=== PATIENT | male | born 1950 | race Caucasian/White ===

== ENCOUNTER 2018-08-23 08:30 | Outpatient (RCR) | payer MEDICARE, OTHER, SELFPAY ==
[2018-08-02 11:22] VITALS: BP 129/56; PULSE 68; RESP 18; TEMP 37.3; BMI 31.8
--- NOTE | 2018-08-02 12:54 | PCM.WC.HP ---
(1) Ulcer of right lower extremity with fat layer exposed Status: Acute Current Visit: Yes Code(s): L97.912 - Non-pressure chronic ulcer of unspecified part of right lower leg with fat layer exposed (2) Ulcer of left lower extremity with fat layer exposed Status: Acute Current Visit: Yes Code(s): L97.922 - Non-pressure chronic ulcer of unspecified part of left lower leg with fat layer exposed (3) PVD (peripheral vascular disease) Status: Suspected Current Visit: Yes Code(s): I73.9 - Peripheral vascular disease, unspecified (4) Pain of right lower extremity Status: Acute Current Visit: Yes Code(s): M79.604 - Pain in right leg (5) Pain of left lower extremity Status: Acute Current Visit: Yes Code(s): M79.605 - Pain in left leg (6) Controlled diabetes mellitus Status: Acute Current Visit: Yes Code(s): E11.9 - Type 2 diabetes mellitus without complications (7) Agent orange exposure Status: Acute Current Visit: Yes Code(s): Z77.098 - Contact with and (suspected) exposure to other hazardous, chiefly nonmedicinal, chemicals History of Present Illness Date of Service: 08/02/18 Chief Complaint: Bilateral lower extremity ulcers History of Wound: This 67-year-old diabetic male presents to the wound healing center today after being referred from his primary care physician for bilateral lower extremity ulcers. Patient denies any injury or trauma to the area. He says he noticed some swelling to each of his lower legs as well as some redness around July 17. He states that his primary care doctor placed him on Bactrim DS and the redness and swelling began to subside. As this was happening, he said the skin broke down and he noticed some ulcers to both his right and left lower legs. The patient also relates that he has an ulcer to the top of his left second toe. Patient denies noticing any purulence to the areas and says he has been dressing the ulcer sites on his own with Neosporin. He currently denies any feelings of nausea, vomiting, fever, chills. Past Medical History Allergies/Adverse Reactions: Allergies No Known Allergies Allergy (Verified 08/02/18 11:43) Home Medications: Ambulatory Orders Medication Instructions Recorded Aspirin [Aspirin, Baby] 81 mg PO DAILY@0800 08/02/18 Cholecalciferol (Vitamin D3) 2,000 unit PO DAILY 08/02/18 [Vitamin D3] Cyanocobalamin (Vitamin B-12) 2,000 mcg PO DAILY 08/02/18 [Vitamin B-12] Empagliflozin [Jardiance] 25 mg PO DAILY 08/02/18 Gabapentin [Neurontin] 400 mg PO DAILY 08/02/18 Insulin Glargine,Hum.rec.anlog 55 unit SQ DAILY 08/02/18 [Lantus] Losartan Potassium 100 mg BC DAILY 08/02/18 Metformin HCl 1,000 mg BC DAILY 08/02/18 Multivit-Min/Iron Fum/Folic AC 1 each PO DAILY 08/02/18 [Ovvxu-Iohmzuv-Uwscejrq Tablet] Smz/Tmp Ds [Bactrim Ds] 1 tablet PO BID 08/02/18 Triamcinolone Acetonide [Nasacort] 2 spray NS DAILY 08/02/18 Smoking Status: Never smoker Review of Systems Constitutional: Denies: Chills, Fever, Weight Change Cardiovascular: Denies: Chest Pain, Palpitations Respiratory: Denies: Cough, Shortness of Breath Gastrointestinal: Denies: Diarrhea, Nausea, Vomiting Skin: Reports: - - Bilateral lower extremity ulcers - Physical Exam Vital Signs Temp Pulse Resp BP 99.1 F 68 18 129/56 H 08/02/18 11:22 08/02/18 11:22 08/02/18 11:22 08/02/18 11:22 General: Alert, Oriented x3, Cooperative, No apparent distress Extremities: Capillary Refill Less than 3 Seconds - To distal digits bilateral, No Calf Tenderness - Negative Ana and Koch signs bilateral, Diminished Peripheral Pulses - Faintly palpable DP and PT pulses bilateral, Edema - Bilateral lower extremity edema, - - Lower extremity varicosities appreciated bilateral Skin: Ulcer/ Wound - Ulcer cluster to right anterior murrell as well and ulcer to right medial calf with fat layer exposed. The bases of these sites are noted to be a majority of adherent slough, fibrin, biofilm, and scant granular tissue. There is undermining and tracking appreciated to each of these ulcer sites. There is no purulence, no malodor, no extending cellulitis, no increased warmth, no probing to bone. Ulcer to right lateral lower leg and left posterior calf with fat layer exposed. Measurements noted. The bases are noted to be a mixture of adherent slough, fibrin, biofilm, scant granular tissue. There is no purulence, no surrounding cellulitis, no increased warmth, no malodor, no probing to bone, no tracking, no undermining. Ulcer to left second toe with fat layer exposed and measurements noted below. Base is a mixture of adherent slough, granular tissue, hyperkeratotic tissue. There is no probing to bone, no tracking, no undermining, no purulence, no surrounding cellulitis, no malodor. Wound Measurements and Assessment WC - Nurse 1 - General Ulcer Measurement Start: 08/02/18 11:19 Freq: Status: Active Protocol: Activity Type Activity Date Activity User E-Sign Co-Sign Detail Recorded Client Recorded Date Recorded By Document 08/02/18 11:22 RB [id number] 08/02/18 11:33 RB 08/02/18 11:22 Wound Center Nurse 1 [Ulcer Assessment] 5. RLE medial -Combined with other wound No -Current Size (cm) - Length 1.1 -Current Size (cm) - Width 1.1 -Current Size (cm) - Depth 0.5 -Total Square Cm 1.21 -Photo Taken Yes -Tunneling No -Undermining/Tunneling Yes -Undermining/Tunneling Starts (O' 10 clock) -Undermining/Tunneling Ends (O'clock) 11 -Maximum Distance (cm) 0.6 -Circular Undermining No -Exudate Amt Small -Exudate Type Serosanguineous -Wound Margin Thickened & Rolled Under -Granulation Amt Small (1-33%) -Granulation Quality [place] -Slough/Fibrin Yes -Necrosis Amt Large (67-100%) -Necrotic Tissue Type Adherent Slough -Structure Exposed N/A -Texture (Olya-wound Skin Appearance) Assessed -Moisture (Olya-wound Skin Appearance Assessed ) -Color (Olya-wound Skin Appearance) Hemosiderin Staining -Temperature (Olya-wound Skin No Abnormality Appearance) (Pt Warm) -Tenderness on Palpation (Olya-wound No Skin Appearance) -Ulcer Cleansing Rinsed/ Irrigated with Saline -Foul Odor after Cleansing No -Anesthetic Used 5% Lidocaine Gel 4. RLE murrell cluster -Combined with other wound No -Current Size (cm) - Length 4 -Current Size (cm) - Width 0.9 -Current Size (cm) - Depth 1.1 -Total Square Cm 3.6 -Photo Taken Yes -Tunneling No -Undermining/Tunneling No -Circular Undermining No -Exudate Amt Small -Exudate Type Serosanguineous -Wound Margin Thickened & Rolled Under -Granulation Amt None Present (0 %) -Granulation Quality [place] -Slough/Fibrin Yes -Necrosis Amt Large (67-100%) -Necrotic Tissue Type Adherent Slough -Structure Exposed N/A -Texture (Olya-wound Skin Appearance) Assessed -Moisture (Olya-wound Skin Appearance Assessed ) -Color (Olya-wound Skin Appearance) Hemosiderin Staining -Temperature (Olya-wound Skin No Abnormality Appearance) (Pt Warm) -Tenderness on Palpation (Olya-wound No Skin Appearance) -Ulcer Cleansing Rinsed/ Irrigated with Saline -Foul Odor after Cleansing No -Anesthetic Used 5% Lidocaine Gel 3. R lateral LE -Combined with other wound No -Current Size (cm) - Length 1.2 -Current Size (cm) - Width 2 -Current Size (cm) - Depth 0.2 -Total Square Cm 2.4 -Photo Taken Yes -Tunneling No -Undermining/Tunneling No -Circular Undermining No -Exudate Amt Small -Exudate Type Serosanguineous -Wound Margin Thickened & Rolled Under -Granulation Amt Small (1-33%) -Granulation Quality [place] -Necrosis Amt Large (67-100%) -Necrotic Tissue Type Adherent Slough -Structure Exposed N/A -Texture (Olya-wound Skin Appearance) Assessed -Moisture (Olya-wound Skin Appearance Assessed ) -Color (Olya-wound Skin Appearance) Hemosiderin Staining -Temperature (Olya-wound Skin No Abnormality Appearance) (Pt Warm) -Tenderness on Palpation (Olya-wound No Skin Appearance) -Ulcer Cleansing Rinsed/ Irrigated with Saline -Foul Odor after Cleansing No -Anesthetic Used 5% Lidocaine Gel 2. L 2nd toe anterior -Combined with other wound No -Current Size (cm) - Length 0.7 -Current Size (cm) - Width 0.5 -Current Size (cm) - Depth 0.2 -Total Square Cm 0.35 -Photo Taken Yes -Tunneling No -Undermining/Tunneling No -Circular Undermining No -Exudate Amt Small -Exudate Type Serosanguineous -Wound Margin Distinct, Outline Attached -Granulation Amt Medium (34-66%) -Granulation Quality Red -Slough/Fibrin Yes -Necrosis Amt Small (1-33%) -Necrotic Tissue Type Adherent Slough -Structure Exposed N/A -Texture (Olya-wound Skin Appearance) Assessed -Moisture (Olya-wound Skin Appearance Assessed ) -Color (Olya-wound Skin Appearance) Assessed -Temperature (Olya-wound Skin No Abnormality Appearance) (Pt Warm) -Tenderness on Palpation (Olya-wound No Skin Appearance) -Ulcer Cleansing Rinsed/ Irrigated with Saline -Foul Odor after Cleansing No -Anesthetic Used 5% Lidocaine Gel 1. L calf posterior -Combined with other wound No -Current Size (cm) - Length 1 -Current Size (cm) - Width 1 -Current Size (cm) - Depth 0.2 -Total Square Cm 1 -Photo Taken Yes -Tunneling No -Undermining/Tunneling No -Circular Undermining No -Exudate Amt Small -Exudate Type Serosanguineous -Wound Margin Thickened & Rolled Under -Granulation Amt Small (1-33%) -Granulation Quality [place] -Slough/Fibrin Yes -Necrosis Amt Large (67-100%) -Necrotic Tissue Type Adherent Slough -Structure Exposed N/A -Texture (Olya-wound Skin Appearance) Assessed -Moisture (Olya-wound Skin Appearance Assessed ) -Color (Olya-wound Skin Appearance) Hemosiderin Staining -Temperature (Olya-wound Skin No Abnormality Appearance) (Pt Warm) -Tenderness on Palpation (Olya-wound No Skin Appearance) -Ulcer Cleansing Rinsed/ Irrigated with Saline -Foul Odor after Cleansing No -Anesthetic Used 5% Lidocaine Gel [Edema Assessment] -Lower Limb Edema Present Yes -Right Calf (cm) 39 -Right Ankle (cm) 27.5 -Left Calf (cm) 38.4 -Left Ankle (cm) 26.5 WC - Nurse 2 - General Ulcer CM Notes Start: 08/02/18 11:19 Freq: Status: Active Protocol: Activity Type Activity Date Activity User E-Sign Co-Sign Detail Recorded Client Recorded Date Recorded By Document 08/02/18 12:00 DV [id number] 08/02/18 12:30 DV 08/02/18 12:00 Wound Center Nurse 2 [Procedure/Treatment] 5. RLE medial -Time 12:02 -Correct Patient Yes -Correct Side, Site, Position Yes -Correct Procedure Yes -Procedure Performed Yes -Type of Procedure Debridement -Clinical Debridement Subcutaneous -Post Debridement Size (cm) - Length 1.1 -Post Debridement Size (cm) - Width 1.1 -Post Debridement Size (cm) - Depth 1.0 -Total Square Cm 1.21 -Wound/Ulcer Outcome Not Healed -Ulcer Cleansing Rinsed/ Irrigated with Saline -Foul Odor after Cleansing Yes -Bioengineered Tissue No -Bleeding Controlled with Pressure -Offloading No -Treatment Response Procedure Tolerated Well 4. RLE murrell cluster -Time 12:03 -Correct Patient Yes -Correct Side, Site, Position Yes -Correct Procedure Yes -Procedure Performed Yes -Type of Procedure Debridement -Clinical Debridement Subcutaneous -Post Debridement Size (cm) - Length 4.1 -Post Debridement Size (cm) - Width 1.0 -Post Debridement Size (cm) - Depth 2.5 -Total Square Cm 4.10 -Wound/Ulcer Outcome Not Healed -Ulcer Cleansing Rinsed/ Irrigated with Saline -Foul Odor after Cleansing No -Bioengineered Tissue No -Bleeding Controlled with Pressure -Offloading No -Treatment Response Procedure Tolerated Well 3. R lateral LE -Time 12:04 -Correct Patient Yes -Correct Side, Site, Position Yes -Correct Procedure Yes -Procedure Performed Yes -Type of Procedure Debridement -Clinical Debridement Subcutaneous -Post Debridement Size (cm) - Length 1.1 -Post Debridement Size (cm) - Width 2.0 -Post Debridement Size (cm) - Depth 0.3 -Total Square Cm 2.20 -Wound/Ulcer Outcome Not Healed -Ulcer Cleansing Rinsed/ Irrigated with Saline -Foul Odor after Cleansing No -Bioengineered Tissue No -Bleeding Controlled with Pressure 2. L 2nd toe anterior -Time 12:04 -Correct Patient Yes -Correct Side, Site, Position Yes -Correct Procedure Yes -Procedure Performed Yes -Type of Procedure Debridement -Clinical Debridement Subcutaneous -Post Debridement Size (cm) - Length 1.6 -Post Debridement Size (cm) - Width 0.7 -Post Debridement Size (cm) - Depth 0.1 -Total Square Cm 1.12 -Wound/Ulcer Outcome Not Healed -Ulcer Cleansing Rinsed/ Irrigated with Saline -Foul Odor after Cleansing No -Bioengineered Tissue No -Bleeding Controlled with Pressure -Offloading No -Treatment Response Procedure Tolerated Well 1. L calf posterior -Time 12:19 -Correct Patient Yes -Correct Side, Site, Position Yes -Correct Procedure Yes -Procedure Performed Yes -Type of Procedure Debridement -Clinical Debridement Subcutaneous -Post Debridement Size (cm) - Length 1.0 -Post Debridement Size (cm) - Width 1.1 -Post Debridement Size (cm) - Depth 0.1 -Total Square Cm 1.10 -Wound/Ulcer Outcome Not Healed -Bleeding Controlled with Pressure -Offloading No -Treatment Response Procedure Tolerated Well [See Physician Procedure note for Specifics] Pain Scale: 0-10 Numeric [Pain] -Is Patient Pain Free? No [Location] RLE -Description Sharp Throbbing Burning -Intensity 6 Query Text:If >3, intervention needed -Duration (hours) Acute -Pain Behavior Withdrawal from Touch Facial Grimacing -Pain Aggravating Factors ADL's -Alleviating Factors/Interventions Medication Emotional Support -Effectiveness of Alleviating Factor/ Moderately Intervention effective Musculoskeletal: Tenderness - With manipulation of ulcer sites Neurological: Sensory exam intact to light touch and pain Psych/Mental Status: Normal Affect, Appropriate Debridement Note Post-Debridement Measurements/Treatment WC - Nurse 2 - General Ulcer CM Notes Start: 08/02/18 11:19 Freq: Status: Active Protocol: Activity Type Activity Date Activity User E-Sign Co-Sign Detail Recorded Client Recorded Date Recorded By Document 08/02/18 12:00 [id number] 08/02/18 12:30 DV 08/02/18 12:00 Wound Center Nurse 2 5. RLE medial -Time 12:02 -Correct Patient Yes -Correct Side, Site, Position Yes -Correct Procedure Yes -Procedure Performed Yes -Type of Procedure Debridement -Clinical Debridement Subcutaneous -Post Debridement Size (cm) - Length 1.1 -Post Debridement Size (cm) - Width 1.1 -Post Debridement Size (cm) - Depth 1.0 -Total Square Cm 1.21 -Wound/Ulcer Outcome Not Healed -Ulcer Cleansing Rinsed/ Irrigated with Saline -Foul Odor after Cleansing Yes -Bioengineered Tissue No -Bleeding Controlled with Pressure -Offloading No -Treatment Response Procedure Tolerated Well 4. RLE murrell cluster -Time 12:03 -Correct Patient Yes -Correct Side, Site, Position Yes -Correct Procedure Yes -Procedure Performed Yes -Type of Procedure Debridement -Clinical Debridement Subcutaneous -Post Debridement Size (cm) - Length 4.1 -Post Debridement Size (cm) - Width 1.0 -Post Debridement Size (cm) - Depth 2.5 -Total Square Cm 4.10 -Wound/Ulcer Outcome Not Healed -Ulcer Cleansing Rinsed/ Irrigated with Saline -Foul Odor after Cleansing No -Bioengineered Tissue No -Bleeding Controlled with Pressure -Offloading No -Treatment Response Procedure Tolerated Well 3. R lateral LE -Time 12:04 -Correct Patient Yes -Correct Side, Site, Position Yes -Correct Procedure Yes -Procedure Performed Yes -Type of Procedure Debridement -Clinical Debridement Subcutaneous -Post Debridement Size (cm) - Length 1.1 -Post Debridement Size (cm) - Width 2.0 -Post Debridement Size (cm) - Depth 0.3 -Total Square Cm 2.20 -Wound/Ulcer Outcome Not Healed -Ulcer Cleansing Rinsed/ Irrigated with Saline -Foul Odor after Cleansing No -Bioengineered Tissue No -Bleeding Controlled with Pressure 2. L 2nd toe anterior -Time 12:04 -Correct Patient Yes -Correct Side, Site, Position Yes -Correct Procedure Yes -Procedure Performed Yes -Type of Procedure Debridement -Clinical Debridement Subcutaneous -Post Debridement Size (cm) - Length 1.6 -Post Debridement Size (cm) - Width 0.7 -Post Debridement Size (cm) - Depth 0.1 -Total Square Cm 1.12 -Wound/Ulcer Outcome Not Healed -Ulcer Cleansing Rinsed/ Irrigated with Saline -Foul Odor after Cleansing No -Bioengineered Tissue No -Bleeding Controlled with Pressure -Offloading No -Treatment Response Procedure Tolerated Well 1. L calf posterior -Time 12:19 -Correct Patient Yes -Correct Side, Site, Position Yes -Correct Procedure Yes -Procedure Performed Yes -Type of Procedure Debridement -Clinical Debridement Subcutaneous -Post Debridement Size (cm) - Length 1.0 -Post Debridement Size (cm) - Width 1.1 -Post Debridement Size (cm) - Depth 0.1 -Total Square Cm 1.10 -Wound/Ulcer Outcome Not Healed -Bleeding Controlled with Pressure -Offloading No -Treatment Response Procedure Tolerated Well Pain Scale: 0-10 Numeric Is Patient Pain Free? No RLE -Description Sharp Throbbing Burning -Intensity 6 Query Text:If >3, intervention needed -Duration (hours) Acute -Pain Behavior Withdrawal from Touch Facial Grimacing -Pain Aggravating Factors ADL's -Alleviating Factors/Interventions Medication Emotional Support -Effectiveness of Alleviating Factor/ Moderately Intervention effective Wound debrided: Left posterior calf Laterality: Left Type of Debridement: Excisional debridement Anesthesia Used: 4% Lidocaine Solution Depth: in the subcutaneous layer Percentage of wound debrided: 100 Instrument Used: 5mm curette Tissue Removed: Adherent slough, fibrin, biofilm Severity: Fat Layer Exposed Amount of bleeding with debridement: Mild Bleeding Controlled with: Pressure Patient tolerated procedure well - Additional Wound Wound debrided: Left dorsal second toe Laterality: Left Type of Debridement: Excisional debridement Anesthesia Used: 4% Lidocaine Solution Depth: in the subcutaneous layer Percentage of wound debrided: 100 Instrument Used: #15 blade Tissue Removed: Adherent slough, hyperkeratotic tissue Severity: Fat Layer Exposed Amount of bleeding with debridement: Mild Bleeding Controlled with: Pressure Patient tolerated procedure: Patient tolerated procedure well - Additional Wound Wound debrided: Right lateral lower extremity Laterality: Right Type of Debridement: Excisional debridement Anesthesia Used: 4% Lidocaine Solution Depth: in the subcutaneous layer Percentage of wound debrided: 100 Instrument Used: 5mm curette Tissue Removed: Adherent slough, fibrin, biofilm Severity: Fat Layer Exposed Amount of bleeding with debridement: Mild Bleeding Controlled with: Pressure Patient tolerated procedure: Patient tolerated procedure well - Additional Wound Wound debrided: Right anterior murrell cluster Laterality: Right Type of Debridement: Excisional debridement Anesthesia Used: 4% Lidocaine Solution Depth: in the subcutaneous layer Percentage of wound debrided: 100 Instrument Used: 5mm curette, Forceps Tissue Removed: Adherent slough, fibrin, biofilm Severity: Fat Layer Exposed Amount of bleeding with debridement: Mild Bleeding Controlled with: Pressure Patient tolerated procedure: Patient tolerated procedure well - Additional Wound Wound debrided: Right proximal medial calf Laterality: Right Type of Debridement: Excisional debridement Anesthesia Used: 4% Lidocaine Solution Depth: in the subcutaneous layer Percentage of wound debrided: 100 Instrument Used: 5mm curette Tissue Removed: Adherent slough, fibrin, biofilm Severity: Fat Layer Exposed Amount of bleeding with debridement: Mild Bleeding Controlled with: Pressure Patient tolerated procedure: Patient tolerated procedure well Assessment/Plan Active Problems Ulcer of right lower extremity with fat layer exposed (Acute) Ulcer of left lower extremity with fat layer exposed (Acute) Agent orange exposure (Acute) Pain of right lower extremity (Acute) Pain of left lower extremity (Acute) Controlled diabetes mellitus (Acute) Assessment: Ulcer of right and left lower extremity and left dorsal 2nd toe with fat later exposed, DM II, pain to right and left LE, other comorbidities Plan: Initial patient examination and evaluation was performed in [facility] detail with the patient's in the room. An excisional subcutaneous debridement was performed as noted in the clinical panel to each ulcer site today. Once complete each ulcer site was then dressed with Aquacel Ag to the base, making sure to fill in the tunneling areas that were noted. This was then covered by dry sterile dressing followed by Tubigrip for compression. Dressing supplies were ordered for the patient. The patient is to change her dressing in this manner on a daily basis. The importance of keeping these ulcer sites offloaded was discussed in great detail with the patient and his today. The patient is currently on Bactrim DS and is to continue this prescription until complete as prescribed by his primary care doctor. New cultures were taken today and sent for aerobic, anaerobic, and MRSA PCR evaluation. Patient had blood work drawn recently by his primary care doctor and we will have these results faxed to us. LEAS and venous Doppler exams were ordered. We will continue to monitor for these results. A right tib-fib x-ray was also ordered and the results from this will continue to be monitored as well. Patient was instructed to keep legs elevated while seated or lying down. I also recommend nutritional supplementation with a diet high in protein to help optimize ulcer healing potential. The patient and his were educated on all signs and symptoms of local and systemic infection, and they were instructed to go to the emergency room immediately should they notice any of these. All other questions were answered to the patient and his 's satisfaction. The patient will follow back up in clinic in 1 week to check on progress, or sooner if needed.
[2018-08-09 08:26] VITALS: BP 142/62; PULSE 63; RESP 18; TEMP 37.2; BMI 31.8
--- NOTE | 2018-08-09 09:38 | PN.PCM_ITS ---
(1) Ulcer of right lower extremity with fat layer exposed Status: Acute Current Visit: Yes Code(s): L97.912 - Non-pressure chronic ulcer of unspecified part of right lower leg with fat layer exposed (2) Ulcer of left lower extremity with fat layer exposed Status: Acute Current Visit: Yes Code(s): L97.922 - Non-pressure chronic ulcer of unspecified part of left lower leg with fat layer exposed (3) PVD (peripheral vascular disease) Status: Suspected Current Visit: Yes Code(s): I73.9 - Peripheral vascular disease, unspecified (4) Pain of right lower extremity Status: Acute Current Visit: Yes Code(s): M79.604 - Pain in right leg (5) Pain of left lower extremity Status: Acute Current Visit: Yes Code(s): M79.605 - Pain in left leg (6) Controlled diabetes mellitus Status: Acute Current Visit: Yes Code(s): E11.9 - Type 2 diabetes mellitus without complications (7) Agent orange exposure Status: Acute Current Visit: Yes Code(s): Z77.098 - Contact with and (suspected) exposure to other hazardous, chiefly nonmedicinal, chemicals Type of Wound Chief Complaint: Bilateral lower extremity ulcers History of Wound: This 67-year-old diabetic male presents to the wound healing center today after being referred from his primary care physician for bilateral lower extremity ulcers. Patient denies any injury or trauma to the area. He says he noticed some swelling to each of his lower legs as well as some redness around July 17. He states that his primary care doctor placed him on Bactrim DS and the redness and swelling began to subside. As this was happening, he said the skin broke down and he noticed some ulcers to both his right and left lower legs. The patient also relates that he has an ulcer to the top of his left second toe. Patient denies noticing any purulence to the areas and says he has been dressing the ulcer sites on his own with Neosporin. He currently denies any feelings of nausea, vomiting, fever, chills. Progress of Wound: Slow improvement to ulcer bases bilateral noted this week. Patient has been having aquacel ag dressing changes daily with help of his . Patient says his pain has significantly improved. He denies any feelings of nausea, vomiting, fever, or chills. - Physical Exam Vital Signs Temp Pulse Resp BP 99.0 F 63 18 142/62 H 08/09/18 08:26 08/09/18 08:26 08/09/18 08:26 08/09/18 08:26 General: Alert, Oriented x3, Cooperative, No apparent distress Extremities: Capillary Refill Less than 3 Seconds - To distal digits bilateral, No Calf Tenderness - Negative Ana and Koch signs bilateral, Diminished Peripheral Pulses - Faintly palpable DP and PT pulses bilateral, Edema - Bilateral lower extremity edema, - - Lower extremity varicosities appreciated bilateral Skin: Ulcer/ Wound - Ulcer cluster to right anterior murrell as well and ulcer to right medial calf with fat layer exposed. The bases of these sites are noted to be a mixture of adherent slough, fibrin, biofilm, and increasing amount of granular tissue. There is undermining and tracking appreciated to each of these ulcer sites and is no worse than last week. There is no purulence, no malodor, no extending cellulitis, no increased warmth, no probing to bone. Ulcer to right lateral lower leg and left posterior calf with fat layer exposed. Measurements noted. The bases are noted to be a mixture of adherent slough, fibrin, biofilm, scant granular tissue. There is no purulence, no surrounding cellulitis, no increased warmth, no malodor, no probing to bone, no tracking, no undermining. Ulcer to left second toe with fat layer exposed and measurements noted below. Base is a mixture of adherent slough, granular tissue, hyperkeratotic tissue. There is no probing to bone, no tracking, no undermining, no purulence, no surrounding cellulitis, no malodor., - - Bilateral hemosiderin skin changes to lower extremities Wound Measurements and Assessment WC - Nurse 1 - General Ulcer Measurement Start: 08/02/18 11:19 Freq: Status: Active Protocol: Activity Type Activity Date Activity User E-Sign Co-Sign Detail Recorded Client Recorded Date Recorded By Document 08/09/18 08:26 [place] [id number] 08/09/18 08:46 [place] 08/09/18 08:26 Wound Center Nurse 1 [Ulcer Assessment] #5 Medial RLE -Current Size (cm) - Length 1.4 -Current Size (cm) - Width 1.2 -Current Size (cm) - Depth 0.9 -Total Square Cm 1.68 -Photo Taken No -Tunneling Position (O'clock) 10 -Tunneling Distance (cm) 2.5 -Exudate Amt Medium -Exudate Type Serosanguineous -Wound Margin Distinct, Outline Attached -Granulation Amt Large (67-100%) -Granulation Quality Red -Necrosis Amt Small (1-33%) -Necrotic Tissue Type Adherent Slough -Structure Exposed N/A -Texture (Olya-wound Skin Appearance) Localized Edema Scarring -Moisture (Olya-wound Skin Appearance Dry/Scaly ) -Color (Olya-wound Skin Appearance) Hemosiderin Staining -Temperature (Olya-wound Skin No Abnormality Appearance) (Pt Warm) -Tenderness on Palpation (Olya-wound No Skin Appearance) -Ulcer Cleansing Wound Cleanser -Foul Odor after Cleansing No -Anesthetic Used 5% Lidocaine Gel #4 RLE Murrell- Cluster -Current Size (cm) - Length 4 -Current Size (cm) - Width 1 -Current Size (cm) - Depth 1 -Total Square Cm 4 -Photo Taken No -Tunneling Position (O'clock) 12 -Tunneling Distance (cm) 5.5 -Exudate Amt Medium -Exudate Type Serosanguineous -Wound Margin Distinct, Outline Attached -Granulation Amt Large (67-100%) -Granulation Quality Red -Necrosis Amt Small (1-33%) -Necrotic Tissue Type Adherent Slough -Structure Exposed N/A -Texture (Olya-wound Skin Appearance) Localized Edema Scarring -Moisture (Olya-wound Skin Appearance Dry/Scaly ) -Color (Olya-wound Skin Appearance) Hemosiderin Staining -Temperature (Olya-wound Skin No Abnormality Appearance) (Pt Warm) -Tenderness on Palpation (Olya-wound No Skin Appearance) -Ulcer Cleansing Wound Cleanser -Foul Odor after Cleansing No -Anesthetic Used 5% Lidocaine Gel #3 Lateral RLE -Current Size (cm) - Length 1 -Current Size (cm) - Width 3 -Current Size (cm) - Depth 0.2 -Total Square Cm 3 -Photo Taken No -Exudate Amt Small -Exudate Type Yellow/Green -Wound Margin Distinct, Outline Attached -Granulation Amt None Present (0 %) -Slough/Fibrin Yes -Necrosis Amt Large (67-100%) -Necrotic Tissue Type Adherent Slough -Structure Exposed N/A -Texture (Olya-wound Skin Appearance) Localized Edema Scarring -Moisture (Olya-wound Skin Appearance Dry/Scaly ) -Color (Olya-wound Skin Appearance) Hemosiderin Staining -Temperature (Olya-wound Skin No Abnormality Appearance) (Pt Warm) -Tenderness on Palpation (Olya-wound No Skin Appearance) -Ulcer Cleansing Wound Cleanser -Foul Odor after Cleansing No -Anesthetic Used 5% Lidocaine Gel #2 Left 2nd Toe -Current Size (cm) - Length 1.5 -Current Size (cm) - Width 0.5 -Current Size (cm) - Depth 0.1 -Total Square Cm 0.75 -Photo Taken No -Exudate Amt None Present -Wound Margin Distinct, Outline Attached -Granulation Amt Large (67-100%) -Granulation Quality [place] -Necrosis Amt None Present (0 %) -Structure Exposed N/A -Texture (Olya-wound Skin Appearance) Localized Edema Scarring -Moisture (Olya-wound Skin Appearance Dry/Scaly ) -Color (Olya-wound Skin Appearance) Hemosiderin Staining -Temperature (Olya-wound Skin No Abnormality Appearance) (Pt Warm) -Tenderness on Palpation (Olya-wound Yes Skin Appearance) -Ulcer Cleansing Wound Cleanser -Foul Odor after Cleansing No -Anesthetic Used 5% Lidocaine Gel #1 Left Posterior Calf -Current Size (cm) - Length 1.2 -Current Size (cm) - Width 1 -Current Size (cm) - Depth 0.2 -Total Square Cm 1.2 -Photo Taken No -Exudate Amt Small -Exudate Type Serosanguineous -Wound Margin Distinct, Outline Attached -Granulation Amt Medium (34-66%) -Granulation Quality Red -Necrosis Amt Medium (34-66%) -Necrotic Tissue Type Adherent Slough -Structure Exposed N/A -Texture (Olya-wound Skin Appearance) Scarring -Moisture (Olya-wound Skin Appearance Dry/Scaly ) -Color (Olya-wound Skin Appearance) Hemosiderin Staining -Temperature (Olya-wound Skin No Abnormality Appearance) (Pt Warm) -Tenderness on Palpation (Olya-wound No Skin Appearance) -Ulcer Cleansing Wound Cleanser -Foul Odor after Cleansing No -Anesthetic Used 5% Lidocaine Gel [Edema Assessment] -Right Calf (cm) 38 -Right Ankle (cm) 26.2 -Left Calf (cm) 38 -Left Ankle (cm) 26 Musculoskeletal: Tenderness - With manipulation of ulcer sites Neurological: Sensory exam intact to light touch and pain Psych/Mental Status: Normal Affect, Appropriate Debridement Note Post-Debridement Measurements/Treatment WC - Nurse 2 - General Ulcer CM Notes Start: 08/02/18 11:19 Freq: Status: Active Protocol: Activity Type Activity Date Activity User E-Sign Co-Sign Detail Recorded Client Recorded Date Recorded By Document 08/02/18 12:00 DV [id number] 08/02/18 12:30 DV 08/02/18 12:00 Wound Center Nurse 2 #5 Medial RLE -Time 12:02 -Correct Patient Yes -Correct Side, Site, Position Yes -Correct Procedure Yes -Procedure Performed Yes -Type of Procedure Debridement -Clinical Debridement Subcutaneous -Post Debridement Size (cm) - Length 1.1 -Post Debridement Size (cm) - Width 1.1 -Post Debridement Size (cm) - Depth 1.0 -Total Square Cm 1.21 -Wound/Ulcer Outcome Not Healed -Ulcer Cleansing Rinsed/ Irrigated with Saline -Foul Odor after Cleansing Yes -Bioengineered Tissue No -Bleeding Controlled with Pressure -Offloading No -Treatment Response Procedure Tolerated Well #4 RLE Murrell- Cluster -Time 12:03 -Correct Patient Yes -Correct Side, Site, Position Yes -Correct Procedure Yes -Procedure Performed Yes -Type of Procedure Debridement -Clinical Debridement Subcutaneous -Post Debridement Size (cm) - Length 4.1 -Post Debridement Size (cm) - Width 1.0 -Post Debridement Size (cm) - Depth 2.5 -Total Square Cm 4.10 -Wound/Ulcer Outcome Not Healed -Ulcer Cleansing Rinsed/ Irrigated with Saline -Foul Odor after Cleansing No -Bioengineered Tissue No -Bleeding Controlled with Pressure -Offloading No -Treatment Response Procedure Tolerated Well #3 Lateral RLE -Time 12:04 -Correct Patient Yes -Correct Side, Site, Position Yes -Correct Procedure Yes -Procedure Performed Yes -Type of Procedure Debridement -Clinical Debridement Subcutaneous -Post Debridement Size (cm) - Length 1.1 -Post Debridement Size (cm) - Width 2.0 -Post Debridement Size (cm) - Depth 0.3 -Total Square Cm 2.20 -Wound/Ulcer Outcome Not Healed -Ulcer Cleansing Rinsed/ Irrigated with Saline -Foul Odor after Cleansing No -Bioengineered Tissue No -Bleeding Controlled with Pressure #2 Left 2nd Toe -Time 12:04 -Correct Patient Yes -Correct Side, Site, Position Yes -Correct Procedure Yes -Procedure Performed Yes -Type of Procedure Debridement -Clinical Debridement Subcutaneous -Post Debridement Size (cm) - Length 1.6 -Post Debridement Size (cm) - Width 0.7 -Post Debridement Size (cm) - Depth 0.1 -Total Square Cm 1.12 -Wound/Ulcer Outcome Not Healed -Ulcer Cleansing Rinsed/ Irrigated with Saline -Foul Odor after Cleansing No -Bioengineered Tissue No -Bleeding Controlled with Pressure -Offloading No -Treatment Response Procedure Tolerated Well #1 Left Posterior Calf -Time 12:19 -Correct Patient Yes -Correct Side, Site, Position Yes -Correct Procedure Yes -Procedure Performed Yes -Type of Procedure Debridement -Clinical Debridement Subcutaneous -Post Debridement Size (cm) - Length 1.0 -Post Debridement Size (cm) - Width 1.1 -Post Debridement Size (cm) - Depth 0.1 -Total Square Cm 1.10 -Wound/Ulcer Outcome Not Healed -Bleeding Controlled with Pressure -Offloading No -Treatment Response Procedure Tolerated Well Pain Scale: 0-10 Numeric Is Patient Pain Free? No RLE -Description Sharp Throbbing Burning -Intensity 6 -Duration (hours) Acute -Pain Behavior Withdrawal from Touch Facial Grimacing -Pain Aggravating Factors ADL's -Alleviating Factors/Interventions Medication Emotional Support -Effectiveness of Alleviating Factor/ Moderately Intervention effective Wound debrided: Left posterior calf Laterality: Left Type of Debridement: Excisional debridement Anesthesia Used: 4% Lidocaine Solution Depth: in the subcutaneous layer Percentage of wound debrided: 100 Instrument Used: 5mm curette Tissue Removed: Adherent slough, fibrin, biofilm Severity: Fat Layer Exposed Amount of bleeding with debridement: Mild Bleeding Controlled with: Pressure Patient tolerated procedure well - Additional Wound Wound debrided: Left dorsal second toe Laterality: Left Type of Debridement: Excisional debridement Anesthesia Used: 4% Lidocaine Solution Depth: in the subcutaneous layer Percentage of wound debrided: 100 Instrument Used: 5mm curette Tissue Removed: Adherent slough, hyperkeratotic tissue Severity: Fat Layer Exposed Amount of bleeding with debridement: Mild Bleeding Controlled with: Pressure Patient tolerated procedure: Patient tolerated procedure well - Additional Wound Wound debrided: Right lateral lower extremity Laterality: Right Type of Debridement: Excisional debridement Anesthesia Used: 4% Lidocaine Solution Depth: in the subcutaneous layer Percentage of wound debrided: 100 Instrument Used: 5mm curette Tissue Removed: Adherent slough, fibrin, biofilm Severity: Limited To Skin Breakdown Amount of bleeding with debridement: Mild Bleeding Controlled with: Pressure Patient tolerated procedure: Patient tolerated procedure well - Additional Wound Wound debrided: Right anterior murrell cluster Laterality: Right Type of Debridement: Excisional debridement Anesthesia Used: 4% Lidocaine Solution Depth: in the subcutaneous layer Percentage of wound debrided: 100 Instrument Used: 5mm curette Tissue Removed: Adherent slough, fibrin, biofilm Severity: Fat Layer Exposed Amount of bleeding with debridement: Mild Bleeding Controlled with: Pressure Patient tolerated procedure: Patient tolerated procedure well - Additional Wound Wound debrided: Right proximal medial calf Laterality: Right Type of Debridement: Excisional debridement Anesthesia Used: 4% Lidocaine Solution Depth: in the subcutaneous layer Percentage of wound debrided: 100 Instrument Used: 5mm curette Tissue Removed: Adherent slough, fibrin, biofilm Severity: Fat Layer Exposed Amount of bleeding with debridement: Mild Bleeding Controlled with: Pressure Patient tolerated procedure: Patient tolerated procedure well Assessment/Plan Active Problems Ulcer of right lower extremity with fat layer exposed (Acute) Ulcer of left lower extremity with fat layer exposed (Acute) Agent orange exposure (Acute) Pain of right lower extremity (Acute) Pain of left lower extremity (Acute) Controlled diabetes mellitus (Acute) Assessment: Ulcer of right and left lower extremity and left dorsal 2nd toe with fat later exposed, DM II, pain to right and left LE, other comorbidities Plan: Patient was carefully examined and evaluated today with his present in the room. Another excisional subcutaneous debridement was performed as noted in the clinical panel to each ulcer site again today. Once complete each ulcer site was then dressed with Aquacel Ag to the base, making sure to fill in the tunneling areas that were noted. This was then covered by dry sterile dressing followed by Tubigrip for compression. The patient is to change his dressing in this manner on a daily basis with help of his . The importance of keeping these ulcer sites offloaded was discussed in great detail with the patient and his today. The patient finished his prescription for Bactrim DS and the prescription will be extended 10 more days. Cultures taken last week showed sufficient coverage with Bactrim DS. [facility] and showed no signs of leukocytosis. LEAS and venous Doppler exams will be completed next Monday. We will continue to monitor for these results. A right tib-fib x-ray was also ordered and the results from this will continue to be monitored as well. Patient was instructed to keep legs elevated while seated or lying down. I also recommend nutritional supplementation with a diet high in protein to help optimize ulcer healing potential. The patient and his were educated on all signs and symptoms of local and systemic infection, and they were instructed to go to the emergency room immediately should they notice any of these. All other questions were answered to the patient and his 's satisfaction. The patient will follow back up in clinic in 1 week to check on progress, or sooner if needed.
--- NOTE | 2018-08-15 09:00 | VDLE_ITS ---
Reason For Study: Non-healing wound RIGHT LEFT CFV is compressible, spontaneous, phasic, CFV is compressible, spontaneous, phasic, competent and demonstrates normal competent, and demonstrates normal augmentation. augmentation. FV is compressible, spontaneous, phasic, FV is compressible, spontaneous, phasic, competent and demonstrates normal competent and demonstrates normal augmentation. augmentation. POP V is compressible, spontaneous, phasic, POP V is compressible, spontaneous, phasic, competent and demonstrates normal competent and demonstrates normal augmentation. augmentation. T/P Trunk is compressible. T/P Trunk is compressible. PTV is compressible. PTV is compressible. RT PerV is compressible. LT PerV is compressible. GSV absent from SFJ to mid thigh. SFJ is competent GSV INCOMPETENT from mid thigh for short GSV is INCOMPETENT with reflux greater segment in thigh with reflux greater than .5 than .5 sec and diameter of .43 x .47 cm sec and diameter of .49 x .52 cm. SSV is INCOMPETENT with reflux greater GSV absent from distal thigh to prox calf. than .5 sec and diameter of .60 x .63 cm. GSV INCOMPETENT in calf with reflux greater than .5 sec SSV is INCOMPETENT with reflux greater than .5sec and diameter of .40 x .42 cm INCOMPETENT card player 13 cm prox to medial malleolus with reflux greater than .5 sec. Procedure Exam performed in department. A preliminary report was called and/or faxed to [facility]. Interpretation Summary Deep veins of the lower extremities are bilaterally patent and compressible segmentally. There is no evidence of deep vein thrombosis on either side. Valvular competence appears intact within the proximal deep venous systems bilaterally. The right great saphenous vein is absent from the right sapheno-femoral junction to the mid-thigh. The right great saphenous vein is incompetent from the mid-thigh to the distal thigh. The right great saphenous vein is absent from the distal thigh to the proximal calf, but is patent and incompetent more distally. The left great saphenous vein is patent and compressible. The left sapheno-femoral junction is competent. The left great saphenous vein is incompetent. Small saphenous veins are patent and incompetent bilaterally. An incompetent card player vein is noted in the right calf, located 13 centimeters proximal to the right medial malleolus. Ordering Physician: Benson Welsh Referring Physician: Benson Welsh Performed By: Raina Marin RVT
--- NOTE | 2018-08-15 09:00 | ART_ITS ---
Reason For Study: Non-healing wound Procedure A bilateral lower extremity continuous wave Doppler with analog waveform analysis,segmental pressures,and ankle brachial indexes without exercise. Left Segmental Pressures Left brachial= 122mmHg. Left posterior tibial artery = 158mmHg. Left dorsalis pedis artery = 150mmHg. Left digit = 100 mmHg. The left dorsalis pedis waveforms are biphasic. The left posterior tibial artery waveforms are triphasic. Right Segmental Pressures Right brachial= 113mmHg. Right posterior tibial artery = 159mmHg. Right dorsalis pedis artery = 145mmHg. Right digit = 132 mmHg. The right dorsalis pedis waveforms are triphasic. The right posterior tibial artery waveforms are triphasic. Indices The right ankle brachial index by the dorsalis pedis is 1.2. The right ankle brachial index by the posterior tibial artery is 1.3. The right digital-brachial index is 1.1. The left ankle brachial index by the dorsalis pedis is 1.2. The left ankle brachial index by the posterior tibial artery is 1.3. The left digital-brachial index is .82. Interpretation Summary Triphasic Doppler waveforms are noted at ankle level on the right. Triphasic and biphasic Doppler waveforms are noted at ankle level on the left. Pulse-volume recording waveform amplitudes are satisfactory at all levels bilaterally, including low-thigh, calf, ankle, and digital levels. Resting ankle-brachial indices are normal bilaterally. Digital-brachial indices are bilaterally normal. There is no evidence of significant arterial occlusive disease in the lower extremities bilaterally. Ordering Physician: Benson Welsh Referring Physician: Benson Welsh Performed By: Raina Marin RVT
--- NOTE | 2018-08-15 10:08 | RAD_ITS ---
STUDY: X-RAY - RIGHT TIBIA AND FIBULA REASON FOR EXAM: Male, 67 years old. Ulcers, 2 weeks TECHNIQUE: Frontal and lateral view(s) of the tibia and fibula were obtained. COMPARISON: None. FINDINGS: There is evidence of induration in the subcutaneous fat of the lower leg suggesting edema/cellulitis. Slightly more prominent induration in the anterior subcutaneous soft tissues at the level of the mid tibia. There is no soft tissue gas or radiodense foreign body. Osseous structures are unremarkable. There are mild to moderate peripheral arterial calcifications. RAD/Tibia & Fibula 2 Views IMPRESSION: Edema or cellulitis of the superficial soft tissues of the lower leg. No defined wound. No soft tissue gas or radiodense foreign body. No evidence of osteomyelitis. Electronically Signed: Elian Ordoñez MD at 17:44 EDT Tel , Service support ,
[2018-08-16 08:22] VITALS: BP 118/74; PULSE 79; RESP 18; TEMP 37.3; BMI 31.8
--- NOTE | 2018-08-16 09:56 | PN.PCM_ITS ---
(1) Ulcer of right lower extremity with fat layer exposed Status: Acute Current Visit: Yes Code(s): L97.912 - Non-pressure chronic ulcer of unspecified part of right lower leg with fat layer exposed (2) Ulcer of left lower extremity with fat layer exposed Status: Acute Current Visit: Yes Code(s): L97.922 - Non-pressure chronic ulcer of unspecified part of left lower leg with fat layer exposed (3) PVD (peripheral vascular disease) Status: Suspected Current Visit: Yes Code(s): I73.9 - Peripheral vascular disease, unspecified (4) Pain of right lower extremity Status: Acute Current Visit: Yes Code(s): M79.604 - Pain in right leg (5) Pain of left lower extremity Status: Acute Current Visit: Yes Code(s): M79.605 - Pain in left leg (6) Controlled diabetes mellitus Status: Acute Current Visit: Yes Code(s): E11.9 - Type 2 diabetes mellitus without complications (7) Agent orange exposure Status: Acute Current Visit: Yes Code(s): Z77.098 - Contact with and (suspected) exposure to other hazardous, chiefly nonmedicinal, chemicals Type of Wound Chief Complaint: Bilateral lower extremity ulcers History of Wound: This 67-year-old diabetic male presents to the wound healing center today after being referred from his primary care physician for bilateral lower extremity ulcers. Patient denies any injury or trauma to the area. He says he noticed some swelling to each of his lower legs as well as some redness around July 17. He states that his primary care doctor placed him on Bactrim DS and the redness and swelling began to subside. As this was happening, he said the skin broke down and he noticed some ulcers to both his right and left lower legs. The patient also relates that he has an ulcer to the top of his left second toe. Patient denies noticing any purulence to the areas and says he has been dressing the ulcer sites on his own with Neosporin. He currently denies any feelings of nausea, vomiting, fever, chills. Progress of Wound: Ulcers remain relatively stable this week. Patient has been having aquacel ag dressing changes daily with help of his . He denies any feelings of nausea, vomiting, fever, or chills. - Physical Exam Vital Signs Temp Pulse Resp BP 99.1 F 79 18 118/74 08/16/18 08:22 08/16/18 08:22 08/16/18 08:22 08/16/18 08:22 General: Alert, Oriented x3, Cooperative, No apparent distress Extremities: Capillary Refill Less than 3 Seconds, No Calf Tenderness - Negative Ana and Koch signs bilateral, Diminished Peripheral Pulses - Faintly palpable DP and PT pulses bilateral, Edema - Bilateral lower extremity edema, - - Lower extremity varicosities noted bilateral Skin: Ulcer/ Wound - Ulcer cluster to right anterior murrell as well and ulcer to right medial calf with fat layer exposed. The bases of these sites are noted to be a mixture of adherent slough, fibrin, biofilm, and increasing amount of granular tissue. There is undermining and tracking appreciated to each of these ulcer sites and is slightly improved from last week. There is no purulence, no malodor, no extending cellulitis, no increased warmth, no probing to bone. Ul cer to right lateral lower leg and left posterior calf with fat layer exposed. Measurements noted. The bases are noted to be a mixture of adherent slough, fibrin, biofilm, scant granular tissue. There is no purulence, no surrounding cellulitis, no increased warmth, no malodor, no probing to bone, no tracking, no undermining. Ulcer to left second toe with fat layer exposed and measurements noted below. Base is a mixture of adherent slough, granular tissue, hyperkeratotic tissue. There is no probing to bone, no tracking, no undermining, no purulence, no surrounding cellulitis, no malodor. Moderate drainge to each site., - - Bilateral hemosiderin skin changes to lower extremities Wound Measurements and Assessment WC - Nurse 1 - General Ulcer Measurement Start: 08/02/18 11:19 Freq: Status: Active Protocol: Activity Type Activity Date Activity User E-Sign Co-Sign Detail Recorded Client Recorded Date Recorded By Document 08/16/18 08:22 AN [id number] 08/16/18 08:48 AN 08/16/18 08:22 Wound Center Nurse 1 [Ulcer Assessment] #5 Medial RLE -Current Size (cm) - Length 1.2 -Current Size (cm) - Width 1.2 -Current Size (cm) - Depth 0.6 -Total Square Cm 1.44 -Classification - Thickness Full Thickness without Exposed Support Structure -Exudate Amt Medium -Exudate Type Serosanguineous -Wound Margin Distinct, Outline Attached -Granulation Amt Large (67-100%) -Granulation Quality Red -Slough/Fibrin Yes -Necrosis Amt Small (1-33%) -Necrotic Tissue Type Adherent Slough -Structure Exposed Fat Layer Exposed -Texture (Olya-wound Skin Appearance) Assessed Localized Edema -Moisture (Olya-wound Skin Appearance Assessed ) Dry/Scaly -Color (Olya-wound Skin Appearance) Assessed -Temperature (Olya-wound Skin Cool/Cold Appearance) -Tenderness on Palpation (Olya-wound No Skin Appearance) -Ulcer Cleansing Rinsed/ Irrigated with Saline -Foul Odor after Cleansing No -Anesthetic Used 4% Lidocaine Solution #4 RLE Murrell- Cluster -Current Size (cm) - Length 3.8 -Current Size (cm) - Width 0.7 -Current Size (cm) - Depth 0.6 -Total Square Cm 2.66 -Tunneling Yes -Tunneling Position (O'clock) 12 -Tunneling Distance (cm) 1.8 -Classification - Thickness Full Thickness without Exposed Support Structure -Exudate Amt Medium -Exudate Type Serosanguineous -Wound Margin Distinct, Outline Attached -Granulation Amt Large (67-100%) -Granulation Quality Red -Slough/Fibrin Yes -Necrosis Amt Small (1-33%) -Necrotic Tissue Type Adherent Slough -Structure Exposed Fat Layer Exposed -Texture (Olya-wound Skin Appearance) Assessed Localized Edema -Moisture (Olya-wound Skin Appearance Assessed ) Dry/Scaly -Color (Olya-wound Skin Appearance) Assessed -Temperature (Olya-wound Skin Cool/Cold Appearance) -Tenderness on Palpation (Olya-wound Yes Skin Appearance) -Ulcer Cleansing Rinsed/ Irrigated with Saline -Foul Odor after Cleansing No -Anesthetic Used 4% Lidocaine Solution #3 Lateral RLE -Current Size (cm) - Length 0.8 -Current Size (cm) - Width 2.5 -Current Size (cm) - Depth 0.2 -Total Square Cm 2.00 -Classification - Thickness Full Thickness without Exposed Support Structure -Exudate Amt Medium -Exudate Type Serosanguineous -Wound Margin Distinct, Outline Attached -Granulation Amt Small (1-33%) -Granulation Quality Red -Slough/Fibrin Yes -Necrosis Amt Large (67-100%) -Necrotic Tissue Type Adherent Slough -Structure Exposed Fat Layer Exposed -Texture (Olya-wound Skin Appearance) Localized Edema -Moisture (Olya-wound Skin Appearance Dry/Scaly ) -Color (Olay-wound Skin Appearance) Assessed -Temperature (Olya-wound Skin Cool/Cold Appearance) -Tenderness on Palpation (Olya-wound Yes Skin Appearance) -Ulcer Cleansing Rinsed/ Irrigated with Saline -Foul Odor after Cleansing No -Anesthetic Used 4% Lidocaine Solution #2 Left 2nd Toe -Current Size (cm) - Length 1.2 -Current Size (cm) - Width 0.7 -Current Size (cm) - Depth 0.1 -Total Square Cm 0.84 -Classification - Thickness Full Thickness without Exposed Support Structure -Exudate Amt Medium -Exudate Type Serosanguineous -Wound Margin Distinct, Outline Attached -Necrosis Amt Small (1-33%) -Necrotic Tissue Type Adherent Slough -Structure Exposed None/Limited to Skin Breakdown -Texture (Olya-wound Skin Appearance) Assessed -Moisture (Olya-wound Skin Appearance Assessed ) -Color (Olya-wound Skin Appearance) Assessed -Temperature (Olya-wound Skin Cool/Cold Appearance) -Tenderness on Palpation (Olya-wound Yes Skin Appearance) -Ulcer Cleansing Rinsed/ Irrigated with Saline -Foul Odor after Cleansing No -Anesthetic Used 4% Lidocaine Solution #1 Left Posterior Calf -Current Size (cm) - Length 1.1 -Current Size (cm) - Width 0.8 -Current Size (cm) - Depth 0.2 -Total Square Cm 0.88 -Epithelialization None Present -Classification - Thickness Full Thickness without Exposed Support Structure -Exudate Amt Medium -Exudate Type Serosanguineous -Wound Margin Distinct, Outline Attached -Granulation Amt Small (1-33%) -Granulation Quality Red -Slough/Fibrin Yes -Necrosis Amt Large (67-100%) -Necrotic Tissue Type Adherent Slough -Structure Exposed Fat Layer Exposed -Texture (Olya-wound Skin Appearance) Assessed Localized Edema -Moisture (Olya-wound Skin Appearance Assessed ) -Color (Olya-wound Skin Appearance) Assessed Hemosiderin Staining -Temperature (Olya-wound Skin Cool/Cold Appearance) -Tenderness on Palpation (Olya-wound Yes Skin Appearance) -Ulcer Cleansing Rinsed/ Irrigated with Saline -Foul Odor after Cleansing No -Anesthetic Used 4% Lidocaine Solution [Edema Assessment] -Right Calf (cm) 38.7 -Right Ankle (cm) 28 -Left Calf (cm) 38.5 -Left Ankle (cm) 26.8 WC - Nurse 2 - General Ulcer CM Notes Start: 08/02/18 11:19 Freq: Status: Active Protocol: Activity Type Activity Date Activity User E-Sign Co-Sign Detail Recorded Client Recorded Date Recorded By Document 08/16/18 09:07 DV [id number] 08/16/18 09:25 DV 08/16/18 09:07 Wound Center Nurse 2 [Procedure/Treatment] #5 Medial RLE -Time 09:09 -Correct Patient Yes -Correct Side, Site, Position Yes -Correct Procedure Yes -Procedure Performed Yes -Type of Procedure Debridement -Clinical Debridement Subcutaneous -Post Debridement Size (cm) - Length 1.2 -Post Debridement Size (cm) - Width 1.1 -Post Debridement Size (cm) - Depth 1.0 -Total Square Cm 1.32 -Wound/Ulcer Outcome Not Healed -Ulcer Cleansing Rinsed/ Irrigated with Saline -Foul Odor after Cleansing No -Bioengineered Tissue No -Bleeding Controlled with Pressure -Offloading No -Treatment Response Procedure Tolerated Well #4 RLE Murrell- Cluster -Time 09:09 -Correct Patient Yes -Correct Side, Site, Position Yes -Correct Procedure Yes -Procedure Performed Yes -Type of Procedure Debridement -Clinical Debridement Subcutaneous -Post Debridement Size (cm) - Length 4.0 -Post Debridement Size (cm) - Width 1.2 -Post Debridement Size (cm) - Depth 0.7 -Total Square Cm 4.80 -Wound/Ulcer Outcome Not Healed -Ulcer Cleansing Rinsed/ Irrigated with Saline -Foul Odor after Cleansing No -Bioengineered Tissue No -Bleeding Controlled with Pressure -Offloading No -Treatment Response Procedure Tolerated Well #3 Lateral RLE -Time 09:16 -Correct Patient Yes -Correct Side, Site, Position Yes -Correct Procedure Yes -Procedure Performed Yes -Type of Procedure Debridement -Clinical Debridement Subcutaneous -Post Debridement Size (cm) - Length 1.0 -Post Debridement Size (cm) - Width 2.2 -Post Debridement Size (cm) - Depth 0.5 -Total Square Cm 2.20 -Wound/Ulcer Outcome Not Healed -Ulcer Cleansing Rinsed/ Irrigated with Saline -Foul Odor after Cleansing No -Bioengineered Tissue No -Bleeding Controlled with Pressure -Offloading No -Treatment Response Procedure Tolerated Well #2 Left 2nd Toe -Time 09:16 -Post Debridement Size (cm) - Length 0.7 -Post Debridement Size (cm) - Width 0.4 -Post Debridement Size (cm) - Depth 0.1 -Total Square Cm 0.28 -Wound/Ulcer Outcome Not Healed -Ulcer Cleansing Rinsed/ Irrigated with Saline -Foul Odor after Cleansing No -Bioengineered Tissue No -Bleeding Controlled with Pressure -Offloading No -Treatment Response Procedure Tolerated Well #1 Left Posterior Calf -Time 09:16 -Correct Patient Yes -Correct Side, Site, Position Yes -Correct Procedure Yes -Procedure Performed Yes -Type of Procedure Debridement -Clinical Debridement Subcutaneous -Post Debridement Size (cm) - Length 1.0 -Post Debridement Size (cm) - Width 0.9 -Post Debridement Size (cm) - Depth 0.4 -Total Square Cm 0.90 -Wound/Ulcer Outcome Not Healed -Ulcer Cleansing Rinsed/ Irrigated with Saline -Foul Odor after Cleansing No -Bioengineered Tissue No -Bleeding Controlled with Pressure -Offloading No -Treatment Response Procedure Tolerated Well [See Physician Procedure note for Specifics] Pain Scale: 0-10 Numeric [Pain] -Is Patient Pain Free? Yes Musculoskeletal: Tenderness - With manipulation of ulcer sites Neurological: Sensory exam intact to light touch and pain Psych/Mental Status: Normal Affect, Appropriate Debridement Note Post-Debridement Measurements/Treatment WC - Nurse 2 - General Ulcer CM Notes Start: 08/02/18 11:19 Freq: Status: Active Protocol: Activity Type Activity Date Activity User E-Sign Co-Sign Detail Recorded Client Recorded Date Recorded By Document 08/02/18 12:00 DV [id number] 08/02/18 12:30 DV Document 08/09/18 09:15 DV [id number] 08/09/18 09:35 DV Document 08/16/18 09:07 DV [id number] 08/16/18 09:25 DV 08/02/18 08/09/18 08/16/18 12:00 09:15 09:07 Wound Center Nurse 2 #5 Medial RLE -Time 12:02 09:17 09:09 -Correct Patient Yes Yes Yes -Correct Side, Site, Position Yes Yes Yes -Correct Procedure Yes Yes Yes -Procedure Performed Yes Yes Yes -Type of Procedure Debridement Debridement Debridement -Clinical Debridement Subcutaneous Subcutaneous Subcutaneous -Post Debridement Size (cm) - Length 1.1 2.0 1.2 -Post Debridement Size (cm) - Width 1.1 1.4 1.1 -Post Debridement Size (cm) - Depth 1.0 1.0 1.0 -Total Square Cm 1.21 2.80 1.32 -Wound/Ulcer Outcome Not Healed Not Healed Not Healed -Ulcer Cleansing Rinsed/ Rinsed/ Rinsed/ Irrigated with Irrigated with Irrigated with Saline Saline Saline -Foul Odor after Cleansing Yes No No -Bioengineered Tissue No No No -Bleeding Controlled with Pressure Pressure Pressure -Offloading No No No -Treatment Response Procedure Procedure Procedure Tolerated Well Tolerated Well Tolerated Well #4 RLE Murrell- Cluster -Time 12:03 09:17 09:09 -Correct Patient Yes Yes Yes -Correct Side, Site, Position Yes Yes Yes -Correct Procedure Yes Yes Yes -Procedure Performed Yes Yes Yes -Type of Procedure Debridement Debridement Debridement -Clinical Debridement Subcutaneous Subcutaneous Subcutaneous -Post Debridement Size (cm) - Length 4.1 4.3 4.0 -Post Debridement Size (cm) - Width 1.0 1.0 1.2 -Post Debridement Size (cm) - Depth 2.5 1.4 0.7 -Total Square Cm 4.10 4.30 4.80 -Wound/Ulcer Outcome Not Healed Not Healed Not Healed -Ulcer Cleansing Rinsed/ Rinsed/ Rinsed/ Irrigated with Irrigated with Irrigated with Saline Saline Saline -Foul Odor after Cleansing No No No -Bioengineered Tissue No No No -Bleeding Controlled with Pressure Pressure Pressure -Offloading No No No -Treatment Response Procedure Procedure Procedure Tolerated Well Tolerated Well Tolerated Well #3 Lateral RLE -Time 12:04 09:18 09:16 -Correct Patient Yes Yes Yes -Correct Side, Site, Position Yes Yes Yes -Correct Procedure Yes Yes Yes -Procedure Performed Yes Yes Yes -Type of Procedure Debridement Debridement Debridement -Clinical Debridement Subcutaneous Subcutaneous Subcutaneous -Post Debridement Size (cm) - Length 1.1 2.0 1.0 -Post Debridement Size (cm) - Width 2.0 0.9 2.2 -Post Debridement Size (cm) - Depth 0.3 0.6 0.5 -Total Square Cm 2.20 1.80 2.20 -Wound/Ulcer Outcome Not Healed Not Healed Not Healed -Ulcer Cleansing Rinsed/ Rinsed/ Rinsed/ Irrigated with Irrigated with Irrigated with Saline Saline Saline -Foul Odor after Cleansing No No No -Bioengineered Tissue No No No -Bleeding Controlled with Pressure Pressure Pressure -Offloading No No -Treatment Response Procedure Procedure Tolerated Well Tolerated Well #2 Left 2nd Toe -Time 12:04 09:18 09:16 -Correct Patient Yes Yes -Correct Side, Site, Position Yes Yes -Correct Procedure Yes Yes -Procedure Performed Yes Yes -Type of Procedure Debridement Debridement -Clinical Debridement Subcutaneous Subcutaneous -Post Debridement Size (cm) - Length 1.6 1.1 0.7 -Post Debridement Size (cm) - Width 0.7 1.5 0.4 -Post Debridement Size (cm) - Depth 0.1 0.2 0.1 -Total Square Cm 1.12 1.65 0.28 -Wound/Ulcer Outcome Not Healed Not Healed Not Healed -Ulcer Cleansing Rinsed/ Rinsed/ Rinsed/ Irrigated with Irrigated with Irrigated with Saline Saline Saline -Foul Odor after Cleansing No No No -Bioengineered Tissue No No No -Bleeding Controlled with Pressure Pressure Pressure -Offloading No No No -Treatment Response Procedure Procedure Procedure Tolerated Well Tolerated Well Tolerated Well #1 Left Posterior Calf -Time 12:19 09:19 09:16 -Correct Patient Yes Yes Yes -Correct Side, Site, Position Yes Yes Yes -Correct Procedure Yes Yes Yes -Procedure Performed Yes Yes Yes -Type of Procedure Debridement Debridement Debridement -Clinical Debridement Subcutaneous Subcutaneous Subcutaneous -Post Debridement Size (cm) - Length 1.0 1.0 1.0 -Post Debridement Size (cm) - Width 1.1 1.2 0.9 -Post Debridement Size (cm) - Depth 0.1 0.3 0.4 -Total Square Cm 1.10 1.20 0.90 -Wound/Ulcer Outcome Not Healed Not Healed Not Healed -Ulcer Cleansing Rinsed/ Rinsed/ Irrigated with Irrigated with Saline Saline -Foul Odor after Cleansing No No -Bioengineered Tissue No No -Bleeding Controlled with Pressure Pressure Pressure -Offloading No No No -Treatment Response Procedure Procedure Procedure Tolerated Well Tolerated Well Tolerated Well Pain Scale: 0-10 Numeric Is Patient Pain Free? No Yes Yes RLE -Description Sharp Throbbing Burning -Intensity 6 -Duration (hours) Acute -Pain Behavior Withdrawal from Touch Facial Grimacing -Pain Aggravating Factors ADL's -Alleviating Factors/Interventions Medication Emotional Support -Effectiveness of Alleviating Factor/ Moderately Intervention effective Wound debrided: Left posterior calf Laterality: Left Type of Debridement: Excisional debridement Anesthesia Used: 4% Lidocaine Solution Depth: in the subcutaneous layer Percentage of wound debrided: 100 Instrument Used: 5mm curette Tissue Removed: Adherent slough, fibrin, biofilm Severity: Fat Layer Exposed Amount of bleeding with debridement: Mild Bleeding Controlled with: Pressure Patient tolerated procedure well - Additional Wound Wound debrided: Left dorsal second toe Laterality: Left Type of Debridement: Excisional debridement Anesthesia Used: 4% Lidocaine Solution Depth: in the subcutaneous layer Percentage of wound debrided: 100 Instrument Used: 5mm curette Tissue Removed: Adherent slough, hyperkeratotic tissue Severity: Fat Layer Exposed Amount of bleeding with debridement: Mild Bleeding Controlled with: Pressure Patient tolerated procedure: Patient tolerated procedure well - Additional Wound Wound debrided: Right lateral lower extremity Laterality: Right Type of Debridement: Excisional debridement Anesthesia Used: 4% Lidocaine Solution Depth: in the subcutaneous layer Percentage of wound debrided: 100 Instrument Used: 5mm curette Tissue Removed: Adherent slough, fibrin, biofilm Severity: Fat Layer Exposed Amount of bleeding with debridement: Mild Bleeding Controlled with: Pressure Patient tolerated procedure: Patient tolerated procedure well - Additional Wound Wound debrided: Right anterior murrell cluster Laterality: Right Type of Debridement: Excisional debridement Anesthesia Used: 4% Lidocaine Solution Depth: in the subcutaneous layer Percentage of wound debrided: 100 Instrument Used: 5mm curette Tissue Removed: Adherent slough, fibrin, biofilm Severity: Fat Layer Exposed Amount of bleeding with debridement: Mild Bleeding Controlled with: Pressure Patient tolerated procedure: Patient tolerated procedure well - Additional Wound Wound debrided: Right proximal medial calf Laterality: Right Type of Debridement: Excisional debridement Anesthesia Used: 4% Lidocaine Solution Depth: in the subcutaneous layer Percentage of wound debrided: 100 Instrument Used: 5mm curette Tissue Removed: Adherent slough, fibrin, biofilm Severity: Fat Layer Exposed Amount of bleeding with debridement: Mild Bleeding Controlled with: Pressure Patient tolerated procedure: Patient tolerated procedure well Assessment/Plan Clinical Impression(s) from Imaging Studies Tibia/Fibula X-Ray 08/15/18 10:08 IMPRESSION: Edema or cellulitis of the superficial soft tissues of the lower leg. No defined wound. No soft tissue gas or radiodense foreign body. No evidence of osteomyelitis. Electronically Signed: Elian Ordoñez MD at 17:44 EDT Tel , Service support , Active Problems Ulcer of right lower extremity with fat layer exposed (Acute) Ulcer of left lower extremity with fat layer exposed (Acute) Agent orange exposure (Acute) Pain of right lower extremity (Acute) Pain of left lower extremity (Acute) Controlled diabetes mellitus (Acute) Assessment: Ulcer of right and left lower extremity and left dorsal 2nd toe with fat later exposed, DM II, pain to right and left LE, other comorbidities Plan: Patient was carefully examined and evaluated today. Another excisional subcutaneous debridement was performed as noted in the clinical panel to each ulcer site again today. Once complete, all ulcer sites except the two proximal right leg ulcers were dressed with Aquacel Ag to the base. This was then covered by dry sterile dressing followed by Tubigrip for compression. The patient is to change his dressing in this manner on a daily basis with help of his . Next, a snap wound vac was applied to the remaining two ulcer sites of the right proximal lower leg. Patient is to keep this intact until Monday when he has an appointment to check the vac and for vac re application. The importance of keeping these ulcer sites offloaded was discussed in great detail with the patient again today. Patient to continue with antibiotics until complete. Patient's latest blood work from the [facility] was carefully reviewed and showed no signs of leukocytosis. LEAS and venous Doppler exams showed suffi cient areterial flow to lower extremities, however the venous doppler exams revealed some venous incompetence. Full report can be found in patient's chart. A right tib-fib x-ray was also ordered and the results show no signs of osteomyelitis. Patient was instructed to keep legs elevated while seated or lying down. I also recommend nutritional supplementation with a diet high in protein to help optimize ulcer healing potential. The patient was again educated on all signs and symptoms of local and systemic infection, and he is instructed to go to the emergency room immediately should they notice any of these. All other questions were answered to the patient and his 's satisfaction. The patient will follow back up in clinic in 1 week to check on progress, or sooner if needed.
[2018-08-20 09:23] VITALS: BP 130/80; PULSE 72; RESP 20; TEMP 36.6; BMI 31.8
[2018-08-23 08:34] VITALS: BP 140/70; PULSE 63; RESP 18; TEMP 36.6; BMI 31.8
--- NOTE | 2018-08-23 09:40 | PCM.WC.PN ---
(1) Ulcer of right lower extremity with fat layer exposed Status: Acute Current Visit: Yes Code(s): L97.912 - Non-pressure chronic ulcer of unspecified part of right lower leg with fat layer exposed (2) Ulcer of left lower extremity with fat layer exposed Status: Acute Current Visit: Yes Code(s): L97.922 - Non-pressure chronic ulcer of unspecified part of left lower leg with fat layer exposed (3) PVD (peripheral vascular disease) Status: Suspected Current Visit: Yes Code(s): I73.9 - Peripheral vascular disease, unspecified (4) Pain of right lower extremity Status: Acute Current Visit: Yes Code(s): M79.604 - Pain in right leg (5) Pain of left lower extremity Status: Acute Current Visit: Yes Code(s): M79.605 - Pain in left leg (6) Controlled diabetes mellitus Status: Acute Current Visit: Yes Code(s): E11.9 - Type 2 diabetes mellitus without complications (7) Agent orange exposure Status: Acute Current Visit: Yes Code(s): Z77.098 - Contact with and (suspected) exposure to other hazardous, chiefly nonmedicinal, chemicals Type of Wound Chief Complaint: Bilateral lower extremity ulcers History of Wound: This 67-year-old diabetic male presents to the wound healing center today after being referred from his primary care physician for bilateral lower extremity ulcers. Patient denies any injury or trauma to the area. He says he noticed some swelling to each of his lower legs as well as some redness around July 17. He states that his primary care doctor placed him on Bactrim DS and the redness and swelling began to subside. As this was happening, he said the skin broke down and he noticed some ulcers to both his right and left lower legs. The patient also relates that he has an ulcer to the top of his left second toe. Patient denies noticing any purulence to the areas and says he has been dressing the ulcer sites on his own with Neosporin. He currently denies any feelings of nausea, vomiting, fever, chills. Progress of Wound: Ulcers shows improvement this week. Patient has been having aquacel ag dressing changes daily with help of his to all sites except the two left proximal leg ulcers where snap vac has been applied. He denies any feelings of nausea, vomiting, fever, or chills. - Physical Exam Vital Signs Temp Pulse Resp BP 97.8 F 63 18 140/70 H 08/23/18 08:34 08/23/18 08:34 08/23/18 08:34 08/23/18 08:34 General: Alert, Oriented x3, Cooperative, No apparent distress Extremities: Capillary Refill Less than 3 Seconds, No Calf Tenderness - Negative Ana and Koch signs bilateral, Diminished Peripheral Pulses - faintly palpable DP and PT pulses bilateral, Edema - Bilateral lower extremity edema, - - Lower extremity varicosities noted bilateral Skin: Ulcer/ Wound - Ulcer cluster to right anterior murrell as well and ulcer to right medial calf with fat layer exposed. The bases of these sites are noted to be a mixture of adherent slough, fibrin, biofilm, and increasing amount of granular tissue again this week. The undermining and tracking appreciated to each of these ulcer sites has improved over the last week. There is no purulence, no malodor, no extending cellulitis, no increased warmth, no probing to bone. Ulcer to right lateral lower leg and left posterior calf with fat layer exposed. Measurements noted. The bases are noted to be a mixture of adherent slough, fibrin, biofilm, scant granular tissue. There is no purulence, no surrounding cellulitis, no increased warmth, no malodor, no probing to bone, no tracking, no undermining. Ulcer to left second toe with fat layer exposed and measurements noted below. Base is a mixture of adherent slough, granular tissue, hyperkeratotic tissue. There is no probing to bone, no tracking, no undermining, no purulence, no surrounding cellulitis, no malodor., - - Bilateral hemosiderin skin changes to lower extremities Wound Measurements and Assessment WC - Nurse 1 - General Ulcer Measurement Start: 08/02/18 11:19 Freq: Status: Active Protocol: Activity Type Activity Date Activity User E-Sign Co-Sign Detail Recorded Client Recorded Date Recorded By Document 08/20/18 09:23 DL [id number] 08/20/18 09:26 DL Document 08/23/18 08:34 DL [id number] 08/23/18 08:52 DL 08/20/18 08/23/18 09:23 08:34 Wound Center Nurse 1 [Ulcer Assessment] #5 Medial RLE -Current Size (cm) - Length 0.9 -Current Size (cm) - Width 0.9 -Current Size (cm) - Depth 1 -Total Square Cm 0.81 -Undermining/Tunneling Starts (O' 7 clock) -Undermining/Tunneling Ends (O'clock) 10 -Maximum Distance (cm) 0.8 -Exudate Amt Medium Medium -Exudate Type Serosanguineous Serosanguineous -Wound Margin Distinct, Distinct, Outline Outline Attached Attached -Granulation Amt Large (67-100%) Large (67-100%) -Granulation Quality Red Red -Necrosis Amt Small (1-33%) -Necrotic Tissue Type Adherent Slough -Structure Exposed N/A N/A -Texture (Olya-wound Skin Appearance) Scarring Localized Edema Scarring -Moisture (Olya-wound Skin Appearance No Abnormality No Abnormality ) -Color (Olya-wound Skin Appearance) Hemosiderin Hemosiderin Staining Staining -Temperature (Olya-wound Skin No Abnormality Appearance) (Pt Warm) -Tenderness on Palpation (Olya-wound No Skin Appearance) -Ulcer Cleansing Wound Cleanser Wound Cleanser -Foul Odor after Cleansing No -Anesthetic Used 4% Lidocaine Solution #4 RLE Murrell- Cluster -Current Size (cm) - Length 3.8 -Current Size (cm) - Width 0.6 -Current Size (cm) - Depth 0.7 -Total Square Cm 2.28 -Photo Taken No -Tunneling Position (O'clock) 12 -Tunneling Distance (cm) 1.8 -Tunneling Position #2 (O'clock) 6 -Tunneling Distance #2 (cm) 1.4 -Exudate Amt Medium Medium -Exudate Type Serosanguineous Serosanguineous -Wound Margin Distinct, Distinct, Outline Outline Attached Attached -Granulation Amt Large (67-100%) Large (67-100%) -Granulation Quality Red Red -Necrosis Amt None Present (0 Small (1-33%) %) -Necrotic Tissue Type Adherent Slough -Structure Exposed N/A -Texture (Olya-wound Skin Appearance) Localized Edema Localized Edema Scarring Scarring -Moisture (Olya-wound Skin Appearance No Abnormality No Abnormality ) -Color (Olya-wound Skin Appearance) Hemosiderin Hemosiderin Staining Staining -Temperature (Olya-wound Skin No Abnormality Appearance) (Pt Warm) -Tenderness on Palpation (Olya-wound No Skin Appearance) -Ulcer Cleansing Wound Cleanser Wound Cleanser -Foul Odor after Cleansing No No -Anesthetic Used 4% Lidocaine Solution #3 Lateral RLE -Current Size (cm) - Length 0.9 -Current Size (cm) - Width 2.4 -Current Size (cm) - Depth 0.7 -Total Square Cm 2.16 -Photo Taken No -Exudate Amt Medium Medium -Exudate Type Serosanguineous Serosanguineous -Wound Margin Distinct, Distinct, Outline Outline Attached Attached -Granulation Amt Large (67-100%) Large (67-100%) -Granulation Quality Red [place] Red -Necrosis Amt None Present (0 Small (1-33%) %) -Necrotic Tissue Type Adherent Slough -Structure Exposed N/A N/A -Texture (Olya-wound Skin Appearance) Localized Edema Scarring Scarring -Moisture (Olya-wound Skin Appearance No Abnormality No Abnormality ) -Color (Olya-wound Skin Appearance) Hemosiderin Hemosiderin Staining Staining -Temperature (Olya-wound Skin No Abnormality No Abnormality Appearance) (Pt Warm) (Pt Warm) -Tenderness on Palpation (Olya-wound No No Skin Appearance) -Ulcer Cleansing Wound Cleanser Wound Cleanser -Foul Odor after Cleansing No No -Anesthetic Used 4% Lidocaine Solution #2 Left 2nd Toe -Current Size (cm) - Length 0.7 -Current Size (cm) - Width 0.4 -Current Size (cm) - Depth 0.1 -Total Square Cm 0.28 -Photo Taken No -Exudate Amt None Present -Wound Margin Thickened -Granulation Amt Large (67-100%) -Granulation Quality Red -Necrosis Amt Small (1-33%) -Necrotic Tissue Type Adherent Slough -Structure Exposed N/A -Texture (Olya-wound Skin Appearance) Scarring -Moisture (Olya-wound Skin Appearance Dry/Scaly ) -Color (Olya-wound Skin Appearance) Hemosiderin Staining -Temperature (Olya-wound Skin No Abnormality Appearance) (Pt Warm) -Tenderness on Palpation (Olya-wound No Skin Appearance) -Ulcer Cleansing Wound Cleanser -Foul Odor after Cleansing No -Anesthetic Used 4% Lidocaine Solution #1 Left Posterior Calf -Current Size (cm) - Length 1 -Current Size (cm) - Width 1 -Current Size (cm) - Depth 0.2 -Total Square Cm 1 -Photo Taken No -Exudate Amt Small -Exudate Type Serosanguineous -Wound Margin Distinct, Outline Attached -Granulation Amt Large (67-100%) -Granulation Quality [place] -Necrosis Amt Small (1-33%) -Necrotic Tissue Type Adherent Slough -Structure Exposed N/A -Texture (Olya-wound Skin Appearance) Scarring -Moisture (Olya-wound Skin Appearance Dry/Scaly ) -Color (Olya-wound Skin Appearance) Hemosiderin Staining -Temperature (Olya-wound Skin No Abnormality Appearance) (Pt Warm) -Tenderness on Palpation (Olya-wound No Skin Appearance) -Ulcer Cleansing Wound Cleanser [Edema Assessment] -Right Calf (cm) 40 -Right Ankle (cm) 26 -Left Calf (cm) 38.5 -Left Ankle (cm) 27 WC - Nurse 2 - General Ulcer CM Notes Start: 08/02/18 11:19 Freq: Status: Active Protocol: Activity Type Activity Date Activity User E-Sign Co-Sign Detail Recorded Client Recorded Date Recorded By Document 08/23/18 09:07 DV [id number] 08/23/18 09:19 DV 08/23/18 09:07 Wound Center Nurse 2 [Procedure/Treatment] #5 Medial RLE -Time 09:15 -Correct Patient Yes -Correct Side, Site, Position Yes -Correct Procedure Yes -Procedure Performed Yes -Type of Procedure Debridement -Clinical Debridement Subcutaneous -Post Debridement Size (cm) - Length 1.0 -Post Debridement Size (cm) - Width 1.0 -Post Debridement Size (cm) - Depth 0.9 -Total Square Cm 1.00 -Wound/Ulcer Outcome Not Healed #4 RLE Murrell- Cluster -Time 09:16 -Correct Patient Yes -Correct Side, Site, Position Yes -Correct Procedure Yes -Procedure Performed Yes -Type of Procedure Debridement -Clinical Debridement Subcutaneous -Post Debridement Size (cm) - Length 3.8 -Post Debridement Size (cm) - Width 0.8 -Post Debridement Size (cm) - Depth 0.7 -Total Square Cm 3.04 -Wound/Ulcer Outcome Not Healed #3 Lateral RLE -Time 09:16 -Correct Patient Yes -Correct Side, Site, Position Yes -Correct Procedure Yes -Procedure Performed Yes -Type of Procedure Debridement -Clinical Debridement Subcutaneous -Post Debridement Size (cm) - Length 1.0 -Post Debridement Size (cm) - Width 2.2 -Post Debridement Size (cm) - Depth 0.5 -Total Square Cm 2.20 -Wound/Ulcer Outcome Not Healed #2 Left 2nd Toe -Time 09:16 -Correct Patient Yes -Correct Side, Site, Position Yes -Correct Procedure Yes -Procedure Performed Yes -Type of Procedure Debridement -Clinical Debridement Subcutaneous -Post Debridement Size (cm) - Length 0.4 -Post Debridement Size (cm) - Width 0.2 -Post Debridement Size (cm) - Depth 0.1 -Total Square Cm 0.08 -Wound/Ulcer Outcome Not Healed #1 Left Posterior Calf -Time 09:17 -Correct Patient Yes -Correct Side, Site, Position Yes -Correct Procedure Yes -Procedure Performed Yes -Type of Procedure Debridement -Clinical Debridement Subcutaneous -Post Debridement Size (cm) - Length 0.9 -Post Debridement Size (cm) - Width 0.7 -Post Debridement Size (cm) - Depth 0.3 -Total Square Cm 0.63 -Wound/Ulcer Outcome Not Healed [See Physician Procedure note for Specifics] Pain Scale: 0-10 Numeric [Pain] -Is Patient Pain Free? Yes Musculoskeletal: Tenderness - With manipulation of ulcer sites Neurological: Sensory exam intact to light touch and pain Psych/Mental Status: Normal Affect, Appropriate Debridement Note Post-Debridement Measurements/Treatment WC - Nurse 2 - General Ulcer CM Notes Start: 08/02/18 11:19 Freq: Status: Active Protocol: Activity Type Activity Date Activity User E-Sign Co-Sign Detail Recorded Client Recorded Date Recorded By Document 08/02/18 12:00 DV [id number] 08/02/18 12:30 DV Document 08/09/18 09:15 DV [id number] 08/09/18 09:35 DV Document 08/16/18 09:07 DV [id number] 08/16/18 09:25 DV Document 08/23/18 09:07 DV [id number] 08/23/18 09:19 DV 08/02/18 08/09/18 08/16/18 12:00 09:15 09:07 Wound Center Nurse 2 #5 Medial RLE -Time 12:02 09:17 09:09 -Correct Patient Yes Yes Yes -Correct Side, Site, Position Yes Yes Yes -Correct Procedure Yes Yes Yes -Procedure Performed Yes Yes Yes -Type of Procedure Debridement Debridement Debridement -Clinical Debridement Subcutaneous Subcutaneous Subcutaneous -Post Debridement Size (cm) - Length 1.1 2.0 1.2 -Post Debridement Size (cm) - Width 1.1 1.4 1.1 -Post Debridement Size (cm) - Depth 1.0 1.0 1.0 -Total Square Cm 1.21 2.80 1.32 -Wound/Ulcer Outcome Not Healed Not Healed Not Healed -Ulcer Cleansing Rinsed/ Rinsed/ Rinsed/ Irrigated with Irrigated with Irrigated with Saline Saline Saline -Foul Odor after Cleansing Yes No No -Bioengineered Tissue No No No -Bleeding Controlled with Pressure Pressure Pressure -Offloading No No No -Treatment Response Procedure Procedure Procedure Tolerated Well Tolerated Well Tolerated Well #4 RLE Murrell- Cluster -Time 12:03 09:17 09:09 -Correct Patient Yes Yes Yes -Correct Side, Site, Position Yes Yes Yes -Correct Procedure Yes Yes Yes -Procedure Performed Yes Yes Yes -Type of Procedure Debridement Debridement Debridement -Clinical Debridement Subcutaneous Subcutaneous Subcutaneous -Post Debridement Size (cm) - Length 4.1 4.3 4.0 -Post Debridement Size (cm) - Width 1.0 1.0 1.2 -Post Debridement Size (cm) - Depth 2.5 1.4 0.7 -Total Square Cm 4.10 4.30 4.80 -Wound/Ulcer Outcome Not Healed Not Healed Not Healed -Ulcer Cleansing Rinsed/ Rinsed/ Rinsed/ Irrigated with Irrigated with Irrigated with Saline Saline Saline -Foul Odor after Cleansing No No No -Bioengineered Tissue No No No -Bleeding Controlled with Pressure Pressure Pressure -Offloading No No No -Treatment Response Procedure Procedure Procedure Tolerated Well Tolerated Well Tolerated Well #3 Lateral RLE -Time 12:04 09:18 09:16 -Correct Patient Yes Yes Yes -Correct Side, Site, Position Yes Yes Yes -Correct Procedure Yes Yes Yes -Procedure Performed Yes Yes Yes -Type of Procedure Debridement Debridement Debridement -Clinical Debridement Subcutaneous Subcutaneous Subcutaneous -Post Debridement Size (cm) - Length 1.1 2.0 1.0 -Post Debridement Size (cm) - Width 2.0 0.9 2.2 -Post Debridement Size (cm) - Depth 0.3 0.6 0.5 -Total Square Cm 2.20 1.80 2.20 -Wound/Ulcer Outcome Not Healed Not Healed Not Healed -Ulcer Cleansing Rinsed/ Rinsed/ Rinsed/ Irrigated with Irrigated with Irrigated with Saline Saline Saline -Foul Odor after Cleansing No No No -Bioengineered Tissue No No No -Bleeding Controlled with Pressure Pressure Pressure -Offloading No No -Treatment Response Procedure Procedure Tolerated Well Tolerated Well #2 Left 2nd Toe -Time 12:04 09:18 09:16 -Correct Patient Yes Yes -Correct Side, Site, Position Yes Yes -Correct Procedure Yes Yes -Procedure Performed Yes Yes -Type of Procedure Debridement Debridement -Clinical Debridement Subcutaneous Subcutaneous -Post Debridement Size (cm) - Length 1.6 1.1 0.7 -Post Debridement Size (cm) - Width 0.7 1.5 0.4 -Post Debridement Size (cm) - Depth 0.1 0.2 0.1 -Total Square Cm 1.12 1.65 0.28 -Wound/Ulcer Outcome Not Healed Not Healed Not Healed -Ulcer Cleansing Rinsed/ Rinsed/ Rinsed/ Irrigated with Irrigated with Irrigated with Saline Saline Saline -Foul Odor after Cleansing No No No -Bioengineered Tissue No No No -Bleeding Controlled with Pressure Pressure Pressure -Offloading No No No -Treatment Response Procedure Procedure Procedure Tolerated Well Tolerated Well Tolerated Well #1 Left Posterior Calf -Time 12:19 09:19 09:16 -Correct Patient Yes Yes Yes -Correct Side, Site, Position Yes Yes Yes -Correct Procedure Yes Yes Yes -Procedure Performed Yes Yes Yes -Type of Procedure Debridement Debridement Debridement -Clinical Debridement Subcutaneous Subcutaneous Subcutaneous -Post Debridement Size (cm) - Length 1.0 1.0 1.0 -Post Debridement Size (cm) - Width 1.1 1.2 0.9 -Post Debridement Size (cm) - Depth 0.1 0.3 0.4 -Total Square Cm 1.10 1.20 0.90 -Wound/Ulcer Outcome Not Healed Not Healed Not Healed -Ulcer Cleansing Rinsed/ Rinsed/ Irrigated with Irrigated with Saline Saline -Foul Odor after Cleansing No No -Bioengineered Tissue No No -Bleeding Controlled with Pressure Pressure Pressure -Offloading No No No -Treatment Response Procedure Procedure Procedure Tolerated Well Tolerated Well Tolerated Well Pain Scale: 0-10 Numeric Is Patient Pain Free? No Yes Yes RLE -Description Sharp Throbbing Burning -Intensity 6 -Duration (hours) Acute -Pain Behavior Withdrawal from Touch Facial Grimacing -Pain Aggravating Factors ADL's -Alleviating Factors/Interventions Medication Emotional Support -Effectiveness of Alleviating Factor/ Moderately Intervention effective 08/23/18 09:07 Wound Center Nurse 2 #5 Medial RLE -Time 09:15 -Correct Patient Yes -Correct Side, Site, Position Yes -Correct Procedure Yes -Procedure Performed Yes -Type of Procedure Debridement -Clinical Debridement Subcutaneous -Post Debridement Size (cm) - Length 1.0 -Post Debridement Size (cm) - Width 1.0 -Post Debridement Size (cm) - Depth 0.9 -Total Square Cm 1.00 -Wound/Ulcer Outcome Not Healed -Ulcer Cleansing -Foul Odor after Cleansing -Bioengineered Tissue -Bleeding Controlled with -Offloading -Treatment Response #4 RLE Murrell- Cluster -Time 09:16 -Correct Patient Yes -Correct Side, Site, Position Yes -Correct Procedure Yes -Procedure Performed Yes -Type of Procedure Debridement -Clinical Debridement Subcutaneous -Post Debridement Size (cm) - Length 3.8 -Post Debridement Size (cm) - Width 0.8 -Post Debridement Size (cm) - Depth 0.7 -Total Square Cm 3.04 -Wound/Ulcer Outcome Not Healed -Ulcer Cleansing -Foul Odor after Cleansing -Bioengineered Tissue -Bleeding Controlled with -Offloading -Treatment Response #3 Lateral RLE -Time 09:16 -Correct Patient Yes -Correct Side, Site, Position Yes -Correct Procedure Yes -Procedure Performed Yes -Type of Procedure Debridement -Clinical Debridement Subcutaneous -Post Debridement Size (cm) - Length 1.0 -Post Debridement Size (cm) - Width 2.2 -Post Debridement Size (cm) - Depth 0.5 -Total Square Cm 2.20 -Wound/Ulcer Outcome Not Healed -Ulcer Cleansing -Foul Odor after Cleansing -Bioengineered Tissue -Bleeding Controlled with -Offloading -Treatment Response #2 Left 2nd Toe -Time 09:16 -Correct Patient Yes -Correct Side, Site, Position Yes -Correct Procedure Yes -Procedure Performed Yes -Type of Procedure Debridement -Clinical Debridement Subcutaneous -Post Debridement Size (cm) - Length 0.4 -Post Debridement Size (cm) - Width 0.2 -Post Debridement Size (cm) - Depth 0.1 -Total Square Cm 0.08 -Wound/Ulcer Outcome Not Healed -Ulcer Cleansing -Foul Odor after Cleansing -Bioengineered Tissue -Bleeding Controlled with -Offloading -Treatment Response #1 Left Posterior Calf -Time 09:17 -Correct Patient Yes -Correct Side, Site, Position Yes -Correct Procedure Yes -Procedure Performed Yes -Type of Procedure Debridement -Clinical Debridement Subcutaneous -Post Debridement Size (cm) - Length 0.9 -Post Debridement Size (cm) - Width 0.7 -Post Debridement Size (cm) - Depth 0.3 -Total Square Cm 0.63 -Wound/Ulcer Outcome Not Healed -Ulcer Cleansing -Foul Odor after Cleansing -Bioengineered Tissue -Bleeding Controlled with -Offloading -Treatment Response Pain Scale: 0-10 Numeric Is Patient Pain Free? Yes RLE -Description -Intensity -Duration (hours) -Pain Behavior -Pain Aggravating Factors -Alleviating Factors/Interventions -Effectiveness of Alleviating Factor/ Intervention Wound debrided: Left posterior calf Laterality: Left Type of Debridement: Excisional debridement Anesthesia Used: 4% Lidocaine Solution Depth: in the subcutaneous layer Percentage of wound debrided: 100 Instrument Used: 5mm curette Tissue Removed: Adherent slough, fibrin, biofilm Severity: Fat Layer Exposed Amount of bleeding with debridement: Mild Bleeding Controlled with: Pressure Patient tolerated procedure well - Additional Wound Wound debrided: Left dorsal second toe Laterality: Left Type of Debridement: Excisional debridement Anesthesia Used: 4% Lidocaine Solution Depth: in the subcutaneous layer Percentage of wound debrided: 100 Instrument Used: 5mm curette Tissue Removed: Adherent slough, hyperkeratotic tissue Severity: Fat Layer Exposed Amount of bleeding with debridement: Mild Bleeding Controlled with: Pressure Patient tolerated procedure: Patient tolerated procedure well - Additional Wound Wound debrided: Right lateral lower extremity Laterality: Right Type of Debridement: Excisional debridement Anesthesia Used: 4% Lidocaine Solution Depth: in the subcutaneous layer Percentage of wound debrided: 100 Instrument Used: 5mm curette Tissue Removed: Adherent slough, fibrin, biofilm Severity: Fat Layer Exposed Amount of bleeding with debridement: Mild Bleeding Controlled with: Pressure Patient tolerated procedure: Patient tolerated procedure well - Additional Wound Wound debrided: Right anterior murrell cluster Laterality: Right Type of Debridement: Excisional debridement Anesthesia Used: 4% Lidocaine Solution Depth: in the subcutaneous layer Percentage of wound debrided: 100 Instrument Used: 5mm curette Tissue Removed: Adherent slough, fibrin, biofilm Severity: Fat Layer Exposed Amount of bleeding with debridement: Mild Bleeding Controlled with: Pressure Patient tolerated procedure: Patient tolerated procedure well - Additional Wound Wound debrided: Right proximal medial calf Laterality: Right Type of Debridement: Excisional debridement Anesthesia Used: 4% Lidocaine Solution Depth: in the subcutaneous layer Instrument Used: 5mm curette Tissue Removed: Adherent slough, fibrin, biofilm Severity: Fat Layer Exposed Amount of bleeding with debridement: Mild Bleeding Controlled with: Pressure Patient tolerated procedure: Patient tolerated procedure well Assessment/Plan Clinical Impression(s) from Imaging Studies Tibia/Fibula X-Ray 08/15/18 10:08 IMPRESSION: Edema or cellulitis of the superficial soft tissues of the lower leg. No defined wound. No soft tissue gas or radiodense foreign body. No evidence of osteomyelitis. Electronically Signed: Elian Ordoñez MD at 17:44 EDT Tel , Service support , Active Problems Ulcer of right lower extremity with fat layer exposed (Acute) Ulcer of left lower extremity with fat layer exposed (Acute) Agent orange exposure (Acute) Pain of right lower extremity (Acute) Pain of left lower extremity (Acute) Controlled diabetes mellitus (Acute) Assessment: Ulcer of right and left lower extremity and left dorsal 2nd toe with fat later exposed, DM II, pain to right and left LE, other comorbidities Plan: Patient was carefully examined and evaluated today with present. Another excisional subcutaneous debridement was performed as noted in the clinical panel to each ulcer site again today. Once complete, all ulcer sites except the two proximal right leg ulcers were dressed with Aquacel Ag to the base. This was then covered by dry sterile dressing followed by Tubigrip for compression. The patient is to change his dressing in this manner on a daily basis with help of his . Next, a snap wound vac was applied to the remaining two ulcer sites of the right proximal lower leg, as the patient has done well with this over the last week. Patient is to keep this intact until Monday when he has an appointment to check the vac and for vac re application. The importance of keeping these ulcer sites offloaded was discussed in great detail with the patient again today. Patient to continue with antibiotics until complete. [facility] and showed no signs of leukocytosis. LEAS and venous Doppler exams showed sufficient areterial flow to lower extremities, however the venous doppler exams revealed some venous incompetence. Full report can be found in patient's chart. A right tib-fib x-ray was also ordered and the results show no signs of osteomyelitis. Patient was instructed to keep legs elevated while seated or lying down. I also recommend nutritional supplementation with a diet high in protein to help optimize ulcer healing potential. The patient was again educated on all signs and symptoms of local and systemic infection, and he is instructed to go to the emergency room immediately should they notice any of these. All other questions were answered to the patient and his 's satisfaction. The patient will follow back up in clinic in 1 week to check on progress, or sooner if needed.
== END 2018-08-26 23:59 ==
LOC: WC 08:30
PROVIDERS: Referring Provider Podiatrist; Visit Provider Podiatrist
DX: E11.622 Type 2 diabetes mellitus with other skin ulcer (principal); E11.51 Type 2 diabetes mellitus with diabetic peripheral angiopathy without gangrene; L97.812 Non-pressure chronic ulcer of other part of right lower leg with fat layer exposed; Z79.84 Long term (current) use of oral hypoglycemic drugs; Z79.899 Other long term (current) drug therapy; L97.222 Non-pressure chronic ulcer of left calf with fat layer exposed; L97.212 Non-pressure chronic ulcer of right calf with fat layer exposed; L97.522 Non-pressure chronic ulcer of other part of left foot with fat layer exposed; E11.621 Type 2 diabetes mellitus with foot ulcer; Z77.098 Contact with and (suspected) exposure to other hazardous, chiefly nonmedicinal, chemicals; M79.605 Pain in left leg; M79.604 Pain in right leg
CPT/HCPCS: 11042; 73590; 87070; 87075; 87077; 87186; 87205; 93923; 93970; 97607; 99203; 99212; G0463

== ENCOUNTER 2018-09-20 09:30 | Outpatient (RCR) | payer MEDICARE, OTHER, SELFPAY ==
[2018-08-27 01:29] VITALS: BP 140/70; PULSE 63; RESP 18; TEMP 36.6
[2018-08-27 08:23] VITALS: BP 142/68; PULSE 59; RESP 18; TEMP 37.1; BMI 31.8
[2018-08-30 08:40] VITALS: BP 127/56; PULSE 57; RESP 18; TEMP 36.7; BMI 31.8
--- NOTE | 2018-08-30 10:21 | PN.PCM_ITS ---
(1) Ulcer of right lower extremity with fat layer exposed Status: Acute Current Visit: No Code(s): L97.912 - Non-pressure chronic ulcer of unspecified part of right lower leg with fat layer exposed (2) Ulcer of left lower extremity with fat layer exposed Status: Acute Current Visit: No Code(s): L97.922 - Non-pressure chronic ulcer of unspecified part of left lower leg with fat layer exposed (3) Agent orange exposure Status: Acute Current Visit: No Code(s): Z77.098 - Contact with and (suspected) exposure to other hazardous, chiefly nonmedicinal, chemicals (4) PVD (peripheral vascular disease) Status: Suspected Current Visit: No Code(s): I73.9 - Peripheral vascular disease, unspecified (5) Pain of right lower extremity Status: Acute Current Visit: No Code(s): M79.604 - Pain in right leg (6) Pain of left lower extremity Status: Acute Current Visit: No Code(s): M79.605 - Pain in left leg (7) Controlled diabetes mellitus Status: Acute Current Visit: No Code(s): E11.9 - Type 2 diabetes mellitus without complications Type of Wound Chief Complaint: Bilateral lower extremity ulcers History of Wound: This 67-year-old diabetic male presents to the wound healing center today after being referred from his primary care physician for bilateral lower extremity ulcers. Patient denies any injury or trauma to the area. He says he noticed some swelling to each of his lower legs as well as some redness around July 17. He states that his primary care doctor placed him on Bactrim DS and the redness and swelling began to subside. As this was happening, he said the skin broke down and he noticed some ulcers to both his right and left lower legs. The patient also relates that he has an ulcer to the top of his left second toe. Patient denies noticing any purulence to the areas and says he has been dressing the ulcer sites on his own with Neosporin. He currently denies any feelings of nausea, vomiting, fever, chills. Progress of Wound: Ulcers show slight improvement again this week. Patient has been having aquacel ag dressing changes daily with help of his to all sites except the two left proximal leg ulcers where snap vac has been applied. He denies any feelings of nausea, vomiting, fever, or chills. - Physical Exam Vital Signs Temp Pulse Resp BP 98.0 F 57 L 18 127/56 H 08/30/18 08:40 08/30/18 08:40 08/30/18 08:40 08/30/18 08:40 General: Alert, Oriented x3, Cooperative, No apparent distress Extremities: Capillary Refill Less than 3 Seconds, No Calf Tenderness - Negative Ana and Koch signs bilateral, Diminished Peripheral Pulses - Faintly palpable DP and PT pulses bilateral, Edema - Bilateral lower extremity edema, - - Lower extremity varicosities noted bilateral Skin: Ulcer/ Wound - Ulcer cluster to right anterior murrell as well and ulcer to right medial calf with fat layer exposed. The bases of these sites are noted to be a mixture of adherent slough, fibrin, biofilm, and increasing amount of granular tissue again this week. The undermining and tracking appreciated to each of these ulcer sites slightly improved again. There is no purulence, no malodor, no extending cellulitis, no increased warmth, no probing to bone. Ulcer to right lateral lower leg and left posterior calf with fat layer exposed. Measurements noted. The bases are noted to be a mixture of adherent slough, fibrin, biofilm, scant granular tissue. There is no purulence, no surrounding cellulitis, no increased warmth, no malodor, no probing to bone, no tracking, no undermining. Ulcer to left second toe with fat layer exposed and measurements noted below. Base is a mixture of adherent slough, granular tissue, hyperkeratotic tissue. There is no probing to bone, no tracking, no undermining, no purulence, no surrounding cellulitis, no malodor, - - Bilateral hemosiderin skin changes to lower extremity Wound Measurements and Assessment WC - Nurse 1 - General Ulcer Measurement Start: 08/27/18 08:23 Freq: Status: Active Protocol: Activity Type Activity Date Activity User E-Sign Co-Sign Detail Recorded Client Recorded Date Recorded By Document 08/30/18 08:40 AN [id number] 08/30/18 09:06 AN 08/30/18 08:40 Wound Center Nurse 1 [Ulcer Assessment] #5 Medial RLE -Current Size (cm) - Length 3.7 -Current Size (cm) - Width 0.4 -Current Size (cm) - Depth 0.5 -Total Square Cm 1.48 -Tunneling No -Classification - Thickness Full Thickness without Exposed Support Structure -Exudate Amt Medium -Exudate Type Serosanguineous -Wound Margin Distinct, Outline Attached -Granulation Amt Large (67-100%) -Granulation Quality Red -Slough/Fibrin Yes -Necrosis Amt Small (1-33%) -Necrotic Tissue Type Adherent Slough -Structure Exposed None/Limited to Skin Breakdown -Texture (Olya-wound Skin Appearance) Assessed -Moisture (Olya-wound Skin Appearance Assessed ) -Color (Olya-wound Skin Appearance) Assessed Erythema Rubor -Temperature (Olya-wound Skin No Abnormality Appearance) (Pt Warm) -Tenderness on Palpation (Olya-wound Yes Skin Appearance) -Ulcer Cleansing Rinsed/ Irrigated with Saline -Foul Odor after Cleansing No -Anesthetic Used 4% Lidocaine Solution #4 RLE Murrell- Cluster -Current Size (cm) - Length 3.3 -Current Size (cm) - Width 0.4 -Current Size (cm) - Depth 0.5 -Total Square Cm 1.32 -Tunneling Yes -Tunneling Position (O'clock) 6 -Tunneling Distance (cm) 1.7 -Classification - Thickness Full Thickness without Exposed Support Structure -Exudate Amt Medium -Exudate Type Serosanguineous -Wound Margin Distinct, Outline Attached -Granulation Amt Large (67-100%) -Granulation Quality Red -Slough/Fibrin Yes -Necrosis Amt Small (1-33%) -Necrotic Tissue Type Adherent Slough -Structure Exposed None/Limited to Skin Breakdown -Texture (Olya-wound Skin Appearance) Assessed -Moisture (Olya-wound Skin Appearance Assessed ) -Color (Olya-wound Skin Appearance) Assessed Rubor -Temperature (Olya-wound Skin No Abnormality Appearance) (Pt Warm) -Tenderness on Palpation (Olya-wound No Skin Appearance) -Ulcer Cleansing Rinsed/ Irrigated with Saline -Foul Odor after Cleansing No -Anesthetic Used 4% Lidocaine Solution #3 Lateral RLE -Current Size (cm) - Length 0.7 -Current Size (cm) - Width 2.2 -Current Size (cm) - Depth 0.2 -Total Square Cm 1.54 #2 Left 2nd Toe -Current Size (cm) - Length 0.1 -Current Size (cm) - Width 0.1 -Current Size (cm) - Depth 0.1 -Total Square Cm 0.01 #1 Left Posterior Calf -Current Size (cm) - Length 0.8 -Current Size (cm) - Width 0.8 -Current Size (cm) - Depth 0.3 -Total Square Cm 0.64 WC - Nurse 2 - General Ulcer CM Notes Start: 08/27/18 08:23 Freq: Status: Active Protocol: Activity Type Activity Date Activity User E-Sign Co-Sign Detail Recorded Client Recorded Date Recorded By Document 08/30/18 09:15 DV [id number] 08/30/18 09:25 DV 08/30/18 09:15 Wound Center Nurse 2 [Procedure/Treatment] #5 Medial RLE -Time 09:16 -Correct Patient Yes -Correct Side, Site, Position Yes -Correct Procedure Yes -Procedure Performed Yes -Type of Procedure Debridement -Clinical Debridement Subcutaneous -Post Debridement Size (cm) - Length 0.9 -Post Debridement Size (cm) - Width 0.9 -Post Debridement Size (cm) - Depth 0.6 -Total Square Cm 0.81 -Wound/Ulcer Outcome Not Healed -Ulcer Cleansing Rinsed/ Irrigated with Saline -Foul Odor after Cleansing No -Bioengineered Tissue No -Bleeding Controlled with Pressure -Offloading No -Treatment Response Procedure Tolerated Well #4 RLE Murrell- Cluster -Time 09:17 -Correct Patient Yes -Correct Side, Site, Position Yes -Correct Procedure Yes -Procedure Performed Yes -Type of Procedure Debridement -Clinical Debridement Subcutaneous -Post Debridement Size (cm) - Length 3.4 -Post Debridement Size (cm) - Width 0.8 -Post Debridement Size (cm) - Depth 0 -Total Square Cm 2.72 -Wound/Ulcer Outcome Not Healed -Ulcer Cleansing Rinsed/ Irrigated with Saline -Foul Odor after Cleansing No -Bioengineered Tissue No -Bleeding Controlled with Pressure -Offloading No -Treatment Response Procedure Tolerated Well #3 Lateral RLE -Time 09:18 -Correct Patient Yes -Correct Side, Site, Position Yes -Correct Procedure Yes -Procedure Performed Yes -Type of Procedure Debridement -Clinical Debridement Subcutaneous -Post Debridement Size (cm) - Length 1.0 -Post Debridement Size (cm) - Width 1.2 -Post Debridement Size (cm) - Depth 0.5 -Total Square Cm 1.20 -Wound/Ulcer Outcome Not Healed -Ulcer Cleansing Rinsed/ Irrigated with Saline -Foul Odor after Cleansing No -Bioengineered Tissue No -Bleeding Controlled with Pressure -Offloading No -Treatment Response Procedure Tolerated Well #2 Left 2nd Toe -Time 09:24 -Correct Patient Yes -Correct Side, Site, Position Yes -Correct Procedure Yes -Procedure Performed Yes -Type of Procedure Debridement -Clinical Debridement Subcutaneous -Post Debridement Size (cm) - Length 0.4 -Post Debridement Size (cm) - Width 0.2 -Post Debridement Size (cm) - Depth 0.1 -Total Square Cm 0.08 -Wound/Ulcer Outcome Not Healed -Ulcer Cleansing Rinsed/ Irrigated with Saline -Foul Odor after Cleansing No -Bioengineered Tissue No -Bleeding Controlled with Pressure -Offloading No -Treatment Response Procedure Tolerated Well #1 Left Posterior Calf -Time 09:23 -Correct Patient Yes -Correct Side, Site, Position Yes -Correct Procedure Yes -Procedure Performed Yes -Type of Procedure Debridement -Clinical Debridement Subcutaneous -Post Debridement Size (cm) - Length 0.7 -Post Debridement Size (cm) - Width 0.7 -Post Debridement Size (cm) - Depth 0.3 -Total Square Cm 0.49 -Wound/Ulcer Outcome Not Healed -Ulcer Cleansing Rinsed/ Irrigated with Saline -Foul Odor after Cleansing No -Bioengineered Tissue No -Bleeding Controlled with Pressure -Offloading No -Treatment Response Procedure Tolerated Well [See Physician Procedure note for Specifics] Musculoskeletal: Tenderness - With manipulation of ulcer sites Neurological: Sensory exam intact to light touch and pain Psych/Mental Status: Normal Affect, Appropriate Debridement Note Post-Debridement Measurements/Treatment WC - Nurse 2 - General Ulcer CM Notes Start: 08/27/18 08:23 Freq: Status: Active Protocol: Activity Type Activity Date Activity User E-Sign Co-Sign Detail Recorded Client Recorded Date Recorded By Document 08/30/18 09:15 DV [id number] 08/30/18 09:25 DV 08/30/18 09:15 Wound Center Nurse 2 #5 Medial RLE -Time 09:16 -Correct Patient Yes -Correct Side, Site, Position Yes -Correct Procedure Yes -Procedure Performed Yes -Type of Procedure Debridement -Clinical Debridement Subcutaneous -Post Debridement Size (cm) - Length 0.9 -Post Debridement Size (cm) - Width 0.9 -Post Debridement Size (cm) - Depth 0.6 -Total Square Cm 0.81 -Wound/Ulcer Outcome Not Healed -Ulcer Cleansing Rinsed/ Irrigated with Saline -Foul Odor after Cleansing No -Bioengineered Tissue No -Bleeding Controlled with Pressure -Offloading No -Treatment Response Procedure Tolerated Well #4 RLE Murrell- Cluster -Time 09:17 -Correct Patient Yes -Correct Side, Site, Position Yes -Correct Procedure Yes -Procedure Performed Yes -Type of Procedure Debridement -Clinical Debridement Subcutaneous -Post Debridement Size (cm) - Length 3.4 -Post Debridement Size (cm) - Width 0.8 -Post Debridement Size (cm) - Depth 0 -Total Square Cm 2.72 -Wound/Ulcer Outcome Not Healed -Ulcer Cleansing Rinsed/ Irrigated with Saline -Foul Odor after Cleansing No -Bioengineered Tissue No -Bleeding Controlled with Pressure -Offloading No -Treatment Response Procedure Tolerated Well #3 Lateral RLE -Time 09:18 -Correct Patient Yes -Correct Side, Site, Position Yes -Correct Procedure Yes -Procedure Performed Yes -Type of Procedure Debridement -Clinical Debridement Subcutaneous -Post Debridement Size (cm) - Length 1.0 -Post Debridement Size (cm) - Width 1.2 -Post Debridement Size (cm) - Depth 0.5 -Total Square Cm 1.20 -Wound/Ulcer Outcome Not Healed -Ulcer Cleansing Rinsed/ Irrigated with Saline -Foul Odor after Cleansing No -Bioengineered Tissue No -Bleeding Controlled with Pressure -Offloading No -Treatment Response Procedure Tolerated Well #2 Left 2nd Toe -Time 09:24 -Correct Patient Yes -Correct Side, Site, Position Yes -Correct Procedure Yes -Procedure Performed Yes -Type of Procedure Debridement -Clinical Debridement Subcutaneous -Post Debridement Size (cm) - Length 0.4 -Post Debridement Size (cm) - Width 0.2 -Post Debridement Size (cm) - Depth 0.1 -Total Square Cm 0.08 -Wound/Ulcer Outcome Not Healed -Ulcer Cleansing Rinsed/ Irrigated with Saline -Foul Odor after Cleansing No -Bioengineered Tissue No -Bleeding Controlled with Pressure -Offloading No -Treatment Response Procedure Tolerated Well #1 Left Posterior Calf -Time 09:23 -Correct Patient Yes -Correct Side, Site, Position Yes -Correct Procedure Yes -Procedure Performed Yes -Type of Procedure Debridement -Clinical Debridement Subcutaneous -Post Debridement Size (cm) - Length 0.7 -Post Debridement Size (cm) - Width 0.7 -Post Debridement Size (cm) - Depth 0.3 -Total Square Cm 0.49 -Wound/Ulcer Outcome Not Healed -Ulcer Cleansing Rinsed/ Irrigated with Saline -Foul Odor after Cleansing No -Bioengineered Tissue No -Bleeding Controlled with Pressure -Offloading No -Treatment Response Procedure Tolerated Well Wound debrided: Left posterior calf Laterality: Left Type of Debridement: Excisional debridement Anesthesia Used: 4% Lidocaine Solution Depth: in the subcutaneous layer Percentage of wound debrided: 100 Instrument Used: 5mm curette Tissue Removed: Adherent slough, fibrin, biofilm Severity: Fat Layer Exposed Amount of bleeding with debridement: Mild Bleeding Controlled with: Pressure Patient tolerated procedure well - Additional Wound Wound debrided: Left dorsal second toe Laterality: Left Type of Debridement: Excisional debridement Anesthesia Used: 4% Lidocaine Solution Depth: in the subcutaneous layer Percentage of wound debrided: 100 Instrument Used: 5mm curette Tissue Removed: Adherent slough, hyperkeratotic tissue Severity: Fat Layer Exposed Amount of bleeding with debridement: Mild Bleeding Controlled with: Pressure Patient tolerated procedure: Patient tolerated procedure well - Additional Wound Wound debrided: Right lateral lower extremity Laterality: Right Type of Debridement: Excisional debridement Anesthesia Used: 4% Lidocaine Solution Depth: in the subcutaneous layer Percentage of wound debrided: 100 Instrument Used: 5mm curette Tissue Removed: Adherent slough, fibrin, biofilm Severity: Fat Layer Exposed Amount of bleeding with debridement: Mild Bleeding Controlled with: Pressure Patient tolerated procedure: Patient tolerated procedure well - Additional Wound Wound debrided: Right anterior murrell cluster Laterality: Right Type of Debridement: Excisional debridement Anesthesia Used: 4% Lidocaine Solution Depth: in the subcutaneous layer Percentage of wound debrided: 100 Instrument Used: 5mm curette Tissue Removed: Adherent slough, fibrin, biofilm Severity: Fat Layer Exposed Amount of bleeding with debridement: Mild Bleeding Controlled with: Pressure Patient tolerated procedure: Patient tolerated procedure well - Additional Wound Wound debrided: Right proximal medial calf Laterality: Right Type of Debridement: Excisional debridement Anesthesia Used: 4% Lidocaine Solution Depth: in the subcutaneous layer Percentage of wound debrided: 100 Instrument Used: 5mm curette Tissue Removed: Adherent slough, fibrin, biofilm Severity: Fat Layer Exposed Amount of bleeding with debridement: Mild Bleeding Controlled with: Pressure Patient tolerated procedure: Patient tolerated procedure well Assessment/Plan Assessment: Ulcer of right and left lower extremity and left dorsal 2nd toe with fat later exposed, DM II, pain to right and left LE, other comorbidities Plan: Patient was carefully examined and evaluated today with present. Another excisional subcutaneous debridement was performed as noted in the clinical panel to each ulcer. Next, all ulcer sites except the two proximal right leg ulcers were dressed with Aquacel Ag to the base. This was then covered by dry sterile dressing followed by Tubigrip for compression. The patient is to change his dressing in this manner on a daily basis with help of his . A snap wound vac was applied to the remaining two ulcer sites of the right proximal lower leg, as the patient has done well with this over the last week again. Patient is to keep this intact until Monday when he has an appointm ent to check the vac and for vac re application. The importance of keeping these ulcer sites offloaded was discussed in great detail with the patient again today. Patient to continue with antibiotics until complete. [facility] and showed no signs of leukocytosis. LEAS and venous Doppler exams showed sufficient areterial flow to lower extremities, however the venous doppler exams revealed some venous incompetence. Full report can be found in patient's chart. A right tib-fib x- ray was also ordered and the results show no signs of osteomyelitis. Patient was instructed to keep legs elevated while seated or lying down. I also recommend nutritional supplementation with a diet high in protein to help optimize ulcer healing potential. The patient was again educated on all signs and symptoms of local and systemic infection, and he is instructed to go to the emergency room immediately should they notice any of these. All other questions were answered to the patient and his 's satisfaction. The patient will follow back up in clinic in 1 week to check on progress, or sooner if needed.
[2018-09-03 08:43] VITALS: BP 135/70; PULSE 53; RESP 16; TEMP 37.4; BMI 31.8
[2018-09-06 09:08] VITALS: BP 149/72; PULSE 59; RESP 20; TEMP 36.4; BMI 31.8
--- NOTE | 2018-09-06 12:34 | PCM.WC.PN ---
(1) Ulcer of right lower extremity with fat layer exposed Status: Acute Current Visit: No Code(s): L97.912 - Non-pressure chronic ulcer of unspecified part of right lower leg with fat layer exposed (2) Ulcer of left lower extremity with fat layer exposed Status: Acute Current Visit: No Code(s): L97.922 - Non-pressure chronic ulcer of unspecified part of left lower leg with fat layer exposed (3) Agent orange exposure Status: Acute Current Visit: No Code(s): Z77.098 - Contact with and (suspected) exposure to other hazardous, chiefly nonmedicinal, chemicals (4) PVD (peripheral vascular disease) Status: Suspected Current Visit: No Code(s): I73.9 - Peripheral vascular disease, unspecified (5) Pain of right lower extremity Status: Acute Current Visit: No Code(s): M79.604 - Pain in right leg (6) Pain of left lower extremity Status: Acute Current Visit: No Code(s): M79.605 - Pain in left leg (7) Controlled diabetes mellitus Status: Acute Current Visit: No Code(s): E11.9 - Type 2 diabetes mellitus without complications Type of Wound Chief Complaint: Bilateral lower extremity ulcers History of Wound: This 67-year-old diabetic male presents to the wound healing center today after being referred from his primary care physician for bilateral lower extremity ulcers. Patient denies any injury or trauma to the area. He says he noticed some swelling to each of his lower legs as well as some redness around July 17. He states that his primary care doctor placed him on Bactrim DS and the redness and swelling began to subside. As this was happening, he said the skin broke down and he noticed some ulcers to both his right and left lower legs. The patient also relates that he has an ulcer to the top of his left second toe. Patient denies noticing any purulence to the areas and says he has been dressing the ulcer sites on his own with Neosporin. He currently denies any feelings of nausea, vomiting, fever, chills. Progress of Wound: Ulcers show improvement again this week. Patient has been having aquacel ag dressing changes daily with help of his to all sites except the two left proximal leg ulcers where snap vac has been applied. He denies any feelings of nausea, vomiting, fever, or chills. - Physical Exam Vital Signs Temp Pulse Resp BP 97.6 F L 59 L 20 H 149/72 H 09/06/18 09:08 09/06/18 09:08 09/06/18 09:08 09/06/18 09:08 General: Alert, Oriented x3, Cooperative, No apparent distress Extremities: Capillary Refill Less than 3 Seconds, No Calf Tenderness - Negative Aan and Koch signs bilateral, Diminished Peripheral Pulses - Faintly palpable DP and PT pulses bilateral, Edema - Bilateral lower extremity edema, - - Lower extremity varicosities noted bilateral Skin: Ulcer/ Wound - Ulcer cluster to right anterior murrell as well and ulcer to right medial calf with fat layer exposed. The bases of these sites are noted to be a mixture of adherent slough, fibrin, biofilm, and increasing amount of granular tissue. The undermining and tracking appreciated to each of these ulcer sites has improved again. There is no purulence, no malodor, no extending cellulitis, no increased warmth, no probing to bone. Ulcer to right lateral lower leg and left posterior calf with fat layer exposed. Measurements noted. The bases are noted to be a mixture of adherent slough, fibrin, biofilm, scant granular tissue. There is no purulence, no surrounding cellulitis, no increased warmth, no malodor, no probing to bone, no tracking, no undermining. Ulcer to left second toe with fat layer exposed and measurements noted below. Base is a mixture of adherent slough, granular tissue, hyperkeratotic tissue. There is no probing to bone, no tracking, no undermining, no purulence, no surrounding cellulitis, no malodor, - - Bilateral hemosiderin skin changes to lower extremity Wound Measurements and Assessment WC - Nurse 1 - General Ulcer Measurement Start: 08/27/18 08:23 Freq: Status: Active Protocol: Activity Type Activity Date Activity User E-Sign Co-Sign Detail Recorded Client Recorded Date Recorded By Document 09/06/18 09:08 DL [id number] 09/06/18 09:20 DL 09/06/18 09:08 Wound Center Nurse 1 [Ulcer Assessment] #5 Medial RLE -Current Size (cm) - Length 0.8 -Current Size (cm) - Width 0.7 -Current Size (cm) - Depth 0.5 -Total Square Cm 0.56 -Photo Taken No -Tunneling Position (O'clock) 9 -Tunneling Distance (cm) 0.9 -Exudate Amt Small -Exudate Type Serosanguineous -Wound Margin Distinct, Outline Attached -Granulation Amt Large (67-100%) -Granulation Quality Red -Necrosis Amt None Present (0 %) -Structure Exposed N/A -Texture (Olya-wound Skin Appearance) Localized Edema Scarring -Moisture (Olya-wound Skin Appearance No Abnormality ) -Color (Olya-wound Skin Appearance) Hemosiderin Staining -Temperature (Olya-wound Skin No Abnormality Appearance) (Pt Warm) -Tenderness on Palpation (Olya-wound No Skin Appearance) -Ulcer Cleansing Wound Cleanser -Foul Odor after Cleansing No -Anesthetic Used 4% Lidocaine Solution #4 RLE Murrell- Cluster -Current Size (cm) - Length 3 -Current Size (cm) - Width 0.6 -Current Size (cm) - Depth 0.5 -Total Square Cm 1.8 -Photo Taken No -Tunneling Yes -Tunneling Position (O'clock) 1 -Tunneling Distance (cm) 1.3 -Tunneling Position #2 (O'clock) 5 -Tunneling Distance #2 (cm) 0.9 -Exudate Amt Medium -Exudate Type Serosanguineous -Wound Margin Distinct, Outline Attached -Granulation Amt Large (67-100%) -Granulation Quality Red -Necrosis Amt None Present (0 %) -Structure Exposed N/A -Texture (Olya-wound Skin Appearance) Localized Edema Scarring -Moisture (Olya-wound Skin Appearance No Abnormality ) -Color (Olya-wound Skin Appearance) Hemosiderin Staining -Temperature (Olya-wound Skin No Abnormality Appearance) (Pt Warm) -Tenderness on Palpation (Olya-wound No Skin Appearance) -Ulcer Cleansing Wound Cleanser -Foul Odor after Cleansing No -Anesthetic Used 4% Lidocaine Solution #3 Lateral RLE -Current Size (cm) - Length 1 -Current Size (cm) - Width 2.4 -Current Size (cm) - Depth 0.5 -Total Square Cm 2.4 -Photo Taken No -Epithelialization Medium 34-66% -Exudate Amt Small -Exudate Type Serosanguineous -Wound Margin Distinct, Outline Attached -Granulation Amt Medium (34-66%) -Granulation Quality Red -Necrosis Amt Medium (34-66%) -Necrotic Tissue Type Adherent Slough -Structure Exposed N/A -Texture (Olya-wound Skin Appearance) Localized Edema Scarring -Moisture (Olya-wound Skin Appearance Dry/Scaly ) -Color (Olya-wound Skin Appearance) Hemosiderin Staining -Temperature (Olya-wound Skin No Abnormality Appearance) (Pt Warm) -Tenderness on Palpation (Olya-wound No Skin Appearance) -Ulcer Cleansing Wound Cleanser -Foul Odor after Cleansing No -Anesthetic Used 4% Lidocaine Solution #2 Left 2nd Toe -Current Size (cm) - Length 0.1 -Current Size (cm) - Width 0.1 -Current Size (cm) - Depth 0.1 -Total Square Cm 0.01 -Photo Taken No -Exudate Amt None Present -Wound Margin Flat & Intact -Granulation Amt Large (67-100%) -Granulation Quality [place] -Necrosis Amt None Present (0 %) -Structure Exposed N/A -Texture (Olya-wound Skin Appearance) Localized Edema Scarring -Color (Olya-wound Skin Appearance) Hemosiderin Staining -Ulcer Cleansing Wound Cleanser -Foul Odor after Cleansing No -Anesthetic Used 4% Lidocaine Solution #1 Left Posterior Calf -Current Size (cm) - Length 0.6 -Current Size (cm) - Width 0.7 -Current Size (cm) - Depth 0.3 -Total Square Cm 0.42 -Photo Taken No -Exudate Amt Small -Exudate Type Serosanguineous -Wound Margin Distinct, Outline Attached -Granulation Amt Small (1-33%) -Granulation Quality [place] -Necrosis Amt Small (1-33%) -Necrotic Tissue Type Adherent Slough -Structure Exposed N/A -Texture (Olya-wound Skin Appearance) Localized Edema Scarring -Moisture (Olya-wound Skin Appearance No Abnormality ) -Color (Olya-wound Skin Appearance) Hemosiderin Staining -Temperature (Olya-wound Skin No Abnormality Appearance) (Pt Warm) -Tenderness on Palpation (Olya-wound No Skin Appearance) -Ulcer Cleansing Wound Cleanser -Foul Odor after Cleansing No [Edema Assessment] -Right Calf (cm) 39.5 -Right Ankle (cm) 26.5 -Right Foot (cm) 41 -Left Calf (cm) 28.5 WC - Nurse 2 - General Ulcer CM Notes Start: 08/27/18 08:23 Freq: Status: Active Protocol: Activity Type Activity Date Activity User E-Sign Co-Sign Detail Recorded Client Recorded Date Recorded By Document 09/06/18 09:37 DV [id number] 09/06/18 09:50 DV 09/06/18 09:37 Wound Center Nurse 2 [Procedure/Treatment] #5 Medial RLE -Time 09:37 -Correct Patient Yes -Correct Side, Site, Position Yes -Correct Procedure Yes -Procedure Performed Yes -Type of Procedure Debridement -Clinical Debridement Subcutaneous -Post Debridement Size (cm) - Length 0.8 -Post Debridement Size (cm) - Width 0.7 -Post Debridement Size (cm) - Depth 0.6 -Total Square Cm 0.56 -Wound/Ulcer Outcome Not Healed -Ulcer Cleansing Rinsed/ Irrigated with Saline -Foul Odor after Cleansing No -Bioengineered Tissue No -Bleeding Controlled with Pressure -Offloading No -Treatment Response Procedure Tolerated Well #4 RLE Murrell- Cluster -Time 09:38 -Correct Patient Yes -Correct Side, Site, Position Yes -Correct Procedure Yes -Procedure Performed Yes -Type of Procedure Debridement -Clinical Debridement Subcutaneous -Post Debridement Size (cm) - Length 3.2 -Post Debridement Size (cm) - Width 0.7 -Post Debridement Size (cm) - Depth 0.7 -Total Square Cm 2.24 -Wound/Ulcer Outcome Not Healed -Ulcer Cleansing Rinsed/ Irrigated with Saline -Foul Odor after Cleansing No -Bioengineered Tissue No -Bleeding Controlled with Pressure -Offloading No -Treatment Response Procedure Tolerated Well #3 Lateral RLE -Time 09:40 -Correct Patient Yes -Correct Side, Site, Position Yes -Correct Procedure Yes -Procedure Performed Yes -Type of Procedure Debridement -Clinical Debridement Subcutaneous -Post Debridement Size (cm) - Length 1.0 -Post Debridement Size (cm) - Width 2.2 -Post Debridement Size (cm) - Depth 0.5 -Total Square Cm 2.20 -Wound/Ulcer Outcome Not Healed -Ulcer Cleansing Rinsed/ Irrigated with Saline -Bleeding Controlled with Pressure -Offloading No -Treatment Response Procedure Tolerated Well #2 Left 2nd Toe -Time 09:44 -Correct Patient Yes -Correct Side, Site, Position Yes -Correct Procedure Yes -Procedure Performed Yes -Type of Procedure Debridement -Clinical Debridement Subcutaneous -Post Debridement Size (cm) - Length 0.3 -Post Debridement Size (cm) - Width 0.2 -Post Debridement Size (cm) - Depth 0.1 -Total Square Cm 0.06 -Wound/Ulcer Outcome Not Healed -Ulcer Cleansing Rinsed/ Irrigated with Saline -Foul Odor after Cleansing No -Bioengineered Tissue No -Bleeding Controlled with Pressure -Offloading No -Treatment Response Procedure Tolerated Well #1 Left Posterior Calf -Time 09:44 -Correct Patient Yes -Correct Side, Site, Position Yes -Correct Procedure Yes -Procedure Performed Yes -Type of Procedure Debridement -Clinical Debridement Subcutaneous -Post Debridement Size (cm) - Length 0.5 -Post Debridement Size (cm) - Width 0.6 -Post Debridement Size (cm) - Depth 0.3 -Total Square Cm 0.30 -Wound/Ulcer Outcome Not Healed -Ulcer Cleansing Rinsed/ Irrigated with Saline -Foul Odor after Cleansing No -Bioengineered Tissue No -Bleeding Controlled with Pressure -Offloading No -Treatment Response Procedure Tolerated Well [See Physician Procedure note for Specifics] Pain Scale: 0-10 Numeric [Pain] -Is Patient Pain Free? Yes Musculoskeletal: Tenderness - With manipulation of ulcer sites Neurological: Sensory exam intact to light touch and pain Psych/Mental Status: Normal Affect, Appropriate Debridement Note Post-Debridement Measurements/Treatment WC - Nurse 2 - General Ulcer CM Notes Start: 08/27/18 08:23 Freq: Status: Active Protocol: Activity Type Activity Date Activity User E-Sign Co-Sign Detail Recorded Client Recorded Date Recorded By Document 08/30/18 09:15 DV [id number] 08/30/18 09:25 DV Document 09/06/18 09:37 DV [id number] 09/06/18 09:50 DV 08/30/18 09/06/18 09:15 09:37 Wound Center Nurse 2 #5 Medial RLE -Time 09:16 09:37 -Correct Patient Yes Yes -Correct Side, Site, Position Yes Yes -Correct Procedure Yes Yes -Procedure Performed Yes Yes -Type of Procedure Debridement Debridement -Clinical Debridement Subcutaneous Subcutaneous -Post Debridement Size (cm) - Length 0.9 0.8 -Post Debridement Size (cm) - Width 0.9 0.7 -Post Debridement Size (cm) - Depth 0.6 0.6 -Total Square Cm 0.81 0.56 -Wound/Ulcer Outcome Not Healed Not Healed -Ulcer Cleansing Rinsed/ Rinsed/ Irrigated with Irrigated with Saline Saline -Foul Odor after Cleansing No No -Bioengineered Tissue No No -Bleeding Controlled with Pressure Pressure -Offloading No No -Treatment Response Procedure Procedure Tolerated Well Tolerated Well #4 RLE Murrell- Cluster -Time 09:17 09:38 -Correct Patient Yes Yes -Correct Side, Site, Position Yes Yes -Correct Procedure Yes Yes -Procedure Performed Yes Yes -Type of Procedure Debridement Debridement -Clinical Debridement Subcutaneous Subcutaneous -Post Debridement Size (cm) - Length 3.4 3.2 -Post Debridement Size (cm) - Width 0.8 0.7 -Post Debridement Size (cm) - Depth 0 0.7 -Total Square Cm 2.72 2.24 -Wound/Ulcer Outcome Not Healed Not Healed -Ulcer Cleansing Rinsed/ Rinsed/ Irrigated with Irrigated with Saline Saline -Foul Odor after Cleansing No No -Bioengineered Tissue No No -Bleeding Controlled with Pressure Pressure -Offloading No No -Treatment Response Procedure Procedure Tolerated Well Tolerated Well #3 Lateral RLE -Time 09:18 09:40 -Correct Patient Yes Yes -Correct Side, Site, Position Yes Yes -Correct Procedure Yes Yes -Procedure Performed Yes Yes -Type of Procedure Debridement Debridement -Clinical Debridement Subcutaneous Subcutaneous -Post Debridement Size (cm) - Length 1.0 1.0 -Post Debridement Size (cm) - Width 1.2 2.2 -Post Debridement Size (cm) - Depth 0.5 0.5 -Total Square Cm 1.20 2.20 -Wound/Ulcer Outcome Not Healed Not Healed -Ulcer Cleansing Rinsed/ Rinsed/ Irrigated with Irrigated with Saline Saline -Foul Odor after Cleansing No -Bioengineered Tissue No -Bleeding Controlled with Pressure Pressure -Offloading No No -Treatment Response Procedure Procedure Tolerated Well Tolerated Well #2 Left 2nd Toe -Time 09:24 09:44 -Correct Patient Yes Yes -Correct Side, Site, Position Yes Yes -Correct Procedure Yes Yes -Procedure Performed Yes Yes -Type of Procedure Debridement Debridement -Clinical Debridement Subcutaneous Subcutaneous -Post Debridement Size (cm) - Length 0.4 0.3 -Post Debridement Size (cm) - Width 0.2 0.2 -Post Debridement Size (cm) - Depth 0.1 0.1 -Total Square Cm 0.08 0.06 -Wound/Ulcer Outcome Not Healed Not Healed -Ulcer Cleansing Rinsed/ Rinsed/ Irrigated with Irrigated with Saline Saline -Foul Odor after Cleansing No No -Bioengineered Tissue No No -Bleeding Controlled with Pressure Pressure -Offloading No No -Treatment Response Procedure Procedure Tolerated Well Tolerated Well #1 Left Posterior Calf -Time 09:23 09:44 -Correct Patient Yes Yes -Correct Side, Site, Position Yes Yes -Correct Procedure Yes Yes -Procedure Performed Yes Yes -Type of Procedure Debridement Debridement -Clinical Debridement Subcutaneous Subcutaneous -Post Debridement Size (cm) - Length 0.7 0.5 -Post Debridement Size (cm) - Width 0.7 0.6 -Post Debridement Size (cm) - Depth 0.3 0.3 -Total Square Cm 0.49 0.30 -Wound/Ulcer Outcome Not Healed Not Healed -Ulcer Cleansing Rinsed/ Rinsed/ Irrigated with Irrigated with Saline Saline -Foul Odor after Cleansing No No -Bioengineered Tissue No No -Bleeding Controlled with Pressure Pressure -Offloading No No -Treatment Response Procedure Procedure Tolerated Well Tolerated Well Pain Scale: 0-10 Numeric Is Patient Pain Free? Yes Wound debrided: Left posterior calf Laterality: Left Type of Debridement: Excisional debridement Anesthesia Used: 4% Lidocaine Solution Depth: in the subcutaneous layer Percentage of wound debrided: 100 Instrument Used: 3mm curette Tissue Removed: Adherent slough, fibrin, biofilm Severity: Fat Layer Exposed Amount of bleeding with debridement: Mild Bleeding Controlled with: Pressure Patient tolerated procedure well - Additional Wound Wound debrided: Left dorsal second toe Laterality: Left Type of Debridement: Excisional debridement Anesthesia Used: 4% Lidocaine Solution Depth: in the subcutaneous layer Percentage of wound debrided: 100 Instrument Used: 3mm curette Tissue Removed: Adherent slough, hyperkeratotic tissue Severity: Fat Layer Exposed Amount of bleeding with debridement: Mild Bleeding Controlled with: Pressure Patient tolerated procedure: Patient tolerated procedure well - Additional Wound Wound debrided: Right lateral lower extremity Laterality: Right Type of Debridement: Excisional debridement Anesthesia Used: 4% Lidocaine Solution Depth: in the subcutaneous layer Percentage of wound debrided: 100 Instrument Used: 3mm curette Tissue Removed: Adherent slough, fibrin, biofilm Severity: Fat Layer Exposed Amount of bleeding with debridement: Mild Bleeding Controlled with: Pressure Patient tolerated procedure: Patient tolerated procedure well - Additional Wound Wound debrided: Right anterior murrell cluster Laterality: Right Type of Debridement: Excisional debridement Anesthesia Used: 4% Lidocaine Solution Depth: in the subcutaneous layer Percentage of wound debrided: 100 Instrument Used: 3mm curette Tissue Removed: Adherent slough, fibrin, biofilm Severity: Fat Layer Exposed Amount of bleeding with debridement: Mild Bleeding Controlled with: Pressure Patient tolerated procedure: Patient tolerated procedure well - Additional Wound Wound debrided: Right proximal medial calf Laterality: Right Type of Debridement: Excisional debridement Anesthesia Used: 4% Lidocaine Solution Depth: in the subcutaneous layer Percentage of wound debrided: 100 Instrument Used: 3mm curette Tissue Removed: Adherent slough, fibrin, biofilm Severity: Fat Layer Exposed Amount of bleeding with debridement: Mild Bleeding Controlled with: Pressure Patient tolerated procedure: Patient tolerated procedure well Assessment/Plan Assessment: Ulcer of right and left lower extremity and left dorsal 2nd toe with fat later exposed, DM II, pain to right and left LE, other comorbidities Plan: Patient was carefully examined and evaluated today with present. Another excisional subcutaneous debridement was performed as noted in the clinical panel to each ulcer. All ulcer sites except the two proximal right leg ulcers were dressed with Aquacel Ag to the base. This was then covered by dry sterile dressing followed by Tubigrip for compression. The patient is to change his dressing in this manner on a daily basis with help of his . A snap wound vac was applied to the remaining two ulcer sites of the right proximal lower leg, as the patient has done well with this over the last week again. Patient is to keep this intact until Monday when he has an appointment to check the vac and for vac re application. The importance of keeping these ulcer sites offloaded was discussed in great detail with the patient again today. LEAS and venous Doppler exams showed sufficient areterial flow to lower extremities, however the venous doppler exams revealed some venous incompetence. Full report can be found in patient's chart. A right tib-fib x-ray was also ordered and the results show no signs of osteomyelitis. Patient was instructed to keep legs elevated while seated or lying down. I also recommend nutritional supplementation with a diet high in protein to help optimize ulcer healing potential. The patient was again educated on all signs and symptoms of local and systemic infection, and he is instructed to go to the emergency room immediately should they notice any of these. All other questions were answered to the patient and his 's satisfaction. The patient will follow back up in clinic in 1 week to check on progress, or sooner if needed.
[2018-09-10 13:53] VITALS: BP 154/90; PULSE 74; TEMP 36.6; BMI 31.8
[2018-09-13 08:31] VITALS: BP 138/79; PULSE 62; RESP 18; TEMP 36.6; BMI 31.8
--- NOTE | 2018-09-13 10:29 | PN.PCM_ITS ---
(1) Ulcer of right lower extremity with fat layer exposed Status: Acute Current Visit: No Code(s): L97.912 - Non-pressure chronic ulcer of unspecified part of right lower leg with fat layer exposed (2) Ulcer of left lower extremity with fat layer exposed Status: Acute Current Visit: No Code(s): L97.922 - Non-pressure chronic ulcer of unspecified part of left lower leg with fat layer exposed (3) Agent orange exposure Status: Acute Current Visit: No Code(s): Z77.098 - Contact with and (suspected) exposure to other hazardous, chiefly nonmedicinal, chemicals (4) PVD (peripheral vascular disease) Status: Suspected Current Visit: No Code(s): I73.9 - Peripheral vascular disease, unspecified (5) Pain of right lower extremity Status: Acute Current Visit: No Code(s): M79.604 - Pain in right leg (6) Pain of left lower extremity Status: Acute Current Visit: No Code(s): M79.605 - Pain in left leg (7) Controlled diabetes mellitus Status: Acute Current Visit: No Code(s): E11.9 - Type 2 diabetes mellitus without complications Type of Wound Chief Complaint: Bilateral lower extremity ulcers History of Wound: This 67-year-old diabetic male presents to the wound healing center today after being referred from his primary care physician for bilateral lower extremity ulcers. Patient denies any injury or trauma to the area. He says he noticed some swelling to each of his lower legs as well as some redness around July 17. He states that his primary care doctor placed him on Bactrim DS and the redness and swelling began to subside. As this was happening, he said the skin broke down and he noticed some ulcers to both his right and left lower legs. The patient also relates that he has an ulcer to the top of his left second toe. Patient denies noticing any purulence to the areas and says he has been dressing the ulcer sites on his own with Neosporin. He currently denies any feelings of nausea, vomiting, fever, chills. Progress of Wound: Ulcers show improvement again this week. Patient has been having aquacel ag dressing changes daily with help of his to all sites except the two left proximal leg ulcers where snap vac has been applied. Patient stubbed right 5th toe on grandfather clock and has abrasion on top of toe but has no signs of infection. He denies any feelings of nausea, vomiting, fever, or chills. - Physical Exam Vital Signs Temp Pulse Resp BP 97.8 F 62 18 138/79 H 09/13/18 08:31 09/13/18 08:31 09/13/18 08:31 09/13/18 08:31 General: Alert, Oriented x3, Cooperative, No apparent distress Extremities: Capillary Refill Less than 3 Seconds, No Calf Tenderness - Negative Ana and Koch signs bilateral, Diminished Peripheral Pulses - Faintly palpable DP and PT pulses bilateral, Edema - Bilateral lower extremity edema, - - Lower extremity varicosities noted bilateral Skin: Ulcer/ Wound - Ulcer cluster to right anterior murrell as well and ulcer to right medial calf with fat layer exposed. The bases of these sites are noted to be a mixture of adherent slough, fibrin, biofilm, and increasing amount of granular tissue. The undermining and tracking continue to improve. There is no purulence, no malodor, no extending cellulitis, no increased warmth, no probing to bone. Ulcer to right lateral lower leg and left posterior calf with fat layer exposed. Measurements noted. The bases are noted to be a mixture of adherent slough, fibrin, biofilm, scant granular tissue. There is no purulence, no surrounding cellulitis, no increased warmth, no malodor, no probing to bone, no tracking, no undermining. Ulcer to left second toe with fat layer exposed and measurements noted below. Base is a mixture of adherent slough, granular tissue, hyperkeratotic tissue. There is no probing to bone, no tracking, no undermining, no purulence, no surrounding cellulitis, no malodor. Small abrasion to the dorsal right fifth toe with no signs of local infection., - - Bilateral hemosiderin skin changes to lower extremity Wound Measurements and Assessment Wound Measurements and Assessment WC - Nurse 1 - General Ulcer Measurement Start: 08/27/18 08:23 Freq: Status: Active Protocol: Activity Type Activity Date Activity User E-Sign Co-Sign Detail Recorded Client Recorded Date Recorded By Document 09/10/18 13:53 DL [id number] 09/10/18 13:57 DL Document 09/13/18 09:04 AN [id number] 09/13/18 09:11 AN 09/10/18 09/13/18 13:53 09:04 Wound Center Nurse 1 [Ulcer Assessment] #6 Right 5th Toe -Current Size (cm) - Length 0.3 -Current Size (cm) - Width 0.3 -Current Size (cm) - Depth 0.1 -Total Square Cm 0.09 -Date of Last Picture (Recall this 09/13/18 field) -Photo Taken Yes -Classification - Thickness Full Thickness without Exposed Support Structure -Exudate Amt Small -Exudate Type Sanguineous -Wound Margin Distinct, Outline Attached -Granulation Amt Large (67-100%) -Granulation Quality Red -Slough/Fibrin Yes -Necrosis Amt Small (1-33%) -Necrotic Tissue Type Eschar -Structure Exposed None/Limited to Skin Breakdown -Texture (Olya-wound Skin Appearance) Assessed -Moisture (Olya-wound Skin Appearance Assessed ) -Color (Olya-wound Skin Appearance) Assessed Erythema -Temperature (Olya-wound Skin Cool/Cold Appearance) -Tenderness on Palpation (Olya-wound No Skin Appearance) -Ulcer Cleansing Rinsed/ Irrigated with Saline -Foul Odor after Cleansing No -Anesthetic Used 4% Lidocaine Solution #5 Medial RLE -Current Size (cm) - Length 0.6 -Current Size (cm) - Width 0.6 -Current Size (cm) - Depth 0.7 -Total Square Cm 0.36 -Photo Taken No -Epithelialization None Present -Classification - Thickness Full Thickness without Exposed Support Structure -Exudate Amt Medium Medium -Exudate Type Serosanguineous Serosanguineous -Wound Margin Distinct, Distinct, Outline Outline Attached Attached -Granulation Amt Large (67-100%) Large (67-100%) -Granulation Quality Red Red -Slough/Fibrin Yes -Necrosis Amt Small (1-33%) -Necrotic Tissue Type Adherent Slough -Structure Exposed N/A Fat Layer Exposed -Texture (Olya-wound Skin Appearance) Scarring Assessed -Moisture (Olya-wound Skin Appearance Assessed ) -Color (Olya-wound Skin Appearance) Hemosiderin Assessed Staining Erythema Rubor -Temperature (Olya-wound Skin No Abnormality Cool/Cold Appearance) (Pt Warm) -Tenderness on Palpation (Olya-wound No No Skin Appearance) -Ulcer Cleansing Wound Cleanser soap and water -Foul Odor after Cleansing No No -Anesthetic Used 4% Lidocaine Solution #4 RLE Murrell- Cluster -Current Size (cm) - Length 3.1 -Current Size (cm) - Width 0.5 -Current Size (cm) - Depth 0.8 -Total Square Cm 1.55 -Photo Taken No No -Classification - Thickness Full Thickness without Exposed Support Structure -Exudate Amt Medium Medium -Exudate Type Serosanguineous Serosanguineous -Wound Margin Distinct, Distinct, Outline Outline Attached Attached -Granulation Amt Large (67-100%) Large (67-100%) -Granulation Quality Red Red -Slough/Fibrin Yes -Necrosis Amt None Present (0 Small (1-33%) %) -Necrotic Tissue Type Adherent Slough -Structure Exposed N/A Fat Layer Exposed -Texture (Olya-wound Skin Appearance) Scarring Assessed -Moisture (Olya-wound Skin Appearance Assessed ) -Color (Olya-wound Skin Appearance) Hemosiderin Assessed Staining Erythema Rubor -Temperature (Olya-wound Skin No Abnormality Cool/Cold Appearance) (Pt Warm) -Tenderness on Palpation (Olya-wound No No Skin Appearance) -Ulcer Cleansing Wound Cleanser soap and water -Foul Odor after Cleansing No No -Anesthetic Used 4% Lidocaine Solution #3 Lateral RLE -Current Size (cm) - Length 0.7 -Current Size (cm) - Width 2.2 -Current Size (cm) - Depth 0.5 -Total Square Cm 1.54 -Photo Taken No -Classification - Thickness Full Thickness without Exposed Support Structure -Exudate Amt Medium -Exudate Type Serosanguineous -Wound Margin Distinct, Outline Attached -Granulation Amt Large (67-100%) -Granulation Quality Red -Slough/Fibrin Yes -Necrosis Amt Small (1-33%) -Necrotic Tissue Type Adherent Slough -Structure Exposed Fat Layer Exposed -Texture (Olya-wound Skin Appearance) Assessed -Moisture (Olya-wound Skin Appearance Assessed ) -Color (Olya-wound Skin Appearance) Assessed Erythema -Temperature (Olya-wound Skin Cool/Cold Appearance) -Tenderness on Palpation (Olya-wound No Skin Appearance) -Foul Odor after Cleansing No -Anesthetic Used 4% Lidocaine Solution #2 Left 2nd Toe -Current Size (cm) - Length 0.3 -Current Size (cm) - Width 0.1 -Current Size (cm) - Depth 0.1 -Total Square Cm 0.03 -Epithelialization None Present -Classification - Thickness Full Thickness without Exposed Support Structure -Exudate Amt None Present -Wound Margin Distinct, Outline Attached -Granulation Amt Large (67-100%) -Granulation Quality Red -Slough/Fibrin Yes -Necrosis Amt Small (1-33%) -Necrotic Tissue Type Adherent Slough -Structure Exposed None/Limited to Skin Breakdown -Texture (Olya-wound Skin Appearance) Assessed -Moisture (Olya-wound Skin Appearance Assessed ) -Color (Olya-wound Skin Appearance) Assessed Erythema -Temperature (Olya-wound Skin Cool/Cold Appearance) -Tenderness on Palpation (Olya-wound No Skin Appearance) -Foul Odor after Cleansing No -Anesthetic Used 4% Lidocaine Solution #1 Left Posterior Calf -Current Size (cm) - Length 0.4 -Current Size (cm) - Width 0.3 -Current Size (cm) - Depth 0.1 -Total Square Cm 0.12 -Classification - Thickness Full Thickness without Exposed Support Structure -Exudate Amt Medium -Exudate Type Serosanguineous -Wound Margin Distinct, Outline Attached -Granulation Amt Large (67-100%) -Granulation Quality Red -Slough/Fibrin Yes -Necrosis Amt Small (1-33%) -Necrotic Tissue Type Adherent Slough -Structure Exposed None/Limited to Skin Breakdown -Texture (Olya-wound Skin Appearance) Assessed -Moisture (Olya-wound Skin Appearance Assessed ) -Color (Olya-wound Skin Appearance) Erythema -Temperature (Olya-wound Skin Cool/Cold Appearance) -Tenderness on Palpation (Olya-wound No Skin Appearance) -Ulcer Cleansing Rinsed/ Irrigated with Saline -Foul Odor after Cleansing No -Anesthetic Used 4% Lidocaine Solution [Edema Assessment] -Right Calf (cm) 40.5 -Right Ankle (cm) 28.5 -Left Calf (cm) 42 -Left Ankle (cm) 30 WC - Nurse 2 - General Ulcer CM Notes Start: 08/27/18 08:23 Freq: Status: Active Protocol: Activity Type Activity Date Activity User E-Sign Co-Sign Detail Recorded Client Recorded Date Recorded By Document 09/13/18 09:24 DV [id number] 09/13/18 09:36 DV 09/13/18 09:24 Wound Center Nurse 2 [Procedure/Treatment] #6 Right 5th Toe -Time 09:25 -Correct Patient Yes -Correct Side, Site, Position Yes -Procedure Performed No -Wound/Ulcer Outcome Not Healed #5 Medial RLE -Time 09:26 -Correct Patient Yes -Correct Side, Site, Position Yes -Correct Procedure Yes -Procedure Performed Yes -Type of Procedure Debridement -Clinical Debridement Subcutaneous -Post Debridement Size (cm) - Length 0.8 -Post Debridement Size (cm) - Width 0.7 -Post Debridement Size (cm) - Depth 0.5 -Total Square Cm 0.56 -Wound/Ulcer Outcome Not Healed -Ulcer Cleansing Rinsed/ Irrigated with Saline -Foul Odor after Cleansing No -Bioengineered Tissue No -Bleeding Controlled with Pressure -Offloading No -Treatment Response Procedure Tolerated Well #4 RLE Murrell- Cluster -Time 09:29 -Correct Patient Yes -Correct Side, Site, Position Yes -Correct Procedure Yes -Procedure Performed Yes -Type of Procedure Debridement -Clinical Debridement Subcutaneous -Post Debridement Size (cm) - Length 3.0 -Post Debridement Size (cm) - Width 0.7 -Post Debridement Size (cm) - Depth 0.7 -Total Square Cm 2.10 -Wound/Ulcer Outcome Not Healed -Ulcer Cleansing Rinsed/ Irrigated with Saline -Foul Odor after Cleansing No -Bioengineered Tissue No -Bleeding Controlled with Pressure -Offloading No -Treatment Response Procedure Tolerated Well #3 Lateral RLE -Time 09:30 -Correct Patient Yes -Correct Side, Site, Position Yes -Correct Procedure Yes -Procedure Performed Yes -Type of Procedure Debridement -Clinical Debridement Subcutaneous -Post Debridement Size (cm) - Length 1.0 -Post Debridement Size (cm) - Width 2.3 -Post Debridement Size (cm) - Depth 0.5 -Total Square Cm 2.30 -Wound/Ulcer Outcome Not Healed -Ulcer Cleansing Rinsed/ Irrigated with Saline -Foul Odor after Cleansing No -Bioengineered Tissue No -Bleeding Controlled with Pressure -Offloading No -Type of Offloading Surgical Shoe -Treatment Response Procedure Tolerated Well #2 Left 2nd Toe -Time 09:32 -Correct Patient Yes -Correct Side, Site, Position Yes -Correct Procedure Yes -Procedure Performed Yes -Type of Procedure Debridement -Clinical Debridement Subcutaneous -Post Debridement Size (cm) - Length 0.2 -Post Debridement Size (cm) - Width 0.1 -Post Debridement Size (cm) - Depth 0.1 -Total Square Cm 0.02 -Wound/Ulcer Outcome Not Healed -Ulcer Cleansing Rinsed/ Irrigated with Saline -Foul Odor after Cleansing No -Bioengineered Tissue No -Bleeding Controlled with Pressure -Offloading No -Treatment Response Procedure Tolerated Well #1 Left Posterior Calf -Time 09:35 -Correct Patient Yes -Correct Side, Site, Position Yes -Correct Procedure Yes -Procedure Performed Yes -Type of Procedure Debridement -Clinical Debridement Subcutaneous -Post Debridement Size (cm) - Length 0.5 -Post Debridement Size (cm) - Width 0.5 -Post Debridement Size (cm) - Depth 0.2 -Total Square Cm 0.25 -Wound/Ulcer Outcome Not Healed -Ulcer Cleansing Rinsed/ Irrigated with Saline -Foul Odor after Cleansing No -Bioengineered Tissue No -Bleeding Controlled with Pressure -Offloading No -Treatment Response Procedure Tolerated Well [See Physician Procedure note for Specifics] Pain Scale: 0-10 Numeric [Pain] -Is Patient Pain Free? Yes Musculoskeletal: Tenderness - With manipulation of ulcer sites Neurological: Sensory exam intact to light touch and pain Psych/Mental Status: Normal Affect, Appropriate Debridement Note Post-Debridement Measurements/Treatment WC - Nurse 2 - General Ulcer CM Notes Start: 08/27/18 08:23 Freq: Status: Active Protocol: Activity Type Activity Date Activity User E-Sign Co-Sign Detail Recorded Client Recorded Date Recorded By Document 08/30/18 09:15 DV [id number] 08/30/18 09:25 DV Document 09/06/18 09:37 DV [id number] 09/06/18 09:50 DV Document 09/13/18 09:24 DV [id number] 09/13/18 09:36 DV 08/30/18 09/06/18 09/13/18 09:15 09:37 09:24 Wound Center Nurse 2 #6 Right 5th Toe -Time 09:25 -Correct Patient Yes -Correct Side, Site, Position Yes -Procedure Performed No -Wound/Ulcer Outcome Not Healed #5 Medial RLE -Time 09:16 09:37 09:26 -Correct Patient Yes Yes Yes -Correct Side, Site, Position Yes Yes Yes -Correct Procedure Yes Yes Yes -Procedure Performed Yes Yes Yes -Type of Procedure Debridement Debridement Debridement -Clinical Debridement Subcutaneous Subcutaneous Subcutaneous -Post Debridement Size (cm) - Length 0.9 0.8 0.8 -Post Debridement Size (cm) - Width 0.9 0.7 0.7 -Post Debridement Size (cm) - Depth 0.6 0.6 0.5 -Total Square Cm 0.81 0.56 0.56 -Wound/Ulcer Outcome Not Healed Not Healed Not Healed -Ulcer Cleansing Rinsed/ Rinsed/ Rinsed/ Irrigated with Irrigated with Irrigated with Saline Saline Saline -Foul Odor after Cleansing No No No -Bioengineered Tissue No No No -Bleeding Controlled with Pressure Pressure Pressure -Offloading No No No -Treatment Response Procedure Procedure Procedure Tolerated Well Tolerated Well Tolerated Well #4 RLE Murrell- Cluster -Time 09:17 09:38 09:29 -Correct Patient Yes Yes Yes -Correct Side, Site, Position Yes Yes Yes -Correct Procedure Yes Yes Yes -Procedure Performed Yes Yes Yes -Type of Procedure Debridement Debridement Debridement -Clinical Debridement Subcutaneous Subcutaneous Subcutaneous -Post Debridement Size (cm) - Length 3.4 3.2 3.0 -Post Debridement Size (cm) - Width 0.8 0.7 0.7 -Post Debridement Size (cm) - Depth 0 0.7 0.7 -Total Square Cm 2.72 2.24 2.10 -Wound/Ulcer Outcome Not Healed Not Healed Not Healed -Ulcer Cleansing Rinsed/ Rinsed/ Rinsed/ Irrigated with Irrigated with Irrigated with Saline Saline Saline -Foul Odor after Cleansing No No No -Bioengineered Tissue No No No -Bleeding Controlled with Pressure Pressure Pressure -Offloading No No No -Treatment Response Procedure Procedure Procedure Tolerated Well Tolerated Well Tolerated Well #3 Lateral RLE -Time 09:18 09:40 09:30 -Correct Patient Yes Yes Yes -Correct Side, Site, Position Yes Yes Yes -Correct Procedure Yes Yes Yes -Procedure Performed Yes Yes Yes -Type of Procedure Debridement Debridement Debridement -Clinical Debridement Subcutaneous Subcutaneous Subcutaneous -Post Debridement Size (cm) - Length 1.0 1.0 1.0 -Post Debridement Size (cm) - Width 1.2 2.2 2.3 -Post Debridement Size (cm) - Depth 0.5 0.5 0.5 -Total Square Cm 1.20 2.20 2.30 -Wound/Ulcer Outcome Not Healed Not Healed Not Healed -Ulcer Cleansing Rinsed/ Rinsed/ Rinsed/ Irrigated with Irrigated with Irrigated with Saline Saline Saline -Foul Odor after Cleansing No No -Bioengineered Tissue No No -Bleeding Controlled with Pressure Pressure Pressure -Offloading No No No -Type of Offloading Surgical Shoe -Treatment Response Procedure Procedure Procedure Tolerated Well Tolerated Well Tolerated Well #2 Left 2nd Toe -Time 09:24 09:44 09:32 -Correct Patient Yes Yes Yes -Correct Side, Site, Position Yes Yes Yes -Correct Procedure Yes Yes Yes -Procedure Performed Yes Yes Yes -Type of Procedure Debridement Debridement Debridement -Clinical Debridement Subcutaneous Subcutaneous Subcutaneous -Post Debridement Size (cm) - Length 0.4 0.3 0.2 -Post Debridement Size (cm) - Width 0.2 0.2 0.1 -Post Debridement Size (cm) - Depth 0.1 0.1 0.1 -Total Square Cm 0.08 0.06 0.02 -Wound/Ulcer Outcome Not Healed Not Healed Not Healed -Ulcer Cleansing Rinsed/ Rinsed/ Rinsed/ Irrigated with Irrigated with Irrigated with Saline Saline Saline -Foul Odor after Cleansing No No No -Bioengineered Tissue No No No -Bleeding Controlled with Pressure Pressure Pressure -Offloading No No No -Treatment Response Procedure Procedure Procedure Tolerated Well Tolerated Well Tolerated Well #1 Left Posterior Calf -Time 09:23 09:44 09:35 -Correct Patient Yes Yes Yes -Correct Side, Site, Position Yes Yes Yes -Correct Procedure Yes Yes Yes -Procedure Performed Yes Yes Yes -Type of Procedure Debridement Debridement Debridement -Clinical Debridement Subcutaneous Subcutaneous Subcutaneous -Post Debridement Size (cm) - Length 0.7 0.5 0.5 -Post Debridement Size (cm) - Width 0.7 0.6 0.5 -Post Debridement Size (cm) - Depth 0.3 0.3 0.2 -Total Square Cm 0.49 0.30 0.25 -Wound/Ulcer Outcome Not Healed Not Healed Not Healed -Ulcer Cleansing Rinsed/ Rinsed/ Rinsed/ Irrigated with Irrigated with Irrigated with Saline Saline Saline -Foul Odor after Cleansing No No No -Bioengineered Tissue No No No -Bleeding Controlled with Pressure Pressure Pressure -Offloading No No No -Treatment Response Procedure Procedure Procedure Tolerated Well Tolerated Well Tolerated Well Pain Scale: 0-10 Numeric Is Patient Pain Free? Yes Yes Wound debrided: Left posterior calf Laterality: Left Type of Debridement: Excisional debridement Anesthesia Used: 4% Lidocaine Solution Depth: in the subcutaneous layer Percentage of wound debrided: 100 Instrument Used: 3mm curette Tissue Removed: Adherent slough, fibrin, biofilm Severity: Fat Layer Exposed Amount of bleeding with debridement: Mild Bleeding Controlled with: Pressure Patient tolerated procedure well - Additional Wound Wound debrided: Left dorsal second toe Laterality: Left Type of Debridement: Excisional debridement Anesthesia Used: 4% Lidocaine Solution Depth: in the subcutaneous layer Percentage of wound debrided: 100 Instrument Used: 5mm curette Tissue Removed: Adherent slough, hyperkeratotic tissue Severity: Fat Layer Exposed Amount of bleeding with debridement: Mild Bleeding Controlled with: Pressure Patient tolerated procedure: Patient tolerated procedure well - Additional Wound Wound debrided: Right lateral lower extremity Laterality: Right Type of Debridement: Excisional debridement Anesthesia Used: 4% Lidocaine Solution Depth: in the subcutaneous layer Percentage of wound debrided: 100 Instrument Used: 5mm curette Tissue Removed: Adherent slough, fibrin, biofilm Severity: Fat Layer Exposed Amount of bleeding with debridement: Mild Bleeding Controlled with: Pressure Patient tolerated procedure: Patient tolerated procedure well - Additional Wound Wound debrided: Right anterior murrell cluster Laterality: Right Type of Debridement: Excisional debridement Anesthesia Used: 4% Lidocaine Solution Depth: in the subcutaneous layer Percentage of wound debrided: 100 Instrument Used: 5mm curette Tissue Removed: Adherent slough, fibrin, biofilm Severity: Fat Layer Exposed Amount of bleeding with debridement: Mild Bleeding Controlled with: Pressure Patient tolerated procedure: Patient tolerated procedure well - Additional Wound Wound debrided: Right proximal medial calf Laterality: Right Type of Debridement: Excisional debridement Anesthesia Used: 4% Lidocaine Solution Depth: in the subcutaneous layer Percentage of wound debrided: 100 Instrument Used: 5mm curette Tissue Removed: Adherent slough, fibrin, biofilm Severity: Fat Layer Exposed Amount of bleeding with debridement: Mild Bleeding Controlled with: Pressure Patient tolerated procedure: Patient tolerated procedure well Assessment/Plan Assessment: Ulcer of right and left lower extremity and left dorsal 2nd toe with fat later exposed, DM II, pain to right and left LE, other comorbidities Plan: Patient was carefully examined and evaluated today with present. Another excisional subcutaneous debridement was performed as noted in the clinical panel to each ulcer site. All ulcer sites were dressed with Aquacel Ag to the base. This was then covered by dry sterile dressing followed by Tubig rip for compression. The patient is to change his dressing in this manner on a daily basis with help of his . Patient will have a week off of wound vac to allow surrounding skin to calm down and so he can shower. he importance of keeping these ulcer sites offloaded was discussed in great detail with the patient again today. LEAS and venous Doppler exams showed sufficient areterial flow to lower extremities, however the venous doppler exams revealed some venous incompetence. Full report can be found in patient's chart. A right tib-fib x- ray was also ordered and the results show no signs of osteomyelitis. Patient was instructed to keep legs elevated while seated or lying down. I also recommend nutritional supplementation with a diet high in protein to help optimize ulcer healing potential. The patient was again educated on all signs and symptoms of local and systemic infection, and he is instructed to go to the emergency room immediately should they notice any of these. All other questions were answered to the patient and his 's satisfaction. The patient will follow back up in clinic in 1 week to check on progress, or sooner if needed.
[2018-09-20 09:34] VITALS: BMI 31.8
--- NOTE | 2018-09-20 13:15 | PN.PCM_ITS ---
(1) Ulcer of right lower extremity with fat layer exposed Status: Acute Current Visit: No Code(s): L97.912 - Non-pressure chronic ulcer of unspecified part of right lower leg with fat layer exposed (2) Ulcer of left lower extremity with fat layer exposed Status: Acute Current Visit: No Code(s): L97.922 - Non-pressure chronic ulcer of unspecified part of left lower leg with fat layer exposed (3) Agent orange exposure Status: Acute Current Visit: No Code(s): Z77.098 - Contact with and (suspected) exposure to other hazardous, chiefly nonmedicinal, chemicals (4) PVD (peripheral vascular disease) Status: Suspected Current Visit: No Code(s): I73.9 - Peripheral vascular disease, unspecified (5) Pain of right lower extremity Status: Acute Current Visit: No Code(s): M79.604 - Pain in right leg (6) Pain of left lower extremity Status: Acute Current Visit: No Code(s): M79.605 - Pain in left leg (7) Controlled diabetes mellitus Status: Acute Current Visit: No Code(s): E11.9 - Type 2 diabetes mellitus without complications Type of Wound Chief Complaint: Bilateral lower extremity ulcers History of Wound: This 67-year-old diabetic male presents to the wound healing center today after being referred from his primary care physician for bilateral lower extremity ulcers. Patient denies any injury or trauma to the area. He says he noticed some swelling to each of his lower legs as well as some redness around July 17. He states that his primary care doctor placed him on Bactrim DS and the redness and swelling began to subside. As this was happening, he said the skin broke down and he noticed some ulcers to both his right and left lower legs. The patient also relates that he has an ulcer to the top of his left second toe. Patient denies noticing any purulence to the areas and says he has been dressing the ulcer sites on his own with Neosporin. He currently denies any feelings of nausea, vomiting, fever, chills. Progress of Wound: Ulcers continue to show improvement. Patient has been having aquacel ag dressing changes daily with help of his to all sites except the two left proximal leg ulcers where snap vac has been applied. He denies any feelings of nausea, vomiting, fever, or chills. - Physical Exam Vital Signs Temp Pulse Resp BP 97.8 F 62 18 138/79 H 09/13/18 08:31 09/13/18 08:31 09/13/18 08:31 09/13/18 08:31 General: Alert, Oriented x3, Cooperative, No apparent distress Extremities: Capillary Refill Less than 3 Seconds, No Calf Tenderness - Negative Ana and Koch signs bilateral, Diminished Peripheral Pulses - Faintly palpable DP and PT pulses bilateral, Edema - Bilateral lower extremity edema, - - Lower extremity varicosities noted bilateral Skin: Ulcer/ Wound - Ulcer cluster to right anterior murrell as well and ulcer to right medial calf with fat layer exposed. The bases of these sites are noted to be a mixture of adherent slough, fibrin, biofilm, and increasing amount of granular tissue. The undermining and tracking appreciated to each of these ulcer sites has improved again. There is no purulence, no malodor, no extending cellulitis, no increased warmth, no probing to bone. Ulcer to right lateral lower leg and left posterior calf with fat layer exposed. Measurements noted. The bases are noted to be a mixture of adherent slough, fibrin, biofilm, scant granular tissue. There is no purulence, no surrounding cellulitis, no increased warmth, no malodor, no probing to bone, no tracking, no undermining. Ulcer to left second toe with fat layer exposed and measurements noted below. Base is a mixture of adherent slough, granular tissue, hyperkeratotic tissue. There is no probing to bone, no tracking, no undermining, no purulence, no surrounding cellulitis, no malodor, - - Bilateral hemosiderin skin changes to lower extremity Wound Measurements and Assessment WC - Nurse 1 - General Ulcer Measurement Start: 08/27/18 08:23 Freq: Status: Active Protocol: Activity Type Activity Date Activity User E-Sign Co-Sign Detail Recorded Client Recorded Date Recorded By Document 09/20/18 09:34 DV [id number] 09/20/18 09:48 DV 09/20/18 09:34 Wound Center Nurse 1 [Ulcer Assessment] #6 Right 5th Toe -Combined with other wound No -Current Size (cm) - Length 0.1 -Current Size (cm) - Width 0.1 -Current Size (cm) - Depth 0.1 -Total Square Cm 0.01 -Photo Taken No -Tunneling No -Exudate Amt None Present -Wound Margin Thickened -Granulation Amt None Present (0 %) -Texture (Olya-wound Skin Appearance) Assessed -Moisture (Olya-wound Skin Appearance Assessed ) -Color (Olya-wound Skin Appearance) Assessed Hemosiderin Staining -Temperature (Olya-wound Skin No Abnormality Appearance) (Pt Warm) -Tenderness on Palpation (Olya-wound No Skin Appearance) -Ulcer Cleansing Rinsed/ Irrigated with Saline -Foul Odor after Cleansing No -Anesthetic Used 4% Lidocaine Solution #5 Medial RLE -Combined with other wound No -Current Size (cm) - Length 0.8 -Current Size (cm) - Width 0.5 -Current Size (cm) - Depth 0.7 -Total Square Cm 0.40 -Photo Taken No -Tunneling No -Undermining/Tunneling Yes -Undermining/Tunneling Starts (O' 7 clock) -Undermining/Tunneling Ends (O'clock) 9 -Maximum Distance (cm) 0.7 -Circular Undermining No -Exudate Amt Small -Exudate Type Serosanguineous -Wound Margin Thickened & Rolled Under -Granulation Amt None Present (0 %) -Slough/Fibrin Yes -Necrosis Amt Large (67-100%) -Necrotic Tissue Type Adherent Slough -Texture (Olya-wound Skin Appearance) Assessed -Moisture (Olya-wound Skin Appearance Assessed ) -Color (Olya-wound Skin Appearance) Assessed Hemosiderin Staining -Temperature (Olya-wound Skin No Abnormality Appearance) (Pt Warm) -Tenderness on Palpation (Olya-wound No Skin Appearance) -Ulcer Cleansing Rinsed/ Irrigated with Saline -Foul Odor after Cleansing No -Anesthetic Used 4% Lidocaine Solution #4 RLE Murrell- Cluster -Combined with other wound No -Current Size (cm) - Length 5.0 -Current Size (cm) - Width 0.5 -Current Size (cm) - Depth 1.0 -Total Square Cm 2.50 -Photo Taken No -Tunneling No -Undermining/Tunneling Yes -Undermining/Tunneling Starts (O' 12 clock) -Undermining/Tunneling Ends (O'clock) 12 -Maximum Distance (cm) 0.5 -Exudate Amt Small -Exudate Type Serosanguineous -Wound Margin Thickened -Granulation Amt Small (1-33%) -Granulation Quality Pale Brantley -Slough/Fibrin Yes -Necrosis Amt Large (67-100%) -Necrotic Tissue Type Adherent Slough -Texture (Olya-wound Skin Appearance) Assessed -Moisture (Olya-wound Skin Appearance Assessed ) -Color (Olya-wound Skin Appearance) Assessed Hemosiderin Staining -Temperature (Olya-wound Skin No Abnormality Appearance) (Pt Warm) -Tenderness on Palpation (Olya-wound No Skin Appearance) -Ulcer Cleansing Rinsed/ Irrigated with Saline -Foul Odor after Cleansing No -Anesthetic Used 4% Lidocaine Solution #3 Lateral RLE -Combined with other wound No -Current Size (cm) - Length 1.0 -Current Size (cm) - Width 2.0 -Current Size (cm) - Depth 0.9 -Total Square Cm 2.00 -Photo Taken No -Tunneling No -Undermining/Tunneling No -Circular Undermining No -Exudate Amt Small -Exudate Type Yellow/Green -Wound Margin Thickened & Rolled Under -Granulation Amt None Present (0 %) -Slough/Fibrin Yes -Necrosis Amt Large (67-100%) -Necrotic Tissue Type Adherent Slough -Texture (Olya-wound Skin Appearance) Assessed -Moisture (Olya-wound Skin Appearance Assessed ) -Color (Olya-wound Skin Appearance) Assessed Hemosiderin Staining -Temperature (Olya-wound Skin No Abnormality Appearance) (Pt Warm) -Tenderness on Palpation (Olya-wound No Skin Appearance) -Ulcer Cleansing Rinsed/ Irrigated with Saline -Foul Odor after Cleansing No -Anesthetic Used 4% Lidocaine Solution #2 Left 2nd Toe -Current Size (cm) - Length 0.1 -Current Size (cm) - Width 0.1 -Current Size (cm) - Depth 0.1 -Total Square Cm 0.01 #1 Left Posterior Calf -Combined with other wound No -Current Size (cm) - Length 0.5 -Current Size (cm) - Width 0.5 -Current Size (cm) - Depth 0.2 -Total Square Cm 0.25 -Photo Taken No -Tunneling No -Undermining/Tunneling No -Exudate Amt None Present -Wound Margin Thickened & Rolled Under -Granulation Amt None Present (0 %) -Slough/Fibrin Yes -Necrosis Amt Large (67-100%) -Necrotic Tissue Type Adherent Slough -Texture (Olya-wound Skin Appearance) Assessed -Moisture (Olya-wound Skin Appearance Assessed ) -Color (Olya-wound Skin Appearance) Assessed Hemosiderin Staining -Temperature (Olya-wound Skin No Abnormality Appearance) (Pt Warm) -Tenderness on Palpation (Olya-wound No Skin Appearance) -Ulcer Cleansing Rinsed/ Irrigated with Saline -Foul Odor after Cleansing No -Anesthetic Used 4% Lidocaine Solution [Edema Assessment] -Right Calf (cm) 41 -Right Ankle (cm) 28.5 -Left Calf (cm) 41 -Left Ankle (cm) 28.5 Musculoskeletal: Tenderness - With manipulation of ulcer sites Neurological: Sensory exam intact to light touch and pain Psych/Mental Status: Normal Affect, Appropriate Debridement Note Post-Debridement Measurements/Treatment WC - Nurse 2 - General Ulcer CM Notes Start: 08/27/18 08:23 Freq: Status: Active Protocol: Activity Type Activity Date Activity User E-Sign Co-Sign Detail Recorded Client Recorded Date Recorded By Document 08/30/18 09:15 DV [id number] 08/30/18 09:25 DV Document 09/06/18 09:37 DV [id number] 09/06/18 09:50 DV Document 09/13/18 09:24 DV [id number] 09/13/18 09:36 DV 08/30/18 09/06/18 09/13/18 09:15 09:37 09:24 Wound Center Nurse 2 #6 Right 5th Toe -Time 09:25 -Correct Patient Yes -Correct Side, Site, Position Yes -Procedure Performed No -Wound/Ulcer Outcome Not Healed #5 Medial RLE -Time 09:16 09:37 09:26 -Correct Patient Yes Yes Yes -Correct Side, Site, Position Yes Yes Yes -Correct Procedure Yes Yes Yes -Procedure Performed Yes Yes Yes -Type of Procedure Debridement Debridement Debridement -Clinical Debridement Subcutaneous Subcutaneous Subcutaneous -Post Debridement Size (cm) - Length 0.9 0.8 0.8 -Post Debridement Size (cm) - Width 0.9 0.7 0.7 -Post Debridement Size (cm) - Depth 0.6 0.6 0.5 -Total Square Cm 0.81 0.56 0.56 -Wound/Ulcer Outcome Not Healed Not Healed Not Healed -Ulcer Cleansing Rinsed/ Rinsed/ Rinsed/ Irrigated with Irrigated with Irrigated with Saline Saline Saline -Foul Odor after Cleansing No No No -Bioengineered Tissue No No No -Bleeding Controlled with Pressure Pressure Pressure -Offloading No No No -Treatment Response Procedure Procedure Procedure Tolerated Well Tolerated Well Tolerated Well #4 RLE Murrell- Cluster -Time 09:17 09:38 09:29 -Correct Patient Yes Yes Yes -Correct Side, Site, Position Yes Yes Yes -Correct Procedure Yes Yes Yes -Procedure Performed Yes Yes Yes -Type of Procedure Debridement Debridement Debridement -Clinical Debridement Subcutaneous Subcutaneous Subcutaneous -Post Debridement Size (cm) - Length 3.4 3.2 3.0 -Post Debridement Size (cm) - Width 0.8 0.7 0.7 -Post Debridement Size (cm) - Depth 0 0.7 0.7 -Total Square Cm 2.72 2.24 2.10 -Wound/Ulcer Outcome Not Healed Not Healed Not Healed -Ulcer Cleansing Rinsed/ Rinsed/ Rinsed/ Irrigated with Irrigated with Irrigated with Saline Saline Saline -Foul Odor after Cleansing No No No -Bioengineered Tissue No No No -Bleeding Controlled with Pressure Pressure Pressure -Offloading No No No -Treatment Response Procedure Procedure Procedure Tolerated Well Tolerated Well Tolerated Well #3 Lateral RLE -Time 09:18 09:40 09:30 -Correct Patient Yes Yes Yes -Correct Side, Site, Position Yes Yes Yes -Correct Procedure Yes Yes Yes -Procedure Performed Yes Yes Yes -Type of Procedure Debridement Debridement Debridement -Clinical Debridement Subcutaneous Subcutaneous Subcutaneous -Post Debridement Size (cm) - Length 1.0 1.0 1.0 -Post Debridement Size (cm) - Width 1.2 2.2 2.3 -Post Debridement Size (cm) - Depth 0.5 0.5 0.5 -Total Square Cm 1.20 2.20 2.30 -Wound/Ulcer Outcome Not Healed Not Healed Not Healed -Ulcer Cleansing Rinsed/ Rinsed/ Rinsed/ Irrigated with Irrigated with Irrigated with Saline Saline Saline -Foul Odor after Cleansing No No -Bioengineered Tissue No No -Bleeding Controlled with Pressure Pressure Pressure -Offloading No No No -Type of Offloading Surgical Shoe -Treatment Response Procedure Procedure Procedure Tolerated Well Tolerated Well Tolerated Well #2 Left 2nd Toe -Time 09:24 09:44 09:32 -Correct Patient Yes Yes Yes -Correct Side, Site, Position Yes Yes Yes -Correct Procedure Yes Yes Yes -Procedure Performed Yes Yes Yes -Type of Procedure Debridement Debridement Debridement -Clinical Debridement Subcutaneous Subcutaneous Subcutaneous -Post Debridement Size (cm) - Length 0.4 0.3 0.2 -Post Debridement Size (cm) - Width 0.2 0.2 0.1 -Post Debridement Size (cm) - Depth 0.1 0.1 0.1 -Total Square Cm 0.08 0.06 0.02 -Wound/Ulcer Outcome Not Healed Not Healed Not Healed -Ulcer Cleansing Rinsed/ Rinsed/ Rinsed/ Irrigated with Irrigated with Irrigated with Saline Saline Saline -Foul Odor after Cleansing No No No -Bioengineered Tissue No No No -Bleeding Controlled with Pressure Pressure Pressure -Offloading No No No -Treatment Response Procedure Procedure Procedure Tolerated Well Tolerated Well Tolerated Well #1 Left Posterior Calf -Time 09:23 09:44 09:35 -Correct Patient Yes Yes Yes -Correct Side, Site, Position Yes Yes Yes -Correct Procedure Yes Yes Yes -Procedure Performed Yes Yes Yes -Type of Procedure Debridement Debridement Debridement -Clinical Debridement Subcutaneous Subcutaneous Subcutaneous -Post Debridement Size (cm) - Length 0.7 0.5 0.5 -Post Debridement Size (cm) - Width 0.7 0.6 0.5 -Post Debridement Size (cm) - Depth 0.3 0.3 0.2 -Total Square Cm 0.49 0.30 0.25 -Wound/Ulcer Outcome Not Healed Not Healed Not Healed -Ulcer Cleansing Rinsed/ Rinsed/ Rinsed/ Irrigated with Irrigated with Irrigated with Saline Saline Saline -Foul Odor after Cleansing No No No -Bioengineered Tissue No No No -Bleeding Controlled with Pressure Pressure Pressure -Offloading No No No -Treatment Response Procedure Procedure Procedure Tolerated Well Tolerated Well Tolerated Well Pain Scale: 0-10 Numeric Is Patient Pain Free? Yes Yes Wound debrided: Left posterior calf Laterality: Left Type of Debridement: Excisional debridement Anesthesia Used: 4% Lidocaine Solution Depth: in the subcutaneous layer Percentage of wound debrided: 100 Instrument Used: 3mm curette Tissue Removed: Adherent slough, fibrin, biofilm Severity: Fat Layer Exposed Amount of bleeding with debridement: Mild Bleeding Controlled with: Pressure Patient tolerated procedure well - Additional Wound Wound debrided: Left dorsal second toe Laterality: Left Type of Debridement: Selective debridement Anesthesia Used: 4% Lidocaine Solution Depth: in the subcutaneous layer Percentage of wound debrided: 100 Instrument Used: 3mm curette Tissue Removed: Hyperkeratotic tissue Severity: Fat Layer Exposed Amount of bleeding with debridement: Mild Bleeding Controlled with: Pressure Patient tolerated procedure: Patient tolerated procedure well - Additional Wound Wound debrided: Right lateral lower extremity Laterality: Right Type of Debridement: Excisional debridement Anesthesia Used: 4% Lidocaine Solution Depth: in the subcutaneous layer Percentage of wound debrided: 100 Instrument Used: 3mm curette Tissue Removed: Adherent slough, fibrin, biofilm Severity: Fat Layer Exposed Amount of bleeding with debridement: Mild Bleeding Controlled with: Pressure Patient tolerated procedure: Patient tolerated procedure well - Additional Wound Wound debrided: Right lateral lower extremity Laterality: Right Type of Debridement: Excisional debridement Anesthesia Used: 4% Lidocaine Solution Depth: in the subcutaneous layer Percentage of wound debrided: 100 Instrument Used: 3mm curette Tissue Removed: Adherent slough, fibrin, biofilm Severity: Fat Layer Exposed Amount of bleeding with debridement: Mild Bleeding Controlled with: Pressure Patient tolerated procedure: Patient tolerated procedure well - Additional Wound Wound debrided: Right anterior murrell cluster Laterality: Right Type of Debridement: Excisional debridement Anesthesia Used: 4% Lidocaine Solution Depth: in the subcutaneous layer Percentage of wound debrided: 100 Instrument Used: 3mm curette Tissue Removed: Adherent slough, fibrin, biofilm Severity: Fat Layer Exposed Amount of bleeding with debridement: Mild Bleeding Controlled with: Pressure Patient tolerated procedure: Patient tolerated procedure well - Additional Wound Wound debrided: Right proximal medial calf Laterality: Right Type of Debridement: Excisional debridement Anesthesia Used: 4% Lidocaine Solution Depth: in the subcutaneous layer Percentage of wound debrided: 100 Instrument Used: 3mm curette Tissue Removed: Adherent slough, fibrin, biofilm Severity: Fat Layer Exposed Amount of bleeding with debridement: Mild Bleeding Controlled with: Pressure Patient tolerated procedure: Patient tolerated procedure well Assessment/Plan Assessment: Ulcer of right and left lower extremity and left dorsal 2nd toe with fat later exposed, DM II, pain to right and left LE, other comorbidities Plan: Patient was carefully examined and evaluated today with present. A nother excisional subcutaneous debridement was performed as noted in the clinical panel to each ulcer site. All ulcer sites were dressed with Aquacel Ag to the base except the right anterior murrell cluster and right proximal medial calf. A snap vac was applied again to these to sites today. This was then covered by dry sterile dressing followed by Tubigrip for compression. The patient is to change his dressing in this manner on a daily basis with help of his . The importance of keeping these ulcer sites offloaded was discussed in great detail with the patient again today. LEAS and venous Doppler exams showed sufficient areterial flow to lower extremities, however the venous doppler exams revealed some venous incompetence. Full report can be found in patient's chart. A right tib-fib x-ray was also ordered and the results show no signs of osteomyelitis. Patient was instructed to keep legs elevated while seated or lying down. I also recommend nutritional supplementation with a diet high in protein to help optimize ulcer healing potential. The patient was again educated on all signs and symptoms of local and systemic infection, and he is instructed to go to the emergency room immediately should they notice any of these. All other questions were answered to the patient and his 's satisfaction. The patient will follow back up in clinic in 1 week to check on progress, or sooner if needed.
== END 2018-09-25 23:59 ==
LOC: WC 09:30
PROVIDERS: Referring Provider Podiatrist; Visit Provider Podiatrist
DX: E11.622 Type 2 diabetes mellitus with other skin ulcer (principal); E11.51 Type 2 diabetes mellitus with diabetic peripheral angiopathy without gangrene; L97.812 Non-pressure chronic ulcer of other part of right lower leg with fat layer exposed; Z77.098 Contact with and (suspected) exposure to other hazardous, chiefly nonmedicinal, chemicals; L97.222 Non-pressure chronic ulcer of left calf with fat layer exposed; L97.522 Non-pressure chronic ulcer of other part of left foot with fat layer exposed; L97.212 Non-pressure chronic ulcer of right calf with fat layer exposed
CPT/HCPCS: 11042; 97605; 97607; 99213; G0463

== ENCOUNTER 2018-10-25 08:00 | Outpatient (RCR) | payer MEDICARE, OTHER, SELFPAY ==
[2018-09-26 01:28] VITALS: BP 138/79; PULSE 62; RESP 18; TEMP 36.6
[2018-09-27 09:31] VITALS: BP 150/89; PULSE 60; RESP 18; TEMP 37; BMI 31.8
--- NOTE | 2018-09-27 12:08 | PCM.WC.PN ---
(1) Ulcer of right lower extremity with fat layer exposed Status: Acute Current Visit: No Code(s): L97.912 - Non-pressure chronic ulcer of unspecified part of right lower leg with fat layer exposed (2) Ulcer of left lower extremity with fat layer exposed Status: Acute Current Visit: No Code(s): L97.922 - Non-pressure chronic ulcer of unspecified part of left lower leg with fat layer exposed (3) Agent orange exposure Status: Acute Current Visit: No Code(s): Z77.098 - Contact with and (suspected) exposure to other hazardous, chiefly nonmedicinal, chemicals (4) PVD (peripheral vascular disease) Status: Suspected Current Visit: No Code(s): I73.9 - Peripheral vascular disease, unspecified (5) Pain of right lower extremity Status: Acute Current Visit: No Code(s): M79.604 - Pain in right leg (6) Pain of left lower extremity Status: Acute Current Visit: No Code(s): M79.605 - Pain in left leg (7) Controlled diabetes mellitus Status: Acute Current Visit: No Code(s): E11.9 - Type 2 diabetes mellitus without complications Type of Wound Chief Complaint: Bilateral lower extremity ulcers History of Wound: This 67-year-old diabetic male presents to the wound healing center today after being referred from his primary care physician for bilateral lower extremity ulcers. Patient denies any injury or trauma to the area. He says he noticed some swelling to each of his lower legs as well as some redness around July 17. He states that his primary care doctor placed him on Bactrim DS and the redness and swelling began to subside. As this was happening, he said the skin broke down and he noticed some ulcers to both his right and left lower legs. The patient also relates that he has an ulcer to the top of his left second toe. Patient denies noticing any purulence to the areas and says he has been dressing the ulcer sites on his own with Neosporin. He currently denies any feelings of nausea, vomiting, fever, chills. Progress of Wound: Ulcers continue to show improvement. Left 2nd toe appears healed. Patient has been having aquacel ag dressing changes daily with help of his to all sites except the two left proximal leg ulcers where snap vac has been applied. He denies any feelings of nausea, vomiting, fever, or chills. - Physical Exam Vital Signs Temp Pulse Resp BP 98.6 F 60 18 150/89 H 09/27/18 09:31 09/27/18 09:31 09/27/18 09:31 09/27/18 09:31 General: Alert, Oriented x3, Cooperative, No apparent distress Extremities: Capillary Refill Less than 3 Seconds, No Calf Tenderness - Negative Ana and Koch signs bilateral, Diminished Peripheral Pulses, Edema - Bilateral lower extremity edema, - - Lower extremity varicosities noted bilateral Skin: Ulcer/ Wound - Ulcer cluster to right anterior murrell as well and ulcer to right medial calf with fat layer exposed. The bases of these sites are noted to be a mixture of adherent slough, fibrin, biofilm, and increasing amount of granular tissue. The undermining and tracking appreciated to each of these ulcer sites has improved again. There is no purulence, no malodor, no extending cellulitis, no increased warmth, no probing to bone. Ulcer to right lateral lower leg and left posterior calf with fat layer exposed. Measurements noted. The bases are noted to be a mixture of adherent slough, fibrin, biofilm, scant granular tissue. There is no purulence, no surrounding cellulitis, no increased warmth, no malodor, no probing to bone, no tracking, no undermining. Ulcer to left second toe appears healed today with no signs of infection. Wound Measurements and Assessment WC - Nurse 1 - General Ulcer Measurement Start: 09/27/18 09:31 Freq: Status: Active Protocol: Activity Type Activity Date Activity User E-Sign Co-Sign Detail Recorded Client Recorded Date Recorded By Document 09/27/18 09:31 [place] [id number] 09/27/18 09:40 DL 09/27/18 09:31 Wound Center Nurse 1 [Ulcer Assessment] #6 Right 5th Toe -Current Size (cm) - Length 0.1 -Current Size (cm) - Width 0.1 -Current Size (cm) - Depth 0 -Total Square Cm 0.01 -Photo Taken Yes -Exudate Amt None Present -Wound Margin Flat & Intact -Granulation Amt Small (1-33%) -Granulation Quality Pale -Necrosis Amt None Present (0 %) -Structure Exposed N/A -Texture (Olya-wound Skin Appearance) Scarring -Moisture (Olya-wound Skin Appearance No Abnormality ) -Color (Olya-wound Skin Appearance) Hemosiderin Staining -Temperature (Olya-wound Skin No Abnormality Appearance) (Pt Warm) -Ulcer Cleansing Wound Cleanser -Foul Odor after Cleansing No #5 Medial RLE -Current Size (cm) - Length 0.5 -Current Size (cm) - Width 0.3 -Current Size (cm) - Depth 0.3 -Total Square Cm 0.15 -Photo Taken No -Exudate Amt None Present -Wound Margin Flat & Intact -Granulation Amt Small (1-33%) -Granulation Quality Red -Necrosis Amt None Present (0 %) -Structure Exposed N/A -Texture (Olya-wound Skin Appearance) Localized Edema Scarring -Moisture (Olya-wound Skin Appearance No Abnormality ) -Color (Olya-wound Skin Appearance) Hemosiderin Staining -Temperature (Olya-wound Skin No Abnormality Appearance) (Pt Warm) -Tenderness on Palpation (Olya-wound No Skin Appearance) -Ulcer Cleansing Wound Cleanser -Foul Odor after Cleansing No -Anesthetic Used 4% Lidocaine Solution #4 RLE Murrell- Cluster -Current Size (cm) - Length 2.7 -Current Size (cm) - Width 0.3 -Current Size (cm) - Depth 0.4 -Total Square Cm 0.81 -Photo Taken No -Exudate Amt None Present -Wound Margin Flat & Intact -Granulation Amt Small (1-33%) -Granulation Quality Red -Necrosis Amt None Present (0 %) -Structure Exposed N/A -Texture (Olya-wound Skin Appearance) Localized Edema Scarring -Moisture (Olya-wound Skin Appearance No Abnormality ) -Color (Olya-wound Skin Appearance) Hemosiderin Staining -Temperature (Olya-wound Skin No Abnormality Appearance) (Pt Warm) -Tenderness on Palpation (Olya-wound No Skin Appearance) -Ulcer Cleansing Wound Cleanser -Anesthetic Used 4% Lidocaine Solution #3 Lateral RLE -Current Size (cm) - Length 0.6 -Current Size (cm) - Width 1.6 -Current Size (cm) - Depth 0.6 -Total Square Cm 0.96 -Photo Taken No -Exudate Amt Small -Exudate Type Serosanguineous -Wound Margin Distinct, Outline Attached -Granulation Amt Small (1-33%) -Granulation Quality [place] Red -Necrosis Amt Small (1-33%) -Necrotic Tissue Type Adherent Slough -Structure Exposed N/A -Texture (Olya-wound Skin Appearance) Scarring -Moisture (Olya-wound Skin Appearance No Abnormality ) -Color (Olya-wound Skin Appearance) Hemosiderin Staining -Temperature (Olya-wound Skin No Abnormality Appearance) (Pt Warm) -Tenderness on Palpation (Olya-wound No Skin Appearance) -Ulcer Cleansing Wound Cleanser -Foul Odor after Cleansing No -Anesthetic Used 4% Lidocaine Solution #2 Left 2nd Toe -Current Size (cm) - Length 0.1 -Current Size (cm) - Width 0.1 -Current Size (cm) - Depth 0.1 -Total Square Cm 0.01 -Photo Taken No -Exudate Amt None Present -Wound Margin Flat & Intact -Granulation Amt Large (67-100%) -Granulation Quality Pale -Necrosis Amt None Present (0 %) -Structure Exposed N/A -Texture (Olya-wound Skin Appearance) Scarring -Moisture (Olya-wound Skin Appearance Dry/Scaly ) -Color (Olya-wound Skin Appearance) No Abnormality -Temperature (Olya-wound Skin No Abnormality Appearance) (Pt Warm) -Tenderness on Palpation (Olya-wound No Skin Appearance) -Ulcer Cleansing Wound Cleanser -Foul Odor after Cleansing No #1 Left Posterior Calf -Current Size (cm) - Length 0.1 -Current Size (cm) - Width 0.1 -Current Size (cm) - Depth 0.1 -Total Square Cm 0.01 -Photo Taken No -Exudate Amt None Present -Wound Margin Flat & Intact -Granulation Amt Small (1-33%) -Granulation Quality [place] -Necrosis Amt None Present (0 %) -Structure Exposed N/A -Texture (Olya-wound Skin Appearance) Scarring -Moisture (Olya-wound Skin Appearance No Abnormality ) -Color (Olya-wound Skin Appearance) Hemosiderin Staining -Temperature (Olya-wound Skin No Abnormality Appearance) (Pt Warm) -Tenderness on Palpation (Olya-wound No Skin Appearance) -Ulcer Cleansing Wound Cleanser -Foul Odor after Cleansing No -Anesthetic Used 4% Lidocaine Solution [Edema Assessment] -Right Calf (cm) 38.5 -Right Ankle (cm) 26.8 WC - Nurse 2 - General Ulcer CM Notes Start: 09/27/18 09:31 Freq: Status: Active Protocol: Activity Type Activity Date Activity User E-Sign Co-Sign Detail Recorded Client Recorded Date Recorded By Document 09/27/18 10:08 DV [id number] 09/27/18 10:19 DV 09/27/18 10:08 Wound Center Nurse 2 [Procedure/Treatment] #6 Right 5th Toe -Time 10:09 -Correct Patient Yes -Correct Side, Site, Position Yes -Correct Procedure No -Procedure Performed No -Post Debridement Size (cm) - Length 0 -Post Debridement Size (cm) - Width 0 -Post Debridement Size (cm) - Depth 0 -Total Square Cm 0 -Wound/Ulcer Outcome Healed- Epithelialized #5 Medial RLE -Time 10:09 -Correct Patient Yes -Correct Side, Site, Position Yes -Post Debridement Size (cm) - Length 0.5 -Post Debridement Size (cm) - Width 0.4 -Post Debridement Size (cm) - Depth 0.4 -Total Square Cm 0.20 -Wound/Ulcer Outcome Not Healed -Ulcer Cleansing Rinsed/ Irrigated with Saline -Foul Odor after Cleansing No -Bioengineered Tissue No -Bleeding Controlled with Pressure -Treatment Response Procedure Tolerated Well #4 RLE Murrell- Cluster -Time 10:09 -Correct Patient Yes -Correct Side, Site, Position Yes -Correct Procedure Yes -Procedure Performed Yes -Type of Procedure Debridement -Clinical Debridement Subcutaneous -Post Debridement Size (cm) - Length 3.0 -Post Debridement Size (cm) - Width 0.4 -Post Debridement Size (cm) - Depth 0.5 -Total Square Cm 1.20 -Wound/Ulcer Outcome Not Healed -Ulcer Cleansing Rinsed/ Irrigated with Saline -Foul Odor after Cleansing No -Bioengineered Tissue No -Bleeding Controlled with Pressure -Offloading No -Treatment Response Procedure Tolerated Well #3 Lateral RLE -Time 10:10 -Correct Patient Yes -Correct Side, Site, Position Yes -Correct Procedure Yes -Procedure Performed Yes -Type of Procedure Debridement -Clinical Debridement Subcutaneous -Post Debridement Size (cm) - Length 0.6 -Post Debridement Size (cm) - Width 1.7 -Post Debridement Size (cm) - Depth 0.5 -Total Square Cm 1.02 -Wound/Ulcer Outcome Not Healed -Ulcer Cleansing Rinsed/ Irrigated with Saline -Foul Odor after Cleansing No -Bioengineered Tissue No -Bleeding Controlled with Pressure -Offloading No -Treatment Response Procedure Tolerated Well #2 Left 2nd Toe -Time 10:11 -Correct Patient Yes -Correct Side, Site, Position Yes -Correct Procedure No -Procedure Performed No -Post Debridement Size (cm) - Length 0 -Post Debridement Size (cm) - Width 0 -Post Debridement Size (cm) - Depth 0 -Total Square Cm 0 -Wound/Ulcer Outcome Healed- Epithelialized #1 Left Posterior Calf -Time 10:12 -Correct Patient Yes -Correct Side, Site, Position Yes -Correct Procedure Yes -Procedure Performed Yes -Type of Procedure Debridement -Clinical Debridement Subcutaneous -Post Debridement Size (cm) - Length 0.2 -Post Debridement Size (cm) - Width 0.2 -Post Debridement Size (cm) - Depth 0.1 -Total Square Cm 0.04 -Wound/Ulcer Outcome Not Healed -Ulcer Cleansing Rinsed/ Irrigated with Saline -Foul Odor after Cleansing No -Bioengineered Tissue No -Bleeding Controlled with Pressure -Offloading No -Treatment Response Procedure Tolerated Well [See Physician Procedure note for Specifics] Pain Scale: 0-10 Numeric [Pain] -Is Patient Pain Free? Yes Musculoskeletal: Tenderness - With manipulation of ulcer sites Neurological: Sensory exam intact to light touch and pain Psych/Mental Status: Normal Affect, Appropriate Debridement Note Post-Debridement Measurements/Treatment WC - Nurse 2 - General Ulcer CM Notes Start: 09/27/18 09:31 Freq: Status: Active Protocol: Activity Type Activity Date Activity User E-Sign Co-Sign Detail Recorded Client Recorded Date Recorded By Document 09/27/18 10:08 DV [id number] 09/27/18 10:19 DV 09/27/18 10:08 Wound Center Nurse 2 #6 Right 5th Toe -Time 10:09 -Correct Patient Yes -Correct Side, Site, Position Yes -Correct Procedure No -Procedure Performed No -Post Debridement Size (cm) - Length 0 -Post Debridement Size (cm) - Width 0 -Post Debridement Size (cm) - Depth 0 -Total Square Cm 0 -Wound/Ulcer Outcome Healed- Epithelialized #5 Medial RLE -Time 10:09 -Correct Patient Yes -Correct Side, Site, Position Yes -Post Debridement Size (cm) - Length 0.5 -Post Debridement Size (cm) - Width 0.4 -Post Debridement Size (cm) - Depth 0.4 -Total Square Cm 0.20 -Wound/Ulcer Outcome Not Healed -Ulcer Cleansing Rinsed/ Irrigated with Saline -Foul Odor after Cleansing No -Bioengineered Tissue No -Bleeding Controlled with Pressure -Treatment Response Procedure Tolerated Well #4 RLE Murrell- Cluster -Time 10:09 -Correct Patient Yes -Correct Side, Site, Position Yes -Correct Procedure Yes -Procedure Performed Yes -Type of Procedure Debridement -Clinical Debridement Subcutaneous -Post Debridement Size (cm) - Length 3.0 -Post Debridement Size (cm) - Width 0.4 -Post Debridement Size (cm) - Depth 0.5 -Total Square Cm 1.20 -Wound/Ulcer Outcome Not Healed -Ulcer Cleansing Rinsed/ Irrigated with Saline -Foul Odor after Cleansing No -Bioengineered Tissue No -Bleeding Controlled with Pressure -Offloading No -Treatment Response Procedure Tolerated Well #3 Lateral RLE -Time 10:10 -Correct Patient Yes -Correct Side, Site, Position Yes -Correct Procedure Yes -Procedure Performed Yes -Type of Procedure Debridement -Clinical Debridement Subcutaneous -Post Debridement Size (cm) - Length 0.6 -Post Debridement Size (cm) - Width 1.7 -Post Debridement Size (cm) - Depth 0.5 -Total Square Cm 1.02 -Wound/Ulcer Outcome Not Healed -Ulcer Cleansing Rinsed/ Irrigated with Saline -Foul Odor after Cleansing No -Bioengineered Tissue No -Bleeding Controlled with Pressure -Offloading No -Treatment Response Procedure Tolerated Well #2 Left 2nd Toe -Time 10:11 -Correct Patient Yes -Correct Side, Site, Position Yes -Correct Procedure No -Procedure Performed No -Post Debridement Size (cm) - Length 0 -Post Debridement Size (cm) - Width 0 -Post Debridement Size (cm) - Depth 0 -Total Square Cm 0 -Wound/Ulcer Outcome Healed- Epithelialized #1 Left Posterior Calf -Time 10:12 -Correct Patient Yes -Correct Side, Site, Position Yes -Correct Procedure Yes -Procedure Performed Yes -Type of Procedure Debridement -Clinical Debridement Subcutaneous -Post Debridement Size (cm) - Length 0.2 -Post Debridement Size (cm) - Width 0.2 -Post Debridement Size (cm) - Depth 0.1 -Total Square Cm 0.04 -Wound/Ulcer Outcome Not Healed -Ulcer Cleansing Rinsed/ Irrigated with Saline -Foul Odor after Cleansing No -Bioengineered Tissue No -Bleeding Controlled with Pressure -Offloading No -Treatment Response Procedure Tolerated Well Pain Scale: 0-10 Numeric Is Patient Pain Free? Yes Wound debrided: Left posterior calf Laterality: Left Type of Debridement: Excisional debridement Anesthesia Used: 4% Lidocaine Solution Depth: in the subcutaneous layer Percentage of wound debrided: 100 Instrument Used: 3mm curette Tissue Removed: Adherent slough, fibrin, biofilm Severity: Fat Layer Exposed Amount of bleeding with debridement: Mild Bleeding Controlled with: Pressure Patient tolerated procedure well - Additional Wound Wound debrided: Right lateral lower extremity Laterality: Right Type of Debridement: Excisional debridement Anesthesia Used: 4% Lidocaine Solution Depth: in the subcutaneous layer Percentage of wound debrided: 100 Instrument Used: 3mm curette Tissue Removed: Adherent slough, fibrin, biofilm Severity: Fat Layer Exposed Amount of bleeding with debridement: Mild Bleeding Controlled with: Pressure Patient tolerated procedure: Patient tolerated procedure well - Additional Wound Wound debrided: Right anterior murrell cluster Laterality: Right Type of Debridement: Excisional debridement Anesthesia Used: 4% Lidocaine Solution Depth: in the subcutaneous layer Percentage of wound debrided: 100 Instrument Used: 3mm curette Tissue Removed: Adherent slough, fibrin, biofilm Severity: Fat Layer Exposed Amount of bleeding with debridement: Mild Bleeding Controlled with: Pressure Patient tolerated procedure: Patient tolerated procedure well - Additional Wound Wound debrided: Right proximal medial calf Laterality: Right Type of Debridement: Excisional debridement Anesthesia Used: 4% Lidocaine Solution Depth: in the subcutaneous layer Percentage of wound debrided: 100 Instrument Used: 3mm curette Tissue Removed: Adherent slough, fibrin, biofilm Severity: Fat Layer Exposed Amount of bleeding with debridement: Mild Bleeding Controlled with: Pressure Patient tolerated procedure: Patient tolerated procedure well Assessment/Plan Assessment: Ulcer of right and left lower extremity and left dorsal 2nd toe with fat later exposed, DM II, pain to right and left LE, other comorbidities Plan: Patient was carefully examined and evaluated today. Another excisional subcutaneous debridement was performed as noted in the clinical panel to each ulcer site. All ulcer sites were dressed with Aquacel Ag to the bases. This was then covered by dry sterile dressing followed by Tubigrip for compression. The patient is to change his dressing in this manner on a daily basis with help of his . The importance of keeping these ulcer sites offloaded was discussed in great detail with the patient again today. LEAS and venous Doppler exams showed sufficient areterial flow to lower extremities, however the venous doppler exams revealed some venous incompetence. Full report can be found in patient's chart. A right tib-fib x-ray was also ordered and the results show no signs of osteomyelitis. Patient was instructed to keep legs elevated while seated or lying down. I also recommend nutritional supplementation with a diet high in protein to help optimize ulcer healing potential. The patient was again educated on all signs and symptoms of local and systemic infection, and he is instructed to go to the emergency room immediately should they notice any of these. All other questions were answered to the patient and his 's satisfaction. The patient will follow back up in clinic in 1 week to check on progress, or sooner if needed.
[2018-10-04 09:16] VITALS: BP 133/69; PULSE 57; RESP 18; TEMP 36.6; BMI 31.8
--- NOTE | 2018-10-04 13:55 | PN.PCM_ITS ---
(1) Ulcer of right lower extremity with fat layer exposed Status: Acute Current Visit: No Code(s): L97.912 - Non-pressure chronic ulcer of unspecified part of right lower leg with fat layer exposed (2) Ulcer of left lower extremity with fat layer exposed Status: Acute Current Visit: No Code(s): L97.922 - Non-pressure chronic ulcer of unspecified part of left lower leg with fat layer exposed (3) Agent orange exposure Status: Acute Current Visit: No Code(s): Z77.098 - Contact with and (suspected) exposure to other hazardous, chiefly nonmedicinal, chemicals (4) PVD (peripheral vascular disease) Status: Suspected Current Visit: No Code(s): I73.9 - Peripheral vascular disease, unspecified (5) Pain of right lower extremity Status: Acute Current Visit: No Code(s): M79.604 - Pain in right leg (6) Pain of left lower extremity Status: Acute Current Visit: No Code(s): M79.605 - Pain in left leg (7) Controlled diabetes mellitus Status: Acute Current Visit: No Code(s): E11.9 - Type 2 diabetes mellitus without complications Type of Wound Chief Complaint: Bilateral lower extremity ulcers History of Wound: This 67-year-old diabetic male presents to the wound healing center today after being referred from his primary care physician for bilateral lower extremity ulcers. Patient denies any injury or trauma to the area. He says he noticed some swelling to each of his lower legs as well as some redness around July 17. He states that his primary care doctor placed him on Bactrim DS and the redness and swelling began to subside. As this was happening, he said the skin broke down and he noticed some ulcers to both his right and left lower legs. The patient also relates that he has an ulcer to the top of his left second toe. Patient denies noticing any purulence to the areas and says he has been dressing the ulcer sites on his own with Neosporin. He currently denies any feelings of nausea, vomiting, fever, chills. Progress of Wound: Ulcers continue to show improvement. Left posterior calf healed today. Patient has been having aquacel ag dressing changes daily with help of his to all sites except the two left proximal leg ulcers where snap vac has been applied. He denies any feelings of nausea, vomiting, fever, or chills. - Physical Exam Vital Signs Temp Pulse Resp BP 98 F 57 L 18 133/69 H 10/04/18 09:16 10/04/18 09:16 10/04/18 09:16 10/04/18 09:16 General: Alert, Oriented x3, Cooperative, No apparent distress Extremities: Capillary Refill Less than 3 Seconds, No Calf Tenderness - Negative Ana and Koch signs bilateral, Diminished Peripheral Pulses, Edema - Bilateral lower extremity edema, - - Lower extremity varicosities noted bilateral Skin: Ulcer/ Wound - Ulcer cluster to right anterior murrell as well and ulcer to right medial calf with fat layer exposed. The bases of these sites are noted to be a mixture of adherent slough, fibrin, biofilm, and increasing amount of granular tissue. The undermining appreciated to each of these ulcer sites has improved again. There is no purulence, no malodor, no extending cellulitis, no increased warmth, no probing to bone. Ulcer to right lateral lower leg with fat layer exposed. Measurements noted. The base is noted to be a mixture of adherent slough, fibrin, biofilm, scant granular tissue. There is no purulence, no surrounding cellulitis, no increased warmth, no malodor, no probing to bone, no tracking, no undermining. Wound Measurements and Assessment WC - Nurse 1 - General Ulcer Measurement Start: 09/27/18 09:31 Freq: Status: Active Protocol: Activity Type Activity Date Activity User E-Sign Co-Sign Detail Recorded Client Recorded Date Recorded By Document 10/04/18 09:16 CO [id number] 10/04/18 09:23 CO 10/04/18 09:16 Wound Center Nurse 1 [Ulcer Assessment] #5 Medial RLE -Combined with other wound No -Current Size (cm) - Length 0.5 -Current Size (cm) - Width 0.3 -Current Size (cm) - Depth 0.4 -Total Square Cm 0.15 -Photo Taken No -Tunneling No -Undermining/Tunneling No -Circular Undermining No -Exudate Amt Small -Exudate Type Serosanguineous -Wound Margin Thickened & Rolled Under -Granulation Amt Large (67-100%) -Granulation Quality Pale [place] -Slough/Fibrin No -Texture (Olya-wound Skin Appearance) Assessed Localized Edema -Moisture (Olya-wound Skin Appearance Assessed ) -Color (Olya-wound Skin Appearance) Assessed Hemosiderin Staining -Temperature (Olya-wound Skin No Abnormality Appearance) (Pt Warm) -Tenderness on Palpation (Olya-wound No Skin Appearance) -Ulcer Cleansing Wound Cleanser -Foul Odor after Cleansing No -Anesthetic Used 4% Lidocaine Solution #4 RLE Murrell- Cluster -Combined with other wound No -Current Size (cm) - Length 3 -Current Size (cm) - Width 0.4 -Current Size (cm) - Depth 0.5 -Total Square Cm 1.2 -Photo Taken No -Tunneling No -Undermining/Tunneling No -Circular Undermining No -Exudate Amt Small -Exudate Type Serosanguineous -Wound Margin Thickened & Rolled Under -Granulation Amt Large (67-100%) -Granulation Quality Pale [place] -Slough/Fibrin No -Texture (Olya-wound Skin Appearance) Assessed -Moisture (Olya-wound Skin Appearance Assessed ) -Color (Olya-wound Skin Appearance) Assessed Hemosiderin Staining -Temperature (Olya-wound Skin No Abnormality Appearance) (Pt Warm) -Tenderness on Palpation (Olya-wound No Skin Appearance) -Ulcer Cleansing Wound Cleanser -Foul Odor after Cleansing No -Anesthetic Used 4% Lidocaine Solution #3 Lateral RLE -Combined with other wound No -Current Size (cm) - Length 0.5 -Current Size (cm) - Width 2.0 -Current Size (cm) - Depth 0.5 -Total Square Cm 1.00 -Photo Taken No -Tunneling No -Undermining/Tunneling No -Circular Undermining No -Exudate Amt Small -Exudate Type Serosanguineous -Wound Margin Thickened & Rolled Under -Granulation Amt Large (67-100%) -Granulation Quality Pale [place] -Slough/Fibrin No -Texture (Olya-wound Skin Appearance) Assessed -Moisture (Olya-wound Skin Appearance Assessed ) -Color (Olya-wound Skin Appearance) Assessed Hemosiderin Staining -Temperature (Olya-wound Skin No Abnormality Appearance) (Pt Warm) -Tenderness on Palpation (Olya-wound No Skin Appearance) -Ulcer Cleansing Wound Cleanser -Foul Odor after Cleansing No -Anesthetic Used 4% Lidocaine Solution #1 Left Posterior Calf -Combined with other wound No -Current Size (cm) - Length 0.1 -Current Size (cm) - Width 0.1 -Current Size (cm) - Depth 0.1 -Total Square Cm 0.01 -Photo Taken No -Tunneling No -Undermining/Tunneling No -Circular Undermining No -Exudate Amt None Present [Edema Assessment] -Right Calf (cm) 39 -Right Ankle (cm) 27 -Left Calf (cm) 39 -Left Ankle (cm) 27 WC - Nurse 2 - General Ulcer CM Notes Start: 09/27/18 09:31 Freq: Status: Active Protocol: Activity Type Activity Date Activity User E-Sign Co-Sign Detail Recorded Client Recorded Date Recorded By Document 10/04/18 09:56 AN [id number] 10/04/18 10:06 AN 10/04/18 09:56 Wound Center Nurse 2 [Procedure/Treatment] #5 Medial RLE -Time 09:59 -Correct Patient Yes -Correct Side, Site, Position Yes -Correct Procedure Yes -Procedure Performed Yes -Type of Procedure Debridement -Clinical Debridement Subcutaneous -Post Debridement Size (cm) - Length 0.4 -Post Debridement Size (cm) - Width 0.4 -Post Debridement Size (cm) - Depth 0.4 -Total Square Cm 0.16 -Wound/Ulcer Outcome Healed- Surgical Closure -Ulcer Cleansing Rinsed/ Irrigated with Saline -Foul Odor after Cleansing No -Bioengineered Tissue No -Bleeding Controlled with Pressure -Offloading Yes -Type of Offloading Surgical Shoe -Treatment Response Procedure Tolerated Well #4 RLE Murrell- Cluster -Time 10:02 -Correct Patient Yes -Correct Side, Site, Position Yes -Correct Procedure Yes -Procedure Performed Yes -Type of Procedure Debridement -Clinical Debridement Subcutaneous -Post Debridement Size (cm) - Length 3 -Post Debridement Size (cm) - Width 0.3 -Post Debridement Size (cm) - Depth 0.4 -Total Square Cm 0.9 -Wound/Ulcer Outcome Not Healed -Treatment Response Procedure Tolerated Well #3 Lateral RLE -Time 10:03 -Correct Patient Yes -Correct Side, Site, Position Yes -Correct Procedure Yes -Procedure Performed Yes -Type of Procedure Debridement -Clinical Debridement Subcutaneous -Post Debridement Size (cm) - Length 0.6 -Post Debridement Size (cm) - Width 1.7 -Post Debridement Size (cm) - Depth 0.5 -Total Square Cm 1.02 -Wound/Ulcer Outcome Not Healed -Ulcer Cleansing Rinsed/ Irrigated with Saline -Foul Odor after Cleansing No -Bioengineered Tissue No -Bleeding Controlled with Pressure -Offloading No -Treatment Response Procedure Tolerated Well [See Physician Procedure note for Specifics] Pain Scale: 0-10 Numeric [Pain] -Is Patient Pain Free? Yes Musculoskeletal: Tenderness - With manipulation of ulcer sites Neurological: Sensory exam intact to light touch and pain Psych/Mental Status: Normal Affect, Appropriate Debridement Note Post-Debridement Measurements/Treatment WC - Nurse 2 - General Ulcer CM Notes Start: 09/27/18 09:31 Freq: Status: Active Protocol: Activity Type Activity Date Activity User E-Sign Co-Sign Detail Recorded Client Recorded Date Recorded By Document 09/27/18 10:08 DV [id number] 09/27/18 10:19 DV Document 10/04/18 09:56 AN [id number] 10/04/18 10:06 AN 09/27/18 10/04/18 10:08 09:56 Wound Center Nurse 2 #6 Right 5th Toe -Time 10:09 -Correct Patient Yes -Correct Side, Site, Position Yes -Correct Procedure No -Procedure Performed No -Post Debridement Size (cm) - Length 0 -Post Debridement Size (cm) - Width 0 -Post Debridement Size (cm) - Depth 0 -Total Square Cm 0 -Wound/Ulcer Outcome Healed- Epithelialized #5 Medial RLE -Time 10:09 09:59 -Correct Patient Yes Yes -Correct Side, Site, Position Yes Yes -Correct Procedure Yes -Procedure Performed Yes -Type of Procedure Debridement -Clinical Debridement Subcutaneous -Post Debridement Size (cm) - Length 0.5 0.4 -Post Debridement Size (cm) - Width 0.4 0.4 -Post Debridement Size (cm) - Depth 0.4 0.4 -Total Square Cm 0.20 0.16 -Wound/Ulcer Outcome Not Healed Healed- Surgical Closure -Ulcer Cleansing Rinsed/ Rinsed/ Irrigated with Irrigated with Saline Saline -Foul Odor after Cleansing No No -Bioengineered Tissue No No -Bleeding Controlled with Pressure Pressure -Offloading Yes -Type of Offloading Surgical Shoe -Treatment Response Procedure Procedure Tolerated Well Tolerated Well #4 RLE Murrell- Cluster -Time 10:09 10:02 -Correct Patient Yes Yes -Correct Side, Site, Position Yes Yes -Correct Procedure Yes Yes -Procedure Performed Yes Yes -Type of Procedure Debridement Debridement -Clinical Debridement Subcutaneous Subcutaneous -Post Debridement Size (cm) - Length 3.0 3 -Post Debridement Size (cm) - Width 0.4 0.3 -Post Debridement Size (cm) - Depth 0.5 0.4 -Total Square Cm 1.20 0.9 -Wound/Ulcer Outcome Not Healed Not Healed -Ulcer Cleansing Rinsed/ Irrigated with Saline -Foul Odor after Cleansing No -Bioengineered Tissue No -Bleeding Controlled with Pressure -Offloading No -Treatment Response Procedure Procedure Tolerated Well Tolerated Well #3 Lateral RLE -Time 10:10 10:03 -Correct Patient Yes Yes -Correct Side, Site, Position Yes Yes -Correct Procedure Yes Yes -Procedure Performed Yes Yes -Type of Procedure Debridement Debridement -Clinical Debridement Subcutaneous Subcutaneous -Post Debridement Size (cm) - Length 0.6 0.6 -Post Debridement Size (cm) - Width 1.7 1.7 -Post Debridement Size (cm) - Depth 0.5 0.5 -Total Square Cm 1.02 1.02 -Wound/Ulcer Outcome Not Healed Not Healed -Ulcer Cleansing Rinsed/ Rinsed/ Irrigated with Irrigated with Saline Saline -Foul Odor after Cleansing No No -Bioengineered Tissue No No -Bleeding Controlled with Pressure Pressure -Offloading No No -Treatment Response Procedure Procedure Tolerated Well Tolerated Well #2 Left 2nd Toe -Time 10:11 -Correct Patient Yes -Correct Side, Site, Position Yes -Correct Procedure No -Procedure Performed No -Post Debridement Size (cm) - Length 0 -Post Debridement Size (cm) - Width 0 -Post Debridement Size (cm) - Depth 0 -Total Square Cm 0 -Wound/Ulcer Outcome Healed- Epithelialized #1 Left Posterior Calf -Time 10:12 -Correct Patient Yes -Correct Side, Site, Position Yes -Correct Procedure Yes -Procedure Performed Yes -Type of Procedure Debridement -Clinical Debridement Subcutaneous -Post Debridement Size (cm) - Length 0.2 -Post Debridement Size (cm) - Width 0.2 -Post Debridement Size (cm) - Depth 0.1 -Total Square Cm 0.04 -Wound/Ulcer Outcome Not Healed -Ulcer Cleansing Rinsed/ Irrigated with Saline -Foul Odor after Cleansing No -Bioengineered Tissue No -Bleeding Controlled with Pressure -Offloading No -Treatment Response Procedure Tolerated Well Pain Scale: 0-10 Numeric Is Patient Pain Free? Yes Yes Wound debrided: Right lateral lower extremity Laterality: Right Type of Debridement: Excisional debridement Anesthesia Used: 4% Lidocaine Solution Depth: in the subcutaneous layer Percentage of wound debrided: 100 Instrument Used: 3mm curette Tissue Removed: Adherent slough, fibrin, biofilm Severity: Fat Layer Exposed Amount of bleeding with debridement: Mild Bleeding Controlled with: Pressure Patient tolerated procedure well - Additional Wound Wound debrided: Right anterior murrell cluster Laterality: Right Type of Debridement: Excisional debridement Anesthesia Used: 4% Lidocaine Solution Depth: in the subcutaneous layer Percentage of wound debrided: 100 Instrument Used: 3mm curette Tissue Removed: Adherent slough, fibrin, biofilm Severity: Fat Layer Exposed Amount of bleeding with debridement: Mild Bleeding Controlled with: Pressure Patient tolerated procedure: Patient tolerated procedure well - Additional Wound Wound debrided: Right proximal medial calf Laterality: Right Type of Debridement: Excisional debridement Anesthesia Used: 4% Lidocaine Solution Depth: in the subcutaneous layer Percentage of wound debrided: 100 Instrument Used: 3mm curette Tissue Removed: Adherent slough, fibrin, biofilm Severity: Fat Layer Exposed Amount of bleeding with debridement: Mild Bleeding Controlled with: Pressure Patient tolerated procedure: Patient tolerated procedure well Assessment/Plan Assessment: Ulcer of right and left lower extremity and left dorsal 2nd toe with fat later exposed, DM II, pain to right and left LE, other comorbidities Plan: Patient was carefully examined and evaluated today. Another excisional subcutaneous debridement was performed as noted in the clinical panel to each ulcer site. All open ulcer sites were dressed with Aquacel Ag to the bases. This was then covered by dry sterile dressing followed by Tubigrip for compression. The patient is to change his dressing in this manner on a daily basis with help of his . The importance of keeping these ulcer sites offloaded was discussed in great detail with the patient again today. LEAS and venous Doppler exams showed sufficient areterial flow to lower extremities, however the venous doppler exams revealed some venous incompetence. Full report can be found in patient's chart. A right tib-fib x-ray was also ordered and the results show no signs of osteomyelitis. Patient was instructed to keep legs elevated while seated or lying down. I also recommend nutritional supplementation with a diet high in protein to help optimize ulcer healing potential. The patient was again educated on all signs and symptoms of local and systemic infection, and he is instructed to go to the emergency room immediately should they notice any of these. All other questions were answered to the patient and his 's satisfaction. The patient will follow back up in clinic in 1 week to check on progress, or sooner if needed.
[2018-10-11 08:49] VITALS: BP 135/69; PULSE 51; RESP 18; TEMP 36.8; BMI 31.8
--- NOTE | 2018-10-11 09:30 | PN.PCM_ITS ---
(1) Ulcer of right lower extremity with fat layer exposed Status: Acute Current Visit: No Code(s): L97.912 - Non-pressure chronic ulcer of unspecified part of right lower leg with fat layer exposed (2) Ulcer of left lower extremity with fat layer exposed Status: Acute Current Visit: No Code(s): L97.922 - Non-pressure chronic ulcer of unspecified part of left lower leg with fat layer exposed (3) Agent orange exposure Status: Acute Current Visit: No Code(s): Z77.098 - Contact with and (suspected) exposure to other hazardous, chiefly nonmedicinal, chemicals (4) PVD (peripheral vascular disease) Status: Suspected Current Visit: No Code(s): I73.9 - Peripheral vascular disease, unspecified (5) Pain of right lower extremity Status: Acute Current Visit: No Code(s): M79.604 - Pain in right leg (6) Pain of left lower extremity Status: Acute Current Visit: No Code(s): M79.605 - Pain in left leg (7) Controlled diabetes mellitus Status: Acute Current Visit: No Code(s): E11.9 - Type 2 diabetes mellitus without complications Type of Wound Chief Complaint: Bilateral lower extremity ulcers History of Wound: This 67-year-old diabetic male presents to the wound healing center today after being referred from his primary care physician for bilateral lower extremity ulcers. Patient denies any injury or trauma to the area. He says he noticed some swelling to each of his lower legs as well as some redness around July 17. He states that his primary care doctor placed him on Bactrim DS and the redness and swelling began to subside. As this was happening, he said the skin broke down and he noticed some ulcers to both his right and left lower legs. The patient also relates that he has an ulcer to the top of his left second toe. Patient denies noticing any purulence to the areas and says he has been dressing the ulcer sites on his own with Neosporin. He currently denies any feelings of nausea, vomiting, fever, chills. Progress of Wound: Ulcers continue to show improvement. Patient has been having aquacel ag dressing changes daily with help of his to all sites except the two left proximal leg ulcers where snap vac has been applied. He denies any feelings of nausea, vomiting, fever, or chills. - Physical Exam Vital Signs Temp Pulse Resp BP 98.2 F 51 L 18 135/69 H 10/11/18 08:49 10/11/18 08:49 10/11/18 08:49 10/11/18 08:49 General: Alert, Oriented x3, Cooperative, No apparent distress Extremities: Capillary Refill Less than 3 Seconds, No Calf Tenderness, Diminished Peripheral Pulses, Edema, - - Bilateral lower extremity edema lower extremity varicosities noted bilateral Skin: Ulcer/ Wound - Ulcer cluster to right anterior murrell as well and ulcer to right medial calf with fat layer exposed. The bases of these sites are noted to be a mixture of adherent slough, fibrin, biofilm, and increasing amount of granular tissue. Undermining continues to improve. There is no purulence, no malodor, no extending cellulitis, no increased warmth, no probing to bone. Ulcer to right lateral lower leg with fat layer exposed. Measurements noted. The base is noted to be a mixture of adherent slough, fibrin, biofilm, scant granular tissue. There is no purulence, no surrounding cellulitis, no increased warmth, no malodor, no probing to bone, no tracking, no undermining. Wound Measurements and Assessment WC - Nurse 1 - General Ulcer Measurement Start: 09/27/18 09:31 Freq: Status: Active Protocol: Activity Type Activity Date Activity User E-Sign Co-Sign Detail Recorded Client Recorded Date Recorded By Document 10/11/18 08:49 [id number] 10/11/18 09:01 DL 10/11/18 08:49 Wound Center Nurse 1 [Ulcer Assessment] #5 Medial RLE -Current Size (cm) - Length 0.5 -Current Size (cm) - Width 0.3 -Current Size (cm) - Depth 0.3 -Total Square Cm 0.15 -Photo Taken No -Exudate Amt Small -Exudate Type Serosanguineous -Wound Margin Distinct, Outline Attached -Granulation Amt Small (1-33%) -Granulation Quality [place] -Necrosis Amt Small (1-33%) -Necrotic Tissue Type Adherent Slough -Structure Exposed N/A -Texture (Olya-wound Skin Appearance) Scarring -Moisture (Olya-wound Skin Appearance No Abnormality ) -Color (Olya-wound Skin Appearance) Hemosiderin Staining -Temperature (Olya-wound Skin No Abnormality Appearance) (Pt Warm) -Tenderness on Palpation (Olya-wound No Skin Appearance) -Ulcer Cleansing Wound Cleanser -Foul Odor after Cleansing No -Anesthetic Used 5% Lidocaine Gel #4 RLE Murrell- Cluster -Current Size (cm) - Length 2.8 -Current Size (cm) - Width 0.2 -Current Size (cm) - Depth 0.4 -Total Square Cm 0.56 -Photo Taken No -Tunneling Position (O'clock) 12 -Tunneling Distance (cm) 0.3 -Exudate Amt Small -Exudate Type Serosanguineous -Wound Margin Distinct, Outline Attached -Granulation Amt Small (1-33%) -Granulation Quality [place] -Necrosis Amt Small (1-33%) -Necrotic Tissue Type Adherent Slough -Structure Exposed N/A -Texture (Olya-wound Skin Appearance) Scarring -Moisture (Olya-wound Skin Appearance No Abnormality ) -Color (Olya-wound Skin Appearance) Hemosiderin Staining -Temperature (Olya-wound Skin No Abnormality Appearance) (Pt Warm) -Tenderness on Palpation (Olya-wound No Skin Appearance) -Ulcer Cleansing Wound Cleanser -Foul Odor after Cleansing No -Anesthetic Used 5% Lidocaine Gel #3 Lateral RLE -Current Size (cm) - Length 0.7 -Current Size (cm) - Width 1.8 -Current Size (cm) - Depth 0.4 -Total Square Cm 1.26 -Photo Taken No -Exudate Amt Small -Exudate Type Serosanguineous -Wound Margin Distinct, Outline Attached -Granulation Amt Small (1-33%) -Granulation Quality [place] -Necrosis Amt Small (1-33%) -Necrotic Tissue Type Adherent Slough -Structure Exposed N/A -Texture (Olya-wound Skin Appearance) Scarring -Moisture (Olya-wound Skin Appearance No Abnormality ) -Color (Olya-wound Skin Appearance) Hemosiderin Staining -Temperature (Olya-wound Skin No Abnormality Appearance) (Pt Warm) -Tenderness on Palpation (Olya-wound No Skin Appearance) -Ulcer Cleansing Wound Cleanser -Foul Odor after Cleansing No -Anesthetic Used 5% Lidocaine Gel [Edema Assessment] -Right Calf (cm) 38.4 -Right Ankle (cm) 25.8 WC - Nurse 2 - General Ulcer CM Notes Start: 09/27/18 09:31 Freq: Status: Active Protocol: Activity Type Activity Date Activity User E-Sign Co-Sign Detail Recorded Client Recorded Date Recorded By Document 10/11/18 09:13 DL [id number] 10/11/18 09:22 DL 10/11/18 09:13 Wound Center Nurse 2 [Procedure/Treatment] #5 Medial RLE -Time 09:20 -Correct Patient Yes -Correct Side, Site, Position Yes -Correct Procedure Yes -Procedure Performed Yes -Type of Procedure Debridement -Clinical Debridement Subcutaneous -Post Debridement Size (cm) - Length 0.4 -Post Debridement Size (cm) - Width 0.3 -Post Debridement Size (cm) - Depth 0.3 -Total Square Cm 0.12 -Wound/Ulcer Outcome Not Healed -Treatment Response Procedure Tolerated Well #4 RLE Murrell- Cluster -Time 09:20 -Correct Patient Yes -Correct Side, Site, Position Yes -Correct Procedure Yes -Procedure Performed Yes -Type of Procedure Debridement -Clinical Debridement Subcutaneous -Post Debridement Size (cm) - Length 2.9 -Post Debridement Size (cm) - Width 0.3 -Post Debridement Size (cm) - Depth 0.4 -Total Square Cm 0.87 -Wound/Ulcer Outcome Not Healed -Treatment Response Procedure Tolerated Well #3 Lateral RLE -Time 09:21 -Correct Patient Yes -Correct Side, Site, Position Yes -Correct Procedure Yes -Procedure Performed Yes -Type of Procedure Debridement -Clinical Debridement Subcutaneous -Post Debridement Size (cm) - Length 0.6 -Post Debridement Size (cm) - Width 1.7 -Post Debridement Size (cm) - Depth 0.5 -Total Square Cm 1.02 -Wound/Ulcer Outcome Not Healed -Ulcer Cleansing Rinsed/ Irrigated with Saline -Foul Odor after Cleansing No -Bioengineered Tissue No -Bleeding Controlled with Pressure -Type of Offloading Wedge Shoe -Treatment Response Procedure Tolerated Well [See Physician Procedure note for Specifics] Pain Scale: 0-10 Numeric [Pain] -Is Patient Pain Free? Yes Musculoskeletal: Tenderness - With manipulation of ulcer sites Neurological: Sensory exam intact to light touch and pain Psych/Mental Status: Normal Affect, Appropriate Debridement Note Post-Debridement Measurements/Treatment WC - Nurse 2 - General Ulcer CM Notes Start: 09/27/18 09:31 Freq: Status: Active Protocol: Activity Type Activity Date Activity User E-Sign Co-Sign Detail Recorded Client Recorded Date Recorded By Document 05/02/19 10:08 DV [id number] 09/27/18 10:19 DV Document 10/04/18 09:56 AN [id number] 10/04/18 10:06 AN Document 10/11/18 09:13 DL [id number] 10/11/18 09:22 DL 09/27/18 10/04/18 10/11/18 10:08 09:56 09:13 Wound Center Nurse 2 #6 Right 5th Toe -Time 10:09 -Correct Patient Yes -Correct Side, Site, Position Yes -Correct Procedure No -Procedure Performed No -Post Debridement Size (cm) - Length 0 -Post Debridement Size (cm) - Width 0 -Post Debridement Size (cm) - Depth 0 -Total Square Cm 0 -Wound/Ulcer Outcome Healed- Epithelialized #5 Medial RLE -Time 10: 09:59 09:20 -Correct Patient Yes Yes Yes -Correct Side, Site, Position Yes Yes Yes -Correct Procedure Yes Yes -Procedure Performed Yes Yes -Type of Procedure Debridement Debridement -Clinical Debridement Subcutaneous Subcutaneous -Post Debridement Size (cm) - Length 0.5 0.4 0.4 -Post Debridement Size (cm) - Width 0.4 0.4 0.3 -Post Debridement Size (cm) - Depth 0.4 0.4 0.3 -Total Square Cm 0.20 0.16 0.12 -Wound/Ulcer Outcome Not Healed Healed- Not Healed Surgical Closure -Ulcer Cleansing Rinsed/ Rinsed/ Irrigated with Irrigated with Saline Saline -Foul Odor after Cleansing No No -Bioengineered Tissue No No -Bleeding Controlled with Pressure Pressure -Offloading Yes -Type of Offloading Surgical Shoe -Treatment Response Procedure Procedure Procedure Tolerated Well Tolerated Well Tolerated Well #4 RLE Murrell- Cluster -Time 10: 10:02 09:20 -Correct Patient Yes Yes Yes -Correct Side, Site, Position Yes Yes Yes -Correct Procedure Yes Yes Yes -Procedure Performed Yes Yes Yes -Type of Procedure Debridement Debridement Debridement -Clinical Debridement Subcutaneous Subcutaneous Subcutaneous -Post Debridement Size (cm) - Length 3.0 3 2.9 -Post Debridement Size (cm) - Width 0.4 0.3 0.3 -Post Debridement Size (cm) - Depth 0.5 0.4 0.4 -Total Square Cm 1.20 0.9 0.87 -Wound/Ulcer Outcome Not Healed Not Healed Not Healed -Ulcer Cleansing Rinsed/ Irrigated with Saline -Foul Odor after Cleansing No -Bioengineered Tissue No -Bleeding Controlled with Pressure -Offloading No -Treatment Response Procedure Procedure Procedure Tolerated Well Tolerated Well Tolerated Well #3 Lateral RLE -Time 10:10 10:03 09:21 -Correct Patient Yes Yes Yes -Correct Side, Site, Position Yes Yes Yes -Correct Procedure Yes Yes Yes -Procedure Performed Yes Yes Yes -Type of Procedure Debridement Debridement Debridement -Clinical Debridement Subcutaneous Subcutaneous Subcutaneous -Post Debridement Size (cm) - Length 0.6 0.6 0.6 -Post Debridement Size (cm) - Width 1.7 1.7 1.7 -Post Debridement Size (cm) - Depth 0.5 0.5 0.5 -Total Square Cm 1.02 1.02 1.02 -Wound/Ulcer Outcome Not Healed Not Healed Not Healed -Ulcer Cleansing Rinsed/ Rinsed/ Rinsed/ Irrigated with Irrigated with Irrigated with Saline Saline Saline -Foul Odor after Cleansing No No No -Bioengineered Tissue No No No -Bleeding Controlled with Pressure Pressure Pressure -Offloading No No -Type of Offloading Wedge Shoe -Treatment Response Procedure Procedure Procedure Tolerated Well Tolerated Well Tolerated Well #2 Left 2nd Toe -Time 10:11 -Correct Patient Yes -Correct Side, Site, Position Yes -Correct Procedure No -Procedure Performed No -Post Debridement Size (cm) - Length 0 -Post Debridement Size (cm) - Width 0 -Post Debridement Size (cm) - Depth 0 -Total Square Cm 0 -Wound/Ulcer Outcome Healed- Epithelialized #1 Left Posterior Calf -Time 10:12 -Correct Patient Yes -Correct Side, Site, Position Yes -Correct Procedure Yes -Procedure Performed Yes -Type of Procedure Debridement -Clinical Debridement Subcutaneous -Post Debridement Size (cm) - Length 0.2 -Post Debridement Size (cm) - Width 0.2 -Post Debridement Size (cm) - Depth 0.1 -Total Square Cm 0.04 -Wound/Ulcer Outcome Not Healed -Ulcer Cleansing Rinsed/ Irrigated with Saline -Foul Odor after Cleansing No -Bioengineered Tissue No -Bleeding Controlled with Pressure -Offloading No -Treatment Response Procedure Tolerated Well Pain Scale: 0-10 Numeric Is Patient Pain Free? Yes Yes Yes Wound debrided: Right lateral lower extremity Laterality: Right Type of Debridement: Excisional debridement Anesthesia Used: 4% Lidocaine Solution Depth: in the subcutaneous layer Percentage of wound debrided: 100 Instrument Used: 3mm curette Tissue Removed: Adherent slough, fibrin Severity: Fat Layer Exposed Amount of bleeding with debridement: Mild Bleeding Controlled with: Pressure Patient tolerated procedure well - Additional Wound Wound debrided: Right anterior murrell cluster Laterality: Right Type of Debridement: Excisional debridement Depth: in the subcutaneous layer Percentage of wound debrided: 100 Instrument Used: 3mm curette Tissue Removed: Adherent slough, fibrin Severity: Fat Layer Exposed Amount of bleeding with debridement: Mild Bleeding Controlled with: Pressure Patient tolerated procedure: Patient tolerated procedure well - Additional Wound Wound debrided: Right proximal medial calf Laterality: Right Type of Debridement: Excisional debridement Anesthesia Used: 4% Lidocaine Solution Depth: in the subcutaneous layer Percentage of wound debrided: 100 Instrument Used: 3mm curette Tissue Removed: Adherent slough, fibrin Severity: Fat Layer Exposed Amount of bleeding with debridement: Mild Bleeding Controlled with: Pressure Patient tolerated procedure: Patient tolerated procedure well Assessment/Plan Assessment: Ulcer of right and left lower extremity and left dorsal 2nd toe with fat later exposed, DM II, pain to right and left LE, other comorbidities Plan: Patient was carefully examined and evaluated today. Another excisional subcutaneous debridement was performed as noted in the clinical panel to each ulcer site noted on right lower extremity. All aforementioned ulcer sites were dressed with Aquacel Ag to the bases. This was then covered by dry sterile dressing followed by Tubigrip for compression. The patient is to change his dressing in this manner on a daily basis with help of his . The importance of keeping these ulcer sites offloaded was discussed in great detail with the patient again today. LEAS and venous Doppler exams showed sufficient areterial flow to lower extremities, however the venous doppler exams revealed some venous incompetence. Full report can be found in patient's chart. A right tib-fib x- ray was also ordered and the results show no signs of osteomyelitis. Patient was instructed to keep legs elevated while seated or lying down. I also recommend nutritional supplementation with a diet high in protein to help optimize ulcer healing potential. The patient was again educated on all signs and symptoms of local and systemic infection, and he is instructed to go to the emergency room immediately should they notice any of these. All other questions were answered to the patient and his 's satisfaction. The patient will follow back up in clinic in 1 week to check on progress, or sooner if needed.
[2018-10-18 08:43] VITALS: BP 130/60; PULSE 62; RESP 18; TEMP 36.1; BMI 31.8
--- NOTE | 2018-10-18 12:36 | PCM.WC.PN ---
(1) Ulcer of right lower extremity with fat layer exposed Status: Acute Current Visit: No Code(s): L97.912 - Non-pressure chronic ulcer of unspecified part of right lower leg with fat layer exposed (2) Ulcer of left lower extremity with fat layer exposed Status: Acute Current Visit: No Code(s): L97.922 - Non-pressure chronic ulcer of unspecified part of left lower leg with fat layer exposed (3) Agent orange exposure Status: Acute Current Visit: No Code(s): Z77.098 - Contact with and (suspected) exposure to other hazardous, chiefly nonmedicinal, chemicals (4) PVD (peripheral vascular disease) Status: Suspected Current Visit: No Code(s): I73.9 - Peripheral vascular disease, unspecified (5) Pain of right lower extremity Status: Acute Current Visit: No Code(s): M79.604 - Pain in right leg (6) Pain of left lower extremity Status: Acute Current Visit: No Code(s): M79.605 - Pain in left leg (7) Controlled diabetes mellitus Status: Acute Current Visit: No Code(s): E11.9 - Type 2 diabetes mellitus without complications Type of Wound Chief Complaint: Bilateral lower extremity ulcers History of Wound: This 67-year-old diabetic male presents to the wound healing center today after being referred from his primary care physician for bilateral lower extremity ulcers. Patient denies any injury or trauma to the area. He says he noticed some swelling to each of his lower legs as well as some redness around July 17. He states that his primary care doctor placed him on Bactrim DS and the redness and swelling began to subside. As this was happening, he said the skin broke down and he noticed some ulcers to both his right and left lower legs. The patient also relates that he has an ulcer to the top of his left second toe. Patient denies noticing any purulence to the areas and says he has been dressing the ulcer sites on his own with Neosporin. He currently denies any feelings of nausea, vomiting, fever, chills. Progress of Wound: Continued improvement noted. Patient has been having aquacel ag dressing changes daily with help of his . He denies any feelings of nausea, vomiting, fever, or chills. - Physical Exam Vital Signs Temp Pulse Resp BP 97 F L 62 18 130/60 H 10/18/18 08:43 10/18/18 08:43 10/18/18 08:43 10/18/18 08:43 General: Alert, Oriented x3, Cooperative, No apparent distress Extremities: Capillary Refill Less than 3 Seconds, No Calf Tenderness, Diminished Peripheral Pulses, Edema - Bilateral lower extremity edema, - - lower extremity varicosities noted bilateral Skin: Ulcer/ Wound - Ulcer cluster to right anterior murrell as well and ulcer to right medial calf with fat layer exposed. The bases of these sites are noted to be a mixture of adherent slough, fibrin, biofilm, and increasing amount of granular tissue. Undermining continues to improve. There is no purulence, no malodor, no extending cellulitis, no increased warmth, no probing to bone. Ulcer to right lateral lower leg with fat layer exposed. Measurements noted. The base is noted to be a mixture of adherent slough, fibrin, biofilm, scant granular tissue. There is no purulence, no surrounding cellulitis, no increased warmth, no malodor, no probing to bone, no tracking, no undermining. Small very superficial ulcer also reopened to posterior aspect of left calf. No signs of infection appreciated to this area. Wound Measurements and Assessment WC - Nurse 1 - General Ulcer Measurement Start: 09/27/18 09:31 Freq: Status: Active Protocol: Activity Type Activity Date Activity User E-Sign Co-Sign Detail Recorded Client Recorded Date Recorded By Document 10/18/18 08:43 BERNIE [id number] 10/18/18 08:56 10/18/18 08:43 Wound Center Nurse 1 [Ulcer Assessment] 7-left posterior calf -Combined with other wound No -Current Size (cm) - Length 0.4 -Current Size (cm) - Width 0.3 -Current Size (cm) - Depth 0.1 -Total Square Cm 0.12 -Photo Taken Yes -Epithelialization Small 1-33% -Tunneling No -Undermining/Tunneling No -Circular Undermining No -Exudate Amt None Present -Wound Margin Flat & Intact -Granulation Amt Large (67-100%) -Granulation Quality Red -Slough/Fibrin Yes -Necrosis Amt Small (1-33%) -Necrotic Tissue Type Adherent Slough -Structure Exposed N/A -Texture (Olya-wound Skin Appearance) Assessed Localized Edema -Moisture (Olya-wound Skin Appearance Assessed ) Dry/Scaly -Color (Olya-wound Skin Appearance) Assessed -Temperature (Olya-wound Skin No Abnormality Appearance) (Pt Warm) -Tenderness on Palpation (Olya-wound No Skin Appearance) -Ulcer Cleansing Rinsed/ Irrigated with Saline -Foul Odor after Cleansing No -Anesthetic Used 5% Lidocaine Gel #5 Medial RLE -Combined with other wound No -Current Size (cm) - Length 0.3 -Current Size (cm) - Width 0.2 -Current Size (cm) - Depth 0.1 -Total Square Cm 0.06 -Photo Taken No -Epithelialization Large 67-100% -Tunneling No -Undermining/Tunneling No -Circular Undermining No -Exudate Amt None Present -Wound Margin Flat & Intact -Granulation Amt Medium (34-66%) -Granulation Quality Red -Slough/Fibrin Yes -Necrosis Amt Small (1-33%) -Necrotic Tissue Type Adherent Slough -Structure Exposed N/A -Texture (Olya-wound Skin Appearance) Assessed Localized Edema -Moisture (Olya-wound Skin Appearance Assessed ) Dry/Scaly -Color (Olya-wound Skin Appearance) Assessed Hemosiderin Staining -Temperature (Olya-wound Skin No Abnormality Appearance) (Pt Warm) -Tenderness on Palpation (Olya-wound No Skin Appearance) -Ulcer Cleansing Rinsed/ Irrigated with Saline -Foul Odor after Cleansing No -Anesthetic Used 5% Lidocaine Gel #4 RLE Murrell- Cluster -Combined with other wound No -Current Size (cm) - Length 3.0 -Current Size (cm) - Width 0.2 -Current Size (cm) - Depth 0.2 -Total Square Cm 0.60 -Photo Taken No -Epithelialization Medium 34-66% -Tunneling No -Undermining/Tunneling No -Circular Undermining No -Exudate Amt None Present -Wound Margin Indistinct, Non -Visible -Granulation Amt None Present (0 %) -Slough/Fibrin Yes -Necrosis Amt Large (67-100%) -Necrotic Tissue Type Adherent Slough -Structure Exposed N/A -Texture (Olya-wound Skin Appearance) Assessed Localized Edema -Moisture (Olya-wound Skin Appearance Assessed ) Dry/Scaly -Color (Olya-wound Skin Appearance) Assessed -Temperature (Olya-wound Skin No Abnormality Appearance) (Pt Warm) -Tenderness on Palpation (Olya-wound No Skin Appearance) -Ulcer Cleansing Rinsed/ Irrigated with Saline -Foul Odor after Cleansing No -Anesthetic Used 5% Lidocaine Gel #3 Lateral RLE -Combined with other wound No -Current Size (cm) - Length 0.3 -Current Size (cm) - Width 1.6 -Current Size (cm) - Depth 0.1 -Total Square Cm 0.48 -Photo Taken No -Epithelialization Small 1-33% -Tunneling No -Undermining/Tunneling No -Circular Undermining No -Exudate Amt Small -Exudate Type Serosanguineous -Wound Margin Flat & Intact -Granulation Amt Medium (34-66%) -Granulation Quality Red -Slough/Fibrin Yes -Necrosis Amt Medium (34-66%) -Necrotic Tissue Type Adherent Slough -Structure Exposed N/A -Texture (Olya-wound Skin Appearance) Assessed Localized Edema -Moisture (Olya-wound Skin Appearance Assessed ) Dry/Scaly -Color (Olya-wound Skin Appearance) Assessed Hemosiderin Staining -Temperature (Olya-wound Skin No Abnormality Appearance) (Pt Warm) -Tenderness on Palpation (Olya-wound No Skin Appearance) -Ulcer Cleansing Rinsed/ Irrigated with Saline -Foul Odor after Cleansing No -Anesthetic Used 5% Lidocaine Gel [Edema Assessment] -Lower Limb Edema Present Yes -Right Calf (cm) 39.5 -Right Ankle (cm) 26.0 -Left Calf (cm) 39.2 -Left Ankle (cm) 27.2 WC - Nurse 2 - General Ulcer CM Notes Start: 09/27/18 09:31 Freq: Status: Active Protocol: Activity Type Activity Date Activity User E-Sign Co-Sign Detail Recorded Client Recorded Date Recorded By Document 10/18/18 09:01 BERNIE [id number] 10/18/18 09:13 BERNIE 10/18/18 09:01 Wound Center Nurse 2 [Procedure/Treatment] 7-left posterior calf -Time 09:11 -Correct Patient Yes -Correct Side, Site, Position Yes -Correct Procedure Yes -Procedure Performed Yes -Type of Procedure Debridement -Clinical Debridement Subcutaneous -Post Debridement Size (cm) - Length 0.2 -Post Debridement Size (cm) - Width 0.2 -Post Debridement Size (cm) - Depth 0.1 -Total Square Cm 0.04 -Wound/Ulcer Outcome Not Healed -Ulcer Cleansing Rinsed/ Irrigated with Saline -Foul Odor after Cleansing No -Bioengineered Tissue No -Bleeding Controlled with Pressure -Offloading No -Treatment Response Procedure Tolerated Well #5 Medial RLE -Time 09:07 -Correct Patient Yes -Correct Side, Site, Position Yes -Correct Procedure Yes -Procedure Performed Yes -Type of Procedure Debridement -Clinical Debridement Subcutaneous -Post Debridement Size (cm) - Length 0.3 -Post Debridement Size (cm) - Width 0.3 -Post Debridement Size (cm) - Depth 0.2 -Total Square Cm 0.09 -Wound/Ulcer Outcome Not Healed -Ulcer Cleansing Rinsed/ Irrigated with Saline -Foul Odor after Cleansing No -Bioengineered Tissue No -Bleeding Controlled with Pressure -Treatment Response Procedure Tolerated Well #4 RLE Murrell- Cluster -Time 09:06 -Correct Patient Yes -Correct Side, Site, Position Yes -Correct Procedure Yes -Procedure Performed Yes -Type of Procedure Debridement -Clinical Debridement Subcutaneous -Post Debridement Size (cm) - Length 2.8 -Post Debridement Size (cm) - Width 0.2 -Post Debridement Size (cm) - Depth 0.3 -Total Square Cm 0.56 -Wound/Ulcer Outcome Not Healed -Ulcer Cleansing Rinsed/ Irrigated with Saline -Foul Odor after Cleansing No -Bioengineered Tissue No -Bleeding Controlled with Pressure -Treatment Response Procedure Tolerated Well #3 Lateral RLE -Time 09:08 -Correct Patient Yes -Correct Side, Site, Position Yes -Correct Procedure Yes -Procedure Performed Yes -Type of Procedure Debridement -Clinical Debridement Subcutaneous -Post Debridement Size (cm) - Length 0.3 -Post Debridement Size (cm) - Width 1.6 -Post Debridement Size (cm) - Depth 0.4 -Total Square Cm 0.48 -Wound/Ulcer Outcome Not Healed -Ulcer Cleansing Rinsed/ Irrigated with Saline -Foul Odor after Cleansing No -Bioengineered Tissue No -Bleeding Controlled with Pressure -Offloading No -Treatment Response Procedure Tolerated Well [See Physician Procedure note for Specifics] Pain Scale: 0-10 Numeric [Pain] -Is Patient Pain Free? Yes Musculoskeletal: Tenderness - With manipulation of ulcer sites Neurological: Sensory exam intact to light touch and pain Psych/Mental Status: Normal Affect, Appropriate Debridement Note Post-Debridement Measurements/Treatment WC - Nurse 2 - General Ulcer CM Notes Start: 09/27/18 09:31 Freq: Status: Active Protocol: Activity Type Activity Date Activity User E-Sign Co-Sign Detail Recorded Client Recorded Date Recorded By Document 09/27/18 10:08 DV [id number] 09/27/18 10:19 DV Document 10/04/18 09:56 AN [id number] 10/04/18 10:06 AN Document 10/11/18 09:13 DL [id number] 10/11/18 09:22 DL Document 10/18/18 09:01 JF [id number] 10/18/18 09:13 JF 09/27/18 10/04/18 10/11/18 10:08 09:56 09:13 Wound Center Nurse 2 7-left posterior calf -Time -Correct Patient -Correct Side, Site, Position -Correct Procedure -Procedure Performed -Type of Procedure -Clinical Debridement -Post Debridement Size (cm) - Length -Post Debridement Size (cm) - Width -Post Debridement Size (cm) - Depth -Total Square Cm -Wound/Ulcer Outcome -Ulcer Cleansing -Foul Odor after Cleansing -Bioengineered Tissue -Bleeding Controlled with -Offloading -Treatment Response #6 Right 5th Toe -Time 10:09 -Correct Patient Yes -Correct Side, Site, Position Yes -Correct Procedure No -Procedure Performed No -Post Debridement Size (cm) - Length 0 -Post Debridement Size (cm) - Width 0 -Post Debridement Size (cm) - Depth 0 -Total Square Cm 0 -Wound/Ulcer Outcome Healed- Epithelialized #5 Medial RLE -Time 10:09 09:59 09:20 -Correct Patient Yes Yes Yes -Correct Side, Site, Position Yes Yes Yes -Correct Procedure Yes Yes -Procedure Performed Yes Yes -Type of Procedure Debridement Debridement -Clinical Debridement Subcutaneous Subcutaneous -Post Debridement Size (cm) - Length 0.5 0.4 0.4 -Post Debridement Size (cm) - Width 0.4 0.4 0.3 -Post Debridement Size (cm) - Depth 0.4 0.4 0.3 -Total Square Cm 0.20 0.16 0.12 -Wound/Ulcer Outcome Not Healed Healed- Not Healed Surgical Closure -Ulcer Cleansing Rinsed/ Rinsed/ Irrigated with Irrigated with Saline Saline -Foul Odor after Cleansing No No -Bioengineered Tissue No No -Bleeding Controlled with Pressure Pressure -Offloading Yes -Type of Offloading Surgical Shoe -Treatment Response Procedure Procedure Procedure Tolerated Well Tolerated Well Tolerated Well #4 RLE Murrell- Cluster -Time 10:09 10:02 09:20 -Correct Patient Yes Yes Yes -Correct Side, Site, Position Yes Yes Yes -Correct Procedure Yes Yes Yes -Procedure Performed Yes Yes Yes -Type of Procedure Debridement Debridement Debridement -Clinical Debridement Subcutaneous Subcutaneous Subcutaneous -Post Debridement Size (cm) - Length 3.0 3 2.9 -Post Debridement Size (cm) - Width 0.4 0.3 0.3 -Post Debridement Size (cm) - Depth 0.5 0.4 0.4 -Total Square Cm 1.20 0.9 0.87 -Wound/Ulcer Outcome Not Healed Not Healed Not Healed -Ulcer Cleansing Rinsed/ Irrigated with Saline -Foul Odor after Cleansing No -Bioengineered Tissue No -Bleeding Controlled with Pressure -Offloading No -Treatment Response Procedure Procedure Procedure Tolerated Well Tolerated Well Tolerated Well #3 Lateral RLE -Time 10:10 10:03 09:21 -Correct Patient Yes Yes Yes -Correct Side, Site, Position Yes Yes Yes -Correct Procedure Yes Yes Yes -Procedure Performed Yes Yes Yes -Type of Procedure Debridement Debridement Debridement -Clinical Debridement Subcutaneous Subcutaneous Subcutaneous -Post Debridement Size (cm) - Length 0.6 0.6 0.6 -Post Debridement Size (cm) - Width 1.7 1.7 1.7 -Post Debridement Size (cm) - Depth 0.5 0.5 0.5 -Total Square Cm 1.02 1.02 1.02 -Wound/Ulcer Outcome Not Healed Not Healed Not Healed -Ulcer Cleansing Rinsed/ Rinsed/ Rinsed/ Irrigated with Irrigated with Irrigated with Saline Saline Saline -Foul Odor after Cleansing No No No -Bioengineered Tissue No No No -Bleeding Controlled with Pressure Pressure Pressure -Offloading No No -Type of Offloading Wedge Shoe -Treatment Response Procedure Procedure Procedure Tolerated Well Tolerated Well Tolerated Well #2 Left 2nd Toe -Time 10:11 -Correct Patient Yes -Correct Side, Site, Position Yes -Correct Procedure No -Procedure Performed No -Post Debridement Size (cm) - Length 0 -Post Debridement Size (cm) - Width 0 -Post Debridement Size (cm) - Depth 0 -Total Square Cm 0 -Wound/Ulcer Outcome Healed- Epithelialized #1 Left Posterior Calf -Time 10:12 -Correct Patient Yes -Correct Side, Site, Position Yes -Correct Procedure Yes -Procedure Performed Yes -Type of Procedure Debridement -Clinical Debridement Subcutaneous -Post Debridement Size (cm) - Length 0.2 -Post Debridement Size (cm) - Width 0.2 -Post Debridement Size (cm) - Depth 0.1 -Total Square Cm 0.04 -Wound/Ulcer Outcome Not Healed -Ulcer Cleansing Rinsed/ Irrigated with Saline -Foul Odor after Cleansing No -Bioengineered Tissue No -Bleeding Controlled with Pressure -Offloading No -Treatment Response Procedure Tolerated Well Pain Scale: 0-10 Numeric Is Patient Pain Free? Yes Yes Yes 10/18/18 09:01 Wound Center Nurse 2 7-left posterior calf -Time 09:11 -Correct Patient Yes -Correct Side, Site, Position Yes -Correct Procedure Yes -Procedure Performed Yes -Type of Procedure Debridement -Clinical Debridement Subcutaneous -Post Debridement Size (cm) - Length 0.2 -Post Debridement Size (cm) - Width 0.2 -Post Debridement Size (cm) - Depth 0.1 -Total Square Cm 0.04 -Wound/Ulcer Outcome Not Healed -Ulcer Cleansing Rinsed/ Irrigated with Saline -Foul Odor after Cleansing No -Bioengineered Tissue No -Bleeding Controlled with Pressure -Offloading No -Treatment Response Procedure Tolerated Well #6 Right 5th Toe -Time -Correct Patient -Correct Side, Site, Position -Correct Procedure -Procedure Performed -Post Debridement Size (cm) - Length -Post Debridement Size (cm) - Width -Post Debridement Size (cm) - Depth -Total Square Cm -Wound/Ulcer Outcome #5 Medial RLE -Time 09:07 -Correct Patient Yes -Correct Side, Site, Position Yes -Correct Procedure Yes -Procedure Performed Yes -Type of Procedure Debridement -Clinical Debridement Subcutaneous -Post Debridement Size (cm) - Length 0.3 -Post Debridement Size (cm) - Width 0.3 -Post Debridement Size (cm) - Depth 0.2 -Total Square Cm 0.09 -Wound/Ulcer Outcome Not Healed -Ulcer Cleansing Rinsed/ Irrigated with Saline -Foul Odor after Cleansing No -Bioengineered Tissue No -Bleeding Controlled with Pressure -Offloading -Type of Offloading -Treatment Response Procedure Tolerated Well #4 RLE Murrell- Cluster -Time 09:06 -Correct Patient Yes -Correct Side, Site, Position Yes -Correct Procedure Yes -Procedure Performed Yes -Type of Procedure Debridement -Clinical Debridement Subcutaneous -Post Debridement Size (cm) - Length 2.8 -Post Debridement Size (cm) - Width 0.2 -Post Debridement Size (cm) - Depth 0.3 -Total Square Cm 0.56 -Wound/Ulcer Outcome Not Healed -Ulcer Cleansing Rinsed/ Irrigated with Saline -Foul Odor after Cleansing No -Bioengineered Tissue No -Bleeding Controlled with Pressure -Offloading -Treatment Response Procedure Tolerated Well #3 Lateral RLE -Time 09:08 -Correct Patient Yes -Correct Side, Site, Position Yes -Correct Procedure Yes -Procedure Performed Yes -Type of Procedure Debridement -Clinical Debridement Subcutaneous -Post Debridement Size (cm) - Length 0.3 -Post Debridement Size (cm) - Width 1.6 -Post Debridement Size (cm) - Depth 0.4 -Total Square Cm 0.48 -Wound/Ulcer Outcome Not Healed -Ulcer Cleansing Rinsed/ Irrigated with Saline -Foul Odor after Cleansing No -Bioengineered Tissue No -Bleeding Controlled with Pressure -Offloading No -Type of Offloading -Treatment Response Procedure Tolerated Well #2 Left 2nd Toe -Time -Correct Patient -Correct Side, Site, Position -Correct Procedure -Procedure Performed -Post Debridement Size (cm) - Length -Post Debridement Size (cm) - Width -Post Debridement Size (cm) - Depth -Total Square Cm -Wound/Ulcer Outcome #1 Left Posterior Calf -Time -Correct Patient -Correct Side, Site, Position -Correct Procedure -Procedure Performed -Type of Procedure -Clinical Debridement -Post Debridement Size (cm) - Length -Post Debridement Size (cm) - Width -Post Debridement Size (cm) - Depth -Total Square Cm -Wound/Ulcer Outcome -Ulcer Cleansing -Foul Odor after Cleansing -Bioengineered Tissue -Bleeding Controlled with -Offloading -Treatment Response Pain Scale: 0-10 Numeric Is Patient Pain Free? Yes Wound debrided: Right lateral lower extremity Laterality: Right Type of Debridement: Excisional debridement Anesthesia Used: 4% Lidocaine Solution Depth: in the subcutaneous layer Percentage of wound debrided: 100 Instrument Used: 3mm curette Tissue Removed: Adherent slough, fibrin Severity: Fat Layer Exposed Amount of bleeding with debridement: Mild Bleeding Controlled with: Pressure Patient tolerated procedure well - Additional Wound Wound debrided: Right anterior murrell cluster Laterality: Right Type of Debridement: Excisional debridement Anesthesia Used: 4% Lidocaine Solution Depth: in the subcutaneous layer Percentage of wound debrided: 100 Instrument Used: - - 1 mm curette Tissue Removed: Adherent slough, fibrin Severity: Fat Layer Exposed Amount of bleeding with debridement: Mild Bleeding Controlled with: Pressure Patient tolerated procedure: Patient tolerated procedure well - Additional Wound Wound debrided: Right proximal medial calf Laterality: Right Type of Debridement: Excisional debridement Anesthesia Used: 4% Lidocaine Solution Depth: in the subcutaneous layer Percentage of wound debrided: 100 Instrument Used: - - 1 mm curette Tissue Removed: Adherent slough, fibrin Severity: Fat Layer Exposed Amount of bleeding with debridement: Mild Bleeding Controlled with: Pressure Patient tolerated procedure: Patient tolerated procedure well - Additional Wound Wound debrided: Left posterior calf Laterality: Left Type of Debridement: Excisional debridement Anesthesia Used: 4% Lidocaine Solution Depth: in the subcutaneous layer Percentage of wound debrided: 100 Instrument Used: - Tissue Removed: Adherent slough, fibrin Severity: Fat Layer Exposed Amount of bleeding with debridement: Mild Bleeding Controlled with: Pressure Patient tolerated procedure: Patient tolerated procedure well Assessment/Plan Assessment: Ulcer of right and left lower extremity and left dorsal 2nd toe with fat later exposed, DM II, pain to right and left LE, other comorbidities Plan: Patient was carefully examined and evaluated today. Small ulcer reopened to left posterior calf. Another excisional subcutaneous debridement was performed as noted in the clinical panel to each ulcer site noted on right lower extremity. All aforementioned ulcer sites were dressed with Aquacel Ag to the bases. This was then covered by dry sterile dressing followed by Tubigrip for compression. The patient is to change his dressing in this manner on a daily basis with help of his . The importance of keeping these ulcer sites offloaded was discussed in great detail with the patient again today. LEAS and venous Doppler exams showed sufficient areterial flow to lower extremities, however the venous doppler exams revealed some venous incompetence. Full report can be found in patient's chart. A right tib-fib x-ray was also ordered and the results show no signs of osteomyelitis. Patient was instructed to keep legs elevated while seated or lying down. I also recommend nutritional supplementation with a diet high in protein to help optimize ulcer healing potential. The patient was again educated on all signs and symptoms of local and systemic infection, and he is instructed to go to the emergency room immediately should they notice any of these. All other questions were answered to the patient and his 's satisfaction. The patient will follow back up in clinic in 1 week to check on progress, or sooner if needed.
[2018-10-25 08:08] VITALS: BP 148/69; PULSE 70; RESP 18; TEMP 36.6; BMI 31.8
--- NOTE | 2018-10-25 08:56 | PCM.WC.PN ---
(1) Ulcer of right lower extremity with fat layer exposed Status: Acute Current Visit: No Code(s): L97.912 - Non-pressure chronic ulcer of unspecified part of right lower leg with fat layer exposed (2) Ulcer of left lower extremity with fat layer exposed Status: Acute Current Visit: No Code(s): L97.922 - Non-pressure chronic ulcer of unspecified part of left lower leg with fat layer exposed (3) Agent orange exposure Status: Acute Current Visit: No Code(s): Z77.098 - Contact with and (suspected) exposure to other hazardous, chiefly nonmedicinal, chemicals (4) PVD (peripheral vascular disease) Status: Suspected Current Visit: No Code(s): I73.9 - Peripheral vascular disease, unspecified (5) Pain of right lower extremity Status: Acute Current Visit: No Code(s): M79.604 - Pain in right leg (6) Pain of left lower extremity Status: Acute Current Visit: No Code(s): M79.605 - Pain in left leg (7) Controlled diabetes mellitus Status: Acute Current Visit: No Code(s): E11.9 - Type 2 diabetes mellitus without complications Type of Wound Chief Complaint: Bilateral lower extremity ulcers History of Wound: This 67-year-old diabetic male presents to the wound healing center today after being referred from his primary care physician for bilateral lower extremity ulcers. Patient denies any injury or trauma to the area. He says he noticed some swelling to each of his lower legs as well as some redness around July 17. He states that his primary care doctor placed him on Bactrim DS and the redness and swelling began to subside. As this was happening, he said the skin broke down and he noticed some ulcers to both his right and left lower legs. The patient also relates that he has an ulcer to the top of his left second toe. Patient denies noticing any purulence to the areas and says he has been dressing the ulcer sites on his own with Neosporin. He currently denies any feelings of nausea, vomiting, fever, chills. Progress of Wound: Continued improvement noted. Left posterior calf healed again today. Patient has been having aquacel ag dressing changes daily with help of his . He denies any feelings of nausea, vomiting, fever, or chills. - Physical Exam Vital Signs Temp Pulse Resp BP 97.9 F 70 18 148/69 H 10/25/18 08:08 10/25/18 08:08 10/25/18 08:08 10/25/18 08:08 General: Alert, Oriented x3, Cooperative, No apparent distress Extremities: Capillary Refill Less than 3 Seconds, No Calf Tenderness, Diminished Peripheral Pulses, Edema - Bilateral lower extremity edema, - - lower extremity varicosities noted bilateral Skin: Ulcer/ Wound - Ulcer cluster to right anterior murrell as well and ulcer to right medial calf with fat layer exposed. The bases of these sites are noted to be a mixture of adherent slough, fibrin, biofilm, and increasing amount of granular tissue. Undermining continues to improve. There is no purulence, no malodor, no extending cellulitis, no increased warmth, no probing to bone. Ulcer to right lateral lower leg with fat layer exposed. Measurements noted. The base is noted to be a mixture of adherent slough, fibrin, biofilm, scant granular tissue. There is no purulence, no surrounding cellulitis, no increased warmth, no malodor, no probing to bone, no tracking, no undermining. Wound Measurements and Assessment WC - Nurse 1 - General Ulcer Measurement Start: 09/27/18 09:31 Freq: Status: Active Protocol: Activity Type Activity Date Activity User E-Sign Co-Sign Detail Recorded Client Recorded Date Recorded By Document 10/25/18 08:08 DL [id number] 10/25/18 08:24 DL 10/25/18 08:08 Wound Center Nurse 1 [Ulcer Assessment] 7-left posterior calf -Current Size (cm) - Length 0 -Current Size (cm) - Width 0 -Current Size (cm) - Depth 0 -Total Square Cm 0 -Photo Taken Yes -Exudate Amt None Present -Wound Margin Flat & Intact -Granulation Amt Large (67-100%) -Granulation Quality [place] -Necrosis Amt None Present (0 %) -Structure Exposed N/A -Texture (Olya-wound Skin Appearance) Scarring -Moisture (Olya-wound Skin Appearance Dry/Scaly ) -Color (Olya-wound Skin Appearance) Hemosiderin Staining -Temperature (Olya-wound Skin No Abnormality Appearance) (Pt Warm) -Tenderness on Palpation (Olya-wound No Skin Appearance) -Ulcer Cleansing Rinsed/ Irrigated with Saline -Foul Odor after Cleansing No #5 Medial RLE -Current Size (cm) - Length 0.1 -Current Size (cm) - Width 0.1 -Current Size (cm) - Depth 0.1 -Total Square Cm 0.01 -Photo Taken No -Exudate Amt None Present -Wound Margin Flat & Intact -Granulation Amt Small (1-33%) -Granulation Quality [place] -Necrosis Amt Small (1-33%) -Necrotic Tissue Type Adherent Slough -Structure Exposed N/A -Texture (Olya-wound Skin Appearance) Scarring -Moisture (Olya-wound Skin Appearance Dry/Scaly ) -Color (Olya-wound Skin Appearance) Hemosiderin Staining -Temperature (Olya-wound Skin No Abnormality Appearance) (Pt Warm) -Tenderness on Palpation (Olya-wound No Skin Appearance) -Ulcer Cleansing Rinsed/ Irrigated with Saline -Foul Odor after Cleansing No -Anesthetic Used 4% Lidocaine Solution #4 RLE Murrell- Cluster -Current Size (cm) - Length 0.5 -Current Size (cm) - Width 0.2 -Current Size (cm) - Depth 0.2 -Total Square Cm 0.10 -Photo Taken No -Tunneling Position (O'clock) 12 -Tunneling Distance (cm) 0.2 -Exudate Amt None Present -Wound Margin Flat & Intact -Granulation Amt Small (1-33%) -Granulation Quality Red -Necrosis Amt Small (1-33%) -Necrotic Tissue Type Adherent Slough -Structure Exposed N/A -Texture (Olya-wound Skin Appearance) Scarring -Moisture (Olya-wound Skin Appearance Dry/Scaly ) -Color (Olya-wound Skin Appearance) Hemosiderin Staining -Temperature (Olya-wound Skin No Abnormality Appearance) (Pt Warm) -Tenderness on Palpation (Olya-wound No Skin Appearance) -Ulcer Cleansing Rinsed/ Irrigated with Saline -Foul Odor after Cleansing No -Anesthetic Used 4% Lidocaine Solution #3 Lateral RLE -Current Size (cm) - Length 0.3 -Current Size (cm) - Width 1.6 -Current Size (cm) - Depth 0.4 -Total Square Cm 0.48 -Photo Taken No -Exudate Amt None Present -Exudate Type Serosanguineous -Wound Margin Flat & Intact -Granulation Amt Small (1-33%) -Granulation Quality Red -Necrosis Amt Small (1-33%) -Necrotic Tissue Type Adherent Slough -Structure Exposed N/A -Texture (Olya-wound Skin Appearance) Scarring -Moisture (Olya-wound Skin Appearance Dry/Scaly ) -Color (Olya-wound Skin Appearance) Mottled -Temperature (Olya-wound Skin No Abnormality Appearance) (Pt Warm) -Tenderness on Palpation (Olya-wound No Skin Appearance) -Ulcer Cleansing Rinsed/ Irrigated with Saline -Foul Odor after Cleansing No -Anesthetic Used 4% Lidocaine Solution [Edema Assessment] -Right Calf (cm) 37.5 -Right Ankle (cm) 26 -Left Calf (cm) 38 -Left Ankle (cm) 25.7 WC - Nurse 2 - General Ulcer CM Notes Start: 09/27/18 09:31 Freq: Status: Active Protocol: Activity Type Activity Date Activity User E-Sign Co-Sign Detail Recorded Client Recorded Date Recorded By Document 10/25/18 08:37 DL [id number] 10/25/18 08:42 DL 10/25/18 08:37 Wound Center Nurse 2 [Procedure/Treatment] 7-left posterior calf -Correct Patient No -Correct Side, Site, Position No -Correct Procedure No -Procedure Performed No -Post Debridement Size (cm) - Length 0 -Post Debridement Size (cm) - Width 0 -Post Debridement Size (cm) - Depth 0 -Total Square Cm 0 -Wound/Ulcer Outcome Healed- Epithelialized #5 Medial RLE -Time 08:37 -Correct Patient Yes -Correct Side, Site, Position Yes -Correct Procedure Yes -Procedure Performed Yes -Type of Procedure Debridement -Clinical Debridement Subcutaneous -Post Debridement Size (cm) - Length 0.2 -Post Debridement Size (cm) - Width 0.2 -Post Debridement Size (cm) - Depth 0.2 -Total Square Cm 0.04 -Wound/Ulcer Outcome Not Healed -Ulcer Cleansing Rinsed/ Irrigated with Saline -Foul Odor after Cleansing No -Bioengineered Tissue No -Bleeding Controlled with Pressure -Offloading No -Treatment Response Procedure Tolerated Well #4 RLE Murrell- Cluster -Time 08:37 -Correct Patient Yes -Correct Side, Site, Position Yes -Correct Procedure Yes -Procedure Performed Yes -Type of Procedure Debridement -Clinical Debridement Subcutaneous -Post Debridement Size (cm) - Length 0.5 -Post Debridement Size (cm) - Width 0.2 -Post Debridement Size (cm) - Depth 0.2 -Total Square Cm 0.10 -Wound/Ulcer Outcome Not Healed -Ulcer Cleansing Rinsed/ Irrigated with Saline -Foul Odor after Cleansing No -Bioengineered Tissue No -Bleeding Controlled with Pressure -Offloading No -Treatment Response Procedure Tolerated Well #3 Lateral RLE -Time 08:38 -Correct Patient Yes -Correct Side, Site, Position Yes -Correct Procedure Yes -Procedure Performed Yes -Type of Procedure Debridement -Clinical Debridement Subcutaneous -Post Debridement Size (cm) - Length 0.3 -Post Debridement Size (cm) - Width 1.6 -Post Debridement Size (cm) - Depth 0.4 -Total Square Cm 0.48 -Wound/Ulcer Outcome Not Healed -Ulcer Cleansing Rinsed/ Irrigated with Saline -Foul Odor after Cleansing No -Bioengineered Tissue No -Bleeding Controlled with Pressure -Offloading No -Treatment Response Procedure Tolerated Well [See Physician Procedure note for Specifics] Pain Scale: 0-10 Numeric [Pain] -Is Patient Pain Free? Yes Musculoskeletal: Tenderness - With manipulation of ulcer sites Neurological: Sensory exam intact to light touch and pain Psych/Mental Status: Normal Affect, Appropriate Debridement Note Post-Debridement Measurements/Treatment WC - Nurse 2 - General Ulcer CM Notes Start: 09/27/18 09:31 Freq: Status: Active Protocol: Activity Type Activity Date Activity User E-Sign Co-Sign Detail Recorded Client Recorded Date Recorded By Document 09/27/18 10:08 DV [id number] 09/27/18 10:19 DV Document 10/04/18 09:56 AN [email or web address] 10/04/18 10:06 AN Document 10/11/18 09:13 DL [id number] 10/11/18 09:22 DL Document 10/18/18 09:01 JF [id number] 10/18/18 09:13 JF Document 10/25/18 08:37 DL [id number] 10/25/18 08:42 DL 09/27/18 10/04/18 10/11/18 10:08 09:56 09:13 Wound Center Nurse 2 7-left posterior calf -Time -Correct Patient -Correct Side, Site, Position -Correct Procedure -Procedure Performed -Type of Procedure -Clinical Debridement -Post Debridement Size (cm) - Length -Post Debridement Size (cm) - Width -Post Debridement Size (cm) - Depth -Total Square Cm -Wound/Ulcer Outcome -Ulcer Cleansing -Foul Odor after Cleansing -Bioengineered Tissue -Bleeding Controlled with -Offloading -Treatment Response #6 Right 5th Toe -Time 10:09 -Correct Patient Yes -Correct Side, Site, Position Yes -Correct Procedure No -Procedure Performed No -Post Debridement Size (cm) - Length 0 -Post Debridement Size (cm) - Width 0 -Post Debridement Size (cm) - Depth 0 -Total Square Cm 0 -Wound/Ulcer Outcome Healed- Epithelialized #5 Medial RLE -Time 10: 09:59 09:20 -Correct Patient Yes Yes Yes -Correct Side, Site, Position Yes Yes Yes -Correct Procedure Yes Yes -Procedure Performed Yes Yes -Type of Procedure Debridement Debridement -Clinical Debridement Subcutaneous Subcutaneous -Post Debridement Size (cm) - Length 0.5 0.4 0.4 -Post Debridement Size (cm) - Width 0.4 0.4 0.3 -Post Debridement Size (cm) - Depth 0.4 0.4 0.3 -Total Square Cm 0.20 0.16 0.12 -Wound/Ulcer Outcome Not Healed Healed- Not Healed Surgical Closure -Ulcer Cleansing Rinsed/ Rinsed/ Irrigated with Irrigated with Saline Saline -Foul Odor after Cleansing No No -Bioengineered Tissue No No -Bleeding Controlled with Pressure Pressure -Offloading Yes -Type of Offloading Surgical Shoe -Treatment Response Procedure Procedure Procedure Tolerated Well Tolerated Well Tolerated Well #4 RLE Murrell- Cluster -Time 10: 10:02 09:20 -Correct Patient Yes Yes Yes -Correct Side, Site, Position Yes Yes Yes -Correct Procedure Yes Yes Yes -Procedure Performed Yes Yes Yes -Type of Procedure Debridement Debridement Debridement -Clinical Debridement Subcutaneous Subcutaneous Subcutaneous -Post Debridement Size (cm) - Length 3.0 3 2.9 -Post Debridement Size (cm) - Width 0.4 0.3 0.3 -Post Debridement Size (cm) - Depth 0.5 0.4 0.4 -Total Square Cm 1.20 0.9 0.87 -Wound/Ulcer Outcome Not Healed Not Healed Not Healed -Ulcer Cleansing Rinsed/ Irrigated with Saline -Foul Odor after Cleansing No -Bioengineered Tissue No -Bleeding Controlled with Pressure -Offloading No -Treatment Response Procedure Procedure Procedure Tolerated Well Tolerated Well Tolerated Well #3 Lateral RLE -Time 10: 10:03 09:21 -Correct Patient Yes Yes Yes -Correct Side, Site, Position Yes Yes Yes -Correct Procedure Yes Yes Yes -Procedure Performed Yes Yes Yes -Type of Procedure Debridement Debridement Debridement -Clinical Debridement Subcutaneous Subcutaneous Subcutaneous -Post Debridement Size (cm) - Length 0.6 0.6 0.6 -Post Debridement Size (cm) - Width 1.7 1.7 1.7 -Post Debridement Size (cm) - Depth 0.5 0.5 0.5 -Total Square Cm 1.02 1.02 1.02 -Wound/Ulcer Outcome Not Healed Not Healed Not Healed -Ulcer Cleansing Rinsed/ Rinsed/ Rinsed/ Irrigated with Irrigated with Irrigated with Saline Saline Saline -Foul Odor after Cleansing No No No -Bioengineered Tissue No No No -Bleeding Controlled with Pressure Pressure Pressure -Offloading No No -Type of Offloading Wedge Shoe -Treatment Response Procedure Procedure Procedure Tolerated Well Tolerated Well Tolerated Well #2 Left 2nd Toe -Time 10:11 -Correct Patient Yes -Correct Side, Site, Position Yes -Correct Procedure No -Procedure Performed No -Post Debridement Size (cm) - Length 0 -Post Debridement Size (cm) - Width 0 -Post Debridement Size (cm) - Depth 0 -Total Square Cm 0 -Wound/Ulcer Outcome Healed- Epithelialized #1 Left Posterior Calf -Time 10:12 -Correct Patient Yes -Correct Side, Site, Position Yes -Correct Procedure Yes -Procedure Performed Yes -Type of Procedure Debridement -Clinical Debridement Subcutaneous -Post Debridement Size (cm) - Length 0.2 -Post Debridement Size (cm) - Width 0.2 -Post Debridement Size (cm) - Depth 0.1 -Total Square Cm 0.04 -Wound/Ulcer Outcome Not Healed -Ulcer Cleansing Rinsed/ Irrigated with Saline -Foul Odor after Cleansing No -Bioengineered Tissue No -Bleeding Controlled with Pressure -Offloading No -Treatment Response Procedure Tolerated Well Pain Scale: 0-10 Numeric Is Patient Pain Free? Yes Yes Yes 10/18/18 10/25/18 09:01 08:37 Wound Center Nurse 2 7-left posterior calf -Time 09:11 -Correct Patient Yes No -Correct Side, Site, Position Yes No -Correct Procedure Yes No -Procedure Performed Yes No -Type of Procedure Debridement -Clinical Debridement Subcutaneous -Post Debridement Size (cm) - Length 0.2 0 -Post Debridement Size (cm) - Width 0.2 0 -Post Debridement Size (cm) - Depth 0.1 0 -Total Square Cm 0.04 0 -Wound/Ulcer Outcome Not Healed Healed- Epithelialized -Ulcer Cleansing Rinsed/ Irrigated with Saline -Foul Odor after Cleansing No -Bioengineered Tissue No -Bleeding Controlled with Pressure -Offloading No -Treatment Response Procedure Tolerated Well #6 Right 5th Toe -Time -Correct Patient -Correct Side, Site, Position -Correct Procedure -Procedure Performed -Post Debridement Size (cm) - Length -Post Debridement Size (cm) - Width -Post Debridement Size (cm) - Depth -Total Square Cm -Wound/Ulcer Outcome #5 Medial RLE -Time 09:07 08:37 -Correct Patient Yes Yes -Correct Side, Site, Position Yes Yes -Correct Procedure Yes Yes -Procedure Performed Yes Yes -Type of Procedure Debridement Debridement -Clinical Debridement Subcutaneous Subcutaneous -Post Debridement Size (cm) - Length 0.3 0.2 -Post Debridement Size (cm) - Width 0.3 0.2 -Post Debridement Size (cm) - Depth 0.2 0.2 -Total Square Cm 0.09 0.04 -Wound/Ulcer Outcome Not Healed Not Healed -Ulcer Cleansing Rinsed/ Rinsed/ Irrigated with Irrigated with Saline Saline -Foul Odor after Cleansing No No -Bioengineered Tissue No No -Bleeding Controlled with Pressure Pressure -Offloading No -Type of Offloading -Treatment Response Procedure Procedure Tolerated Well Tolerated Well #4 RLE Murrell- Cluster -Time 09:06 08:37 -Correct Patient Yes Yes -Correct Side, Site, Position Yes Yes -Correct Procedure Yes Yes -Procedure Performed Yes Yes -Type of Procedure Debridement Debridement -Clinical Debridement Subcutaneous Subcutaneous -Post Debridement Size (cm) - Length 2.8 0.5 -Post Debridement Size (cm) - Width 0.2 0.2 -Post Debridement Size (cm) - Depth 0.3 0.2 -Total Square Cm 0.56 0.10 -Wound/Ulcer Outcome Not Healed Not Healed -Ulcer Cleansing Rinsed/ Rinsed/ Irrigated with Irrigated with Saline Saline -Foul Odor after Cleansing No No -Bioengineered Tissue No No -Bleeding Controlled with Pressure Pressure -Offloading No -Treatment Response Procedure Procedure Tolerated Well Tolerated Well #3 Lateral RLE -Time 09:08 08:38 -Correct Patient Yes Yes -Correct Side, Site, Position Yes Yes -Correct Procedure Yes Yes -Procedure Performed Yes Yes -Type of Procedure Debridement Debridement -Clinical Debridement Subcutaneous Subcutaneous -Post Debridement Size (cm) - Length 0.3 0.3 -Post Debridement Size (cm) - Width 1.6 1.6 -Post Debridement Size (cm) - Depth 0.4 0.4 -Total Square Cm 0.48 0.48 -Wound/Ulcer Outcome Not Healed Not Healed -Ulcer Cleansing Rinsed/ Rinsed/ Irrigated with Irrigated with Saline Saline -Foul Odor after Cleansing No No -Bioengineered Tissue No No -Bleeding Controlled with Pressure Pressure -Offloading No No -Type of Offloading -Treatment Response Procedure Procedure Tolerated Well Tolerated Well #2 Left 2nd Toe -Time -Correct Patient -Correct Side, Site, Position -Correct Procedure -Procedure Performed -Post Debridement Size (cm) - Length -Post Debridement Size (cm) - Width -Post Debridement Size (cm) - Depth -Total Square Cm -Wound/Ulcer Outcome #1 Left Posterior Calf -Time -Correct Patient -Correct Side, Site, Position -Correct Procedure -Procedure Performed -Type of Procedure -Clinical Debridement -Post Debridement Size (cm) - Length -Post Debridement Size (cm) - Width -Post Debridement Size (cm) - Depth -Total Square Cm -Wound/Ulcer Outcome -Ulcer Cleansing -Foul Odor after Cleansing -Bioengineered Tissue -Bleeding Controlled with -Offloading -Treatment Response Pain Scale: 0-10 Numeric Is Patient Pain Free? Yes Yes Wound debrided: Right lateral lower extremity Laterality: Right Type of Debridement: Excisional debridement Anesthesia Used: 4% Lidocaine Solution Depth: in the subcutaneous layer Percentage of wound debrided: 100 Instrument Used: 3mm curette Tissue Removed: Adherent slough, fibrin Severity: Fat Layer Exposed Amount of bleeding with debridement: Mild Bleeding Controlled with: Pressure Patient tolerated procedure well - Additional Wound Wound debrided: Right anterior murrell cluster Laterality: Right Type of Debridement: Excisional debridement Anesthesia Used: 4% Lidocaine Solution Depth: in the subcutaneous layer Percentage of wound debrided: 100 Instrument Used: 3mm curette Tissue Removed: Adherent slough, fibrin Severity: Fat Layer Exposed Amount of bleeding with debridement: Mild Bleeding Controlled with: Pressure Patient tolerated procedure: Patient tolerated procedure well - Additional Wound Wound debrided: Right proximal medial calf Laterality: Right Type of Debridement: Excisional debridement Anesthesia Used: 4% Lidocaine Solution Depth: in the subcutaneous layer Percentage of wound debrided: 100 Instrument Used: 3mm curette Tissue Removed: Adherent slough, fibrin Severity: Fat Layer Exposed Amount of bleeding with debridement: Mild Bleeding Controlled with: Pressure Patient tolerated procedure: Patient tolerated procedure well Assessment/Plan Assessment: Ulcer of right and left lower extremity and left dorsal 2nd toe with fat later exposed, DM II, pain to right and left LE, other comorbidities Plan: Patient was carefully examined and evaluated today. Left posterior calf ulcer healed again today. Another excisional subcutaneous debridement was performed as noted in the clinical panel to each ulcer site noted on right lower extremity. All aforementioned ulcer sites were dressed with Aquacel Ag to the bases. This was then covered by dry sterile dressing followed by Tubigrip for compression. Smaller size of tubigrips dispensed today. The patient is to change his dressing in this manner on a daily basis with help of his . The importance of keeping these ulcer sites offloaded was discussed in great detail with the patient again today. LEAS and venous Doppler exams showed sufficient areterial flow to lower extremities, however the venous doppler exams revealed some venous incompetence. Full report can be found in patient's chart. A right tib-fib x-ray was also ordered and the results show no signs of osteomyelitis. Patient was instructed to keep legs elevated while seated or lying down. I also recommend nutritional supplementation with a diet high in protein to help optimize ulcer healing potential. The patient was again educated on all signs and symptoms of local and systemic infection, and he is instructed to go to the emergency room immediately should they notice any of these. All other questions were answered to the patient and his 's satisfaction. The patient will follow back up in clinic in 1 week to check on progress, or sooner if needed.
== END 2018-10-26 23:59 ==
LOC: WC 08:00
PROVIDERS: Referring Provider Podiatrist; Visit Provider Podiatrist
DX: E11.622 Type 2 diabetes mellitus with other skin ulcer (principal); E11.621 Type 2 diabetes mellitus with foot ulcer; E11.51 Type 2 diabetes mellitus with diabetic peripheral angiopathy without gangrene; Z77.098 Contact with and (suspected) exposure to other hazardous, chiefly nonmedicinal, chemicals; L97.812 Non-pressure chronic ulcer of other part of right lower leg with fat layer exposed; L97.222 Non-pressure chronic ulcer of left calf with fat layer exposed; L97.212 Non-pressure chronic ulcer of right calf with fat layer exposed; L97.522 Non-pressure chronic ulcer of other part of left foot with fat layer exposed
CPT/HCPCS: 11042

== ENCOUNTER 2018-11-22 08:00 | Outpatient (RCR) | payer MEDICARE, OTHER, SELFPAY ==
[2018-10-27 00:57] VITALS: BP 148/69; PULSE 70; RESP 18; TEMP 36.6
[2018-11-01 08:28] VITALS: BP 136/67; PULSE 68; RESP 18; TEMP 37.3; BMI 31.8
--- NOTE | 2018-11-01 08:52 | PN.PCM_ITS ---
(1) Ulcer of right lower extremity with fat layer exposed Status: Acute Current Visit: No Code(s): L97.912 - Non-pressure chronic ulcer of unspecified part of right lower leg with fat layer exposed (2) Agent orange exposure Status: Acute Current Visit: No Code(s): Z77.098 - Contact with and (suspected) exposure to other hazardous, chiefly nonmedicinal, chemicals (3) PVD (peripheral vascular disease) Status: Suspected Current Visit: No Code(s): I73.9 - Peripheral vascular disease, unspecified (4) Pain of right lower extremity Status: Acute Current Visit: No Code(s): M79.604 - Pain in right leg (5) Controlled diabetes mellitus Status: Acute Current Visit: No Code(s): E11.9 - Type 2 diabetes mellitus without complications Type of Wound Chief Complaint: Bilateral lower extremity ulcers History of Wound: This 67-year-old diabetic male presents to the wound healing center today after being referred from his primary care physician for bilateral lower extremity ulcers. Patient denies any injury or trauma to the area. He says he noticed some swelling to each of his lower legs as well as some redness around July 17. He states that his primary care doctor placed him on Bactrim DS and the redness and swelling began to subside. As this was happening, he said the skin broke down and he noticed some ulcers to both his right and left lower legs. The patient also relates that he has an ulcer to the top of his left second toe. Patient denies noticing any purulence to the areas and says he has been dressing the ulcer sites on his own with Neosporin. He currently denies any feelings of nausea, vomiting, fever, chills. Progress of Wound: Continued improvement noted. Right medial calf healed again today. Patient has been having aquacel ag dressing changes daily with help of his . New shallow opened blister to medial right malleolus. He denies any feelings of nausea, vomiting, fever, or chills. - Physical Exam Vital Signs Temp Pulse Resp BP 99.1 F 68 18 136/67 H 11/01/18 08:28 11/01/18 08:28 11/01/18 08:28 11/01/18 08:28 General: Alert, Oriented x3, Cooperative, No apparent distress Extremities: Capillary Refill Less than 3 Seconds, No Calf Tenderness, Diminished Peripheral Pulses, Edema - Bilateral lower extremity edema, - - lower extremity varicosities noted bilateral Skin: Ulcer/ Wound - Ulcer cluster to right anterior murrell with fat layer exposed. The bases of these sites are noted to be a mixture of adherent slough, fibrin, biofilm, and increasing amount of granular tissue. Undermining continues to improve. There is no purulence, no malodor, no extending cellulitis, no increased warmth, no probing to bone. Ulcer to right lateral lower leg with fat layer exposed. Measurements noted. The base is noted to be a mixture of adherent slough, fibrin, biofilm, scant granular tissue. There is no purulence, no surrounding cellulitis, no increased warmth, no malodor, no probing to bone, no tracking, no undermining. No shallow open blister to right medial malleolus area. There is no probing to bone, no tracking, no undermining, no purulence, no surrounding cellulitis, no increase in warmth, or any other signs of local infection appreciated at this time to the area. Wound Measurements and Assessment WC - Nurse 1 - General Ulcer Measurement Start: 11/01/18 08:28 Freq: Status: Active Protocol: Activity Type Activity Date Activity User E-Sign Co-Sign Detail Recorded Client Recorded Date Recorded By Document 11/01/18 08:28 NM [id number] 11/01/18 08:38 NM 11/01/18 08:28 Wound Center Nurse 1 [Ulcer Assessment] #8 LEFT MEDIAL ANKLE -Current Size (cm) - Length 1.6 -Current Size (cm) - Width 1.5 -Current Size (cm) - Depth 0.1 -Total Square Cm 2.40 -Date of Last Picture (Recall this 11/01/18 field) -Photo Taken Yes -Exudate Amt Small -Exudate Type Serosanguineous -Wound Margin Flat & Intact -Granulation Amt Medium (34-66%) -Granulation Quality Pale [place] -Slough/Fibrin Yes -Necrosis Amt Medium (34-66%) -Necrotic Tissue Type Adherent Slough -Texture (Olya-wound Skin Appearance) Assessed Localized Edema -Moisture (Olya-wound Skin Appearance Assessed ) -Color (Olya-wound Skin Appearance) Assessed Hemosiderin Staining -Temperature (Olya-wound Skin No Abnormality Appearance) (Pt Warm) -Tenderness on Palpation (Olya-wound No Skin Appearance) -Ulcer Cleansing Rinsed/ Irrigated with Saline -Foul Odor after Cleansing No -Anesthetic Used 4% Lidocaine Solution #5 Medial RLE -Combined with other wound No -Current Size (cm) - Length 0.1 -Current Size (cm) - Width 0.1 -Current Size (cm) - Depth 0.1 -Total Square Cm 0.01 -Photo Taken No -Tunneling No -Undermining/Tunneling No -Circular Undermining No -Exudate Amt None Present -Wound Margin Flat & Intact -Granulation Amt Medium (34-66%) -Granulation Quality Pale [place] -Necrosis Amt Medium (34-66%) -Necrotic Tissue Type Adherent Slough -Texture (Olya-wound Skin Appearance) Assessed Localized Edema -Moisture (Olya-wound Skin Appearance Assessed ) -Color (Olya-wound Skin Appearance) Assessed Hemosiderin Staining -Temperature (Olya-wound Skin No Abnormality Appearance) (Pt Warm) -Tenderness on Palpation (Olya-wound No Skin Appearance) -Ulcer Cleansing Rinsed/ Irrigated with Saline -Foul Odor after Cleansing No -Anesthetic Used 4% Lidocaine Solution #4 RLE Murrell- Cluster -Current Size (cm) - Length 0.4 -Current Size (cm) - Width 0.2 -Current Size (cm) - Depth 0.2 -Total Square Cm 0.08 -Photo Taken No -Undermining/Tunneling No -Circular Undermining No -Wound Margin Flat & Intact -Granulation Amt Medium (34-66%) -Granulation Quality Pale [place] -Necrosis Amt Medium (34-66%) -Necrotic Tissue Type Adherent Slough -Texture (Olya-wound Skin Appearance) Assessed -Moisture (Olya-wound Skin Appearance Assessed ) -Color (Olya-wound Skin Appearance) Not Assessed Hemosiderin Staining -Temperature (Olya-wound Skin No Abnormality Appearance) (Pt Warm) -Tenderness on Palpation (Olya-wound No Skin Appearance) -Ulcer Cleansing Rinsed/ Irrigated with Saline -Foul Odor after Cleansing No -Anesthetic Used 4% Lidocaine Solution #3 Lateral RLE -Current Size (cm) - Length 0.6 -Current Size (cm) - Width 1.5 -Current Size (cm) - Depth 0.3 -Total Square Cm 0.90 -Photo Taken No -Undermining/Tunneling No -Circular Undermining No -Exudate Amt Small -Exudate Type Serosanguineous -Wound Margin Flat & Intact -Granulation Amt Medium (34-66%) -Granulation Quality Pale [place] -Necrosis Amt Medium (34-66%) -Necrotic Tissue Type Adherent Slough -Texture (Olya-wound Skin Appearance) Assessed -Moisture (Olya-wound Skin Appearance Assessed ) -Color (Olya-wound Skin Appearance) Assessed Hemosiderin Staining -Temperature (Olya-wound Skin No Abnormality Appearance) (Pt Warm) -Tenderness on Palpation (Olya-wound No Skin Appearance) -Ulcer Cleansing Rinsed/ Irrigated with Saline -Foul Odor after Cleansing No -Anesthetic Used 4% Lidocaine Solution [Edema Assessment] -Right Calf (cm) 38.5 -Right Ankle (cm) 26.8 WC - Nurse 2 - General Ulcer CM Notes Start: 11/01/18 08:28 Freq: Status: Active Protocol: Activity Type Activity Date Activity User E-Sign Co-Sign Detail Recorded Client Recorded Date Recorded By Document 11/01/18 08:40 AN [id number] 11/01/18 08:48 AN 11/01/18 08:40 Wound Center Nurse 2 [Procedure/Treatment] #8 LEFT MEDIAL ANKLE -Time 08:43 -Correct Patient Yes -Correct Side, Site, Position Yes -Correct Procedure Yes -Procedure Performed Yes -Type of Procedure Debridement -Clinical Debridement Subcutaneous -Post Debridement Size (cm) - Length 1.6 -Post Debridement Size (cm) - Width 1.9 -Post Debridement Size (cm) - Depth 0.1 -Total Square Cm 3.04 -Wound/Ulcer Outcome Not Healed -Ulcer Cleansing Rinsed/ Irrigated with Saline -Foul Odor after Cleansing No -Bioengineered Tissue No -Bleeding Controlled with Pressure -Offloading Yes -Type of Offloading Surgical Shoe -Treatment Response Procedure Tolerated Well #4 RLE Murrell- Cluster -Time 08:47 -Correct Patient Yes -Correct Side, Site, Position Yes -Correct Procedure Yes -Procedure Performed Yes -Type of Procedure Debridement -Clinical Debridement Subcutaneous -Post Debridement Size (cm) - Length 0.5 -Post Debridement Size (cm) - Width 0.2 -Post Debridement Size (cm) - Depth 0.2 -Total Square Cm 0.10 -Wound/Ulcer Outcome Not Healed -Ulcer Cleansing Rinsed/ Irrigated with Saline -Foul Odor after Cleansing No -Bioengineered Tissue No -Bleeding Controlled with Pressure -Type of Offloading Surgical Shoe -Treatment Response Procedure Tolerated Well #3 Lateral RLE -Time 08:47 -Correct Patient Yes -Correct Side, Site, Position Yes -Correct Procedure Yes -Procedure Performed Yes -Type of Procedure Debridement -Clinical Debridement Subcutaneous -Post Debridement Size (cm) - Length 0.3 -Post Debridement Size (cm) - Width 1.6 -Post Debridement Size (cm) - Depth 0.4 -Total Square Cm 0.48 -Wound/Ulcer Outcome Not Healed -Ulcer Cleansing Rinsed/ Irrigated with Saline -Foul Odor after Cleansing No -Bioengineered Tissue No -Bleeding Controlled with Pressure -Type of Offloading Surgical Shoe -Treatment Response Procedure Tolerated Well [See Physician Procedure note for Specifics] Pain Scale: 0-10 Numeric [Pain] -Is Patient Pain Free? Yes Musculoskeletal: Tenderness - With manipulation of ulcer sites Neurological: Sensory exam intact to light touch and pain Psych/Mental Status: Normal Affect, Appropriate Debridement Note Post-Debridement Measurements/Treatment WC - Nurse 2 - General Ulcer CM Notes Start: 11/01/18 08:28 Freq: Status: Active Protocol: Activity Type Activity Date Activity User E-Sign Co-Sign Detail Recorded Client Recorded Date Recorded By Document 11/01/18 08:40 AN [id number] 11/01/18 08:48 AN 11/01/18 08:40 Wound Center Nurse 2 #8 LEFT MEDIAL ANKLE -Time 08:43 -Correct Patient Yes -Correct Side, Site, Position Yes -Correct Procedure Yes -Procedure Performed Yes -Type of Procedure Debridement -Clinical Debridement Subcutaneous -Post Debridement Size (cm) - Length 1.6 -Post Debridement Size (cm) - Width 1.9 -Post Debridement Size (cm) - Depth 0.1 -Total Square Cm 3.04 -Wound/Ulcer Outcome Not Healed -Ulcer Cleansing Rinsed/ Irrigated with Saline -Foul Odor after Cleansing No -Bioengineered Tissue No -Bleeding Controlled with Pressure -Offloading Yes -Type of Offloading Surgical Shoe -Treatment Response Procedure Tolerated Well #4 RLE [place]- Cluster -Time 08:47 -Correct Patient Yes -Correct Side, Site, Position Yes -Correct Procedure Yes -Procedure Performed Yes -Type of Procedure Debridement -Clinical Debridement Subcutaneous -Post Debridement Size (cm) - Length 0.5 -Post Debridement Size (cm) - Width 0.2 -Post Debridement Size (cm) - Depth 0.2 -Total Square Cm 0.10 -Wound/Ulcer Outcome Not Healed -Ulcer Cleansing Rinsed/ Irrigated with Saline -Foul Odor after Cleansing No -Bioengineered Tissue No -Bleeding Controlled with Pressure -Type of Offloading Surgical Shoe -Treatment Response Procedure Tolerated Well #3 Lateral RLE -Time 08:47 -Correct Patient Yes -Correct Side, Site, Position Yes -Correct Procedure Yes -Procedure Performed Yes -Type of Procedure Debridement -Clinical Debridement Subcutaneous -Post Debridement Size (cm) - Length 0.3 -Post Debridement Size (cm) - Width 1.6 -Post Debridement Size (cm) - Depth 0.4 -Total Square Cm 0.48 -Wound/Ulcer Outcome Not Healed -Ulcer Cleansing Rinsed/ Irrigated with Saline -Foul Odor after Cleansing No -Bioengineered Tissue No -Bleeding Controlled with Pressure -Type of Offloading Surgical Shoe -Treatment Response Procedure Tolerated Well Pain Scale: 0-10 Numeric Is Patient Pain Free? Yes Wound debrided: Right lateral lower extremity Laterality: Right Type of Debridement: Excisional debridement Anesthesia Used: 4% Lidocaine Solution Depth: in the subcutaneous layer Percentage of wound debrided: 100 Instrument Used: - - 1 mm curette Tissue Removed: Adherent slough, fibrin Severity: Fat Layer Exposed Amount of bleeding with debridement: Mild Bleeding Controlled with: Pressure Patient tolerated procedure well - Additional Wound Wound debrided: Right anterior murrell cluster Laterality: Right Type of Debridement: Excisional debridement Anesthesia Used: 4% Lidocaine Solution Depth: in the subcutaneous layer Percentage of wound debrided: 100 Instrument Used: - - 1 mm curette Tissue Removed: Adherent slough, fibrin Severity: Fat Layer Exposed Amount of bleeding with debridement: Mild Bleeding Controlled with: Pressure Patient tolerated procedure: Patient tolerated procedure well - Additional Wound Wound debrided: Right medial malleolus Laterality: Right Type of Debridement: Excisional debridement Depth: in the subcutaneous layer Percentage of wound debrided: 100 Instrument Used: - - 1 mm curette Tissue Removed: Adherent slough, fibrin, biofilm Severity: Fat Layer Exposed Amount of bleeding with debridement: Mild Bleeding Controlled with: Pressure Patient tolerated procedure: Patient tolerated procedure well Assessment/Plan Assessment: Ulcer of right and left lower extremity and left dorsal 2nd toe with fat later exposed, DM II, pain to right and left LE, other comorbidities Plan: Patient was carefully examined and evaluated today. Right medial calf ulcer healed today. New opened blister to right medial malleolus. Another excisional subcutaneous debridement was performed as noted in the clinical panel to each ulcer site noted on right lower extremity. All aforementioned ulcer sites were dressed with Aquacel Ag to the bases. This was then covered by dry sterile dressing followed by Tubigrip for compression. The patient is to change his dressing in this manner on a daily basis with help of his . The importance of keeping these ulcer sites offloaded was discussed in great detail with the patient again today. LEAS and venous Doppler exams showed sufficient areterial flow to lower extremities, however the venous doppler exams revealed some venous incompetence. Full report can be found in patient's chart. A right tib-fib x-ray was also ordered and the results show no signs of osteomyelitis. Patient was instructed to keep legs elevated while seated or lying down. I also recommend nutritional supplementation with a diet high in protein to help optimize ulcer healing potential. The patient was again educated on all signs and symptoms of local and systemic infection, and he is instructed to go to the emergency room immediately should they notice any of these. All other questions were answered to the patient and his 's satisfaction. The patient will follow back up in clinic in 1 week to check on progress, or sooner if needed.
[2018-11-08 08:38] VITALS: BP 133/77; PULSE 86; RESP 18; TEMP 36.8; BMI 31.8
--- NOTE | 2018-11-08 09:31 | PCM.WC.PN ---
(1) Ulcer of right lower extremity with fat layer exposed Status: Acute Current Visit: No Code(s): L97.912 - Non-pressure chronic ulcer of unspecified part of right lower leg with fat layer exposed (2) Agent orange exposure Status: Acute Current Visit: No Code(s): Z77.098 - Contact with and (suspected) exposure to other hazardous, chiefly nonmedicinal, chemicals (3) PVD (peripheral vascular disease) Status: Suspected Current Visit: No Code(s): I73.9 - Peripheral vascular disease, unspecified (4) Pain of right lower extremity Status: Acute Current Visit: No Code(s): M79.604 - Pain in right leg (5) Controlled diabetes mellitus Status: Acute Current Visit: No Code(s): E11.9 - Type 2 diabetes mellitus without complications Type of Wound Chief Complaint: Bilateral lower extremity ulcers History of Wound: This 67-year-old diabetic male presents to the wound healing center today after being referred from his primary care physician for bilateral lower extremity ulcers. Patient denies any injury or trauma to the area. He says he noticed some swelling to each of his lower legs as well as some redness around July 17. He states that his primary care doctor placed him on Bactrim DS and the redness and swelling began to subside. As this was happening, he said the skin broke down and he noticed some ulcers to both his right and left lower legs. The patient also relates that he has an ulcer to the top of his left second toe. Patient denies noticing any purulence to the areas and says he has been dressing the ulcer sites on his own with Neosporin. He currently denies any feelings of nausea, vomiting, fever, chills. Progress of Wound: Continued improvement noted. Anterior right murrell cluster healed today. Patient has been having aquacel ag dressing changes daily with help of his . New shallow opened blister to medial right malleolus. He denies any feelings of nausea, vomiting, fever, or chills. - Physical Exam Vital Signs Temp Pulse Resp BP 98.2 F 86 18 133/77 H 11/08/18 08:38 11/08/18 08:38 11/08/18 08:38 11/08/18 08:38 General: Alert, Oriented x3, Cooperative, No apparent distress Extremities: Capillary Refill Less than 3 Seconds, No Calf Tenderness, Diminished Peripheral Pulses, Edema - Bilateral lower extremity edema, - - lower extremity varicosities noted bilateral Skin: Ulcer/ Wound - Ulcer cluster to right anterior murrell healed today. Ulcer to right lateral lower leg with fat layer exposed. Measurements noted. The base is noted to be a mixture of adherent slough, fibrin, biofilm, scant granular tissue. There is no purulence, no surrounding cellulitis, no increased warmth, no malodor, no probing to bone, no tracking, no undermining. Shallow open blister to right medial malleolus area. There is no probing to bone, no tracking, no undermining, no purulence, no surrounding cellulitis, no increase in warmth, or any other signs of local infection appreciated at this time to the area. Wound Measurements and Assessment WC - Nurse 1 - General Ulcer Measurement Start: 11/01/18 08:28 Freq: Status: Active Protocol: Activity Type Activity Date Activity User E-Sign Co-Sign Detail Recorded Client Recorded Date Recorded By Document 11/08/18 08:38 [place] [id number] 11/08/18 08:43 [place] 11/08/18 08:38 Wound Center Nurse 1 [Ulcer Assessment] 8 right med ankle -Current Size (cm) - Length 1.0 -Current Size (cm) - Width 1.3 -Current Size (cm) - Depth 0.1 -Total Square Cm 1.30 -Exudate Amt Small -Exudate Type Serosanguineous -Wound Margin Flat & Intact -Granulation Amt Large (67-100%) -Granulation Quality Red -Necrosis Amt Small (1-33%) -Necrotic Tissue Type Adherent Slough -Texture (Olya-wound Skin Appearance) Not Assessed -Moisture (Olya-wound Skin Appearance Assessed ) -Color (Olya-wound Skin Appearance) Assessed Hemosiderin Staining -Temperature (Olya-wound Skin No Abnormality Appearance) (Pt Warm) -Tenderness on Palpation (Olya-wound No Skin Appearance) -Ulcer Cleansing Rinsed/ Irrigated with Saline -Foul Odor after Cleansing No -Anesthetic Used 5% Lidocaine Gel #4 RLE Murrell- Cluster -Current Size (cm) - Length 0.1 -Current Size (cm) - Width 0.1 -Current Size (cm) - Depth 0.1 -Total Square Cm 0.01 -Wound Margin Flat & Intact -Texture (Olya-wound Skin Appearance) Assessed -Moisture (Olya-wound Skin Appearance Assessed ) -Color (Olya-wound Skin Appearance) Assessed Hemosiderin Staining -Temperature (Olya-wound Skin No Abnormality Appearance) (Pt Warm) -Tenderness on Palpation (Olya-wound No Skin Appearance) -Ulcer Cleansing Rinsed/ Irrigated with Saline -Foul Odor after Cleansing No -Anesthetic Used 5% Lidocaine Gel #3 Lateral RLE -Current Size (cm) - Length 0.2 -Current Size (cm) - Width 0.2 -Current Size (cm) - Depth 0.2 -Total Square Cm 0.04 -Epithelialization Large 67-100% -Exudate Amt None Present -Wound Margin Flat & Intact -Granulation Amt Large (67-100%) -Granulation Quality Pale [place] -Necrosis Amt None Present (0 %) -Texture (Olya-wound Skin Appearance) Assessed -Moisture (Olya-wound Skin Appearance Assessed ) -Color (Olya-wound Skin Appearance) Assessed Hemosiderin Staining -Temperature (Olya-wound Skin No Abnormality Appearance) (Pt Warm) -Tenderness on Palpation (Olya-wound No Skin Appearance) -Ulcer Cleansing Rinsed/ Irrigated with Saline -Foul Odor after Cleansing No -Anesthetic Used 5% Lidocaine Gel [Edema Assessment] -Right Calf (cm) 38.4 -Right Ankle (cm) 27.5 WC - Nurse 2 - General Ulcer CM Notes Start: 11/01/18 08:28 Freq: Status: Active Protocol: Activity Type Activity Date Activity User E-Sign Co-Sign Detail Recorded Client Recorded Date Recorded By Document 11/08/18 09:15 AN [id number] 11/08/18 09:21 AN 11/08/18 09:15 Wound Center Nurse 2 [Procedure/Treatment] 8 right med ankle -Time 09:20 -Correct Patient Yes -Correct Side, Site, Position Yes -Correct Procedure Yes -Procedure Performed Yes -Type of Procedure Debridement -Clinical Debridement Subcutaneous -Post Debridement Size (cm) - Length 1.2 -Post Debridement Size (cm) - Width 1.4 -Post Debridement Size (cm) - Depth 0.1 -Total Square Cm 1.68 -Wound/Ulcer Outcome Not Healed -Bleeding Controlled with Pressure -Offloading Yes -Treatment Response Procedure Tolerated Well #3 Lateral RLE -Time 09:21 -Correct Patient Yes -Correct Side, Site, Position Yes -Correct Procedure Yes -Procedure Performed Yes -Type of Procedure Debridement -Clinical Debridement Subcutaneous -Post Debridement Size (cm) - Length 0.2 -Post Debridement Size (cm) - Width 1.4 -Post Debridement Size (cm) - Depth 0.2 -Total Square Cm 0.28 -Wound/Ulcer Outcome Not Healed -Ulcer Cleansing Rinsed/ Irrigated with Saline -Bleeding Controlled with Pressure -Treatment Response Procedure Tolerated Well [See Physician Procedure note for Specifics] Pain Scale: 0-10 Numeric [Pain] -Is Patient Pain Free? Yes Musculoskeletal: Tenderness - With manipulation of ulcer sites Neurological: Sensory exam intact to light touch and pain Psych/Mental Status: Normal Affect, Appropriate Debridement Note Post-Debridement Measurements/Treatment WC - Nurse 2 - General Ulcer CM Notes Start: 11/01/18 08:28 Freq: Status: Active Protocol: Activity Type Activity Date Activity User E-Sign Co-Sign Detail Recorded Client Recorded Date Recorded By Document 11/01/18 08:40 AN [id number] 11/01/18 08:48 AN Document 11/08/18 09:15 AN [email or web address] 11/08/18 09:21 AN 11/01/18 11/08/18 08:40 09:15 Wound Center Nurse 2 8 right med ankle -Time 08:43 09:20 -Correct Patient Yes Yes -Correct Side, Site, Position Yes Yes -Correct Procedure Yes Yes -Procedure Performed Yes Yes -Type of Procedure Debridement Debridement -Clinical Debridement Subcutaneous Subcutaneous -Post Debridement Size (cm) - Length 1.6 1.2 -Post Debridement Size (cm) - Width 1.9 1.4 -Post Debridement Size (cm) - Depth 0.1 0.1 -Total Square Cm 3.04 1.68 -Wound/Ulcer Outcome Not Healed Not Healed -Ulcer Cleansing Rinsed/ Irrigated with Saline -Foul Odor after Cleansing No -Bioengineered Tissue No -Bleeding Controlled with Pressure Pressure -Offloading Yes Yes -Type of Offloading Surgical Shoe -Treatment Response Procedure Procedure Tolerated Well Tolerated Well #4 RLE Murrell- Cluster -Time 08:47 -Correct Patient Yes -Correct Side, Site, Position Yes -Correct Procedure Yes -Procedure Performed Yes -Type of Procedure Debridement -Clinical Debridement Subcutaneous -Post Debridement Size (cm) - Length 0.5 -Post Debridement Size (cm) - Width 0.2 -Post Debridement Size (cm) - Depth 0.2 -Total Square Cm 0.10 -Wound/Ulcer Outcome Not Healed -Ulcer Cleansing Rinsed/ Irrigated with Saline -Foul Odor after Cleansing No -Bioengineered Tissue No -Bleeding Controlled with Pressure -Type of Offloading Surgical Shoe -Treatment Response Procedure Tolerated Well #3 Lateral RLE -Time 08:47 09:21 -Correct Patient Yes Yes -Correct Side, Site, Position Yes Yes -Correct Procedure Yes Yes -Procedure Performed Yes Yes -Type of Procedure Debridement Debridement -Clinical Debridement Subcutaneous Subcutaneous -Post Debridement Size (cm) - Length 0.3 0.2 -Post Debridement Size (cm) - Width 1.6 1.4 -Post Debridement Size (cm) - Depth 0.4 0.2 -Total Square Cm 0.48 0.28 -Wound/Ulcer Outcome Not Healed Not Healed -Ulcer Cleansing Rinsed/ Rinsed/ Irrigated with Irrigated with Saline Saline -Foul Odor after Cleansing No -Bioengineered Tissue No -Bleeding Controlled with Pressure Pressure -Type of Offloading Surgical Shoe -Treatment Response Procedure Procedure Tolerated Well Tolerated Well Pain Scale: 0-10 Numeric Is Patient Pain Free? Yes Yes Wound debrided: Right lateral lower extremity Laterality: Right Type of Debridement: Excisional debridement Anesthesia Used: 4% Lidocaine Solution Depth: in the subcutaneous layer Percentage of wound debrided: 100 Instrument Used: - - 1 mm curette Tissue Removed: Adherent slough, fibrin Severity: Fat Layer Exposed Amount of bleeding with debridement: Mild Bleeding Controlled with: Pressure Patient tolerated procedure well - Additional Wound Wound debrided: Right medial malleolus Laterality: Right Type of Debridement: Excisional debridement Anesthesia Used: 4% Lidocaine Solution Depth: in the subcutaneous layer Percentage of wound debrided: 100 Instrument Used: - - 1 mm curette Tissue Removed: Adherent slough, fibrin, biofilm Severity: Fat Layer Exposed Amount of bleeding with debridement: Mild Bleeding Controlled with: Pressure Patient tolerated procedure: Patient tolerated procedure well Assessment/Plan Assessment: Ulcer of right and left lower extremity and left dorsal 2nd toe with fat later exposed, DM II, pain to right and left LE, other comorbidities Plan: Patient was carefully examined and evaluated today. Right anterior murrell ulcer healed today. Another excisional subcutaneous debridement was performed as noted in the clinical panel to each ulcer site noted on right lower extremity. All aforementioned ulcer sites were dressed with Aquacel Ag to the bases. This was then covered by dry sterile dressing followed by Tubigrip for compression. The patient is to change his dressing in this manner on a daily basis with help of his . The importance of keeping these ulcer sites offloaded was discussed in great detail with the patient again today. LEAS and venous Doppler exams showed sufficient areterial flow to lower extremities, however the venous doppler exams revealed some venous incompetence. Full report can be found in patient's chart. A right tib-fib x-ray was also ordered and the results show no signs of osteomyelitis. Patient was instructed to keep legs elevated while seated or lying down. I also recommend nutritional supplementation with a diet high in protein to help optimize ulcer healing potential. The patient was again educated on all signs and symptoms of local and systemic infection, and he is instructed to go to the emergency room immediately should they notice any of these. All other questions were answered to the patient and his 's satisfaction. The patient will follow back up in clinic in 1 week to check on progress, or sooner if needed.
[2018-11-22 08:22] VITALS: BP 132/78; PULSE 73; RESP 18; TEMP 36.6; BMI 31.8
--- NOTE | 2018-11-22 09:10 | PCM.WC.PN ---
(1) Ulcer of right lower extremity with fat layer exposed Status: Acute Current Visit: No Code(s): L97.912 - Non-pressure chronic ulcer of unspecified part of right lower leg with fat layer exposed (2) Agent orange exposure Status: Acute Current Visit: No Code(s): Z77.098 - Contact with and (suspected) exposure to other hazardous, chiefly nonmedicinal, chemicals (3) PVD (peripheral vascular disease) Status: Suspected Current Visit: No Code(s): I73.9 - Peripheral vascular disease, unspecified (4) Pain of right lower extremity Status: Acute Current Visit: No Code(s): M79.604 - Pain in right leg (5) Controlled diabetes mellitus Status: Acute Current Visit: No Code(s): E11.9 - Type 2 diabetes mellitus without complications Type of Wound Date of Service: 11/22/18 Chief Complaint: Bilateral lower extremity ulcers History of Wound: This 67-year-old diabetic male presents to the wound healing center today after being referred from his primary care physician for bilateral lower extremity ulcers. Patient denies any injury or trauma to the area. He says he noticed some swelling to each of his lower legs as well as some redness around July 17. He states that his primary care doctor placed him on Bactrim DS and the redness and swelling began to subside. As this was happening, he said the skin broke down and he noticed some ulcers to both his right and left lower legs. The patient also relates that he has an ulcer to the top of his left second toe. Patient denies noticing any purulence to the areas and says he has been dressing the ulcer sites on his own with Neosporin. He currently denies any feelings of nausea, vomiting, fever, chills. Progress of Wound: New opened shallow ulcer to right anterior murrell. Improvement of all other ulcers noted this week. Patient has been having aquacel ag dressing changes daily with help of his . He denies any feelings of nausea, vomiting, fever, or chills. - Physical Exam Vital Signs Temp Pulse Resp BP 97.8 F 73 18 132/78 H 11/22/18 08:22 11/22/18 08:22 11/22/18 08:22 11/22/18 08:22 General: Alert, Oriented x3, Cooperative, No apparent distress Extremities: Capillary Refill Less than 3 Seconds, No Calf Tenderness, Diminished Peripheral Pulses, Edema - Bilateral lower extremity edema, - - lower extremity varicosities noted bilateral Skin: Ulcer/ Wound - Ulcer to right lateral lower leg with fat layer exposed. Measurements noted. The base is noted to be a mixture of adherent slough, fibrin, biofilm, scant granular tissue. There is no purulence, no surrounding cellulitis, no increased warmth, no malodor, no probing to bone, no tracking, no undermining. Shallow open blister to right medial malleolus area. There is no probing to bone, no tracking, no undermining, no purulence, no surrounding cellulitis, no increase in warmth, or any other signs of local infection appreciated at this time to the area. Shallow open blister to right anterior murrell. There is no probing to bone, no tracking, no undermining, no purulence, no surrounding cellulitis, no increase in warmth, or any other signs of local infection appreciated at this time to the area. There is some slight erythema surrounding this area. Wound Measurements and Assessment WC - Nurse 1 - General Ulcer Measurement Start: 11/01/18 08:28 Freq: Status: Active Protocol: Activity Type Activity Date Activity User E-Sign Co-Sign Detail Recorded Client Recorded Date Recorded By Document 11/22/18 08:22 MO [id number] 11/22/18 08:28 MO 11/22/18 08:22 Wound Center Nurse 1 [Ulcer Assessment] #9 Right Murrell -Current Size (cm) - Length 2.3 -Current Size (cm) - Width 2.1 -Total Square Cm 4.83 -Date of Last Picture (Recall this 11/22/18 field) -Photo Taken Yes -Exudate Amt Small -Exudate Type Sanguineous -Wound Margin Flat & Intact -Granulation Amt Large (67-100%) -Granulation Quality Red -Slough/Fibrin No -Texture (Olya-wound Skin Appearance) Assessed -Moisture (Olya-wound Skin Appearance Assessed ) -Color (Olya-wound Skin Appearance) Assessed, Hemosiderin Staining -Temperature (Olya-wound Skin No Abnormality Appearance) (Pt Warm) -Tenderness on Palpation (Olya-wound No Skin Appearance) -Ulcer Cleansing Rinsed/ Irrigated with Saline -Foul Odor after Cleansing No -Anesthetic Used 5% Lidocaine Gel 8 right med ankle -Current Size (cm) - Length 0.1 -Current Size (cm) - Width 0.1 -Current Size (cm) - Depth 0.1 -Total Square Cm 0.01 #3 Lateral RLE -Current Size (cm) - Length 0.1 -Current Size (cm) - Width 0.1 -Current Size (cm) - Depth 0.1 -Total Square Cm 0.01 [Edema Assessment] -Right Calf (cm) 38 -Right Ankle (cm) 27 WC - Nurse 2 - General Ulcer CM Notes Start: 11/01/18 08:28 Freq: Status: Active Protocol: Activity Type Activity Date Activity User E-Sign Co-Sign Detail Recorded Client Recorded Date Recorded By Document 11/22/18 08:43 AN [id number] 11/22/18 08:52 AN 11/22/18 08:43 Wound Center Nurse 2 [Procedure/Treatment] #9 Right Murrell -Time 08:44 -Correct Patient Yes -Correct Side, Site, Position Yes -Correct Procedure Yes -Procedure Performed Yes -Type of Procedure Debridement -Clinical Debridement Subcutaneous -Post Debridement Size (cm) - Length 2.5 -Post Debridement Size (cm) - Width 2.2 -Post Debridement Size (cm) - Depth 0.1 -Total Square Cm 5.50 -Wound/Ulcer Outcome Not Healed -Ulcer Cleansing Rinsed/ Irrigated with Saline -Foul Odor after Cleansing No -Bioengineered Tissue No -Bleeding Controlled with Pressure -Offloading No -Treatment Response Procedure Tolerated Well 8 right med ankle -Time 08:44 -Correct Patient Yes -Correct Side, Site, Position Yes -Correct Procedure Yes -Procedure Performed Yes -Type of Procedure Debridement -Clinical Debridement Subcutaneous -Post Debridement Size (cm) - Length 0.7 -Post Debridement Size (cm) - Width 0.6 -Post Debridement Size (cm) - Depth 0.1 -Total Square Cm 0.42 -Wound/Ulcer Outcome Not Healed -Ulcer Cleansing Rinsed/ Irrigated with Saline -Foul Odor after Cleansing No -Bioengineered Tissue No -Bleeding Controlled with Pressure -Offloading No -Treatment Response Procedure Tolerated Well #3 Lateral RLE -Time 08:46 -Correct Patient Yes -Correct Side, Site, Position Yes -Correct Procedure Yes -Procedure Performed Yes -Type of Procedure Debridement -Clinical Debridement Subcutaneous -Post Debridement Size (cm) - Length 0.3 -Post Debridement Size (cm) - Width 0.3 -Post Debridement Size (cm) - Depth 0.3 -Total Square Cm 0.09 -Wound/Ulcer Outcome Not Healed -Ulcer Cleansing Rinsed/ Irrigated with Saline -Foul Odor after Cleansing No -Bleeding Controlled with Pressure -Offloading No -Treatment Response Procedure Tolerated Well [See Physician Procedure note for Specifics] Pain Scale: 0-10 Numeric [Pain] -Is Patient Pain Free? Yes Musculoskeletal: Tenderness - With manipulation of ulcer sites Neurological: Sensory exam intact to light touch and pain Psych/Mental Status: Normal Affect, Appropriate Debridement Note Post-Debridement Measurements/Treatment WC - Nurse 2 - General Ulcer CM Notes Start: 11/01/18 08:28 Freq: Status: Active Protocol: Activity Type Activity Date Activity User E-Sign Co-Sign Detail Recorded Client Recorded Date Recorded By Document 11/01/18 08:40 AN [id number] 11/01/18 08:48 AN Document 11/08/18 09:15 AN [id number] 11/08/18 09:21 AN Document 11/22/18 08:43 AN [id number] 11/22/18 08:52 AN 11/01/18 11/08/18 11/22/18 08:40 09:15 08:43 Wound Center Nurse 2 #9 Right Murrell -Time 08:44 -Correct Patient Yes -Correct Side, Site, Position Yes -Correct Procedure Yes -Procedure Performed Yes -Type of Procedure Debridement -Clinical Debridement Subcutaneous -Post Debridement Size (cm) - Length 2.5 -Post Debridement Size (cm) - Width 2.2 -Post Debridement Size (cm) - Depth 0.1 -Total Square Cm 5.50 -Wound/Ulcer Outcome Not Healed -Ulcer Cleansing Rinsed/ Irrigated with Saline -Foul Odor after Cleansing No -Bioengineered Tissue No -Bleeding Controlled with Pressure -Offloading No -Treatment Response Procedure Tolerated Well 8 right med ankle -Time 08:43 09:20 08:44 -Correct Patient Yes Yes Yes -Correct Side, Site, Position Yes Yes Yes -Correct Procedure Yes Yes Yes -Procedure Performed Yes Yes Yes -Type of Procedure Debridement Debridement Debridement -Clinical Debridement Subcutaneous Subcutaneous Subcutaneous -Post Debridement Size (cm) - Length 1.6 1.2 0.7 -Post Debridement Size (cm) - Width 1.9 1.4 0.6 -Post Debridement Size (cm) - Depth 0.1 0.1 0.1 -Total Square Cm 3.04 1.68 0.42 -Wound/Ulcer Outcome Not Healed Not Healed Not Healed -Ulcer Cleansing Rinsed/ Rinsed/ Irrigated with Irrigated with Saline Saline -Foul Odor after Cleansing No No -Bioengineered Tissue No No -Bleeding Controlled with Pressure Pressure Pressure -Offloading Yes Yes No -Type of Offloading Surgical Shoe -Treatment Response Procedure Procedure Procedure Tolerated Well Tolerated Well Tolerated Well #4 RLE Murrell- Cluster -Time 08:47 -Correct Patient Yes -Correct Side, Site, Position Yes -Correct Procedure Yes -Procedure Performed Yes -Type of Procedure Debridement -Clinical Debridement Subcutaneous -Post Debridement Size (cm) - Length 0.5 -Post Debridement Size (cm) - Width 0.2 -Post Debridement Size (cm) - Depth 0.2 -Total Square Cm 0.10 -Wound/Ulcer Outcome Not Healed -Ulcer Cleansing Rinsed/ Irrigated with Saline -Foul Odor after Cleansing No -Bioengineered Tissue No -Bleeding Controlled with Pressure -Type of Offloading Surgical Shoe -Treatment Response Procedure Tolerated Well #3 Lateral RLE -Time 08:47 09:21 08:46 -Correct Patient Yes Yes Yes -Correct Side, Site, Position Yes Yes Yes -Correct Procedure Yes Yes Yes -Procedure Performed Yes Yes Yes -Type of Procedure Debridement Debridement Debridement -Clinical Debridement Subcutaneous Subcutaneous Subcutaneous -Post Debridement Size (cm) - Length 0.3 0.2 0.3 -Post Debridement Size (cm) - Width 1.6 1.4 0.3 -Post Debridement Size (cm) - Depth 0.4 0.2 0.3 -Total Square Cm 0.48 0.28 0.09 -Wound/Ulcer Outcome Not Healed Not Healed Not Healed -Ulcer Cleansing Rinsed/ Rinsed/ Rinsed/ Irrigated with Irrigated with Irrigated with Saline Saline Saline -Foul Odor after Cleansing No No -Bioengineered Tissue No -Bleeding Controlled with Pressure Pressure Pressure -Offloading No -Type of Offloading Surgical Shoe -Treatment Response Procedure Procedure Procedure Tolerated Well Tolerated Well Tolerated Well Pain Scale: 0-10 Numeric Is Patient Pain Free? Yes Yes Yes Wound debrided: Right lateral lower extremity Laterality: Right Type of Debridement: Excisional debridement Anesthesia Used: 4% Lidocaine Solution Depth: in the subcutaneous layer Percentage of wound debrided: 100 Instrument Used: - - 1 mm curette Tissue Removed: Adherent slough, fibrin Severity: Fat Layer Exposed Amount of bleeding with debridement: Mild Bleeding Controlled with: Pressure Patient tolerated procedure well - Additional Wound Wound debrided: Right medial malleolus Laterality: Right Type of Debridement: Excisional debridement Anesthesia Used: 4% Lidocaine Solution Depth: in the subcutaneous layer Percentage of wound debrided: 100 Instrument Used: - - 1 mm curette Tissue Removed: Adherent slough, fibrin, biofilm Severity: Fat Layer Exposed Amount of bleeding with debridement: Mild Bleeding Controlled with: Pressure Patient tolerated procedure: Patient tolerated procedure well - Additional Wound Wound debrided: Right anterior murrell Laterality: Right Type of Debridement: Excisional debridement Anesthesia Used: 4% Lidocaine Solution Depth: in the subcutaneous layer Percentage of wound debrided: 100 Instrument Used: - - 1 mm curette Tissue Removed: Adherent slough, fibrin, biofilm Severity: Fat Layer Exposed Amount of bleeding with debridement: Mild Bleeding Controlled with: Pressure Patient tolerated procedure: Patient tolerated procedure well Assessment/Plan Assessment: Ulcer of right and left lower extremity and left dorsal 2nd toe with fat later exposed, DM II, pain to right and left LE, other comorbidities Plan: Patient was carefully examined and evaluated today. New right anterior murrell ulcer today. Another excisional subcutaneous debridement was performed as noted in the clinical panel to each ulcer site noted on right lower extremity. All aforementioned ulcer sites were dressed with Aquacel Ag to the bases. This was then covered by dry sterile dressing followed by Tubigrip for compression. The patient is to change his dressing in this manner on a daily basis with help of his . 10-day prescription given to patient for Bactrim DS as he has done well with this in the past. The importance of keeping these ulcer sites offloaded was discussed in great detail with the patient again today. LEAS and venous Doppler exams showed sufficient areterial flow to lower extremities, however the venous doppler exams revealed some venous incompetence. Full report can be found in patient's chart. A right tib-fib x-ray was also ordered and the results show no signs of osteomyelitis. Patient was instructed to keep legs elevated while seated or lying down. I also recommend nutritional supplementation with a diet high in protein to help optimize ulcer healing potential. The patient was again educated on all signs and symptoms of local and systemic infection, and he is instructed to go to the emergency room immediately should they notice any of these. All other questions were answered to the patient and his 's satisfaction. The patient will follow back up in clinic in 2 weeks to check on progress, or sooner if needed.
== END 2018-11-25 23:59 ==
LOC: WC 08:00
PROVIDERS: Referring Provider Podiatrist; Visit Provider Podiatrist
DX: E11.622 Type 2 diabetes mellitus with other skin ulcer (principal); E11.621 Type 2 diabetes mellitus with foot ulcer; L97.812 Non-pressure chronic ulcer of other part of right lower leg with fat layer exposed; Z77.098 Contact with and (suspected) exposure to other hazardous, chiefly nonmedicinal, chemicals; E11.51 Type 2 diabetes mellitus with diabetic peripheral angiopathy without gangrene; L97.522 Non-pressure chronic ulcer of other part of left foot with fat layer exposed; M79.604 Pain in right leg; I83.893 Varicose veins of bilateral lower extremities with other complications; R60.0 Localized edema
CPT/HCPCS: 11042

== ENCOUNTER 2018-12-13 08:00 | Outpatient (RCR) | payer MEDICARE, OTHER, SELFPAY ==
[2018-11-26 00:40] VITALS: BP 132/78; PULSE 73; RESP 18; TEMP 36.6
[2018-12-06 08:11] VITALS: BP 131/73; PULSE 74; RESP 18; TEMP 36.8; BMI 31.8
--- NOTE | 2018-12-06 08:51 | PCM.WC.PN ---
(1) Ulcer of right lower extremity with fat layer exposed Status: Acute Current Visit: No Code(s): L97.912 - Non-pressure chronic ulcer of unspecified part of right lower leg with fat layer exposed (2) Agent orange exposure Status: Acute Current Visit: No Code(s): Z77.098 - Contact with and (suspected) exposure to other hazardous, chiefly nonmedicinal, chemicals (3) PVD (peripheral vascular disease) Status: Suspected Current Visit: No Code(s): I73.9 - Peripheral vascular disease, unspecified (4) Pain of right lower extremity Status: Acute Current Visit: No Code(s): M79.604 - Pain in right leg (5) Controlled diabetes mellitus Status: Acute Current Visit: No Code(s): E11.9 - Type 2 diabetes mellitus without complications Type of Wound Date of Service: 12/06/18 Chief Complaint: Bilateral lower extremity ulcers History of Wound: This 67-year-old diabetic male presents to the wound healing center today after being referred from his primary care physician for bilateral lower extremity ulcers. Patient denies any injury or trauma to the area. He says he noticed some swelling to each of his lower legs as well as some redness around July 17. He states that his primary care doctor placed him on Bactrim DS and the redness and swelling began to subside. As this was happening, he said the skin broke down and he noticed some ulcers to both his right and left lower legs. The patient also relates that he has an ulcer to the top of his left second toe. Patient denies noticing any purulence to the areas and says he has been dressing the ulcer sites on his own with Neosporin. He currently denies any feelings of nausea, vomiting, fever, chills. Progress of Wound: Ulcer to right lateral leg healed. Remaining ulcers stable. Patient has been having aquacel ag dressing changes daily with help of his . He denies any feelings of nausea, vomiting, fever, or chills. - Physical Exam Vital Signs Temp Pulse Resp BP 98.2 F 74 18 131/73 H 12/06/18 08:11 12/06/18 08:11 12/06/18 08:11 12/06/18 08:11 General: Alert, Oriented x3, Cooperative, No apparent distress Extremities: Capillary Refill Less than 3 Seconds, No Calf Tenderness, Diminished Peripheral Pulses, Edema - Bilateral lower extremity edema, - - Bilateral lower extremity varicosities Skin: Ulcer/ Wound - Ulcer to right medial malleolus area. There is no probing to bone, no tracking, no undermining, no purulence, no surrounding cellulitis, no increase in warmth, or any other signs of local infection appreciated at this time to the area. Ulcer to right anterior murrell. There is no probing to bone, no tracking, no undermining, no purulence, no surrounding cellulitis, no increase in warmth, or any other signs of local infection appreciated at this time to the area. There is some slight erythema surrounding this area. Wound Measurements and Assessment WC - Nurse 1 - General Ulcer Measurement Start: 12/06/18 08:11 Freq: Status: Active Protocol: Activity Type Activity Date Activity User E-Sign Co-Sign Detail Recorded Client Recorded Date Recorded By Document 12/06/18 08:11 DL [id number] 12/06/18 08:22 DL 12/06/18 08:11 Wound Center Nurse 1 [Ulcer Assessment] #9 Right Murrell -Current Size (cm) - Length 0.2 -Current Size (cm) - Width 0.2 -Current Size (cm) - Depth 0.1 -Total Square Cm 0.04 -Photo Taken No -Exudate Amt None Present -Wound Margin Flat & Intact -Granulation Amt Small (1-33%) -Granulation Quality [place] -Necrosis Amt Small (1-33%) -Necrotic Tissue Type Adherent Slough -Structure Exposed N/A -Texture (Olya-wound Skin Appearance) Localized Edema ,Scarring -Moisture (Olya-wound Skin Appearance No Abnormality ) -Color (Olya-wound Skin Appearance) Hemosiderin Staining -Temperature (Olya-wound Skin No Abnormality Appearance) (Pt Warm) -Tenderness on Palpation (Olya-wound No Skin Appearance) -Ulcer Cleansing Rinsed/ Irrigated with Saline -Foul Odor after Cleansing No -Anesthetic Used 5% Lidocaine Gel 8 right med ankle -Current Size (cm) - Length 0.4 -Current Size (cm) - Width 0.5 -Current Size (cm) - Depth 0.1 -Total Square Cm 0.20 -Photo Taken No -Exudate Amt None Present -Wound Margin Distinct, Outline Attached -Granulation Amt Small (1-33%) -Granulation Quality [place] -Necrosis Amt Small (1-33%) -Necrotic Tissue Type Adherent Slough -Texture (Olya-wound Skin Appearance) Scarring -Moisture (Olya-wound Skin Appearance No Abnormality ) -Color (Olya-wound Skin Appearance) Hemosiderin Staining -Tenderness on Palpation (Olya-wound No Skin Appearance) -Ulcer Cleansing Rinsed/ Irrigated with Saline -Foul Odor after Cleansing No -Anesthetic Used 5% Lidocaine Gel #3 Lateral RLE -Current Size (cm) - Length 0.1 -Current Size (cm) - Width 0.1 -Current Size (cm) - Depth 0.1 -Total Square Cm 0.01 -Photo Taken No -Exudate Amt None Present -Wound Margin Flat & Intact -Granulation Amt Large (67-100%) -Granulation Quality [place] -Necrosis Amt None Present (0 %) -Structure Exposed N/A -Texture (Olya-wound Skin Appearance) Scarring -Moisture (Olya-wound Skin Appearance No Abnormality ) -Color (Olya-wound Skin Appearance) Hemosiderin Staining -Temperature (Olya-wound Skin No Abnormality Appearance) (Pt Warm) -Tenderness on Palpation (Olya-wound No Skin Appearance) -Ulcer Cleansing Rinsed/ Irrigated with Saline -Foul Odor after Cleansing No -Anesthetic Used 5% Lidocaine Gel [Edema Assessment] -Right Calf (cm) 36.8 -Right Ankle (cm) 25.4 WC - Nurse 2 - General Ulcer CM Notes Start: 12/06/18 08:11 Freq: Status: Active Protocol: Activity Type Activity Date Activity User E-Sign Co-Sign Detail Recorded Client Recorded Date Recorded By Document 12/06/18 08:39 BERNIE [id number] 12/06/18 08:40 BERNIE 12/06/18 08:39 Wound Center Nurse 2 [Procedure/Treatment] #9 Right Murrell -Time 08:39 -Correct Patient Yes -Correct Side, Site, Position Yes -Correct Procedure Yes -Procedure Performed Yes -Type of Procedure Debridement -Clinical Debridement Subcutaneous -Post Debridement Size (cm) - Length 0.5 -Post Debridement Size (cm) - Width 0.5 -Post Debridement Size (cm) - Depth 0.1 -Total Square Cm 0.25 -Wound/Ulcer Outcome Not Healed -Ulcer Cleansing Rinsed/ Irrigated with Saline -Foul Odor after Cleansing No -Bioengineered Tissue No -Bleeding Controlled with Pressure -Offloading No 8 right med ankle -Time 08:40 -Correct Patient Yes -Correct Side, Site, Position Yes -Correct Procedure Yes -Procedure Performed Yes -Type of Procedure Debridement -Clinical Debridement Subcutaneous -Post Debridement Size (cm) - Length 0.5 -Post Debridement Size (cm) - Width 0.5 -Post Debridement Size (cm) - Depth 0.1 -Total Square Cm 0.25 -Wound/Ulcer Outcome Not Healed -Ulcer Cleansing Rinsed/ Irrigated with Saline -Foul Odor after Cleansing No -Bioengineered Tissue No -Bleeding Controlled with Pressure -Offloading No -Treatment Response Procedure Tolerated Well #3 Lateral RLE -Correct Patient No -Correct Side, Site, Position No -Correct Procedure No -Procedure Performed No -Post Debridement Size (cm) - Length 0 -Post Debridement Size (cm) - Width 0 -Post Debridement Size (cm) - Depth 0 -Total Square Cm 0 -Wound/Ulcer Outcome Healed- Epithelialized [See Physician Procedure note for Specifics] Pain Scale: 0-10 Numeric [Pain] -Is Patient Pain Free? Yes Musculoskeletal: Tenderness - With manipulation of ulcer sites Neurological: Sensory exam intact to light touch and pain Psych/Mental Status: Normal Affect, Appropriate Debridement Note Post-Debridement Measurements/Treatment WC - Nurse 2 - General Ulcer CM Notes Start: 12/06/18 08:11 Freq: Status: Active Protocol: Activity Type Activity Date Activity User E-Sign Co-Sign Detail Recorded Client Recorded Date Recorded By Document 12/06/18 08:39 BERNIE [id number] 12/06/18 08:40 BERNIE 12/06/18 08:39 Wound Center Nurse 2 #9 Right Murrell -Time 08:39 -Correct Patient Yes -Correct Side, Site, Position Yes -Correct Procedure Yes -Procedure Performed Yes -Type of Procedure Debridement -Clinical Debridement Subcutaneous -Post Debridement Size (cm) - Length 0.5 -Post Debridement Size (cm) - Width 0.5 -Post Debridement Size (cm) - Depth 0.1 -Total Square Cm 0.25 -Wound/Ulcer Outcome Not Healed -Ulcer Cleansing Rinsed/ Irrigated with Saline -Foul Odor after Cleansing No -Bioengineered Tissue No -Bleeding Controlled with Pressure -Offloading No 8 right med ankle -Time 08:40 -Correct Patient Yes -Correct Side, Site, Position Yes -Correct Procedure Yes -Procedure Performed Yes -Type of Procedure Debridement -Clinical Debridement Subcutaneous -Post Debridement Size (cm) - Length 0.5 -Post Debridement Size (cm) - Width 0.5 -Post Debridement Size (cm) - Depth 0.1 -Total Square Cm 0.25 -Wound/Ulcer Outcome Not Healed -Ulcer Cleansing Rinsed/ Irrigated with Saline -Foul Odor after Cleansing No -Bioengineered Tissue No -Bleeding Controlled with Pressure -Offloading No -Treatment Response Procedure Tolerated Well #3 Lateral RLE -Correct Patient No -Correct Side, Site, Position No -Correct Procedure No -Procedure Performed No -Post Debridement Size (cm) - Length 0 -Post Debridement Size (cm) - Width 0 -Post Debridement Size (cm) - Depth 0 -Total Square Cm 0 -Wound/Ulcer Outcome Healed- Epithelialized Pain Scale: 0-10 Numeric Is Patient Pain Free? Yes Wound debrided: Right medial malleolus Laterality: Right Type of Debridement: Excisional debridement Anesthesia Used: 4% Lidocaine Solution Depth: in the subcutaneous layer Percentage of wound debrided: 100 Instrument Used: - - 1 mm curette Tissue Removed: Adherent slough, fibrin, biofilm Severity: Fat Layer Exposed Amount of bleeding with debridement: Mild Bleeding Controlled with: Pressure Patient tolerated procedure well - Additional Wound Wound debrided: Right anterior murrell Laterality: Right Type of Debridement: Excisional debridement Anesthesia Used: 4% Lidocaine Solution Depth: in the subcutaneous layer Percentage of wound debrided: 100 Instrument Used: - - 1 mm curette Tissue Removed: Adherent slough, fibrin, biofilm Severity: Fat Layer Exposed Amount of bleeding with debridement: Mild Bleeding Controlled with: Pressure Patient tolerated procedure: Patient tolerated procedure well Assessment/Plan Assessment: Ulcer of right and left lower extremity and left dorsal 2nd toe with fat later exposed, DM II, pain to right and left LE, other comorbidities Plan: Patient was carefully examined and evaluated today. Right lateral leg ulcer healed today. Another excisional subcutaneous debridement was performed as noted in the clinical panel to each ulcer site noted on right lower extremity. All aforementioned ulcer sites were dressed with Aquacel Ag to the bases. This was then covered by dry sterile dressing followed by Tubigrip for compression. The patient is to change his dressing in this manner on a daily basis with help of his . The importance of keeping these ulcer sites offloaded was discussed in great detail with the patient again today. LEAS and venous Doppler exams showed sufficient areterial flow to lower extremities, however the venous doppler exams revealed some venous incompetence. Full report can be found in patient's chart. A right tib-fib x-ray was also ordered and the results show no signs of osteomyelitis. Patient was instructed to keep legs elevated while seated or lying down. I also recommend nutritional supplementation with a diet high in protein to help optimize ulcer healing potential. The patient was again educated on all signs and symptoms of local and systemic infection, and he is instructed to go to the emergency room immediately should they notice any of these. All other questions were answered to the patient and his 's satisfaction. The patient will follow back up in clinic in 1week to check on progress, or sooner if needed.
[2018-12-13 08:18] VITALS: BMI 31.8
[2018-12-13 08:22] VITALS: BP 123/63; PULSE 66; RESP 18; TEMP 37
--- NOTE | 2018-12-13 08:58 | PCM.WC.PN ---
(1) Ulcer of right lower extremity with fat layer exposed Status: Acute Current Visit: No Code(s): L97.912 - Non-pressure chronic ulcer of unspecified part of right lower leg with fat layer exposed (2) Agent orange exposure Status: Acute Current Visit: No Code(s): Z77.098 - Contact with and (suspected) exposure to other hazardous, chiefly nonmedicinal, chemicals (3) PVD (peripheral vascular disease) Status: Suspected Current Visit: No Code(s): I73.9 - Peripheral vascular disease, unspecified (4) Pain of right lower extremity Status: Acute Current Visit: No Code(s): M79.604 - Pain in right leg (5) Controlled diabetes mellitus Status: Acute Current Visit: No Code(s): E11.9 - Type 2 diabetes mellitus without complications Type of Wound Date of Service: 12/13/18 Chief Complaint: Bilateral lower extremity ulcers History of Wound: This 67-year-old diabetic male presents to the wound healing center today after being referred from his primary care physician for bilateral lower extremity ulcers. Patient denies any injury or trauma to the area. He says he noticed some swelling to each of his lower legs as well as some redness around July 17. He states that his primary care doctor placed him on Bactrim DS and the redness and swelling began to subside. As this was happening, he said the skin broke down and he noticed some ulcers to both his right and left lower legs. The patient also relates that he has an ulcer to the top of his left second toe. Patient denies noticing any purulence to the areas and says he has been dressing the ulcer sites on his own with Neosporin. He currently denies any feelings of nausea, vomiting, fever, chills. Progress of Wound: Remaining ulcer continue to show improvement. Patient has been having aquacel ag dressing changes daily with help of his . He denies any feelings of nausea, vomiting, fever, or chills. - Physical Exam Vital Signs Temp Pulse Resp BP 98.6 F 66 18 123/63 H 12/13/18 08:22 12/13/18 08:22 12/13/18 08:22 12/13/18 08:22 General: Alert, Oriented x3, Cooperative, No apparent distress Extremities: Capillary Refill Less than 3 Seconds, No Calf Tenderness, Diminished Peripheral Pulses, Edema - Bilateral lower extremity edema, - - Bilateral lower extremity varicosities Skin: Ulcer/ Wound - Ulcer to right medial malleolus area. There is no probing to bone, no tracking, no undermining, no purulence, no surrounding cellulitis, no increase in warmth, or any other signs of local infection appreciated at this time to the area. Ulcer to right anterior murrell. There is no probing to bone, no tracking, no undermining, no purulence, no surrounding cellulitis, no increase in warmth, or any other signs of local infection appreciated at this time to the area. Wound Measurements and Assessment WC - Nurse 1 - General Ulcer Measurement Start: 12/06/18 08:11 Freq: Status: Active Protocol: Activity Type Activity Date Activity User E-Sign Co-Sign Detail Recorded Client Recorded Date Recorded By Document 12/13/18 08:22 [id number] 12/13/18 08:34 12/13/18 08:22 Wound Center Nurse 1 [Ulcer Assessment] #9 Right Murrell -Combined with other wound No -Current Size (cm) - Length 0.5 -Current Size (cm) - Width 0.4 -Current Size (cm) - Depth 0.1 -Total Square Cm 0.20 -Photo Taken No -Epithelialization Large 67-100% -Tunneling No -Undermining/Tunneling No -Circular Undermining No -Exudate Amt None Present -Wound Margin Distinct, Outline Attached -Granulation Amt Large (67-100%) -Granulation Quality [place] -Slough/Fibrin No -Necrosis Amt None Present (0 %) -Structure Exposed None/Limited to Skin Breakdown -Texture (Olya-wound Skin Appearance) Assessed -Moisture (Olya-wound Skin Appearance No Abnormality, ) Assessed -Color (Olya-wound Skin Appearance) Assessed, Erythema -Temperature (Olya-wound Skin No Abnormality Appearance) (Pt Warm) -Tenderness on Palpation (Olya-wound No Skin Appearance) -Ulcer Cleansing Rinsed/ Irrigated with Saline -Foul Odor after Cleansing No 8 right med ankle -Combined with other wound No -Current Size (cm) - Length 0.3 -Current Size (cm) - Width 0.4 -Current Size (cm) - Depth 0.1 -Total Square Cm 0.12 -Photo Taken No -Epithelialization Large 67-100% -Tunneling No -Undermining/Tunneling No -Circular Undermining No -Exudate Amt None Present -Wound Margin Distinct, Outline Attached -Granulation Amt Large (67-100%) -Granulation Quality Red -Slough/Fibrin No -Necrosis Amt None Present (0 %) -Structure Exposed None/Limited to Skin Breakdown -Texture (Olya-wound Skin Appearance) No Abnormality, Assessed -Moisture (Olya-wound Skin Appearance No Abnormality, ) Assessed -Color (Olya-wound Skin Appearance) Erythema -Temperature (Olya-wound Skin No Abnormality Appearance) (Pt Warm) -Tenderness on Palpation (Olya-wound No Skin Appearance) -Ulcer Cleansing Rinsed/ Irrigated with Saline -Foul Odor after Cleansing No [Edema Assessment] -Lower Limb Edema Present No WC - Nurse 2 - General Ulcer CM Notes Start: 12/06/18 08:11 Freq: Status: Active Protocol: Activity Type Activity Date Activity User E-Sign Co-Sign Detail Recorded Client Recorded Date Recorded By Document 12/13/18 08:42 AN [id number] 12/13/18 08:47 AN 12/13/18 08:42 Wound Center Nurse 2 [Procedure/Treatment] #9 Right Murrell -Time 08:43 -Correct Patient Yes -Correct Side, Site, Position Yes -Correct Procedure Yes -Procedure Performed Yes -Type of Procedure Debridement -Clinical Debridement Selective -Post Debridement Size (cm) - Length 0.2 -Post Debridement Size (cm) - Width 0.2 -Post Debridement Size (cm) - Depth 0.1 -Total Square Cm 0.04 -Wound/Ulcer Outcome Not Healed -Ulcer Cleansing Rinsed/ Irrigated with Saline -Foul Odor after Cleansing No -Bioengineered Tissue No -Bleeding Controlled with Pressure -Offloading Yes -Treatment Response Procedure Tolerated Well 8 right med ankle -Time 08:47 -Correct Patient Yes -Correct Side, Site, Position Yes -Correct Procedure Yes -Procedure Performed Yes -Type of Procedure Debridement -Clinical Debridement Subcutaneous -Post Debridement Size (cm) - Length 0.2 -Post Debridement Size (cm) - Width 0.2 -Post Debridement Size (cm) - Depth 0.1 -Total Square Cm 0.04 -Wound/Ulcer Outcome Not Healed -Ulcer Cleansing Rinsed/ Irrigated with Saline -Foul Odor after Cleansing No -Bioengineered Tissue No -Bleeding Controlled with Pressure -Offloading No -Treatment Response Procedure Tolerated Well [See Physician Procedure note for Specifics] Pain Scale: 0-10 Numeric [Pain] -Is Patient Pain Free? Yes Musculoskeletal: Tenderness - With manipulation of ulcer sites Neurological: Sensory exam intact to light touch and pain Psych/Mental Status: Normal Affect, Appropriate Debridement Note Post-Debridement Measurements/Treatment WC - Nurse 2 - General Ulcer CM Notes Start: 12/06/18 08:11 Freq: Status: Active Protocol: Activity Type Activity Date Activity User E-Sign Co-Sign Detail Recorded Client Recorded Date Recorded By Document 12/06/18 08:39 JF [id number] 12/06/18 08:40 JF Document 12/13/18 08:42 AN [id number] 12/13/18 08:47 AN 12/06/18 12/13/18 08:39 08:42 Wound Center Nurse 2 #9 Right Murrell -Time 08:39 08:43 -Correct Patient Yes Yes -Correct Side, Site, Position Yes Yes -Correct Procedure Yes Yes -Procedure Performed Yes Yes -Type of Procedure Debridement Debridement -Clinical Debridement Subcutaneous Selective -Post Debridement Size (cm) - Length 0.5 0.2 -Post Debridement Size (cm) - Width 0.5 0.2 -Post Debridement Size (cm) - Depth 0.1 0.1 -Total Square Cm 0.25 0.04 -Wound/Ulcer Outcome Not Healed Not Healed -Ulcer Cleansing Rinsed/ Rinsed/ Irrigated with Irrigated with Saline Saline -Foul Odor after Cleansing No No -Bioengineered Tissue No No -Bleeding Controlled with Pressure Pressure -Offloading No Yes -Treatment Response Procedure Tolerated Well 8 right med ankle -Time 08:40 08:47 -Correct Patient Yes Yes -Correct Side, Site, Position Yes Yes -Correct Procedure Yes Yes -Procedure Performed Yes Yes -Type of Procedure Debridement Debridement -Clinical Debridement Subcutaneous Subcutaneous -Post Debridement Size (cm) - Length 0.5 0.2 -Post Debridement Size (cm) - Width 0.5 0.2 -Post Debridement Size (cm) - Depth 0.1 0.1 -Total Square Cm 0.25 0.04 -Wound/Ulcer Outcome Not Healed Not Healed -Ulcer Cleansing Rinsed/ Rinsed/ Irrigated with Irrigated with Saline Saline -Foul Odor after Cleansing No No -Bioengineered Tissue No No -Bleeding Controlled with Pressure Pressure -Offloading No No -Treatment Response Procedure Procedure Tolerated Well Tolerated Well #3 Lateral RLE -Correct Patient No -Correct Side, Site, Position No -Correct Procedure No -Procedure Performed No -Post Debridement Size (cm) - Length 0 -Post Debridement Size (cm) - Width 0 -Post Debridement Size (cm) - Depth 0 -Total Square Cm 0 -Wound/Ulcer Outcome Healed- Epithelialized Pain Scale: 0-10 Numeric Is Patient Pain Free? Yes Yes Wound debrided: Right medial malleolus Laterality: Right Type of Debridement: Selective debridement Anesthesia Used: 4% Lidocaine Solution Depth: in the subcutaneous layer Percentage of wound debrided: 100 Instrument Used: - - 1 mm curette Tissue Removed: Slough and fibrin Severity: Fat Layer Exposed Amount of bleeding with debridement: Mild Bleeding Controlled with: Pressure Patient tolerated procedure well - Additional Wound Wound debrided: Right anterior murrell Laterality: Right Type of Debridement: Selective debridement Anesthesia Used: 4% Lidocaine Solution Depth: in the subcutaneous layer Percentage of wound debrided: 100 Instrument Used: - - 1 mm curette Tissue Removed: Slough and fibrin Severity: Fat Layer Exposed Amount of bleeding with debridement: Mild Bleeding Controlled with: Pressure Patient tolerated procedure: Patient tolerated procedure well Assessment/Plan Assessment: Ulcer of right and left lower extremity and left dorsal 2nd toe with fat later exposed, DM II, pain to right and left LE, other comorbidities Plan: Patient was carefully examined and evaluated today. A selective debridement was performed as noted in the clinical panel to each ulcer site noted on right lower extremity. All aforementioned ulcer sites were dressed with Aquacel Ag to the bases. This was then covered by dry sterile dressing followed by Tubigrip for compression. The patient is to change his dressing in this manner on a daily basis with help of his . The importance of keeping these ulcer sites offloaded was discussed in great detail with the patient again today. LEAS and venous Doppler exams showed sufficient areterial flow to lower extremities, however the venous doppler exams revealed some venous incompetence. Full report can be found in patient's chart. A right tib-fib x-ray was also ordered and the results show no signs of osteomyelitis. Patient was instructed to keep legs elevated while seated or lying down. I also recommend nutritional supplementation with a diet high in protein to help optimize ulcer healing potential. The patient was again educated on all signs and symptoms of local and systemic infection, and he is instructed to go to the emergency room immediately should they notice any of these. All other questions were answered to the patient and his 's satisfaction. The patient will follow back up in clinic in 1week to check on progress, or sooner if needed.
== END 2018-12-26 23:59 ==
LOC: WC 08:00
PROVIDERS: Referring Provider Podiatrist; Visit Provider Podiatrist
DX: E11.622 Type 2 diabetes mellitus with other skin ulcer (principal); L97.522 Non-pressure chronic ulcer of other part of left foot with fat layer exposed; L97.812 Non-pressure chronic ulcer of other part of right lower leg with fat layer exposed; Z77.098 Contact with and (suspected) exposure to other hazardous, chiefly nonmedicinal, chemicals; E11.51 Type 2 diabetes mellitus with diabetic peripheral angiopathy without gangrene; I83.93 Asymptomatic varicose veins of bilateral lower extremities; E11.621 Type 2 diabetes mellitus with foot ulcer
CPT/HCPCS: 11042; 97597

== ENCOUNTER 2018-12-27 08:11 | Outpatient (RCR) | payer MEDICARE, OTHER, SELFPAY ==
[2018-12-27 00:43] VITALS: BP 123/63; PULSE 66; RESP 18; TEMP 37
[2018-12-27 08:13] VITALS: BP 147/71; PULSE 65; RESP 16; TEMP 36.7; BMI 31.8
--- NOTE | 2018-12-27 08:42 | PCM.WC.PN ---
(1) Ulcer of right lower extremity with fat layer exposed Status: Acute Current Visit: No Code(s): L97.912 - Non-pressure chronic ulcer of unspecified part of right lower leg with fat layer exposed (2) Agent orange exposure Status: Acute Current Visit: No Code(s): Z77.098 - Contact with and (suspected) exposure to other hazardous, chiefly nonmedicinal, chemicals (3) Pain of right lower extremity Status: Acute Current Visit: No Code(s): M79.604 - Pain in right leg (4) Controlled diabetes mellitus Status: Acute Current Visit: No Code(s): E11.9 - Type 2 diabetes mellitus without complications Type of Wound Date of Service: 12/27/18 Chief Complaint: Bilateral lower extremity ulcers History of Wound: This 67-year-old diabetic male presents to the wound healing center today after being referred from his primary care physician for bilateral lower extremity ulcers. Patient denies any injury or trauma to the area. He says he noticed some swelling to each of his lower legs as well as some redness around July 17. He states that his primary care doctor placed him on Bactrim DS and the redness and swelling began to subside. As this was happening, he said the skin broke down and he noticed some ulcers to both his right and left lower legs. The patient also relates that he has an ulcer to the top of his left second toe. Patient denies noticing any purulence to the areas and says he has been dressing the ulcer sites on his own with Neosporin. He currently denies any feelings of nausea, vomiting, fever, chills. Progress of Wound: Patient healed today - Physical Exam Vital Signs Temp Pulse Resp BP 98.1 F 65 16 147/71 H 12/27/18 08:13 12/27/18 08:13 12/27/18 08:13 12/27/18 08:13 General: Alert, Oriented x3, Cooperative, No apparent distress Extremities: Capillary Refill Less than 3 Seconds, No Calf Tenderness - Negative Ana and Koch signs, Edema - Mild lower extremity edema Skin: Ulcer/ Wound - All ulcer sites appear healed at this time. No signs of local infection noted today. Wound Measurements and Assessment WC - Nurse 1 - General Ulcer Measurement Start: 12/27/18 08:12 Freq: Status: Active Protocol: Activity Type Activity Date Activity User E-Sign Co-Sign Detail Recorded Client Recorded Date Recorded By Document 12/27/18 08:13 BS [id number] 12/27/18 08:18 BS 12/27/18 08:13 Wound Center Nurse 1 [Ulcer Assessment] #9 Right [place] -Combined with other wound No -Current Size (cm) - Length 0.1 -Current Size (cm) - Width 0.1 -Current Size (cm) - Depth 0.1 -Total Square Cm 0.01 8 right med ankle -Combined with other wound No -Current Size (cm) - Length 0.1 -Current Size (cm) - Width 0.1 -Current Size (cm) - Depth 0.1 -Total Square Cm 0.01 WC - Nurse 2 - General Ulcer CM Notes Start: 12/27/18 08:12 Freq: Status: Active Protocol: Activity Type Activity Date Activity User E-Sign Co-Sign Detail Recorded Client Recorded Date Recorded By Document 12/27/18 08:24 AN [id number] 12/27/18 08:25 AN 12/27/18 08:24 Pain Scale: 0-10 Numeric [Pain] -Is Patient Pain Free? Yes Musculoskeletal: No Tenderness to Palpation of Joints or Extremities Neurological: Sensory exam intact to light touch and pain Psych/Mental Status: Normal Affect, Appropriate Debridement Note Post-Debridement Measurements/Treatment WC - Nurse 2 - General Ulcer CM Notes Start: 12/27/18 08:12 Freq: Status: Active Protocol: Activity Type Activity Date Activity User E-Sign Co-Sign Detail Recorded Client Recorded Date Recorded By Document 12/27/18 08:24 AN [id number] 12/27/18 08:25 AN 12/27/18 08:24 Pain Scale: 0-10 Numeric Is Patient Pain Free? Yes No debridement was completed today Assessment/Plan Assessment: Ulcer of right and left lower extremity and left dorsal 2nd toe with fat later exposed, DM II, pain to right and left LE, other comorbidities Plan: Patient was carefully examined and evaluated today. Upon evaluation, the patient appears healed today with no signs of local infection noted. Tubigrip was applied to bilateral lower extremities for compression. A prescription for compression stockings was also dispensed to this patient today. The importance of keeping compression to the lower extremities was stressed in great detail today in keeping the legs elevated and not in the dependent position while seated or lying down. The patient was again educated on all signs and symptoms of local and systemic infection, and he is instructed to go to the emergency room immediately should they notice any of these. All other questions were answered to the patient's satisfaction. The patient will be discharged from the wound healing center at this time, but was instructed to follow-up sooner if needed.
== END 2019-01-26 23:59 ==
LOC: WC 08:11
PROVIDERS: Referring Provider Podiatrist; Visit Provider Podiatrist
DX: Z09 Encounter for follow-up examination after completed treatment for conditions other than malignant neoplasm (principal); E11.9 Type 2 diabetes mellitus without complications; Z77.098 Contact with and (suspected) exposure to other hazardous, chiefly nonmedicinal, chemicals
CPT/HCPCS: 99212; G0463

== ENCOUNTER 2019-06-27 08:15 | Outpatient (RCR) | payer MEDICARE, OTHER, SELFPAY ==
[2019-06-20 08:25] VITALS: BP 133/54; PULSE 59; RESP 18; TEMP 36.8; BMI 29.9
--- NOTE | 2019-06-20 11:23 | HP.PCM_ITS ---
(1) Ulcer of right foot with fat layer exposed Status: Acute Current Visit: Yes Code(s): L97.512 - Non-pressure chronic ulcer of other part of right foot with fat layer exposed (2) Agent orange exposure Status: Acute Current Visit: No Code(s): Z77.098 - Contact with and (suspected) exposure to other hazardous, chiefly nonmedicinal, chemicals (3) Controlled diabetes mellitus Status: Acute Current Visit: No Code(s): E11.9 - Type 2 diabetes mellitus without complications (4) PVD (peripheral vascular disease) Status: Suspected Current Visit: No Code(s): I73.9 - Peripheral vascular disease, unspecified History of Present Illness Date of Service: 06/20/19 Chief Complaint: Right great toe ulcer History of Wound: This 68-year-old diabetic male presents to the wound healing center today for an ulcer to the top of his right great toe. 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 Patient has been keeping some old dressing supplies over the ulcer site. He denies any extending redness or purulent drainage. He feels the area is not getting any worse, but he does not feel it is improving very quickly either. He has not seen anybody else for this issue yet. He denies any feelings of nausea, vomiting, fever, chills. Past Medical History Allergies/Adverse Reactions: Allergies No Known Allergies Allergy (Verified 08/02/18 11:43) Home Medications: Ambulatory Orders Medication Instructions Recorded Cholecalciferol (Vitamin D3) 2,000 unit PO DAILY 08/02/18 [Vitamin D3] Cyanocobalamin (Vitamin B-12) 2,000 mcg PO DAILY 08/02/18 [Vitamin B-12] Empagliflozin [Jardiance] 25 mg PO DAILY 08/02/18 Gabapentin [Neurontin] 400 mg PO DAILY 08/02/18 Insulin Glargine,Hum.rec.anlog 55 unit SQ DAILY 08/02/18 [Lantus] Losartan Potassium 100 mg BC DAILY 08/02/18 Metformin HCl 1,000 mg BC BID 08/02/18 Triamcinolone Acetonide [Nasacort] 2 spray NS DAILY 08/02/18 Apixaban [Eliquis] 5 mg PO BID 09/06/18 Smoking Status: Former smoker Review of Systems Constitutional: Denies: Chills, Fever, Weight Change Cardiovascular: Denies: Chest Pain, Palpitations Respiratory: Denies: Cough, Shortness of Breath Skin: Reports: - - Ulcer right great toe - Physical Exam Vital Signs Temp Pulse Resp BP 98.3 F 59 L 18 133/54 H 06/20/19 08:25 06/20/19 08:25 06/20/19 08:25 06/20/19 08:25 General: Alert, Oriented x3, Cooperative, No apparent distress Extremities: No cyanosis, Capillary Refill Less than 3 Seconds - To all distal digits of the right foot, No Calf Tenderness - Negative Ana and Koch signs bilateral, Diminished Peripheral Pulses, Edema - Bilateral lower extremity edema, - - Bilateral lower extremity varicosities appreciated. Extensive hemosiderin skin color changing appreciated to lower extremities. Skin: Ulcer/ Wound - Ulcer to right dorsal hallux with fat layer exposed. Measurements noted. Base is a mixture of adherent slough, devitalized subcutaneous tissue, fibrin, biofilm, granular tissue, and surrounding hyperkeratotic skin. The ulcer is at the base of the nailbed. Currently there is no purulence, no malodor, no streaking or extending cellulitis, no probing to bone. Very minor edema to toe. Wound Measurements and Assessment WC - Nurse 1 - General Ulcer Measurement Start: 06/20/19 08:24 Freq: Status: Active Protocol: Activity Type Activity Date Activity User E-Sign Co-Sign Detail Recorded Client Recorded Date Recorded By Document 06/20/19 08:25 DL [id number] 06/20/19 08:34 DL 06/20/19 08:25 Wound Center Nurse 1 [Ulcer Assessment] #10 R Grt Toe -Current Size (cm) - Length 0.2 -Current Size (cm) - Width 1.6 -Current Size (cm) - Depth 0.5 -Total Square Cm 0.32 -Photo Taken Yes -Exudate Amt Small -Exudate Type Serosanguineous -Wound Margin Thickened -Granulation Amt Small (1-33%) -Granulation Quality [place] -Necrosis Amt Small (1-33%) -Necrotic Tissue Type Adherent Slough -Structure Exposed N/A -Texture (Olya-wound Skin Appearance) Localized Edema ,Scarring -Moisture (Olya-wound Skin Appearance Dry/Scaly ) -Color (Olya-wound Skin Appearance) Hemosiderin Staining -Temperature (Olya-wound Skin No Abnormality Appearance) (Pt Warm) -Tenderness on Palpation (Olya-wound No Skin Appearance) -Ulcer Cleansing Rinsed/ Irrigated with Saline -Foul Odor after Cleansing No -Anesthetic Used 4% Lidocaine Solution [Edema Assessment] -Right Calf (cm) 40.5 -Right Ankle (cm) 27.6 -Left Calf (cm) 39.3 -Left Ankle (cm) 25.7 - Nurse 2 - General Ulcer CM Notes Start: 06/20/19 08:24 Freq: Status: Active Protocol: Activity Type Activity Date Activity User E-Sign Co-Sign Detail Recorded Client Recorded Date Recorded By Document 06/20/19 08:49 DV [id number] 06/20/19 08:54 DV 06/20/19 08:49 Wound Center Nurse 2 [Procedure/Treatment] #10 R Grt Toe -Time 08:52 -Correct Patient Yes -Correct Side, Site, Position Yes -Correct Procedure Yes -Procedure Performed Yes -Type of Procedure Debridement -Clinical Debridement Subcutaneous -Post Debridement Size (cm) - Length 0.2 -Post Debridement Size (cm) - Width 1.0 -Post Debridement Size (cm) - Depth 0.3 -Total Square Cm 0.20 -Wound/Ulcer Outcome Not Healed -Ulcer Cleansing Rinsed/ Irrigated with Saline -Foul Odor after Cleansing No -Bioengineered Tissue No -Bleeding Controlled with Pressure -Offloading No -Treatment Response Procedure Tolerated Well [See Physician Procedure note for Specifics] Pain Scale: 0-10 Numeric [Pain] -Is Patient Pain Free? Yes Musculoskeletal: - - Very minor tenderness with manipulation of ulcer site Neurological: Sensory exam intact to light touch and pain Psych/Mental Status: Normal Affect, Appropriate Debridement Note Post-Debridement Measurements/Treatment - Nurse 2 - General Ulcer CM Notes Start: 06/20/19 08:24 Freq: Status: Active Protocol: Activity Type Activity Date Activity User E-Sign Co-Sign Detail Recorded Client Recorded Date Recorded By Document 06/20/19 08:49 DV [id number] 06/20/19 08:54 DV 06/20/19 08:49 Wound Center Nurse 2 #10 R Grt Toe -Time 08:52 -Correct Patient Yes -Correct Side, Site, Position Yes -Correct Procedure Yes -Procedure Performed Yes -Type of Procedure Debridement -Clinical Debridement Subcutaneous -Post Debridement Size (cm) - Length 0.2 -Post Debridement Size (cm) - Width 1.0 -Post Debridement Size (cm) - Depth 0.3 -Total Square Cm 0.20 -Wound/Ulcer Outcome Not Healed -Ulcer Cleansing Rinsed/ Irrigated with Saline -Foul Odor after Cleansing No -Bioengineered Tissue No -Bleeding Controlled with Pressure -Offloading No -Treatment Response Procedure Tolerated Well Pain Scale: 0-10 Numeric Is Patient Pain Free? Yes Wound debrided: Right dorsal hallux ulcer Laterality: Right Type of Debridement: Excisional debridement Anesthesia Used: 4% Lidocaine Solution Depth: in the subcutaneous layer Percentage of wound debrided: 100 Instrument Used: 3mm curette Tissue Removed: Adherent slough, fibrin, devitalized subcutaneous tissue, biofilm Severity: Fat Layer Exposed Amount of bleeding with debridement: Mild Bleeding Controlled with: Pressure Patient tolerated procedure well Assessment/Plan Active Problems Ulcer of right foot with fat layer exposed (Acute) Assessment: Ulcer of right foot with fat later exposed, DM II, other comorbidities Plan: Patient was carefully examined and evaluated again for new ulcer to the patient's dorsal right hallux. A subcutaneous debridement was performed as noted in the clinical panel. Once complete, the site was dressed with Aquacel Ag followed by dry sterile dressing and Tubigrip for compression. The patient is to have the dressing change in this manner on a daily basis. Patient was sent to my office to obtain a surgical shoe as the wound center does not have any today. Patient is to wear this at all times while weightbearing to help keep any kind of pressure away from the dorsal right hallux ulcer site. He is to try and limit his weightbearing and he is to try and focus weightbearing to his heel on the right side if possible. Cultures of the ulcer site were taken and sent for aerobic, anaerobic, and MRSA PCR evaluation. Patient was started on a course of Bactrim DS. Last year when patient was at the wound center, he had LEAS and venous Doppler exams pleated which showed sufficient areterial flow to lower extremities, however the venous doppler exams revealed some venous incompetence. Full report can be found in patient's chart. I also recommend a diet high in protein to help optimize patient's ulcer healing potential. Tight glycemic control discussed. The patient was again educated on all signs and symptoms of local and systemic infection, and he was instructed to go to the e mergency room immediately should he notice any of these. All other questions were answered to the patient's satisfaction. He is to follow back up in clinic in 1 week to check on progress, or sooner if needed.
[2019-06-20 16:44] LABS: M R Staph aureus DNA By PCR Negative (Negative); Probe Check PASS; Staph aureus DNA By PCR NEGATIVE (Negative)
[2019-06-27 08:20] VITALS: BP 128/57; PULSE 64; RESP 18; TEMP 37.1; BMI 29.9
--- NOTE | 2019-06-27 12:09 | PCM.WC.PN ---
(1) Ulcer of right foot with fat layer exposed Status: Acute Current Visit: Yes Code(s): L97.512 - Non-pressure chronic ulcer of other part of right foot with fat layer exposed (2) Agent orange exposure Status: Chronic Current Visit: No Code(s): Z77.098 - Contact with and (suspected) exposure to other hazardous, chiefly nonmedicinal, chemicals (3) Controlled diabetes mellitus Status: Acute Current Visit: No Code(s): E11.9 - Type 2 diabetes mellitus without complications (4) PVD (peripheral vascular disease) Status: Chronic Current Visit: No Code(s): I73.9 - Peripheral vascular disease, unspecified Type of Wound Date of Service: 06/27/19 Chief Complaint: Right great toe ulcer History of Wound: This 68-year-old diabetic male presents to the wound healing center today for an ulcer to the top of his right great toe. 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 Patient has been keeping some old dressing supplies over the ulcer site. He denies any extending redness or purulent drainage. He feels the area is not getting any worse, but he does not feel it is improving very quickly either. He has not seen anybody else for this issue yet. He denies any feelings of nausea, vomiting, fever, chills. Progress of Wound: Ulcer still noted to right hallux today. The hallux is noted to be slightly more edematous with some warmth appreciated. relates that she noticed what she believed to be a little bit of purulence earlier this week. Patient relates feeling slightly lethargic lately. He denies any feelings of nausea, vomiting, fever, chills. - Physical Exam Vital Signs Temp Pulse Resp BP 98.7 F 64 18 128/57 H 06/27/19 08:20 06/27/19 08:20 06/27/19 08:20 06/27/19 08:20 General: Alert, Oriented x3, Cooperative, No apparent distress Extremities: No cyanosis, Capillary Refill Less than 3 Seconds - To all digits of the right foot, No Calf Tenderness - Negative Ana and Koch signs bilateral, Diminished Peripheral Pulses, Edema - Bilateral lower extremity edema, - - Bilateral lower extremity varicosities appreciated. Extensive hemosiderin skin color changing appreciated to lower extremities. Skin: Ulcer/ Wound - Ulcer to right dorsal hallux. Measurements noted. Base is a mixture of adherent slough, devitalized subcutaneous tissue, fibrin, biofilm, granular tissue, and surrounding hyperkeratotic skin. The ulcer is at the base of the nailbed and appears to be in area where nail was torn from base of nail. Open area is at proximal nail fold. Area probed deep to bone today. Currently there is no purulence. There was also some erythema, increased edema, and increased warmth appreciated to the hallux when compared with the contralateral side. Wound Measurements and Assessment WC - Nurse 1 - General Ulcer Measurement Start: 06/20/19 08:24 Freq: Status: Active Protocol: Activity Type Activity Date Activity User E-Sign Co-Sign Detail Recorded Client Recorded Date Recorded By Document 06/27/19 08:20 DL [id number] 06/27/19 08:24 DL 06/27/19 08:20 Wound Center Nurse 1 [Ulcer Assessment] #10 R Grt Toe -Current Size (cm) - Length 0.7 -Current Size (cm) - Width 0.2 -Current Size (cm) - Depth 0.6 -Total Square Cm 0.14 -Photo Taken No -Undermining/Tunneling Starts (O' 11 clock) -Undermining/Tunneling Ends (O'clock) 1 -Maximum Distance (cm) 0.8 -Circular Undermining No -Exudate Amt Small -Exudate Type Sanguineous -Wound Margin Distinct, Outline Attached -Granulation Amt Small (1-33%) -Granulation Quality [place] -Necrosis Amt Small (1-33%) -Necrotic Tissue Type Adherent Slough -Structure Exposed N/A -Texture (Olya-wound Skin Appearance) Localized Edema ,Scarring -Moisture (Olya-wound Skin Appearance Maceration ) -Color (Olya-wound Skin Appearance) Erythema -Temperature (Olya-wound Skin No Abnormality Appearance) (Pt Warm) -Tenderness on Palpation (Olya-wound No Skin Appearance) -Ulcer Cleansing Wound Cleanser -Foul Odor after Cleansing No -Anesthetic Used 4% Lidocaine Solution [Edema Assessment] -Right Calf (cm) 43 -Right Ankle (cm) 28 WC - Nurse 2 - General Ulcer CM Notes Start: 06/20/19 08:24 Freq: Status: Active Protocol: Activity Type Activity Date Activity User E-Sign Co-Sign Detail Recorded Client Recorded Date Recorded By Document 06/27/19 08:46 DV [id number] 06/27/19 09:02 DV 06/27/19 08:46 Wound Center Nurse 2 [Procedure/Treatment] #10 R Grt Toe -Time 08:52 -Correct Patient Yes -Correct Side, Site, Position Yes -Correct Procedure Yes -Procedure Performed Yes -Type of Procedure Debridement -Clinical Debridement Subcutaneous -Post Debridement Size (cm) - Length 0.2 -Post Debridement Size (cm) - Width 0.9 -Post Debridement Size (cm) - Depth 0.6 -Total Square Cm 0.18 -Wound/Ulcer Outcome Not Healed [See Physician Procedure note for Specifics] Pain Scale: 0-10 Numeric [Pain] -Is Patient Pain Free? Yes Musculoskeletal: - - Very minor tenderness with manipulation of ulcer site Neurological: Sensory exam intact to light touch and pain Psych/Mental Status: Normal Affect, Appropriate Debridement Note Post-Debridement Measurements/Treatment WC - Nurse 2 - General Ulcer CM Notes Start: 06/20/19 08:24 Freq: Status: Active Protocol: Activity Type Activity Date Activity User E-Sign Co-Sign Detail Recorded Client Recorded Date Recorded By Document 06/20/19 08:49 DV [id number] 06/20/19 08:54 DV Document 06/27/19 08:46 DV [id number] 06/27/19 09:02 DV 06/20/19 06/27/19 08:49 08:46 Wound Center Nurse 2 #10 R Grt Toe -Time 08:52 08:52 -Correct Patient Yes Yes -Correct Side, Site, Position Yes Yes -Correct Procedure Yes Yes -Procedure Performed Yes Yes -Type of Procedure Debridement Debridement -Clinical Debridement Subcutaneous Subcutaneous -Post Debridement Size (cm) - Length 0.2 0.2 -Post Debridement Size (cm) - Width 1.0 0.9 -Post Debridement Size (cm) - Depth 0.3 0.6 -Total Square Cm 0.20 0.18 -Wound/Ulcer Outcome Not Healed Not Healed -Ulcer Cleansing Rinsed/ Irrigated with Saline -Foul Odor after Cleansing No -Bioengineered Tissue No -Bleeding Controlled with Pressure -Offloading No -Treatment Response Procedure Tolerated Well Pain Scale: 0-10 Numeric Is Patient Pain Free? Yes Yes Wound debrided: Right dorsal hallux ulcer Laterality: Right Type of Debridement: Excisional debridement Anesthesia Used: 4% Lidocaine Solution Depth: in the subcutaneous layer Percentage of wound debrided: 100 Instrument Used: 3mm curette Tissue Removed: Adherent slough, fibrin, devitalized subcutaneous tissue, biofilm Severity: Fat Layer Exposed Amount of bleeding with debridement: Mild Bleeding Controlled with: Pressure Patient tolerated procedure well Assessment/Plan Active Problems Ulcer of right foot with fat layer exposed (Acute) JUSTIN (acute kidney injury) (Acute) Assessment: Ulcer of right foot with fat later exposed, DM II, other comorbidities Plan: Patient reexamined for right hallux ulcer. A subcutaneous debridement was performed as noted in the clinical panel. The site did probe down to bone today with some surrounding signs of local infection appreciated that are noted in the patient's physical exam section of this note. It was at this time it was determined the patient will be referred to the emergency room for further infection/osteomyelitis work-up. I spoke with the ER physician. Patient will have blood work as well as x-rays performed as well as other work-up. Once complete, the site was dressed with Aquacel Ag followed by dry sterile dressing and Tubigrip for compression. He is to try and limit his weightbearing and he is to try and focus weightbearing to his heel on the right side if possible. He is to continue with right surgical shoe if he has to be up with heel weightbearing to the side. All other questions were answered to the patient's satisfaction. He is to follow back up in clinic in 1 week to check on progress, or sooner if needed. I also did just discussed this case with Dr. Meng. He relates that this patient will be admitted for further work-up and IV antibiotics. He relates that he will order an MRI for this patient. Podiatry will follow this patient again early tomorrow morning to follow-up on testing and to evaluate this patient.
== END 2019-06-28 23:59 ==
LOC: WC 08:15
PROVIDERS: Referring Provider Podiatrist; Visit Provider Podiatrist
DX: E11.621 Type 2 diabetes mellitus with foot ulcer (principal); L97.512 Non-pressure chronic ulcer of other part of right foot with fat layer exposed; Z77.098 Contact with and (suspected) exposure to other hazardous, chiefly nonmedicinal, chemicals; E11.51 Type 2 diabetes mellitus with diabetic peripheral angiopathy without gangrene; Z79.4 Long term (current) use of insulin; Z79.01 Long term (current) use of anticoagulants; Z79.899 Other long term (current) drug therapy; Z87.891 Personal history of nicotine dependence
CPT/HCPCS: 11042; 87070; 87075; 87077; 87186; 87205; 87640; 99213; G0463

== ENCOUNTER 2019-06-27 09:28 | Inpatient (IN) | payer MEDICARE, OTHER, SELFPAY ==
[2019-06-27 08:20] VITALS: BMI 29.9
[2019-06-27 09:30] VITALS: BP 141/79; PULSE 71; RESP 16; TEMP 36.1; O2SAT 97; BMI 31.9
--- NOTE | 2019-06-27 09:59 | ED.DCSUM_ITS ---
- ER Visit Summary Date of Service: 06/27/19 Chief Complaint: Right great toe pain and swelling History of Present Illness: The patient is a 68 M history of diabetes and hypertension A. fib. On the blood thinner Eliquis. About 3 weeks ago patient injured his right great toe. It is since become infected. Currently he is on day 7 of Bactrim for 10 days. 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 Sent to the emergency department today for possible concern of right great toe osteomyelitis. He denies fever. He does have diabetic neuropathy is of his feet. Physical Examination: Older male no acute distress. Vital signs are stable. He is currently afebrile. H EENT exam unremarkable. Neck nontender. Lungs clear to auscultation bilaterally. Heart regular rhythm no murmur. Abdomen soft nontender. Normal bowel sounds no peritoneal signs. Extremities moves all 4. Normal motor strength. He does have diabetic neuropathy to decrease sensation in both feet. But dorsi plantarflexion is intact. He has edema in both lower extremities. His right great toe is red and swollen. The nail is completely gone. There is no lymphangitic streaking. There is no marilia pus. Test Results: BC normal white count 8. Hemoglobin 14. Chemistries unremarkable BUN of 37 creatinine 1.48 consistent with renal insufficiency. Glucose 169. Sed rate 28. Elevated CRP elevated at 54. Right great toe x-ray 2 views read both by myself and the radiologist shows chronic changes but no acute process. No fracture. No obvious signs of osteomyelitis. Emergency Department Course and Treatment: . Labs, blood work and x-ray. Treatment Plan: I spoke to the patient's gear tooth lapping machine operator and the hospitalist. He will be started on IV Unasyn and admitted. Concern is for underlying osteomyelitis versus just an infection is getting worse. Disposition: [place] Impression: Acute right great toe soft tissue infection Rule out osteomyelitis History of insulin-dependent diabetes This note was generated with [employer] dictation software. It may contain incorrect words, spelling, and punctuation that were not noted in review of the chart prior to signing ED Disposition - Plan for ED Patient: Referrals: Jonnie Armenta MD [Primary Care Provider] -
--- NOTE | 2019-06-27 10:08 | RAD_ITS ---
STUDY: X-RAY RIGHT FOOT, BIG TOE REASON FOR EXAM: Male, 68-year-old. DIABETIC. BENT TOE NAIL BACK X FEW WEEKS AGO. TECHNIQUE: 2 view(s) of the toe were obtained. COMPARISON: None. FINDINGS: Normal visualized metatarsus. Normal metatarsophalangeal (M.T.P) joint. There is arthrosis of the interphalangeal joint. Normal phalanges and interphalangeal joints. Soft tissue swelling. RAD/Toe(s) Min 2 Views IMPRESSION: Soft tissue swelling. Degenerative changes of the interphalangeal joint. Electronically Signed: Boo Pollard, at 10:31 EST , Service support ,
[2019-06-27 10:13] LABS: Erythrocyte Sedimentation Rate 28 mm/hr (0-20)
[2019-06-27 10:16] LABS: Absolute Lymphocyte Count 1.07 X10^3/uL (0.83-4.51); Absolute Neutrophil Count 6.6 X10^3/uL (2.0-7.7); Basophil# 0.05 X10^3/uL; Basophil% 0.6 % (0-1); Eosinophil# 0.07 X10^3/uL; Eosinophils% 0.8 % (0-5); Hematocrit 43.6 % (40-54); Hemoglobin 14.2 g/dL (13.0-16.5); Lymphocyte # 1.07 X10^3/ul (4.0); Lymphocyte % 12.1 % (19-41); Mean Corp Hgb Conc 32.6 g/dL (32-36); Mean Corpuscular Hgb 30.5 pg (27.0-32.0); Mean Corpuscular Volume 93.6 fL (80-94); Mean Platelet Vol. 9.6 fl (6.2-12.0); Monocyte# 0.95 X10^3/uL; Monocyte% 10.8 % (0-10); NRBC Flagged by Analyzer 0 % (0-5); Neutrophil # 6.59 X10^3/uL (2.7-7.7); Neutrophil % 74.6 % (47-70); Platelet Count 339 K/mm3 (150-450); RBC Distribution Width CV 13.4 % (11.6-14.6); RBC Distribution Width SD 45.9 fl (35.1-43.9); Red Blood Count 4.66 M/mm3 (4.6-6.2); White Blood Count 8.8 K/mm3 (4.4-11.0)
[2019-06-27 10:33] LABS: Anion Gap 9 (5-15); BUN 37 mg/dL (7-18); Calcium,Total 9.5 mg/dL (8.5-10.1); Chloride 96 mmol/L (98-107); Creatinine, Serum 1.48 mg/dL (0.70-1.30); EST Glomerular Filtration Rate 50 mL/min (>60); Est Glom Filt Rate - Afr Amer 60 mL/min (>60); Estimated Creatinine Clearance 55.51 ml/min; Glucose 169 mg/dL (74-106); Potassium 4.6 mmol/L (3.5-5.1); Sodium Level 132 mmol/L (136-145)
--- NOTE | 2019-06-27 11:28 | PCM.HP.STD ---
Problem List (1) Ulcer of right lower extremity with fat layer exposed Status: Acute (2) Ulcer of left lower extremity with fat layer exposed Status: Chronic (3) Agent orange exposure Status: Chronic (4) PVD (peripheral vascular disease) Status: Chronic (5) Pain of right lower extremity Status: Chronic (6) Pain of left lower extremity Status: Chronic (7) Controlled diabetes mellitus Status: Acute Qualifiers: Diabetes mellitus type: type 2 (8) Ulcer of right foot with fat layer exposed Status: Acute (9) JUSTIN (acute kidney injury) Status: Acute History of Present Illness Date of Admission: 06/27/19 Chief Complaint: right toe nonhealing ulcer for 3 weeks The patient is a 68 year old M with history of type 2 diabetes mellitus and peripheral vascular disease was sent to ER from wound center today for nonhealing right great toe ulcer for about 3 weeks. 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 He was seen in wound care center on 06/20/2019 after 1 and half weeks of incidence, wound cultures were taken, wound dressing was done and patient was discharged on Bactrim DS which he took for about 1 week. Wound culture from 06/20/2019 shows staph epidermidis and anaerobic cocci. []In ER, vitals are stable. X-ray of right great toe was done. It shows soft tissue swelling and degenerative changes of interphalangeal joints. IV Unasyn ordered in ER. Patient is further admitted. Past Medical History Past Medical History (Chronic Problems): Chronic Problems Ulcer of left lower extremity with fat layer exposed (Chronic) Agent orange exposure (Chronic) PVD (peripheral vascular disease) (Chronic) Pain of right lower extremity (Chronic) Pain of left lower extremity (Chronic) Allergies No Known Allergies Allergy (Verified 06/27/19 09:29) Home Medications: Ambulatory Orders Medication Instructions Recorded Cholecalciferol (Vitamin D3) 2,000 unit PO DAILY 08/02/18 [Vitamin D3] Cyanocobalamin (Vitamin B-12) 2,000 mcg PO DAILY 08/02/18 [Vitamin B-12] Empagliflozin [Jardiance] 25 mg PO DAILY 08/02/18 Gabapentin [Neurontin] 400 mg PO BREAKFAST 08/02/18 Insulin Glargine,Hum.rec.anlog 25 unit SQ DAILY 08/02/18 [Lantus] Metformin HCl 1,000 mg PO BID 08/02/18 Triamcinolone Acetonide [Nasacort] 2 spray NS DAILY PRN 08/02/18 Apixaban [Eliquis] 5 mg PO BID 09/06/18 Gabapentin [Neurontin] 1,200 mg PO QHS 06/27/19 Losartan/Hydrochlorothiazide 1 ea PO DAILY 06/27/19 [Losartan-Hctz 100-12.5 mg Tab] Smoking Status: Former smoker - *Family History Paternal History Items: Hypertension Review of Systems Constitutional: Denies: Chills, Fever, Weight Change HEENT: Denies: Head Aches, Sinus Congestion, Sinus Drainage Cardiovascular: Denies: Chest Pain, Palpitations Respiratory: Denies: Cough, Shortness of breath at rest, Sputum production Gastrointestinal: Denies: Abdominal Pain, Nausea, Vomiting Genitourinary: Denies: Dysuria, Frequency, Hematuria, Nocturia, Retention, Urgency Musculoskeletal: Reports: Joint Pain, Joint stiffness, Joint swelling, Joint Tenderness Skin: Denies: Rash, Wounds Neurological: Denies: Numbness, Tingling, Focal weakness Psychiatric: Denies: Anxiety, Depression, Homicidal Ideations, Suicidal Ideations Hematologic/ Lymphatic: Denies: Easy Bruising, Easy Bleeding VTE Information - Inpt Only VTE Present on Admission: No VTE Mechan Device Prophylaxis: None VTE Pharm Prophylaxis ordered?: Yes Patient Problems: Active and Suspected Problems Ulcer of right foot with fat layer exposed (Acute) JUSTIN (acute kidney injury) (Acute) - Physical Exam Vitals/I&O's: Vital Signs Temp Pulse Resp BP Pulse Ox 96.9 F L 71 16 141/79 H 97 06/27/19 09:30 06/27/19 09:30 06/27/19 09:30 06/27/19 09:30 06/27/19 09:30 Oxygen Delivery Method Room Air Weight: 255 lb 8.252 oz Body Mass Index (BMI) 31.9 General: Alert, Oriented x3, Cooperative HEENT: Atraumatic, PERRLA, EOMI, Normocephalic Oral: Dry Mucosa Neck: Supple, No JVD, Negative Carotid Bruits Lungs: Clear to auscultation, No rhonchi, No wheeze, No rales, Diminished - Air entry diminished in bilateral lung bases Cardiovascular: Regular rate, Regular Rhythm, Normal S1, Normal S2, No murmurs Abdomen: Bowel Sounds Present, Soft, Non Tender, Non-Distended Extremities: Capillary Refill Less than 3 Seconds, Edema - Edema bilateral lower extremity., Peripheral Pulses Normal Skin: Ulcer/ Wound - Superficial ulcer of right great toe near base of nail along with generalized swelling, tenderness. Patient also had blister which burst. Generalized purplish to grayish discoloration of bilateral lower legs below knee level. Musculoskeletal: No Tenderness to Palpation of Joints or Extremities Neurological: Cranial nerves II-XII grossly intact Psych/Mental Status: Normal Affect, Appropriate Laboratory Results 06/27/19 10:00: WBC 8.8, RBC 4.66, Hgb 14.2, Hct 43.6, MCV 93.6, MCH 30.5, MCHC 32.6, RDW Std Deviation 45.9 H, RDW Coeff of Amadou 13.4, Plt Count 339, MPV 9.6, Immature Gran % (Auto) 1.100 H, Neut % (Auto) 74.6 H, Lymph % (Auto) 12.1 L, [place] % (Auto) 10.8 H, Eos % (Auto) 0.8, Baso % (Auto) 0.6, Absolute Neuts (auto) 6.6, Absolute Lymphs (auto) 1.07, Nucleated RBC % 0, ESR 28 H 06/27/19 10:00: Sodium 132 L, Potassium 4.6, Chloride 96 L, Carbon Dioxide 27.0, Anion Gap 9, BUN 37 H, Creatinine 1.48 H, Estim Creat Clear Calc 55.51, Est GFR (MDRD) Af Amer 60, Est GFR (MDRD) Non-Af 50 L, BUN/Creatinine Ratio 25.0 H, Glucose 169 H, Calcium 9.5, C-React Prot Ext Range 54.60 H Assessment/Plan All Active Problems Ulcer of right lower extremity with fat layer exposed (Acute) Controlled diabetes mellitus (Acute) Ulcer of right foot with fat layer exposed (Acute) JUSTIN (acute kidney injury) (Acute) The patient is a 68 year old M with history of type 2 diabetes mellitus and peripheral vascular disease was sent to ER from wound center today for nonhealing right great toe ulcer for about 3 weeks. 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 He was seen in wound care center on 06/20/2019 after 1 and half weeks of incidence, wound cultures were taken, wound dressing was done and patient was discharged on Bactrim DS which he took for about 1 week. []In ER, vitals are stable. X-ray of right great toe was done. It shows soft tissue swelling and degenerative changes of interphalangeal joints. IV Unasyn ordered in ER. Patient is further admitted. 1. Right great toe nonhealing ulcer with chronic bilateral venous insufficiency: [facility] Started on IV Unasyn in ER and is being continued. Discussed with home and school visitor Dr. Welsh who is been consulted. Wound culture from 06/20/2019 shows staph epidermidis and anaerobic cocci. Arterial study from 08/15/2018 reported no evidence of significant arterial occlusive disease in lower extremities bilaterally. Distal brachial indexes are bilaterally normal. Patient has history of chronic, right more than left venous insufficiency/deep venous valves incompetence. CRP and ESR elevated. MRI of right lower extremity ordered. 2. Diabetes mellitus type 2 complicated with diabetic nephropathy and neuropathy: Glucose is 169. A1c ordered for tomorrow a.m. Accu-Chek essentials cover with Humalog sliding scale. Hold metformin and Jardiance. On Neurontin. Continue Lantus 25 units daily. 3. Acute kidney injury probably prerenal complicated with toe infection and medications: Hold metformin and Jardiance. IV fluid normal saline 100 mL/h for 2 L. Monitor intake and output, electrolytes and kidney function. Hold losartan?HCTZ and replaced with hydralazine for BP control. 4. Possible A. fib: Twelve-lead EKG ordered. Patient is on Eliquis 5 mg twice daily. Other comorbidities include hypertension, morbid obesity: Fasting lipid profile ordered for tomorrow a.m. Blood pressure was 141/79. DVT prophylaxis: On Eliquis 5 mg twice daily. Laboratory Results 06/27/19 10:00: WBC 8.8, RBC 4.66, Hgb 14.2, Hct 43.6, MCV 93.6, MCH 30.5, MCHC 32.6, RDW Std Deviation 45.9 H, RDW Coeff of Amadou 13.4, Plt Count 339, MPV 9.6, Immature Gran % (Auto) 1.100 H, Neut % (Auto) 74.6 H, Lymph % (Auto) 12.1 L, [place] % (Auto) 10.8 H, Eos % (Auto) 0.8, Baso % (Auto) 0.6, Absolute Neuts (auto) 6.6, Absolute Lymphs (auto) 1.07, Nucleated RBC % 0, ESR 28 H 06/27/19 10:00: Sodium 132 L, Potassium 4.6, Chloride 96 L, Carbon Dioxide 27.0, Anion Gap 9, BUN 37 H, Creatinine 1.48 H, Estim Creat Clear Calc 55.51, Est GFR (MDRD) Af Amer 60, Est GFR (MDRD) Non-Af 50 L, BUN/Creatinine Ratio 25.0 H, Glucose 169 H, Calcium 9.5, C-React Prot Ext Range 54.60 H Clinical Impression(s) from Imaging Studies Toe X-Ray 06/27/19 10:08 IMPRESSION: Soft tissue swelling. Degenerative changes of the interphalangeal joint. Code Visit Inpatient E&M: 76937 Init Hosp L3
[2019-06-27 11:37] VITALS: BP 122/59; PULSE 60; PULSE 63; RESP 17; O2SAT 95; O2SAT 96
--- NOTE | 2019-06-27 12:24 | EKG12_ITS ---
Test Reason : LOWER EXTREMITY Blood Pressure : / mmHG Vent. Rate : 052 BPM Atrial Rate : 250 BPM P-R Int : 000 ms QRS Dur : 144 ms QT Int : 506 ms P-R-T Axes : 000 058 -76 degrees QTc Int : 470 ms Atrial flutter with variable A-V block Non-specific intra-ventricular conduction block RIVCD Nonspecific ST/T wave abnormality Abnormal ECG No previous ECGs available Confirmed by SALENA HUTTON, ANGI ([id number]), scientific editor CONNIE BROWNE ([id number]) on 07/02/2019 7:56:08 AM Referred By: MARCUS/FANI Confirmed By:ANGI MARTINO MD
[2019-06-27 14:35] VITALS: BMI 31.1
[2019-06-27 14:40] VITALS: BMI 31.1
[2019-06-27 14:47] VITALS: BP 132/54; PULSE 62; RESP 16; TEMP 37.1; O2SAT 98
--- NOTE | 2019-06-27 14:53 | MRI_ITS ---
STUDY: MRI RIGHT FOREFOOT WITHOUT CONTRAST REASON FOR EXAM: Right great toe wound for 3 weeks, evaluate for osteomyelitis. TECHNIQUE: Standardized fat and water weighted pulse sequences were obtained in all 3 orthogonal planes. COMPARISON: Radiographs 06/27/2019. FINDINGS: Normal metatarsophalangeal joint of the hallux. There is chondral thinning of the tibial sesamoid-first metatarsal articulation (T2 series 6 image 22). There is chondral thinning of the interphalangeal joint of the hallux (T2 series 7 images 6, 7). There is bone edema of the majority of the first distal phalanx and the majority of the first proximal phalanx with relative sparing of the first proximal phalangeal base (inversion recovery sagittal images 20-22) with foci of decreased T1 bone marrow signal (T1 sagittal images 20-22) suggestive of osteomyelitis. Normal medial and lateral heads of the flexor hallucis brevis tendons. Normal flexor and extensor hallucis longus tendons. Normal second through fifth metatarsophalangeal (MTP) joints. Normal interphalangeal joints of the second through fifth toes. Normal proximal, middle and distal phalanges of the second through fifth toes. Normal first through fourth intermetatarsal spaces. Normal flexor and extensor tendons of the second through fifth toes. Normal visualized metatarsi. There is atrophy with partial fat replacement of the intrinsic muscles of the forefoot (T1 sagittal images 7-14). There is edema in the subcutis adipose space and a sinus tract dorsal to the first distal phalanx (inversion recovery sagittal image 22). There is no fluid collection to indicate soft tissue abscess. There is a pressure lesion at the plantar aspect of the fifth metatarsophalangeal joint (T1 sagittal image 3). MRI/Lower Ext/No Jt/w/o IMPRESSION: Bone edema of the proximal and distal phalanges of the first toe with decreased foci of T1 bone marrow signal suggestive of osteomyelitis. 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 Atrophy of the intrinsic muscles of the forefoot suggestive of peripheral neuropathy. Electronically Signed: Rubens Glez MD at 8:35 EST Tel , Service support ,
--- NOTE | 2019-06-27 15:16 | NURSING ---
Was consulted on patient, but is currently off the unit for MRI.
[2019-06-27] MEDS: 0.9% Saline Lock 10 ML Syringe IV (16:18)
[2019-06-27] MEDS: 0.9% Normal Saline 1,000 ML 100 ML IV (16:18)
[2019-06-27 16:31] LABS: Bedside Glucose 121 mg/dL (70-110)
[2019-06-27 16:44] LABS: M R Staph aureus DNA By PCR Negative (Negative); Probe Check PASS; Staph aureus DNA By PCR NEGATIVE (Negative)
[2019-06-27] MEDS: Cyanocobalamin 500 MCG Tablet 1000 MCG PO (17:44)
[2019-06-27] MEDS: Glucerna Shake 120 ML LIQUID PO ×2 (17:45→21:56)
[2019-06-27 18:57] LABS: Bacteria 0 SEEN /hpf (None Seen); Mucous, Urine 0 SEEN /hpf (<or=2+); Red Blood Cells-Urine 0 SEEN /hpf (0-5); White Blood Cells 0 SEEN /hpf (0-5)
[2019-06-27 19:02] LABS: Color, Urine Yellow (Yellow); Glucose, Dipstick 1000 mg/dl (Normal); Ketone-Dipstick 5 mg/dl (Negative); Leukocyte Esterase-Dipstick Negative /ul (Negative); Nitrite-Dipstick Negative (Negative); Occult Blood-Urine Negative /ul (Negative); Protein-Dipstick Negative (Negative); Urine Bilirubin Dipstick Negative (Negative); Urine Clarity Clear (Clear); Urine Urobilinogen 4 mg/dl (Normal); Urine pH 6.5 (5.0 - 8.0)
[2019-06-27 19:08] LABS: Squamous Epithelial Cells - UA 0-5 SEEN /hpf (0-5)
[2019-06-27 19:41] VITALS: BP 122/60; PULSE 61; RESP 16; TEMP 37; O2SAT 96
[2019-06-27] MEDS: Insulin Lispro 100 UNIT/ML INSULN.PEN SC (21:53)
[2019-06-27 21:56] VITALS: BP 133/71; PULSE 61
[2019-06-27 21:56] LABS: Bedside Glucose 224 mg/dL (70-110)
[2019-06-27] MEDS: APIXABAN 5 MG TABLET PO (21:56)
[2019-06-27] MEDS: Gabapentin 300 MG Capsule 900 MG PO (21:56)
[2019-06-27] MEDS: hydrALAZINE 50 MG Tablet PO (21:56)
[2019-06-28] VITALS (12 sets, daily range): BP systolic 102–145; BP diastolic 53–74; PULSE 46–66; RESP 16–18; TEMP 36.4–36.9; O2SAT 94–98; BMI 30.7
--- NOTE | 2019-06-28 01:03 | NURSING ---
Pt is to be on PCU report given to PCU just got admitted.
[2019-06-28] MEDS: 0.9% Normal Saline 1,000 ML 100 ML IV ×2 (01:41→14:00)
[2019-06-28 06:35] LABS: Bedside Glucose 102 mg/dL (70-110)
[2019-06-28 06:50] LABS: Absolute Lymphocyte Count 1.52 X10^3/uL (0.83-4.51); Absolute Neutrophil Count 3.8 X10^3/uL (2.0-7.7); Basophil# 0.05 X10^3/uL; Basophil% 0.8 % (0-1); Eosinophil# 0.12 X10^3/uL; Eosinophils% 1.9 % (0-5); Hematocrit 42.7 % (40-54); Lymphocyte # 1.52 X10^3/ul (4.0); Lymphocyte % 23.9 % (19-41); Mean Corp Hgb Conc 32.8 g/dL (32-36); Mean Corpuscular Hgb 30.9 pg (27.0-32.0); Mean Corpuscular Volume 94.3 fL (80-94); Mean Platelet Vol. 9.8 fl (6.2-12.0); Monocyte# 0.76 X10^3/uL; Monocyte% 11.9 % (0-10); NRBC Flagged by Analyzer 0 % (0-5); Neutrophil # 3.83 X10^3/uL (2.7-7.7); Neutrophil % 60.2 % (47-70); Platelet Count 337 K/mm3 (150-450); RBC Distribution Width CV 13.4 % (11.6-14.6); RBC Distribution Width SD 45.8 fl (35.1-43.9); Red Blood Count 4.53 M/mm3 (4.6-6.2); White Blood Count 6.4 K/mm3 (4.4-11.0)
[2019-06-28 07:14] LABS: Anion Gap 3 (5-15); BUN 28 mg/dL (7-18); BUN/Creat Ratio 23.1 RATIO (10-20); Calcium,Total 9.6 mg/dL (8.5-10.1); Chloride 104 mmol/L (98-107); Creatinine, Serum 1.21 mg/dL (0.70-1.30); EST Glomerular Filtration Rate 63 mL/min (>60); Est Glom Filt Rate - Afr Amer 76 mL/min (>60); Estimated Creatinine Clearance 67.89 ml/min; Glucose 115 mg/dL (74-106); Sodium Level 138 mmol/L (136-145)
--- NOTE | 2019-06-28 07:15 | PCM.CONS.GEN ---
Problem List (1) Ulcer of right foot with fat layer exposed Status: Acute (2) Osteomyelitis of toe of right foot Status: Acute (3) Type 2 diabetes mellitus with diabetic neuropathy, unspecified Status: Acute (4) Cellulitis of right toe Status: Acute (5) Agent orange exposure Status: Chronic Reason for Consult Date of Consultation: 06/28/19 Reason for Consultation: ulcer of right hallux History of Present Illness: The patient is a 68 year old M with diabetes and other comorbidities was admitted to the hospital yesterday after being seen in the wound healing center for a nonhealing ulcer to the dorsal right hallux with cellulitis, edema, drainage, and probing to bone. 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 He finally decided to be seen at the wound healing center after he is unable to heal the area on his own. He was started last week on a course of Bactrim DS. Upon evaluation yesterday during clinic, it was shown to have worsened with increased edema, cellulitis, and new probing to bone. Patient's says that she noticed what she believes to be some purulent drainage earlier in the week as well. Patient is currently resting comfortably in bed with his pain well controlled. Patient currently is denying any feelings of nausea, vomiting, fever, chills. Past Medical History Past Medical History (Chronic Problems): Chronic Problems Ulcer of left lower extremity with fat layer exposed (Chronic) Agent orange exposure (Chronic) PVD (peripheral vascular disease) (Chronic) Pain of right lower extremity (Chronic) Pain of left lower extremity (Chronic) Allergies No Known Allergies Allergy (Verified 06/27/19 09:29) Home Medications: Ambulatory Orders Medication Instructions Recorded Cholecalciferol (Vitamin D3) 2,000 unit PO DAILY 08/02/18 [Vitamin D3] Cyanocobalamin (Vitamin B-12) 2,000 mcg PO DAILY 08/02/18 [Vitamin B-12] Empagliflozin [Jardiance] 25 mg PO DAILY 08/02/18 Insulin Glargine,Hum.rec.anlog 25 unit SQ DAILY 08/02/18 [Lantus] Metformin HCl 1,000 mg PO BID 08/02/18 Apixaban [Eliquis] 5 mg PO BID 09/06/18 Amiodarone HCl 200 mg PO DAILY 06/27/19 Atorvastatin Calcium [Lipitor] 20 mg PO QHS 06/27/19 Diltiazem HCl [Diltiazem 24Hr Cd] 120 mg PO DAILY 06/27/19 Fluticasone 0.05% [Flonase Nasal 2 spray NASAL DAILY PRN PRN 06/27/19 [place]] Gabapentin [Neurontin] 300 mg PO DAILY@0800 06/27/19 Gabapentin [Neurontin] 900 mg PO QHS 06/27/19 Losartan/Hydrochlorothiazide 1 tab PO DAILY 06/27/19 [Losartan-Hctz 100-25 mg Tab] Trazodone HCl 150 mg PO QHS 06/27/19 Smoking Status: Former smoker Tobacco Use: Cigarettes - *Family History Paternal History Items: Hypertension Review of Systems Constitutional: Denies: Chills, Fever, Weight Change Cardiovascular: Denies: Chest Pain, Palpitations Respiratory: Denies: Cough, Shortness of breath at rest Gastrointestinal: Denies: Abdominal Pain, Nausea, Vomiting Skin: Reports: - - Ulcer to right hallux Patient Problems: Active and Suspected Problems Ulcer of right foot with fat layer exposed (Acute) JUSTIN (acute kidney injury) (Acute) Osteomyelitis of toe of right foot (Acute) Type 2 diabetes mellitus with diabetic neuropathy, unspecified (Acute) Cellulitis of right toe (Acute) - Physical Exam Vitals/I&O's: Vital Signs Temp Pulse Resp BP Pulse Ox 98.4 F 61 16 125/67 H 97 06/28/19 01:44 06/28/19 01:44 06/28/19 01:44 06/28/19 01:44 06/28/19 01:44 Oxygen Delivery Method Room Air Weight: 111.5 kg Body Mass Index (BMI) 31.1 Intake and Output for Last 24 Hours 06/26/19 06/27/19 06/28/19 23:59 23:59 23:59 Intake Total 1044 / 1164 1117 / 1117 Balance 1044 / 1164 1117 / 1117 General: Alert, Oriented x3, Cooperative Extremities: Capillary Refill Less than 3 Seconds - To all digits of the right foot, No Calf Tenderness - Negative Ana and Koch signs bilateral, Diminished Peripheral Pulses, Edema - Bilateral lower extremity edema, - - Bilateral lower extremity varicosities appreciated. Extensive hemosiderin skin color changing appreciated to lower extremities. Skin: Ulcer/ Wound - Ulcer to right dorsal hallux. Measurements noted. Base is a mixture of adherent slough, devitalized subcutaneous tissue, fibrin, biofilm, granular tissue, and surrounding hyperkeratotic skin. The ulcer is at the base of the nailbed and appears to be in area where nail was torn from base of nail. Open area is at proximal nail fold. Area probed deep to bone. Currently there is no purulence. There was also some erythema, increased edema, and increased warmth appreciated to the hallux when compared with the contralateral side. Musculoskeletal: - - No significant tenderness today with manipulation of ulcer site Neurological: - - Some altered epicritic sensation to bilateral lower extremities Psych/Mental Status: Normal Affect, Appropriate Microbiology Past 72 Hours 06/27/19 13:00 Wound - Toe Gram Stain - Final Laboratory Results 06/27/19 10:00: WBC 8.8, RBC 4.66, Hgb 14.2, Hct 43.6, MCV 93.6, MCH 30.5, MCHC 32.6, RDW Std Deviation 45.9 H, RDW Coeff of Amadou 13.4, Plt Count 339, MPV 9.6, Immature Gran % (Auto) 1.100 H, Neut % (Auto) 74.6 H, Lymph % (Auto) 12.1 L, [place] % (Auto) 10.8 H, Eos % (Auto) 0.8, Baso % (Auto) 0.6, Absolute Neuts (auto) 6.6, Absolute Lymphs (auto) 1.07, Nucleated RBC % 0, ESR 28 H 06/27/19 10:00: Sodium 132 L, Potassium 4.6, Chloride 96 L, Carbon Dioxide 27.0, Anion Gap 9, BUN 37 H, Creatinine 1.48 H, Estim Creat Clear Calc 55.51, Est GFR (MDRD) Af Amer 60, Est GFR (MDRD) Non-Af 50 L, BUN/Creatinine Ratio 25.0 H, Glucose 169 H, Calcium 9.5, C-React Prot Ext Range 54.60 H 06/27/19 14:30: S.aureus Protein A PCR NEGATIVE, MRSA (PCR) Negative 06/27/19 16:15: POC Glucose 121 H 06/27/19 18:51: Urine Color Yellow, Urine Clarity Clear, Urine pH 6.5, Ur Specific [place] 1.010, Urine Protein Negative, Urine Glucose (UA) 1000 H, Urine Ketones 5 H, Urine Occult Blood Negative, Urine Nitrite Negative, Urine Bilirubin Negative, Urine Urobilinogen 4 H, Ur Leukocyte Esterase Negative, Urine RBC 0 SEEN, Urine WBC 0 SEEN, Ur Squamous Epith Cells 0-5 SEEN, Urine Bacteria 0 SEEN, Urine Mucus 0 SEEN 06/27/19 21:50: POC Glucose 224 H 06/28/19 05:55: Sodium 138, Potassium 4.0, Chloride 104, Carbon Dioxide 31.0, Anion Gap 3 L, BUN 28 H, Creatinine 1.21, Estim Creat Clear Calc 67.89, Est GFR (MDRD) Af Amer 76, Est GFR (MDRD) Non-Af 63, BUN/Creatinine Ratio 23.1 H, Glucose 115 H, Calcium 9.6 06/28/19 05:55: WBC 6.4, RBC 4.53 L, Hgb 14.0, Hct 42.7, MCV 94.3 H, MCH 30.9, MCHC 32.8, RDW Std Deviation 45.8 H, RDW Coeff of Amadou 13.4, Plt Count 337, MPV 9.8, Immature Gran % (Auto) 1.300 H, Neut % (Auto) 60.2, Lymph % (Auto) 23.9, [place] % (Auto) 11.9 H, Eos % (Auto) 1.9, Baso % (Auto) 0.8, Absolute Neuts (auto) 3.8, Absolute Lymphs (auto) 1.52, Nucleated RBC % 0 06/28/19 06:31: POC Glucose 102 Current Medications Acetaminophen (Tylenol) 650 mg PO Q6H PRN PRN PRN Reason: Pain Score 1-3 /Temp>100.7 Apixaban (Eliquis) 5 mg PO BID [facility] Last Admin: 06/27/19 21:56 Dose: 5 mg Documented by: Bisacodyl (Dulcolax) 10 mg RECTAL DAILY PRN PRN PRN Reason: Constipation Cholecalciferol (Vitamin D) 2,000 unit PO DAILY [facility] Last Admin: 06/27/19 17:44 Dose: 2,000 unit Documented by: Cyanocobalamin (Vitamin B12) 1,000 mcg PO DAILY [facility] Last Admin: 06/27/19 17:44 Dose: 1,000 mcg Documented by: Fluticasone Propionate (Flonase Nasal [place]) 2 spray NASAL DAILY PRN PRN Reason: ALLERGIES Gabapentin (Neurontin) 300 mg PO BREAKFAST [facility] Gabapentin (Neurontin) 900 mg PO QHS [facility] Last Admin: 06/27/19 21:56 Dose: 900 mg Documented by: Glucagon () 1 mg IM .X1 PRN PRN Reason: Hypoglycemia Hydralazine HCl (Apresoline) 50 mg PO BID [facility] Last Admin: 06/27/19 21:56 Dose: 50 mg Documented by: Hydralazine HCl (Apresoline Iv) 10 mg IV Q4H PRN PRN PRN Reason: SBP > 180 or DBP>100 Ampicillin Sodium/Sulbactam (Sodium 3 gm/ Sodium Chloride) 112 mls @ 150 mls/hr IV Q8 [facility] Last Infusion: 06/28/19 06:24 Dose: Infused Documented by: Sodium Chloride () 1,000 mls @ 100 mls/hr IV .Q10H [facility] Stop: 06/28/19 12:12 Last Infusion: 06/28/19 06:24 Dose: 100 mls/hr Documented by: Insulin Glargine (Lantus (Bkc)) 25 units SC QHS [facility] Last Admin: 06/27/19 21:50 Dose: 25 units Documented by: Insulin Human Lispro (Humalog Kwikpen (Bkc)) 0 unit SC ACHS [facility]; Protocol Last Admin: 06/28/19 06:32 Dose: Not Given Documented by: Morphine Sulfate () 2 mg IV Q4H PRN PRN PRN Reason: Pain Score 4-10/10 Nutritional Formula (Lactose Free) (Glucerna Shake) 120 ml PO 4X/DAY [facility] Last Admin: 06/27/19 21:56 Dose: 120 ml Documented by: Oxycodone HCl (Oxyir) 5 mg PO Q4H PRN PRN PRN Reason: Pain Score 4-10/10 Polyethylene Glycol (Miralax) 17 gm PO DAILY [facility] Sodium Chloride () 10 - 40 ml IV UD PRN PRN Reason: SALINE FLUSH Last Admin: 06/27/19 16:18 Dose: 10 ml Documented by: Assessment/Plan All Active Problems Ulcer of right lower extremity with fat layer exposed (Acute) Controlled diabetes mellitus (Acute) Ulcer of right foot with fat layer exposed (Acute) JUSTIN (acute kidney injury) (Acute) Osteomyelitis of toe of right foot (Acute) Type 2 diabetes mellitus with diabetic neuropathy, unspecified (Acute) Cellulitis of right toe (Acute) Ulcer right hallux probe to bone Osteomyelitis right hallux Cellulitis right hallux Other comorbidities This patient was carefully examined evaluated resting comfortably in his bed earlier today. Patient's pain well controlled. Patient had no acute events overnight. Patient is currently afebrile. Patient's WBC 6.4. ESR is 28 and CRP is 54.6. Patient had new deep wound cultures taken yesterday and results are still pending. We will continue to monitor for results. Recommend infectious disease consult. X-ray and MRI were taken which are suspicious for osteomyelitis. At this time I discussed the patient's case in detail with him this morning and we discussed all of his possible treatment options going forward. We discussed all the risks and possible benefits of each option as well as alternative options. Patient is in agreement to move forward with debridement of all infected, nonviable, necrotic soft tissue and bone of the right foot with hallux amputation. This procedure will be performed by Dr. Isbell. Patient understands all of this and is able to repeat the procedure back. All questions were answered to the patient's satisfaction. No guarantees were given. He understands the possibility of further procedures in the future. Patient will be made n.p.o. Surgical consent for the above-stated procedure will be obtained. Podiatry will continue to follow this patient. Please contact with any questions or concerns.
--- NOTE | 2019-06-28 07:58 | NURSING ---
Dr Welsh had been in to see patient already this am and dressing was changed. states he plans to take patient to surgery later today if the MRI shows osteomyelitis. did not remove the dressing at this time.
[2019-06-28] MEDS: Gabapentin 300 MG Capsule PO (08:23)
[2019-06-28] MEDS: hydrALAZINE 50 MG Tablet PO ×2 (08:23→21:48)
[2019-06-28] MEDS: Cyanocobalamin 500 MCG Tablet 1000 MCG PO (08:24)
--- NOTE | 2019-06-28 09:56 | PN_ITS ---
Patient Problems: Active and Suspected Problems Ulcer of right foot with fat layer exposed (Acute) JUSTIN (acute kidney injury) (Acute) Osteomyelitis of toe of right foot (Acute) Type 2 diabetes mellitus with diabetic neuropathy, unspecified (Acute) Cellulitis of right toe (Acute) Reason for Visit: Right great toe deep tissue infection possible osteomyelitis. Plan for OR today with debridement possible great toe partial digital or total amputation Objective: Afebrile. Blood pressure acceptable. Hemodynamically stable. No hypoxia Vitals/I&O's: Vital Signs Temp Pulse Resp BP Pulse Ox 97.9 F 60 18 145/72 H 98 06/28/19 07:45 06/28/19 08:23 06/28/19 07:45 06/28/19 07:45 06/28/19 07:45 Oxygen Delivery Method Room Air Weight: 245 lb 13.047 oz Body Mass Index (BMI) 31.1 Intake and Output for Last 24 Hours 06/26/19 06/27/19 06/28/19 23:59 23:59 23:59 Intake Total 1044 / 1164 1117 / 1117 Balance 1044 / 1164 1117 / 1117 General: Alert, Oriented x3, Cooperative HEENT: Atraumatic, PERRLA, EOMI, Normocephalic Neck: Supple, No JVD, Negative Carotid Bruits Lungs: Clear to auscultation, Normal air movement, No rhonchi, No wheeze, No rales Cardiovascular: Regular rate, Regular Rhythm, Normal S1, Normal S2, No murmurs Abdomen: Bowel Sounds Present, Soft, Non Tender, Non-Distended Extremities: Capillary Refill Less than 3 Seconds, Edema, - - Chronic venous insufficiency in both lower extremities with stasis dermatitis, chronic venous valves incompetence Skin: No rashes, No breakdown Musculoskeletal: Arthritic Changes, Tenderness - Of right great toe Neurological: Cranial nerves II-XII grossly intact, Neuro grossly intact Psych/Mental Status: Normal Affect, Appropriate Microbiology Past 72 Hours 06/27/19 13:00 Wound - Toe Gram Stain - Final Laboratory Results 06/27/19 10:00: WBC 8.8, RBC 4.66, Hgb 14.2, Hct 43.6, MCV 93.6, MCH 30.5, MCHC 32.6, RDW Std Deviation 45.9 H, RDW Coeff of Amadou 13.4, Plt Count 339, MPV 9.6, Immature Gran % (Auto) 1.100 H, Neut % (Auto) 74.6 H, Lymph % (Auto) 12.1 L, [place] % (Auto) 10.8 H, Eos % (Auto) 0.8, Baso % (Auto) 0.6, Absolute Neuts (auto) 6.6, Absolute Lymphs (auto) 1.07, Nucleated RBC % 0, ESR 28 H 06/27/19 10:00: Sodium 132 L, Potassium 4.6, Chloride 96 L, Carbon Dioxide 27.0, Anion Gap 9, BUN 37 H, Creatinine 1.48 H, Estim Creat Clear Calc 55.51, Est GFR (MDRD) Af Amer 60, Est GFR (MDRD) Non-Af 50 L, BUN/Creatinine Ratio 25.0 H, Glucose 169 H, Calcium 9.5, C-React Prot Ext Range 54.60 H 06/27/19 14:30: S.aureus Protein A PCR NEGATIVE, MRSA (PCR) Negative 06/27/19 16:15: POC Glucose 121 H 06/27/19 18:51: Urine Color Yellow, Urine Clarity Clear, Urine pH 6.5, Ur Specific [place] 1.010, Urine Protein Negative, Urine Glucose (UA) 1000 H, Urine Ketones 5 H, Urine Occult Blood Negative, Urine Nitrite Negative, Urine Bilirubin Negative, Urine Urobilinogen 4 H, Ur Leukocyte Esterase Negative, Urine RBC 0 SEEN, Urine WBC 0 SEEN, Ur Squamous Epith Cells 0-5 SEEN, Urine Bacteria 0 SEEN, Urine Mucus 0 SEEN 06/27/19 21:50: POC Glucose 224 H 06/28/19 05:55: Sodium 138, Potassium 4.0, Chloride 104, Carbon Dioxide 31.0, Anion Gap 3 L, BUN 28 H, Creatinine 1.21, Estim Creat Clear Calc 67.89, Est GFR (MDRD) Af Amer 76, Est GFR (MDRD) Non-Af 63, BUN/Creatinine Ratio 23.1 H, Glucose 115 H, Calcium 9.6 06/28/19 05:55: WBC 6.4, RBC 4.53 L, Hgb 14.0, Hct 42.7, MCV 94.3 H, MCH 30.9, MCHC 32.8, RDW Std Deviation 45.8 H, RDW Coeff of Amadou 13.4, Plt Count 337, MPV 9.8, Immature Gran % (Auto) 1.300 H, Neut % (Auto) 60.2, Lymph % (Auto) 23.9, [place] % (Auto) 11.9 H, Eos % (Auto) 1.9, Baso % (Auto) 0.8, Absolute Neuts (auto) 3.8, Absolute Lymphs (auto) 1.52, Nucleated RBC % 0 06/28/19 05:55: Hemoglobin A1c 9.0 H 06/28/19 06:31: POC Glucose 102 Current Medications Acetaminophen (Tylenol) 650 mg PO Q6H PRN PRN PRN Reason: Pain Score 1-3 /Temp>100.7 Apixaban (Eliquis) 5 mg PO BID [facility] Last Admin: 06/28/19 08:24 Dose: Not Given Documented by: Bisacodyl (Dulcolax) 10 mg RECTAL DAILY PRN PRN PRN Reason: Constipation Cholecalciferol (Vitamin D) 2,000 unit PO DAILY [facility] Last Admin: 06/28/19 08:23 Dose: 2,000 unit Documented by: Cyanocobalamin (Vitamin B12) 1,000 mcg PO DAILY [facility] Last Admin: 06/28/19 08:24 Dose: 1,000 mcg Documented by: Fluticasone Propionate (Flonase Nasal [place]) 2 spray NASAL DAILY PRN PRN Reason: ALLERGIES Gabapentin (Neurontin) 300 mg PO BREAKFAST [facility] Last Admin: 06/28/19 08:23 Dose: 300 mg Documented by: Gabapentin (Neurontin) 900 mg PO QHS [facility] Last Admin: 06/27/19 21:56 Dose: 900 mg Documented by: Glucagon () 1 mg IM .X1 PRN PRN Reason: Hypoglycemia Hydralazine HCl (Apresoline) 50 mg PO BID [facility] Last Admin: 06/28/19 08:23 Dose: 50 mg Documented by: Hydralazine HCl (Apresoline Iv) 10 mg IV Q4H PRN PRN PRN Reason: SBP > 180 or DBP>100 Ampicillin Sodium/Sulbactam (Sodium 3 gm/ Sodium Chloride) 112 mls @ 150 mls/hr IV Q8 [facility] Last Infusion: 06/28/19 06:24 Dose: Infused Documented by: Sodium Chloride () 1,000 mls @ 100 mls/hr IV .Q10H [facility] Stop: 06/28/19 12:12 Last Infusion: 06/28/19 06:24 Dose: 100 mls/hr Documented by: Insulin Glargine (Lantus (Bkc)) 25 units SC QHS [facility] Last Admin: 06/27/19 21:50 Dose: 25 units Documented by: Insulin Human Lispro (Humalog Kwikpen (Bk)) 0 unit SC ACHS [facility]; Protocol Last Admin: 06/28/19 06:32 Dose: Not Given Documented by: Morphine Sulfate () 2 mg IV Q4H PRN PRN PRN Reason: Pain Score 4-10/10 Nutritional Formula (Lactose Free) (Glucerna Shake) 120 ml PO 4X/DAY [facility] Last Admin: 06/28/19 08:21 Dose: Not Given Documented by: Oxycodone HCl (Oxyir) 5 mg PO Q4H PRN PRN PRN Reason: Pain Score 4-10/10 Polyethylene Glycol (Miralax) 17 gm PO DAILY [facility] Last Admin: 06/28/19 08:21 Dose: Not Given Documented by: Sodium Chloride () 10 - 40 ml IV UD PRN PRN Reason: SALINE FLUSH Last Admin: 06/27/19 16:18 Dose: 10 ml Documented by: STROKE Vital Signs/Narrative: Vital Signs Temp Pulse Resp BP Pulse Ox 06/28/19 08:23 60 06/28/19 07:45 97.9 F 60 18 145/72 H 98 Medical Necessity - Tobacco Use Smoking Status: Former smoker Tobacco Use: Cigarettes Assessment/Plan All Active Problems Ulcer of right lower extremity with fat layer exposed (Acute) Controlled diabetes mellitus (Acute) Ulcer of right foot with fat layer exposed (Acute) JUSTIN (acute kidney injury) (Acute) Osteomyelitis of toe of right foot (Acute) Type 2 diabetes mellitus with diabetic neuropathy, unspecified (Acute) Cellulitis of right toe (Acute) The patient is a 68 year old M with history of type 2 diabetes mellitus and peripheral vascular disease was sent to ER from wound center today for nonhealin g right great toe ulcer for about 3 weeks. []In ER, vitals are stable. X-ray of right great toe was done. It shows soft tissue swelling and degenerative changes of interphalangeal joints. IV Unasyn ordered in ER. Patient is further admitted. 1. Right great toe nonhealing ulcer with chronic bilateral venous insufficiency: [facility] Started on IV Unasyn in ER and is being continued. Discussed with trust mail clerk Dr. Welsh who is been consulted. Wound culture from 06/20/2019 shows staph epidermidis and anaerobic cocci. Arterial study from 08/15/2018 reported no evidence of significant arterial occlusive disease in lower extremities bilaterally. Distal brachial indexes are bilaterally normal. Patient has history of chronic, right more than left venous insufficiency/deep venous valves incompetence. CRP and ESR elevated. MRI of right lower extremity ordered. 06/28: MRI reviewed. MRI is consistent with osteomyelitis of proximal and distal phalanges of first toe, arthrosis of interphalangeal joint of first digit and tibial sesamoid first metatarsal articulation with atrophy of intrinsic muscle suggestive with peripheral neuropathy. ID consult. Continue Unasyn. Plan for OR today for possible first ray amputation 2. Diabetes mellitus type 2, uncontrolled complicated with diabetic nephropathy and neuropathy: Glucose is 169. A1c ordered for tomorrow a.m. Accu-Chek essentials cover with Humalog sliding scale. Hold metformin and Jardiance. On Neurontin. Continue Lantus 25 units daily. 06/28: A1c is 9.0. Glucose is controlled today. Continue Lantus 25 units daily. 3. Acute kidney injury probably prerenal complicated with toe infection and medications: Hold metformin and Jardiance. IV fluid normal saline 100 mL/h for 2 L. Monitor intake and output, electrolytes and kidney function. Hold losartan?HCTZ and replaced with hydralazine for BP control. 06/28: BUN 28. Creatinine 1.21. Electrolytes within normal limit. Continue IV fluid. 4. Possible A. fib: Twelve-lead EKG ordered. Patient is on Eliquis 5 mg twice daily. Eliquis is on hold 5. Hypertension: Blood pressure was 141/79. Blood pressure is controlled Other comorbidities include hypertension, morbid obesity: Lipid profile ordered for tomorrow a.m. DVT prophylaxis: On Eliquis 5 mg twice daily. Microbiology Past 72 Hours 06/27/19 13:00 Wound - Toe Gram Stain - Final Laboratory Results 06/27/19 14:30: S.aureus Protein A PCR NEGATIVE, MRSA (PCR) Negative 06/27/19 16:15: POC Glucose 121 H 06/27/19 18:51: Urine Color Yellow, Urine Clarity Clear, Urine pH 6.5, Ur Specific [place] 1.010, Urine Protein Negative, Urine Glucose (UA) 1000 H, Urine Ketones 5 H, Urine Occult Blood Negative, Urine Nitrite Negative, Urine Bilirubin Negative, Urine Urobilinogen 4 H, Ur Leukocyte Esterase Negative, Urine RBC 0 SEEN, Urine WBC 0 SEEN, Ur Squamous Epith Cells 0-5 SEEN, Urine Bacteria 0 SEEN, Urine Mucus 0 SEEN 06/27/19 21:50: POC Glucose 224 H 06/28/19 05:55: Sodium 138, Potassium 4.0, Chloride 104, Carbon Dioxide 31.0, Anion Gap 3 L, BUN 28 H, Creatinine 1.21, Estim Creat Clear Calc 67.89, Est GFR (MDRD) Af Amer 76, Est GFR (MDRD) Non-Af 63, BUN/Creatinine Ratio 23.1 H, Glucose 115 H, Calcium 9.6 06/28/19 05:55: WBC 6.4, RBC 4.53 L, Hgb 14.0, Hct 42.7, MCV 94.3 H, MCH 30.9, MCHC 32.8, RDW Std Deviation 45.8 H, RDW Coeff of Amadou 13.4, Plt Count 337, MPV 9.8, Immature Gran % (Auto) 1.300 H, Neut % (Auto) 60.2, Lymph % (Auto) 23.9, [place] % (Auto) 11.9 H, Eos % (Auto) 1.9, Baso % (Auto) 0.8, Absolute Neuts (auto) 3.8, Absolute Lymphs (auto) 1.52, Nucleated RBC % 0 06/28/19 05:55: Hemoglobin A1c 9.0 H 06/28/19 06:31: POC Glucose 102 Clinical Impression(s) from Imaging Studies Toe X-Ray 06/27/19 10:08 IMPRESSION: Soft tissue swelling. Degenerative changes of the interphalangeal joint. Lower Extremity MRI 06/27/19 14:53 IMPRESSION: Bone edema of the proximal and distal phalanges of the first toe with decreased foci of T1 bone marrow signal suggestive of osteomyelitis. 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 Atrophy of the intrinsic muscles of the forefoot suggestive of peripheral neuropathy. Code Visit Inpatient E&M: 34756 Subs Hosp L2
--- NOTE | 2019-06-28 10:27 | CASEMGMT ---
RN CM Assessment Note Presentation: Intro role of CM and purpose of RN CM assessment to patient and his . Demographics, PCP and Pharmacy verified. Pt is awake, alert and able to participate in assessment. Pt's states podiatry is anticipating pt will need wound vac on discharge. Discussed pt would then need HHC. Also discussed possibility of IV antibiotics, set up details with Infusion company, and home health to also assist with this. Pt's is agreeable to learn. Pt does not have DME, so pt is agreeable to work with PT/OT after surgery to eval activity and DME needs. PCP: Dr. Jonnie Armenta Specialists: Dr. Welsh, podiatry, Dr. Tucker, ID Preferred Pharmacy: [facility], [place] Insurance: [facility] Prescription Benefit: yes. Pt states he usually gets medications from [facility] but will use [facility] on dc. LNOK: [place]: Pt has benefits. Signed Declination to transfer. Wishes to stay @ [facility] under [facility] benefits. Clinical and form faxed to [place] transfer center. Auth to fax clinical to [place] signed and in chart. Living Arrangements: Lives independently with . One story home, 2 steps into home and 2 steps down to sunroom where pt likes to spend his time. Transportation: drives, but can drive DME: none. Pt to work with PT/OT after surgery. IF DME is needed, [facility] is first choice. HHC: List of HHC in area given to pt. Pt is from [place] area. will review and let CM know of choice. Patient DC goals: Home DC PLAN: Anticipate Home. PT/OT evals after surgery and dc needs re: possible home wound vac, IV antibiotics pending. has list of HHC and pt is agreeable to [facility] if IV infusion recommended. Nancy TRAVISN RN ACM
[2019-06-28 11:40] LABS: Bedside Glucose 162 mg/dL (70-110)
--- NOTE | 2019-06-28 12:59 | CASEMGMT ---
As per pt, has LW/POA but is not able to bring in the documents at this time. NISSA Johnson
--- NOTE | 2019-06-28 13:59 | CHAPLAIN ---
Type of Pastoral Visit _x__ Initial Visit ___ Follow-up Visit ___ On-call Visit ___ General Patient Visit ___ Spiritual Assessment ___ Family Conference ___ Bereavement ___ Rapid Response ___ Code Blue ___ Other (describe below) Pastoral Care Referral From _x__ Patient ___ Family ___ Nurse ___ Physician ___ Strand And Binder Controller ___ Senior Advocate ___ Other (describe below) Sacrament/Intervention _x__ Active listening ___ Anointing ___ Tenriism ___ Bereavement ___ Communion ___ Dottie exploration ___ ___ Life review _x__ Prayer ___ Reconciliation ___ Sacrament of Sick _x__ Supportive presence ___ Wedding ___ Other (describe below) Pastoral Comments pre surgery prayer and support
--- NOTE | 2019-06-28 15:10 | RAD_ITS ---
STUDY: X-RAY RIGHT FOOT, GREAT TOE REASON FOR EXAM: Male, 68 years old. RIGHT GREAT TOE AMPUTATION. TECHNIQUE: Single fluoroscopic guided view(s) of the toe were obtained. 2 seconds of fluoroscopic time utilized during the exam COMPARISON: None. FINDINGS: Single view obtained utilizing fluoroscopic guidance demonstrates osteomyelitis of the distal and proximal phalanges of the great toe.. RAD/Toe(s) Min 2 Views IMPRESSION: Osteomyelitis of the proximal and distal phalanges of the great toe Electronically Signed: Lucius Arredondo MD at 17:25 EST , Service support ,
--- NOTE | 2019-06-28 15:39 | OP.PCM_ITS ---
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 Rico Littlejohn Type of Anesthesia:: Local MAC Specimen's removed: 1. Bone from head of right 1st toe proximal phalanx sent to pathology and microbiology. 2. Clearance fragment from right 1st toe proximal phalanx and base of distal phalanx 1st toe sent to pathology and microbiology Estimated Blood Loss (mL): 2mL Description of Procedure: Indications: This is a 68 year old gentleman with history of diabetes and peripheral neuropathy. He recently sustained a right 1st toe injury, has wound, has signs/symptoms of infection, probes to bone, MRI concerning for osteomyelitis. He elected to proceed with debridement of bone and soft tissue w/ possible amputation right 1st toe. We discussed this in great detail. Reviewed procedure as well as the rationale of the procedure. Reviewed possible benefits vs risks, goals, expectations and estimated healing time and recommended post op course. Patient expressed understanding and agreement and wanted to proceed forward with the procedure. The consent forms were reviewed with him and he freely signed them. All of his questions were answered. No guarantees were given nor implied. Operative Procedure: The patient was brought back to the operating room and was placed on the operating room table in the supine position. A timeout was performed and the patient was properly identified and the surgical plan was confirmed. A well padded pneumatic tourniquet was applied around the right ankle. The patient received an ankle block by the anesthesia team in the pre operative holding area. The right foot was scrubbed, prepped, and draped in the usual aseptic fashion. Also of note patient is already on IV antibiotics, so no further antibiotic prophylaxis was given. The right foot was exsanguinated using an Esmarch bandage and the right ankle pneumatic tourniquet was inflated to 250mmHg. Right 1st toe debridement: Further attention was directed to the right 1st toe which had an ulceration on the dorsal aspect at level of the proximal nail fold probing to bone, there was edema and some cellulitis. There was no purulence, no visible abscess, no streaking, no blistering present. The 1st toenail was avulsed and removed. The nail bed was intact. A longitudinal skin incision was made to the dorsal 1st toe overlying the interphalangeal joint. The extensor tendon was retracted. The interphalangeal joint was visualized. The head of the proximal phalanx was severely fragmented, soft and nonviable, the base of the distal phalanx was hard, white and did not appear to be infected visually. The soft, nonviable, necrotic bone was debrided sharply out and sent to pathology and microbiology for further evaluation. The area debrided measures 1cm x 0.7cm. A clearance fragment was obtained from the distal and proximal phalanges and sent to microbiology and pathology for further evaluation. This bone was noted to be hard, white and healthy appearing. All remaining tissue was healthy and viable. The site was flushed out with copious amounts of normal saline solution. The skin was reapproximated using 3-0 Nylon. The toe was in rectus position. This was confirmed with intra op fluoroscopy. The pneumatic tourniquet was deflated at 25 minutes. There was immediate return of warmth and perfusion to the foot and all toes with CFT < 2 seconds to all toes. Pedal pulses intact. A dressing was applied which consisted of Betadine soaked adaptic, 4x4 gauze, Kerlix and nury. Patient tolerated procedure well and anesthesia well with no complications. Patient was transported from the OR to recovery room with vital signs stable and in good condition. Post op ordered placed. Post op xrays of the right foot were obtained and reviewed which confirmed debridement 1st toe. Patient will be followed on the floor. Grafts/Implants Used: None - Complications None
--- NOTE | 2019-06-28 15:55 | RAD_ITS ---
STUDY: X-RAY - RIGHT FOOT CLINICAL: Male, 68 years old. Postop PORTABLE RIGHT FOOT. RIGHT 1ST DISTAL METATARSAL AMPUTATION. TECHNIQUE: 3 view(s) of the foot. COMPARISON: None. FINDINGS: Normal talus, calcaneus, and tarsal bones. Normal visualized subtalar, talonavicular, calcaneocuboid, tarsal and tarsometatarsal articulations. Normal metatarsi. Normal metatarsophalangeal joint of the great toe. Normal tibial and fibular sesamoid bones. Postsurgical changes status post resection of the distal aspect of the proximal phalanx of the great toe Normal second through fifth metatarsophalangeal joints. Normal interphalangeal joints and phalanges of the lesser toes. The soft tissue structures are unremarkable. RAD/Foot min 3 Views IMPRESSION: Postop changes status post resection of the distal shaft of the proximal phalanx of the great toe Electronically Signed: Lucius Arredondo MD at 17:48 EST , Service support ,
[2019-06-28 16:20] LABS: Bedside Glucose 108 mg/dL (70-110)
--- NOTE | 2019-06-28 16:30 | BON_PTH ---
PATIENT: CAROL GREGORIO LOC: MS3 U#:[id number] AGE/SX: 68/M ROOM: [facility] RE06/27/[address]: Dr. James Lawson DO : 1950 BED: 1 DIS: 07/01/2019 SPEC #: [id number] RECD: 06/28/19 17:08 STATUS: CASE REEllis #: [id number] SRINATH: 06/28/19 16:[address]: Lucius Isbell DEPT: SURGICAL PATHOLOGY RECD BY: Caio Hinds ENTERED: 07/01/19 11:00 SP TYPE: Bone OTHR DR: MD Dr. James Hobbs DO Dr. Michael Jack, DPM MD Dr. Jerome Wilder MD Tissues: A - Bone of foot, NOS B - Bone of foot, NOS Procedures: Decalcification bone/plaque Surgery Specimen Level III HEADER OPERATION: Debridement nonviable necrotic soft tissue and bone PRE-OP DIAGNOSIS: Ulcer of right foot with fat layer exposed; osteomyelitis of toe of right foot TISSUE SUBMITTED: A - Bone first toe right foot, B - Clearance fragment MICROSCOPIC DIAGNOSIS A. Bone first toe right foot: Pieces of bone with diffuse moderate to marked acute osteomyelitis. B. Clearance fragment: A piece of bone with focal mild acute osteomyelitis. SJ:rg 07/04/19 COMMENT Case has been reviewed in consultation with Dr. Anderson who concurs with the above diagnosis. IDC:AM MICROSCOPIC DESCRIPTION Slides are reviewed. GROSS DESCRIPTION A - Received in fixative is one container labeled with the patient's name and designated bone first toe right foot. The specimen consists of two irregular fragments of shrestha bone ranging in size from 1 to 1.5 cm. The larger fragment is sectioned and submitted with the smaller fragment in one cassette after decalcification. B - Received in fixative is one container labeled with the patient's name and designated clearance fragment. The specimen consists of an elongated fragment of shrestha bone measuring 0.7 x 0.5 x 0.1 cm. The specimen is submitted in its entirety in one cassette after decalcification. / AM:kaylie 07/01/19 TC:2 CPT: 83286 x2, 17597 x2
[2019-06-28 17:30] LABS: Bedside Glucose 100 mg/dL (70-110)
[2019-06-28] MEDS: Gabapentin 300 MG Capsule 900 MG PO (21:45)
[2019-06-28] MEDS: APIXABAN 5 MG TABLET PO (21:45)
[2019-06-28] MEDS: Insulin Lispro 100 UNIT/ML INSULN.PEN SC (21:52)
[2019-06-28] MEDS: 0.9% Saline Lock 10 ML Syringe IV (21:55)
[2019-06-28 22:00] LABS: Bedside Glucose 181 mg/dL (70-110)
[2019-06-29 02:10] VITALS: BP 139/74; PULSE 67; RESP 14; TEMP 36.6; O2SAT 96
[2019-06-29] MEDS: 0.9% Saline Lock 10 ML Syringe IV ×2 (06:19→21:57)
[2019-06-29 06:40] LABS: Absolute Lymphocyte Count 1.15 X10^3/uL (0.83-4.51); Absolute Neutrophil Count 6.1 X10^3/uL (2.0-7.7); Basophil# 0.07 X10^3/uL; Basophil% 0.8 % (0-1); Eosinophil# 0.11 X10^3/uL; Eosinophils% 1.3 % (0-5); Hematocrit 43.3 % (40-54); Hemoglobin 14.1 g/dL (13.0-16.5); Lymphocyte # 1.15 X10^3/ul (4.0); Lymphocyte % 13.6 % (19-41); Mean Corp Hgb Conc 32.6 g/dL (32-36); Mean Corpuscular Hgb 30.7 pg (27.0-32.0); Mean Corpuscular Volume 94.3 fL (80-94); Mean Platelet Vol. 9.5 fl (6.2-12.0); Monocyte% 11.8 % (0-10); NRBC Flagged by Analyzer 0 % (0-5); Neutrophil # 6.09 X10^3/uL (2.7-7.7); Neutrophil % 71.8 % (47-70); Platelet Count 341 K/mm3 (150-450); RBC Distribution Width CV 13.5 % (11.6-14.6); RBC Distribution Width SD 46.7 fl (35.1-43.9); Red Blood Count 4.59 M/mm3 (4.6-6.2); White Blood Count 8.5 K/mm3 (4.4-11.0)
[2019-06-29 06:46] LABS: Bedside Glucose 104 mg/dL (70-110)
[2019-06-29 07:05] LABS: Cholesterol 116 mg/dL (200); High Density Lipoprotein 32 mg/dL; Triglycerides 82 mg/dL; Very Low Density Lipoprotein 16 mg/dL (5-40)
[2019-06-29 07:35] VITALS: PULSE 72
[2019-06-29] MEDS: hydrALAZINE 50 MG Tablet PO ×2 (07:35→21:09)
[2019-06-29] MEDS: Gabapentin 300 MG Capsule PO (07:35)
[2019-06-29] MEDS: Cyanocobalamin 500 MCG Tablet 1000 MCG PO (07:36)
[2019-06-29] MEDS: APIXABAN 5 MG TABLET PO ×2 (07:36→21:09)
[2019-06-29 07:49] VITALS: BP 131/69; PULSE 72; RESP 16; TEMP 36.9; O2SAT 94
--- NOTE | 2019-06-29 07:51 | PCM.PROGNOTE ---
Patient Problems: Active and Suspected Problems JUSTIN (acute kidney injury) (Acute) Osteomyelitis of toe of right foot (Acute) Type 2 diabetes mellitus with diabetic neuropathy, unspecified (Acute) Cellulitis of right toe (Acute) Subjective: Patient was seen this morning for follow up on right 1st toe debridement. He is resting comfortably in bed. He has no pain, or any other complaints. No complaints of fever, chills, nausea or vomiting. His is at bedside. - Physical Exam Vitals/I&O's: Vital Signs Temp Pulse Resp BP Pulse Ox 97.9 F 72 14 139/74 H 96 06/29/19 02:10 06/29/19 07:35 06/29/19 02:10 06/29/19 02:10 06/29/19 02:10 Oxygen Delivery Method Room Air Weight: 110.5 kg Body Mass Index (BMI) 30.7 Finger Stick Blood Glucose 108 Intake and Output for Last 24 Hours 06/27/19 06/28/19 06/29/19 23:59 23:59 23:59 Intake Total 1044 / 1164 2896 / 3096 312 / 312 Balance 1044 / 1164 2896 / 3096 312 / 312 General: Alert, Oriented x3, Cooperative, No apparent distress Extremities: Capillary Refill Less than 3 Seconds, No Calf Tenderness, - - s/p right 1st toe debridement with absent toenail, nail bed and debridement site healthy and viable, sutures intact with residual wound to the nail bed and proximal nail fold, there is no purulence, no visible abscess, no maloder, no necrosis, no fluctuance, no crepitus present, no evidence of complication at this time, there is some edema and erythema localized to the site. No other open wounds bilateral foot. No evidence of ischemia to the foot/ankle bilateral. Psych/Mental Status: Normal Affect, Appropriate, Alert and oriented to time, place, person, mood and affect Microbiology Past 72 Hours 06/27/19 13:00 Wound - Toe Gram Stain - Final 06/27/19 13:00 Wound - Toe Anaerobic Culture - Preliminary Laboratory Results 06/28/19 05:55: Hemoglobin A1c 9.0 H 06/28/19 11:33: POC Glucose 162 H 06/28/19 16:16: POC Glucose 108 06/28/19 17:23: POC Glucose 100 06/28/19 21:51: POC Glucose 181 H 06/29/19 06:02: WBC 8.5, RBC 4.59 L, Hgb 14.1, Hct 43.3, MCV 94.3 H, MCH 30.7, MCHC 32.6, RDW Std Deviation 46.7 H, RDW Coeff of Amadou 13.5, Plt Count 341, MPV 9.5, Immature Gran % (Auto) 0.700, Neut % (Auto) 71.8 H, Lymph % (Auto) 13.6 L, [place] % (Auto) 11.8 H, Eos % (Auto) 1.3, Baso % (Auto) 0.8, Absolute Neuts (auto) 6.1, Absolute Lymphs (auto) 1.15, Nucleated RBC % 0 06/29/19 06:02: Triglycerides 82, Cholesterol 116, LDL Cholesterol 68, VLDL Cholesterol 16, HDL Cholesterol 32 L 06/29/19 06:40: POC Glucose 104 Current Medications Acetaminophen (Tylenol) 650 mg PO Q6H PRN PRN PRN Reason: Pain Score 1-3 /Temp>100.7 Apixaban (Eliquis) 5 mg PO BID [facility] Last Admin: 06/29/19 07:36 Dose: 5 mg Documented by: Bisacodyl (Dulcolax) 10 mg RECTAL DAILY PRN PRN PRN Reason: Constipation Cholecalciferol (Vitamin D) 2,000 unit PO DAILY [facility] Last Admin: 06/29/19 07:35 Dose: 2,000 unit Documented by: Cyanocobalamin (Vitamin B12) 1,000 mcg PO DAILY [facility] Last Admin: 06/29/19 07:36 Dose: 1,000 mcg Documented by: Fluticasone Propionate (Flonase Nasal [place]) 2 spray NASAL DAILY PRN PRN Reason: ALLERGIES Gabapentin (Neurontin) 300 mg PO BREAKFAST [facility] Last Admin: 06/29/19 07:35 Dose: 300 mg Documented by: Gabapentin (Neurontin) 900 mg PO QHS [facility] Last Admin: 06/28/19 21:45 Dose: 900 mg Documented by: Glucagon () 1 mg IM .X1 PRN PRN Reason: Hypoglycemia Hydralazine HCl (Apresoline) 50 mg PO BID [facility] Last Admin: 06/29/19 07:35 Dose: 50 mg Documented by: Hydralazine HCl (Apresoline Iv) 10 mg IV Q4H PRN PRN PRN Reason: SBP > 180 or DBP>100 Ampicillin Sodium/Sulbactam (Sodium 3 gm/ Sodium Chloride) 112 mls @ 150 mls/hr IV Q8 [facility] Last Infusion: 06/29/19 07:06 Dose: Infused Documented by: Insulin Glargine (Lantus (Bk)) 25 units SC QHS [facility] Last Admin: 06/28/19 21:51 Dose: 25 units Documented by: Insulin Human Lispro (Humalog Kwikpen ([facility])) 0 unit SC ACHS [facility]; Protocol Last Admin: 06/29/19 06:41 Dose: Not Given Documented by: Morphine Sulfate () 2 mg IV Q4H PRN PRN PRN Reason: Pain Score 4-10/10 Nutritional Formula ([place] - [place] Flavor) 1 packet PO BIDCM [facility] Last Admin: 06/29/19 07:36 Dose: 1 packet Documented by: Oxycodone HCl (Oxyir) 5 mg PO Q4H PRN PRN PRN Reason: Pain Score 4-10/10 Polyethylene Glycol (Miralax) 17 gm PO DAILY [facility] Last Admin: 06/29/19 07:34 Dose: Not Given Documented by: Sodium Chloride () 10 - 40 ml IV UD PRN PRN Reason: SALINE FLUSH Last Admin: 06/29/19 06:19 Dose: 10 ml Documented by: Medical Necessity - Tobacco Use Smoking Status: Former smoker Tobacco Use: Cigarettes Assessment/Plan All Active Problems Ulcer of right lower extremity with fat layer exposed (Acute) Controlled diabetes mellitus (Acute) Ulcer of right foot with fat layer exposed (Acute) JUSTIN (acute kidney injury) (Acute) Osteomyelitis of toe of right foot (Acute) Type 2 diabetes mellitus with diabetic neuropathy, unspecified (Acute) Cellulitis of right toe (Acute) Right 1st toe ulceration down to bone w/ osteomyelitis s/p debridement on 06/28/2019 Diabetes with neuropathy Other comorbidities Reviewed diagnostic data. Site healing well, no evidence of complication. Bone culture and clearance fragments have been obtained and results pending. Continue with IV antibiotics, ID service has been consulted. New noninvasive lower extremity arterial studies have been ordered, and are pending. Wound care right 1st toe: Continue with dressing changes daily - Betadine solution with overlying gauze, kerlix and nury. Ok to weightbear on right heel, but no weight on toes right foot, keep right foot elevated. Reviewed importance of proper blood sugar control (noted patient's ha1c was 9.0) to optimize healing, diabetes and further medical management per medicine team. Podiatry will continue to follow daily.
--- NOTE | 2019-06-29 08:21 | PN_ITS ---
Patient Problems: Active and Suspected Problems JUSTIN (acute kidney injury) (Acute) Osteomyelitis of toe of right foot (Acute) Type 2 diabetes mellitus with diabetic neuropathy, unspecified (Acute) Cellulitis of right toe (Acute) Reason for Visit: Right great toe osteomyelitis. Other comorbidities include diabetes mellitus, complicated with neuropathy and nephropathy and dyslipidemia Vitals/I&O's: Vital Signs Temp Pulse Resp BP Pulse Ox 98.5 F 72 16 131/69 H 94 06/29/19 07:49 06/29/19 07:49 06/29/19 07:49 06/29/19 07:49 06/29/19 07:49 Oxygen Delivery Method Room Air Weight: 243 lb 9.773 oz Body Mass Index (BMI) 30.7 Finger Stick Blood Glucose 108 Intake and Output for Last 24 Hours 06/27/19 06/28/19 06/29/19 23:59 23:59 23:59 Intake Total 1044 / 1164 2896 / 3096 312 / 312 Balance 1044 / 1164 2896 / 3096 312 / 312 General: Alert, Oriented x3, Cooperative HEENT: Atraumatic, PERRLA, EOMI, Normocephalic Neck: Supple, No JVD, Negative Carotid Bruits Lungs: Clear to auscultation, No rhonchi, No wheeze, No rales, Diminished Cardiovascular: Regular rate, Regular Rhythm, Normal S1, Normal S2, No murmurs Abdomen: Bowel Sounds Present, Soft, Non Tender, Non-Distended Extremities: No edema, Capillary Refill Less than 3 Seconds Skin: No rashes, No breakdown Musculoskeletal: No Tenderness to Palpation of Joints or Extremities Neurological: Cranial nerves II-XII grossly intact, Deep Tendon Reflexes 2+/4 and Symmetrical, Neuro grossly intact Psych/Mental Status: Normal Affect, Appropriate Microbiology Past 72 Hours 06/27/19 13:00 Wound - Toe Gram Stain - Final 06/27/19 13:00 Wound - Toe Anaerobic Culture - Preliminary Laboratory Results 06/28/19 05:55: Hemoglobin A1c 9.0 H 06/28/19 11:33: POC Glucose 162 H 06/28/19 16:16: POC Glucose 108 06/28/19 17:23: POC Glucose 100 06/28/19 21:51: POC Glucose 181 H 06/29/19 06:02: WBC 8.5, RBC 4.59 L, Hgb 14.1, Hct 43.3, MCV 94.3 H, MCH 30.7, MCHC 32.6, RDW Std Deviation 46.7 H, RDW Coeff of Amadou 13.5, Plt Count 341, MPV 9.5, Immature Gran % (Auto) 0.700, Neut % (Auto) 71.8 H, Lymph % (Auto) 13.6 L, [place] % (Auto) 11.8 H, Eos % (Auto) 1.3, Baso % (Auto) 0.8, Absolute Neuts (auto) 6.1, Absolute Lymphs (auto) 1.15, Nucleated RBC % 0 06/29/19 06:02: Triglycerides 82, Cholesterol 116, LDL Cholesterol 68, VLDL Cholesterol 16, HDL Cholesterol 32 L 06/29/19 06:40: POC Glucose 104 Current Medications Acetaminophen (Tylenol) 650 mg PO Q6H PRN PRN PRN Reason: Pain Score 1-3 /Temp>100.7 Apixaban (Eliquis) 5 mg PO BID [facility] Last Admin: 06/29/19 07:36 Dose: 5 mg Documented by: Bisacodyl (Dulcolax) 10 mg RECTAL DAILY PRN PRN PRN Reason: Constipation Cholecalciferol (Vitamin D) 2,000 unit PO DAILY [facility] Last Admin: 06/29/19 07:35 Dose: 2,000 unit Documented by: Cyanocobalamin (Vitamin B12) 1,000 mcg PO DAILY [facility] Last Admin: 06/29/19 07:36 Dose: 1,000 mcg Documented by: Fluticasone Propionate (Flonase Nasal [place]) 2 spray NASAL DAILY PRN PRN Reason: ALLERGIES Gabapentin (Neurontin) 300 mg PO BREAKFAST [facility] Last Admin: 06/29/19 07:35 Dose: 300 mg Documented by: Gabapentin (Neurontin) 900 mg PO QHS [facility] Last Admin: 06/28/19 21:45 Dose: 900 mg Documented by: Glucagon () 1 mg IM .X1 PRN PRN Reason: Hypoglycemia Hydralazine HCl (Apresoline) 50 mg PO BID [facility] Last Admin: 06/29/19 07:35 Dose: 50 mg Documented by: Hydralazine HCl (Apresoline Iv) 10 mg IV Q4H PRN PRN PRN Reason: SBP > 180 or DBP>100 Ampicillin Sodium/Sulbactam (Sodium 3 gm/ Sodium Chloride) 112 mls @ 150 mls/hr IV Q8 [facility] Last Infusion: 06/29/19 07:06 Dose: Infused Documented by: Insulin Glargine (Lantus (Bkc)) 25 units SC QHS [facility] Last Admin: 06/28/19 21:51 Dose: 25 units Documented by: Insulin Human Lispro (Humalog Kwikpen (Bk)) 0 unit SC ACHS [facility]; Protocol Last Admin: 06/29/19 06:41 Dose: Not Given Documented by: Morphine Sulfate () 2 mg IV Q4H PRN PRN PRN Reason: Pain Score 4-10/10 Nutritional Formula ([place] - [place] Flavor) 1 packet PO BIDCM [facility] Last Admin: 06/29/19 07:36 Dose: 1 packet Documented by: Oxycodone HCl (Oxyir) 5 mg PO Q4H PRN PRN PRN Reason: Pain Score 4-10/10 Polyethylene Glycol (Miralax) 17 gm PO DAILY [facility] Last Admin: 06/29/19 07:34 Dose: Not Given Documented by: Sodium Chloride () 10 - 40 ml IV UD PRN PRN Reason: SALINE FLUSH Last Admin: 06/29/19 06:19 Dose: 10 ml Documented by: STROKE Vital Signs/Narrative: Vital Signs Temp Pulse Resp BP Pulse Ox 06/29/19 07:49 98.5 F 72 16 131/69 H 94 06/29/19 07:35 72 Medical Necessity - Tobacco Use Smoking Status: Former smoker Tobacco Use: Cigarettes Assessment/Plan All Active Problems Ulcer of right lower extremity with fat layer exposed (Acute) Controlled diabetes mellitus (Acute) Ulcer of right foot with fat layer exposed (Acute) JUSTIN (acute kidney injury) (Acute) Osteomyelitis of toe of right foot (Acute) Type 2 diabetes mellitus with diabetic neuropathy, unspecified (Acute) Cellulitis of right toe (Acute) The patient is a 68 year old M with history of type 2 diabetes mellitus and peripheral vascular disease was sent to ER from wound center today for nonhealing right great toe ulcer for about 3 weeks. []In ER, vitals are stable. X-ray of right great toe was done. It shows soft tissue swelling and degenerative changes of interphalangeal joints. IV Unasyn ordered in ER. Patient is further admitted. 1. Right great toe nonhealing ulcer consistent with osteomyelitis and chronic bilateral venous insufficiency: [facility] Started on IV Unasyn in ER and is being continued. Discussed with client sales and service officer Dr. Welsh who is been consulted. Wound culture from 06/20/2019 shows staph epidermidis and anaerobic cocci. Arterial study from 08/15/2018 reported no evidence of significant arterial occlusive disease in lower extremities bilaterally. Distal brachial indexes are bilaterally normal. Patient has h istory of chronic, right more than left venous insufficiency/deep venous valves incompetence. CRP and ESR elevated. MRI of right lower extremity ordered. 06/28: MRI reviewed. MRI is consistent with osteomyelitis of proximal and distal phalanges of first toe, arthrosis of interphalangeal joint of first digit and tibial sesamoid first metatarsal articulation with atrophy of intrinsic muscle suggestive with peripheral neuropathy. ID consult. Continue Unasyn. 06/29: Patient had debridement down to the right first toe with bone biopsy and excision of right first toe proximal phalanx and base of distal phalanx. Continue IV antibiotic. Repeat wound culture Gram stain does not show organism. Tissue biopsy pending. 2. Diabetes mellitus type 2, uncontrolled complicated with diabetic nephropathy and neuropathy: Glucose is 169. A1c ordered for tomorrow a.m. Accu-Chek essentials cover with Humalog sliding scale. Hold metformin and Jardiance. On Neurontin. Continue Lantus 25 units daily. 06/28: A1c is 9.0. Glucose is controlled today. Continue Lantus 25 units daily. 06/29: Glucose is controlled. 3. Acute kidney injury probably prerenal complicated with toe infection and medications: Hold metformin and Jardiance. IV fluid normal saline 100 mL/h for 2 L. Monitor intake and output, electrolytes and kidney function. Hold losartan?HCTZ and replaced with hydralazine for BP control. 06/28: BUN 28. Creatinine 1.21. Electrolytes within normal limit. Continue IV fluid. 06/29: Discontinue IV fluid 4. Possible A. fib: Twelve-lead EKG ordered. Patient is on Eliquis 5 mg twice daily. RESUME Eliquis 5. Hypertension: Blood pressure was 141/79. Blood pressure is controlled Other comorbidities include hypertension, morbid obesity: Lipid profile is within normal limits except HDL 32. Atorvastatin increased to 40 mg daily. DVT prophylaxis: On Eliquis 5 mg twice daily. Laboratory Results 06/28/19 16:16: POC Glucose 108 06/28/19 17:23: POC Glucose 100 06/28/19 21:51: POC Glucose 181 H 06/29/19 06:02: WBC 8.5, RBC 4.59 L, Hgb 14.1, Hct 43.3, MCV 94.3 H, MCH 30.7, MCHC 32.6, RDW Std Deviation 46.7 H, RDW Coeff of Amadou 13.5, Plt Count 341, MPV 9.5, Immature Gran % (Auto) 0.700, Neut % (Auto) 71.8 H, Lymph % (Auto) 13.6 L, [place] % (Auto) 11.8 H, Eos % (Auto) 1.3, Baso % (Auto) 0.8, Absolute Neuts (auto) 6.1, Absolute Lymphs (auto) 1.15, Nucleated RBC % 0 06/29/19 06:02: Triglycerides 82, Cholesterol 116, LDL Cholesterol 68, VLDL Cholesterol 16, HDL Cholesterol 32 L 06/29/19 06:40: POC Glucose 104 06/29/19 10:55: POC Glucose 203 H Clinical Impression(s) from Imaging Studies Toe X-Ray 06/27/19 10:08 IMPRESSION: Soft tissue swelling. Degenerative changes of the interphalangeal joint. Lower Extremity MRI 06/27/19 14:53 IMPRESSION: Bone edema of the proximal and distal phalanges of the first toe with decreased foci of T1 bone marrow signal suggestive of osteomyelitis. 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 Atrophy of the intrinsic muscles of the forefoot suggestive of peripheral neuropathy. Code Visit Inpatient E&M: 27407 Subs Hosp L2
[2019-06-29] MEDS: Acetaminophen 325 MG Tablet 650 MG PO ×2 (09:03→16:21)
[2019-06-29] MEDS: Insulin Lispro 100 UNIT/ML INSULN.PEN SC ×4 (10:58→21:10)
[2019-06-29 11:06] LABS: Bedside Glucose 203 mg/dL (70-110)
[2019-06-29 14:05] VITALS: BP 107/52; PULSE 79; RESP 16; TEMP 37.1; O2SAT 95
[2019-06-29 16:01] LABS: Bedside Glucose 193 mg/dL (70-110)
[2019-06-29] MEDS: oxyCODONE 5 MG Tablet PO (16:21)
[2019-06-29 20:14] VITALS: BP 117/55; PULSE 65; RESP 16; TEMP 36.8; O2SAT 94
[2019-06-29 21:09] VITALS: PULSE 65
[2019-06-29] MEDS: Atorvastatin Calcium 40 MG Tablet PO (21:09)
[2019-06-29] MEDS: Zolpidem Tartrate 5 MG Tablet PO (21:09)
[2019-06-29] MEDS: Gabapentin 300 MG Capsule 900 MG PO (21:10)
[2019-06-29 21:11] LABS: Bedside Glucose 244 mg/dL (70-110)
[2019-06-30 02:14] VITALS: BP 119/66; PULSE 69; RESP 16; TEMP 37.1; O2SAT 96
[2019-06-30] MEDS: 0.9% Saline Lock 10 ML Syringe IV ×4 (05:12→23:37)
[2019-06-30] MEDS: Acetaminophen 325 MG Tablet 650 MG PO (06:38)
[2019-06-30] MEDS: oxyCODONE 5 MG Tablet PO (06:38)
[2019-06-30 07:20] LABS: Anion Gap 4 (5-15); BUN 19 mg/dL (7-18); BUN/Creat Ratio 22.9 RATIO (10-20); Calcium,Total 9.3 mg/dL (8.5-10.1); Chloride 104 mmol/L (98-107); Creatinine, Serum 0.83 mg/dL (0.70-1.30); EST Glomerular Filtration Rate 97 mL/min (>60); Est Glom Filt Rate - Afr Amer 118 mL/min (>60); Estimated Creatinine Clearance 98.98 ml/min; Glucose 95 mg/dL (74-106); Potassium 3.8 mmol/L (3.5-5.1); Sodium Level 138 mmol/L (136-145)
--- NOTE | 2019-06-30 08:34 | PCM.PROGNOTE ---
Patient Problems: Active and Suspected Problems JUSTIN (acute kidney injury) (Acute) Osteomyelitis of toe of right foot (Acute) Type 2 diabetes mellitus with diabetic neuropathy, unspecified (Acute) Cellulitis of right toe (Acute) Subjective: Patient was seen this morning for follow up on right 1st toe debridement. Patient relates he is feeling good this morning. He has no complaints. No complaints f fever, chills, nausea or vomiting. - Physical Exam Vitals/I&O's: Vital Signs Temp Pulse Resp BP Pulse Ox 98.7 F 69 16 119/66 96 06/30/19 02:14 06/30/19 02:14 06/30/19 02:14 06/30/19 02:14 06/30/19 02:14 Oxygen Delivery Method Room Air Weight: 110.677 kg Body Mass Index (BMI) 30.7 Finger Stick Blood Glucose 108 Intake and Output for Last 24 Hours 06/28/19 06/29/19 06/30/19 23:59 23:59 23:59 Intake Total 2896 / 3096 1640.5 / 1640.5 647.75 / 647.75 Balance 2896 / 3096 1640.5 / 1640.5 647.75 / 647.75 General: Alert, Oriented x3, Cooperative, No apparent distress Extremities: Capillary Refill Less than 3 Seconds, No Calf Tenderness, - - s/p right 1st toe debridement with absent toenail, nail bed and debridement site healthy and viable, sutures intact with residual wound to the nail bed and proximal nail fold - site healing well, there is no purulence, no visible abscess, no maloder, no necrosis, no fluctuance, no crepitus present, no evidence of complication at this time, there is some edema c/w normal course, no cellulitis to the site. No other open wounds bilateral foot. No evidence of ischemia to the foot/ankle bilateral. Patient is resting comfortably in bed. Microbiology Past 72 Hours 06/28/19 15:27 Tissue - Toe Gram Stain - Final 06/28/19 15:27 Tissue - Toe Wound Culture - Preliminary No growth-Final to follow 06/28/19 15:27 Bone - Toe Gram Stain - Final 06/28/19 15:27 Bone - Toe Wound Culture - Preliminary No growth-Final to follow 06/27/19 13:00 Wound - Toe Gram Stain - Final 06/27/19 13:00 Wound - Toe Wound Culture - Preliminary Coag Negative Staph 06/27/19 13:00 Wound - Toe Anaerobic Culture - Preliminary Laboratory Results 06/29/19 10:55: POC Glucose 203 H 06/29/19 15:56: POC Glucose 193 H 06/29/19 21:05: POC Glucose 244 H 06/30/19 05:45: Sodium 138, Potassium 3.8, Chloride 104, Carbon Dioxide 30.0, Anion Gap 4 L, BUN 19 H, Creatinine 0.83, Estim Creat Clear Calc 98.98, Est GFR (MDRD) Af Amer 118, Est GFR (MDRD) Non-Af 97, BUN/Creatinine Ratio 22.9 H, Glucose 95, Calcium 9.3 Current Medications Acetaminophen (Tylenol) 650 mg PO Q6H PRN PRN PRN Reason: Pain Score 1-3 /Temp>100.7 Last Admin: 06/30/19 06:38 Dose: 650 mg Documented by: Apixaban (Eliquis) 5 mg PO BID [facility] Last Admin: 06/29/19 21:09 Dose: 5 mg Documented by: Atorvastatin Calcium (Lipitor) 40 mg PO QHS [facility] Last Admin: 06/29/19 21:09 Dose: 40 mg Documented by: Bisacodyl (Dulcolax) 10 mg RECTAL DAILY PRN PRN PRN Reason: Constipation Cholecalciferol (Vitamin D) 2,000 unit PO DAILY [facility] Last Admin: 06/29/19 07:35 Dose: 2,000 unit Documented by: Cyanocobalamin (Vitamin B12) 1,000 mcg PO DAILY [facility] Last Admin: 06/29/19 07:36 Dose: 1,000 mcg Documented by: Fluticasone Propionate (Flonase Nasal [place]) 2 spray NASAL DAILY PRN PRN Reason: ALLERGIES Gabapentin (Neurontin) 300 mg PO BREAKFAST [facility] Last Admin: 06/29/19 07:35 Dose: 300 mg Documented by: Gabapentin (Neurontin) 900 mg PO QHS [facility] Last Admin: 06/29/19 21:10 Dose: 900 mg Documented by: Glucagon () 1 mg IM .X1 PRN PRN Reason: Hypoglycemia Hydralazine HCl (Apresoline) 50 mg PO BID [facility] Last Admin: 06/29/19 21:09 Dose: 50 mg Documented by: Hydralazine HCl (Apresoline Iv) 10 mg IV Q4H PRN PRN PRN Reason: SBP > 180 or DBP>100 Ampicillin Sodium/Sulbactam (Sodium 3 gm/ Sodium Chloride) 112 mls @ 150 mls/hr IV Q8 [facility] Last Infusion: 06/30/19 05:54 Dose: Infused Documented by: Sodium Chloride () 250 mls @ 15 mls/hr IV .[id number] PRN PRN Reason: Saline Flush Last Infusion: 06/29/19 21:57 Dose: 0 mls/hr Documented by: Insulin Glargine (Lantus (Bkc)) 25 units SC QHS [facility] Last Admin: 06/29/19 21:12 Dose: 25 units Documented by: Insulin Human Lispro (Humalog Kwikpen (Bk)) 0 unit SC ACHS [facility]; Protocol Last Admin: 06/29/19 21:10 Dose: 4 u Documented by: Insulin Human Lispro (Humalog Kwikpen (Bkc)) 5 unit SC TIDAC [facility] Last Admin: 06/29/19 17:30 Dose: 5 u Documented by: Morphine Sulfate () 2 mg IV Q4H PRN PRN PRN Reason: Pain Score 4-10/10 Nutritional Formula ([place] - [place] Flavor) 1 packet PO BIDCM [facility] Last Admin: 06/29/19 16:22 Dose: 1 packet Documented by: Oxycodone HCl (Oxyir) 5 mg PO Q4H PRN PRN PRN Reason: Pain Score 4-10/10 Last Admin: 06/30/19 06:38 Dose: 5 mg Documented by: Polyethylene Glycol (Miralax) 17 gm PO DAILY [facility] Last Admin: 06/29/19 07:34 Dose: Not Given Documented by: Sodium Chloride () 10 - 40 ml IV UD PRN PRN Reason: SALINE FLUSH Last Admin: 06/30/19 06:38 Dose: 10 ml Documented by: Zolpidem Tartrate (Ambien (Generic)) 5 mg PO QHS [facility] Last Admin: 06/29/19 21:09 Dose: 5 mg Documented by: Medical Necessity - Tobacco Use Smoking Status: Former smoker Tobacco Use: Cigarettes Assessment/Plan All Active Problems Ulcer of right lower extremity with fat layer exposed (Acute) Controlled diabetes mellitus (Acute) Ulcer of right foot with fat layer exposed (Acute) JUSTIN (acute kidney injury) (Acute) Osteomyelitis of toe of right foot (Acute) Type 2 diabetes mellitus with diabetic neuropathy, unspecified (Acute) Cellulitis of right toe (Acute) Right 1st toe ulceration down to bone w/ osteomyelitis s/p debridement on 06/28/2019 Diabetes with neuropathy Other comorbidities Reviewed diagnostic data. Site healing well, no evidence of complication. Bone culture and clearance fragments have been obtained and results pending - no growth so far. Coag neg staph from wound culture. Continue with IV antibiotics, ID service has been consulted. New noninvasive lower extremity arterial studies have been ordered, and are pending. Wound care right 1st toe: Continue with dressing changes daily - Betadine solution with overlying gauze, kerlix and nury. Ok to weightbear on right heel, but no weight on toes right foot, keep right foot elevated. Discharge planning: From podiatry standpoint ok to d/c home once home antibiotics are determined. Patient's is going to change dressing at home. This will consist of the following: Cleanse with normal saline solution, apply Aquacel Ag with overlying gauze/nury dressing - change daily. Patient to follow up [facility] 1 week [facility] upon discharge home. Podiatry will continue to follow daily while inpatient.
[2019-06-30] MEDS: Insulin Lispro 100 UNIT/ML INSULN.PEN SC ×4 (09:31→18:29)
[2019-06-30 09:32] VITALS: PULSE 63
[2019-06-30] MEDS: Gabapentin 300 MG Capsule PO (09:32)
[2019-06-30] MEDS: hydrALAZINE 50 MG Tablet PO ×2 (09:32→22:33)
[2019-06-30] MEDS: Cyanocobalamin 500 MCG Tablet 1000 MCG PO (09:33)
[2019-06-30] MEDS: APIXABAN 5 MG TABLET PO ×2 (09:33→22:34)
[2019-06-30 09:37] VITALS: BP 121/65; PULSE 63; RESP 18; TEMP 36.9; O2SAT 96
--- NOTE | 2019-06-30 11:39 | PCM.PN.HOSP ---
Patient Problems: Active and Suspected Problems JUSTIN (acute kidney injury) (Acute) Osteomyelitis of toe of right foot (Acute) Type 2 diabetes mellitus with diabetic neuropathy, unspecified (Acute) Cellulitis of right toe (Acute) Reason for Visit: Right first great toe ulcer, nonhealing; chronic osteomyelitis status post debridement Vitals/I&O's: Vital Signs Temp Pulse Resp BP Pulse Ox 98.5 F 63 18 121/65 H 96 06/30/19 09:37 06/30/19 09:37 06/30/19 09:37 06/30/19 09:37 06/30/19 09:37 Oxygen Delivery Method Room Air Weight: 244 lb Body Mass Index (BMI) 30.7 Finger Stick Blood Glucose 108 Intake and Output for Last 24 Hours 06/28/19 06/29/19 06/30/19 23:59 23:59 23:59 Intake Total 2896 / 3096 1640.5 / 1640.5 647.75 / 647.75 Balance 2896 / 3096 1640.5 / 1640.5 647.75 / 647.75 General: Alert, Oriented x3, Cooperative HEENT: Atraumatic, PERRLA, EOMI, Normocephalic Neck: Supple, No JVD, Negative Carotid Bruits Lungs: Clear to auscultation, Normal air movement, No rhonchi, No wheeze, No rales Cardiovascular: Regular rate, Regular Rhythm, Normal S1, Normal S2, No murmurs Abdomen: Bowel Sounds Present, Soft, Non Tender, Non-Distended Extremities: No edema, Capillary Refill Less than 3 Seconds Skin: Ulcer/ Wound - Right first toe/digital excision with wound debridement Musculoskeletal: No Tenderness to Palpation of Joints or Extremities, Arthritic Changes Neurological: Cranial nerves II-XII grossly intact Psych/Mental Status: Normal Affect, Appropriate Microbiology Past 72 Hours 06/27/19 13:00 Wound - Toe Gram Stain - Final 06/27/19 13:00 Wound - Toe Wound Culture - Final Staphylococcus epidermidis 06/27/19 13:00 Wound - Toe Anaerobic Culture - Preliminary 06/28/19 15:27 Tissue - Toe Gram Stain - Final 06/28/19 15:27 Tissue - Toe Wound Culture - Preliminary No growth-Final to follow 06/28/19 15:27 Bone - Toe Gram Stain - Final 06/28/19 15:27 Bone - Toe Wound Culture - Preliminary No growth-Final to follow Laboratory Results 06/29/19 15:56: POC Glucose 193 H 06/29/19 21:05: POC Glucose 244 H 06/30/19 05:45: Sodium 138, Potassium 3.8, Chloride 104, Carbon Dioxide 30.0, Anion Gap 4 L, BUN 19 H, Creatinine 0.83, Estim Creat Clear Calc 98.98, Est GFR (MDRD) Af Amer 118, Est GFR (MDRD) Non-Af 97, BUN/Creatinine Ratio 22.9 H, Glucose 95, Calcium 9.3 Current Medications Acetaminophen (Tylenol) 650 mg PO Q6H PRN PRN PRN Reason: Pain Score 1-3 /Temp>100.7 Last Admin: 06/30/19 06:38 Dose: 650 mg Documented by: Apixaban (Eliquis) 5 mg PO BID [facility] Last Admin: 06/30/19 09:33 Dose: 5 mg Documented by: Atorvastatin Calcium (Lipitor) 40 mg PO QHS [facility] Last Admin: 06/29/19 21:09 Dose: 40 mg Documented by: Bisacodyl (Dulcolax) 10 mg RECTAL DAILY PRN PRN PRN Reason: Constipation Cholecalciferol (Vitamin D) 2,000 unit PO DAILY [facility] Last Admin: 06/30/19 09:32 Dose: 2,000 unit Documented by: Cyanocobalamin (Vitamin B12) 1,000 mcg PO DAILY [facility] Last Admin: 06/30/19 09:33 Dose: 1,000 mcg Documented by: Fluticasone Propionate (Flonase Nasal [place]) 2 spray NASAL DAILY PRN PRN Reason: ALLERGIES Gabapentin (Neurontin) 300 mg PO BREAKFAST [facility] Last Admin: 06/30/19 09:32 Dose: 300 mg Documented by: Gabapentin (Neurontin) 900 mg PO QHS [facility] Last Admin: 06/29/19 21:10 Dose: 900 mg Documented by: Glucagon () 1 mg IM .X1 PRN PRN Reason: Hypoglycemia Hydralazine HCl (Apresoline) 50 mg PO BID [facility] Last Admin: 06/30/19 09:32 Dose: 50 mg Documented by: Hydralazine HCl (Apresoline Iv) 10 mg IV Q4H PRN PRN PRN Reason: SBP > 180 or DBP>100 Ampicillin Sodium/Sulbactam (Sodium 3 gm/ Sodium Chloride) 112 mls @ 150 mls/hr IV Q8 [facility] Last Infusion: 06/30/19 05:54 Dose: Infused Documented by: Sodium Chloride () 250 mls @ 15 mls/hr IV .[id number] PRN PRN Reason: Saline Flush Last Infusion: 06/29/19 21:57 Dose: 0 mls/hr Documented by: Insulin Glargine (Lantus (Bkc)) 25 units SC QHS [facility] Last Admin: 06/29/19 21:12 Dose: 25 units Documented by: Insulin Human Lispro (Humalog Kwikpen (Bk)) 0 unit SC ACHS [facility]; Protocol Last Admin: 06/30/19 09:34 Dose: Not Given Documented by: Insulin Human Lispro (Humalog Kwikpen (Bk)) 5 unit SC TIDAC [facility] Last Admin: 06/30/19 09:31 Dose: 5 u Documented by: Morphine Sulfate () 2 mg IV Q4H PRN PRN PRN Reason: Pain Score 4-10/10 Nutritional Formula ([place] - [place] Flavor) 1 packet PO BIDCM [facility] Last Admin: 06/30/19 09:31 Dose: 1 packet Documented by: Oxycodone HCl (Oxyir) 5 mg PO Q4H PRN PRN PRN Reason: Pain Score 4-10/10 Last Admin: 06/30/19 06:38 Dose: 5 mg Documented by: Polyethylene Glycol (Miralax) 17 gm PO DAILY [facility] Last Admin: 06/30/19 09:33 Dose: Not Given Documented by: Sodium Chloride () 10 - 40 ml IV UD PRN PRN Reason: SALINE FLUSH Last Admin: 06/30/19 06:38 Dose: 10 ml Documented by: Zolpidem Tartrate (Ambien (Generic)) 5 mg PO QHS [facility] Last Admin: 06/29/19 21:09 Dose: 5 mg Documented by: STROKE Vital Signs/Narrative: Vital Signs Temp Pulse Resp BP Pulse Ox 06/30/19 09:37 98.5 F 63 18 121/65 H 96 06/30/19 09:32 63 Medical Necessity - Tobacco Use Smoking Status: Former smoker Tobacco Use: Cigarettes Assessment/Plan All Active Problems Ulcer of right lower extremity with fat layer exposed (Acute) Controlled diabetes mellitus (Acute) Ulcer of right foot with fat layer exposed (Acute) JUSTIN (acute kidney injury) (Acute) Osteomyelitis of toe of right foot (Acute) Type 2 diabetes mellitus with diabetic neuropathy, unspecified (Acute) Cellulitis of right toe (Acute) The patient is a 68 year old M with history of type 2 diabetes mellitus and peripheral vascular disease was sent to ER from wound center today for nonhealing right great toe ulcer for about 3 weeks. []In ER, vitals are stable. X-ray of right great toe was done. It shows soft tissue swelling and degenerative changes of interphalangeal joints. IV Unasyn ordered in ER. Patient is further admitted. 1. Right great toe nonhealing ulcer consistent with CHRONIC osteomyelitis and chronic bilateral venous insufficiency: [facility] Started on IV Unasyn in ER and is being continued. 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 Welsh who is been consulted. Wound culture from 06/20/2019 shows staph epidermidis and anaerobic cocci. Arterial study from 08/15/2018 reported no evidence of significant arterial occlusive disease in lower extremities bilaterally. Distal brachial indexes are bilaterally normal. Patient has history of chronic, right more than left venous insufficiency/deep venous valves incompetence. CRP and ESR elevated. MRI of right lower extremity ordered. 06/28: MRI reviewed. MRI is consistent with osteomyelitis of proximal and distal phalanges of first toe, arthrosis of interphalangeal joint of first digit and tibial sesamoid first metatarsal articulation with atrophy of intrinsic muscle suggestive with peripheral neuropathy. ID consult. Continue Unasyn. 06/29: Patient had debridement down to the right first toe with bone biopsy and excision of right first toe proximal phalanx and base of distal phalanx. Continue IV antibiotic. Repeat wound culture Gram stain does not show organism. Tissue biopsy pending. 2: Initial wound culture shows MRSE. Patient clinically responding on Unasyn. ID consult tomorrow a.m. and discharged on home antibiotics tomorrow 2. Diabetes mellitus type 2, uncontrolled complicated with diabetic nephropathy and neuropathy: Glucose is 169. A1c ordered for tomorrow a.m. Accu-Chek essentials cover with Humalog sliding scale. Hold metformin and Jardiance. On Neurontin. Continue Lantus 25 units daily. 06/28: A1c is 9.0. Glucose is controlled today. Continue Lantus 25 units daily. 06/29: Glucose is controlled. 3. Acute kidney injury probably prerenal complicated with toe infection and medications: Hold metformin and Jardiance. IV fluid normal saline 100 mL/h for 2 L. Monitor intake and output, electrolytes and kidney function. Hold losartan?HCTZ and replaced with hydralazine for BP control. 06/28: BUN 28. Creatinine 1.21. Electrolytes within normal limit. Continue IV fluid. 06/29: Discontinue IV fluid 4. Possible A. fib: Twelve-lead EKG ordered. Patient is on Eliquis 5 mg twice daily. RESUME Eliquis 5. Hypertension: Blood pressure was 141/79. Blood pressure is controlled Other comorbidities include hypertension, morbid obesity: Lipid profile is within normal limits except HDL 32. Atorvastatin increased to 40 mg daily. DVT prophylaxis: On Eliquis 5 mg twice daily. Signout: ID consult and choose oral antibiotic for osteomyelitis of right great toe Laboratory Results Microbiology Past 72 Hours 06/27/19 13:00 Wound - Toe Gram Stain - Final 06/27/19 13:00 Wound - Toe Wound Culture - Final Staphylococcus epidermidis 06/27/19 13:00 Wound - Toe Anaerobic Culture - Preliminary 06/28/19 15:27 Tissue - Toe Gram Stain - Final 06/28/19 15:27 Tissue - Toe Wound Culture - Preliminary No growth-Final to follow 06/28/19 15:27 Bone - Toe Gram Stain - Final 06/28/19 15:27 Bone - Toe Wound Culture - Preliminary No growth-Final to follow Laboratory Results 06/29/19 15:56: POC Glucose 193 H 06/29/19 21:05: POC Glucose 244 H 06/30/19 05:45: Sodium 138, Potassium 3.8, Chloride 104, Carbon Dioxide 30.0, Anion Gap 4 L, BUN 19 H, Creatinine 0.83, Estim Creat Clear Calc 98.98, Est GFR (MDRD) Af Amer 118, Est GFR (MDRD) Non-Af 97, BUN/Creatinine Ratio 22.9 H, Glucose 95, Calcium 9.3 Clinical Impression(s) from Imaging Studies Toe X-Ray 06/27/19 10:08 IMPRESSION: Soft tissue swelling. Degenerative changes of the interphalangeal joint. Lower Extremity MRI 06/27/19 14:53 IMPRESSION: Bone edema of the proximal and distal phalanges of the first toe with decreased foci of T1 bone marrow signal suggestive of osteomyelitis. 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 Atrophy of the intrinsic muscles of the forefoot suggestive of peripheral neuropathy. Code Visit Inpatient E&M: 64821 Subs Hosp L2
[2019-06-30 12:00] LABS: Bedside Glucose 127 mg/dL (70-110)
[2019-06-30 14:48] VITALS: BP 128/64; PULSE 73; RESP 18; TEMP 36.8; O2SAT 93
[2019-06-30 16:51] LABS: Bedside Glucose 162 mg/dL (70-110)
[2019-06-30 19:49] VITALS: BP 128/75; PULSE 66; RESP 16; TEMP 37.2; O2SAT 94
[2019-06-30 22:33] VITALS: PULSE 68
[2019-06-30] MEDS: Gabapentin 300 MG Capsule 900 MG PO (22:33)
[2019-06-30] MEDS: Zolpidem Tartrate 5 MG Tablet PO (22:33)
[2019-06-30] MEDS: Atorvastatin Calcium 40 MG Tablet PO (22:34)
[2019-06-30 22:45] LABS: Bedside Glucose 115 mg/dL (70-110)
[2019-07-01 02:06] VITALS: BP 139/73; PULSE 75; RESP 16; TEMP 36.6; O2SAT 93
[2019-07-01] MEDS: oxyCODONE 5 MG Tablet PO (02:07)
[2019-07-01] MEDS: 0.9% Saline Lock 10 ML Syringe IV ×2 (04:54→07:12)
--- NOTE | 2019-07-01 06:52 | PN_ITS ---
Patient Problems: Active and Suspected Problems JUSTIN (acute kidney injury) (Acute) Osteomyelitis of toe of right foot (Acute) Type 2 diabetes mellitus with diabetic neuropathy, unspecified (Acute) Cellulitis of right toe (Acute) Subjective: This 68-year-old male was seen bedside status post debridement and nail avulsion of the right hallux. He denies foot pain, fever, chill, nausea, vomiting. He is eager to return home. - Physical Exam Vitals/I&O's: Vital Signs Temp Pulse Resp BP Pulse Ox 98 F 75 16 139/73 H 93 07/01/19 02:06 07/01/19 02:06 07/01/19 02:06 07/01/19 02:06 07/01/19 02:06 Oxygen Delivery Method Room Air Weight: 109.7 kg Body Mass Index (BMI) 30.7 Finger Stick Blood Glucose 108 Intake and Output for Last 24 Hours 06/29/19 06/30/19 07/01/19 23:59 23:59 23:59 Intake Total 1640.5 / 1640.5 3006.00 / 3006.00 Balance 1640.5 / 1640.5 3006.00 / 3006.00 General: Alert, Oriented x3, Cooperative Extremities: No cyanosis, Capillary Refill Less than 3 Seconds, No Calf Te nderness, Diminished Peripheral Pulses, Edema - Mild Skin: Ulcer/ Wound - Dorsal hallux has sutures intact with previously removed nail. There is some granular and fibrotic tissue. There is no gapping of the sutured site. No erythema proximal streaking odor or abscess or necrosis. The adjacent skin is hairless, atrophic, and hyperpigmented Musculoskeletal: No Tenderness to Palpation of Joints or Extremities, Muscle Wasting, - - No pain with procedure site / wound manipulation Neurological: - - Lack of normal epicritic sensation to touch right foot Psych/Mental Status: Normal Affect, Appropriate Microbiology Past 72 Hours 06/27/19 13:00 Wound - Toe Gram Stain - Final 06/27/19 13:00 Wound - Toe Wound Culture - Final Staphylococcus epidermidis 06/27/19 13:00 Wound - Toe Anaerobic Culture - Preliminary 06/28/19 15:27 Tissue - Toe Gram Stain - Final 06/28/19 15:27 Tissue - Toe Wound Culture - Preliminary No growth-Final to follow 06/28/19 15:27 Bone - Toe Gram Stain - Final 06/28/19 15:27 Bone - Toe Wound Culture - Preliminary No growth-Final to follow Laboratory Results 06/30/19 05:45: Sodium 138, Potassium 3.8, Chloride 104, Carbon Dioxide 30.0, Anion Gap 4 L, BUN 19 H, Creatinine 0.83, Estim Creat Clear Calc 98.98, Est GFR (MDRD) Af Amer 118, Est GFR (MDRD) Non-Af 97, BUN/Creatinine Ratio 22.9 H, Glucose 95, Calcium 9.3 06/30/19 11:55: POC Glucose 127 H 06/30/19 16:07: POC Glucose 162 H 06/30/19 22:31: POC Glucose 115 H Current Medications Acetaminophen (Tylenol) 650 mg PO Q6H PRN PRN PRN Reason: Pain Score 1-3 /Temp>100.7 Last Admin: 06/30/19 06:38 Dose: 650 mg Documented by: Apixaban (Eliquis) 5 mg PO BID [facility] Last Admin: 06/30/19 22:34 Dose: 5 mg Documented by: Atorvastatin Calcium (Lipitor) 40 mg PO QHS [facility] Last Admin: 06/30/19 22:34 Dose: 40 mg Documented by: Bisacodyl (Dulcolax) 10 mg RECTAL DAILY PRN PRN PRN Reason: Constipation Cholecalciferol (Vitamin D) 2,000 unit PO DAILY [facility] Last Admin: 06/30/19 09:32 Dose: 2,000 unit Documented by: Cyanocobalamin (Vitamin B12) 1,000 mcg PO DAILY [facility] Last Admin: 06/30/19 09:33 Dose: 1,000 mcg Documented by: Fluticasone Propionate (Flonase Nasal [place]) 2 spray NASAL DAILY PRN PRN Reason: ALLERGIES Gabapentin (Neurontin) 300 mg PO BREAKFAST [facility] Last Admin: 06/30/19 09:32 Dose: 300 mg Documented by: Gabapentin (Neurontin) 900 mg PO QHS [facility] Last Admin: 06/30/19 22:33 Dose: 900 mg Documented by: Glucagon () 1 mg IM .X1 PRN PRN Reason: Hypoglycemia Hydralazine HCl (Apresoline) 50 mg PO BID [facility] Last Admin: 06/30/19 22:33 Dose: 50 mg Documented by: Hydralazine HCl (Apresoline Iv) 10 mg IV Q4H PRN PRN PRN Reason: SBP > 180 or DBP>100 Ampicillin Sodium/Sulbactam (Sodium 3 gm/ Sodium Chloride) 112 mls @ 150 mls/hr IV Q8 [facility] Last Admin: 07/01/19 04:54 Dose: 150 mls/hr Documented by: Sodium Chloride () 250 mls @ 15 mls/hr IV .[id number] PRN PRN Reason: Saline Flush Last Infusion: 06/30/19 19:00 Dose: 0 mls/hr Documented by: Insulin Glargine (Lantus (Bkc)) 25 units SC QHS [facility] Last Admin: 06/30/19 22:34 Dose: 25 units Documented by: Insulin Human Lispro (Humalog Kwikpen (Bkc)) 0 unit SC ACHS [facility]; Protocol Last Admin: 06/30/19 22:36 Dose: Not Given Documented by: Insulin Human Lispro (Humalog Kwikpen (Bkc)) 5 unit SC TIDAC [facility] Last Admin: 06/30/19 18:29 Dose: 5 u Documented by: Morphine Sulfate () 2 mg IV Q4H PRN PRN PRN Reason: Pain Score 4-10/10 Nutritional Formula ([place] - [place] Flavor) 1 packet PO BIDCM [facility] Last Admin: 06/30/19 16:08 Dose: 1 packet Documented by: Oxycodone HCl (Oxyir) 5 mg PO Q4H PRN PRN PRN Reason: Pain Score 4-10/10 Last Admin: 07/01/19 02:07 Dose: 5 mg Documented by: Polyethylene Glycol (Miralax) 17 gm PO DAILY [facility] Last Admin: 06/30/19 09:33 Dose: Not Given Documented by: Sodium Chloride () 10 - 40 ml IV UD PRN PRN Reason: SALINE FLUSH Last Admin: 07/01/19 04:54 Dose: 10 ml Documented by: Zolpidem Tartrate (Ambien (Generic)) 5 mg PO QHS [facility] Last Admin: 06/30/19 22:33 Dose: 5 mg Documented by: Medical Necessity - Tobacco Use Smoking Status: Former smoker Tobacco Use: Cigarettes Assessment/Plan All Active Problems Ulcer of right lower extremity with fat layer exposed (Acute) Controlled diabetes mellitus (Acute) Ulcer of right foot with fat layer exposed (Acute) JUSTIN (acute kidney injury) (Acute) Osteomyelitis of toe of right foot (Acute) Type 2 diabetes mellitus with diabetic neuropathy, unspecified (Acute) Cellulitis of right toe (Acute) Right 1st toe ulceration down to bone w/ osteomyelitis s/p debridement on 06/28/2019 Diabetes with neuropathy Other comorbidities Reviewed diagnostic data. Site healing well, no evidence of complication. He remains afebrile overnight and his vital signs are stable. Labs this morning are pending. Bone culture and clearance fragments have been obtained and results pending - no growth so far. Coag neg staph from wound culture. Continue with IV antibiotics, ID service has been consulted and input is appreciated. New noninvasive lower extremity arterial studies have been ordered for later today, and the results are pending. Wound care right 1st toe: Continue with dressing changes daily - aquacell ag with overlying gauze, kerlix and nury. Ok to weightbear on right heel, but no weight on toes right foot, keep right foot elevated. Discharge planning: From podiatry standpoint ok to d/c home once home antibiotics are determined. Patient's is going to change dressing at home. This will consist of the following: Cleanse with normal saline solution, apply Aquacel Ag with overlying gauze/nury dressing - change daily. Patient to follow up in 1 week at [facility] upon discharge home. Podiatry will continue to follow daily while inpatient on a biweekly basis. Please do not hesitate to call if you have any questions. Vi Rand DPM, FACFAS [facility] [phone]
--- NOTE | 2019-07-01 07:18 | DCINST_ITS ---
Discharge Activity: - - heel weightbear right foot with surgical shoe Weight Bearing Status: Partial weight bearing Call your doctor if your incision/area has: Continuous Slow Oozing, Sudden Increased Bleeding, Increased Pain/ Swelling, Increased Redness, Foul Smelling Discharge, Swelling at the incision site Call your doctor if you observe: Fever of 101 or Higher, Coldness, Increased Pain, Calf discomfort, Uncontrolled pain Cleanse incision/area with: Normal Saline, - - do not soak. change dressing daily with aquacell ag, gauze, kerlix, nury wrap Allergies/Adverse Reactions: Allergies No Known Allergies Allergy (Verified 06/27/19 09:29) Medications to take at Discharge Cholecalciferol (Vitamin D3) [Vitamin D3] 2,000 unit PO DAILY 08/02/18 Cyanocobalamin (Vitamin B-12) [Vitamin B-12] 2,000 mcg PO DAILY 08/02/18 Empagliflozin [Jardiance] 25 mg PO DAILY 08/02/18 Insulin Glargine,Hum.rec.anlog [Lantus] 25 unit SQ DAILY 08/02/18 Metformin HCl 1,000 mg PO BID 08/02/18 Apixaban [Eliquis] 5 mg PO BID 09/06/18 Amiodarone HCl 200 mg PO DAILY 06/27/19 Atorvastatin Calcium [Lipitor] 20 mg PO QHS 06/27/19 Diltiazem HCl [Diltiazem 24Hr Cd] 120 mg PO DAILY 06/27/19 Fluticasone 0.05% [Flonase Nasal [place]] 2 spray NASAL DAILY PRN PRN 06/27/19 Gabapentin [Neurontin] 300 mg PO DAILY@0800 06/27/19 Gabapentin [Neurontin] 900 mg PO QHS 06/27/19 Losartan/Hydrochlorothiazide [Losartan-Hctz 100-25 mg Tab] 1 tab PO DAILY 06/27/19 Trazodone HCl 150 mg PO QHS 06/27/19 Primary Care Physician: Jonnie Armenta MD [Primary Care Provider] - Test Results: Test results from this visit will be discussed in further detail at your follow- up appointment, if applicable. Please Follow Up With: Lucius Isbell DPM When: 1 week after discharge at [facility]. Call [phone]. Proposed Discharge Date: 07/02/19
[2019-07-01] MEDS: Acetaminophen 325 MG Tablet 650 MG PO (07:43)
[2019-07-01] MEDS: Cyanocobalamin 500 MCG Tablet 1000 MCG PO (07:44)
[2019-07-01] MEDS: Gabapentin 300 MG Capsule PO (07:44)
[2019-07-01] MEDS: Insulin Lispro 100 UNIT/ML INSULN.PEN SC ×3 (07:44→10:48)
[2019-07-01 07:46] VITALS: BP 143/84; PULSE 61; RESP 16; TEMP 36.8; O2SAT 95
[2019-07-01] MEDS: hydrALAZINE 50 MG Tablet PO (07:46)
[2019-07-01 08:04] LABS: Erythrocyte Sedimentation Rate 29 mm/hr (0-20)
[2019-07-01 08:06] LABS: Absolute Lymphocyte Count 1.87 X10^3/uL (0.83-4.51); Absolute Neutrophil Count 4.3 X10^3/uL (2.0-7.7); Basophil# 0.06 X10^3/uL; Basophil% 0.8 % (0-1); Eosinophil# 0.21 X10^3/uL; Eosinophils% 2.8 % (0-5); Hematocrit 45.3 % (40-54); Hemoglobin 15.2 g/dL (13.0-16.5); Lymphocyte # 1.87 X10^3/ul (4.0); Lymphocyte % 25.2 % (19-41); Mean Corp Hgb Conc 33.6 g/dL (32-36); Mean Corpuscular Hgb 31.5 pg (27.0-32.0); Mean Platelet Vol. 9.3 fl (6.2-12.0); Monocyte# 0.89 X10^3/uL; NRBC Flagged by Analyzer 0 % (0-5); Neutrophil # 4.33 X10^3/uL (2.7-7.7); Neutrophil % 58.4 % (47-70); Platelet Count 339 K/mm3 (150-450); RBC Distribution Width CV 13.2 % (11.6-14.6); RBC Distribution Width SD 45.1 fl (35.1-43.9); Red Blood Count 4.82 M/mm3 (4.6-6.2); White Blood Count 7.4 K/mm3 (4.4-11.0)
[2019-07-01 08:15] LABS: Bedside Glucose 114 mg/dL (70-110)
[2019-07-01] MEDS: APIXABAN 5 MG TABLET PO (10:47)
[2019-07-01 10:56] LABS: Bedside Glucose 193 mg/dL (70-110)
--- NOTE | 2019-07-01 11:56 | NURSING ---
Podiatry changed the right foot dressing this am. Will remove if Infectious Disease would like to see, otherwise will leave dressing in place.
--- NOTE | 2019-07-01 13:45 | PCM.HP.ID ---
Problem List (1) Osteomyelitis of toe of right foot Status: Acute Reason for Consult: osteo Consulted by: Dr. Lawson History of Present Illness: The patient is a 68 year old M with DM, presented with 3 weeks of R 1st toe swelling, redness, drainage. No pain in foot with his neuropathy. No fever, no n/v/d. He thinks it started when he rolled over on his toe while walking. Some bloody drainage. Saw Dr. Welsh, given a week of bactrim without improvement. Came to ED, taken to OR 06/[address] Isbell for I&D. On unasyn, feeling good. Full ROS performed and neg except as noted above. - Medical History Past Medical History (Chronic Problems): Chronic Problems Ulcer of left lower extremity with fat layer exposed (Chronic) Agent orange exposure (Chronic) PVD (peripheral vascular disease) (Chronic) Pain of right lower extremity (Chronic) Pain of left lower extremity (Chronic) Allergies/Adverse Reactions: Allergies No Known Allergies Allergy (Verified 06/27/19 09:29) Home Medications: Ambulatory Orders Medication Instructions Recorded Cholecalciferol (Vitamin D3) 2,000 unit PO DAILY 08/02/18 [Vitamin D3] Cyanocobalamin (Vitamin B-12) 2,000 mcg PO DAILY 08/02/18 [Vitamin B-12] Empagliflozin [Jardiance] 25 mg PO DAILY 08/02/18 Insulin Glargine,Hum.rec.anlog 25 unit SQ DAILY 08/02/18 [Lantus] Metformin HCl 1,000 mg PO BID 08/02/18 Apixaban [Eliquis] 5 mg PO BID 09/06/18 Amiodarone HCl 200 mg PO DAILY 06/27/19 Atorvastatin Calcium [Lipitor] 20 mg PO QHS 06/27/19 Diltiazem HCl [Diltiazem 24Hr Cd] 120 mg PO DAILY 06/27/19 Fluticasone 0.05% [Flonase Nasal 2 spray NASAL DAILY PRN PRN 06/27/19 [place]] Gabapentin [Neurontin] 300 mg PO DAILY@0800 06/27/19 Gabapentin [Neurontin] 900 mg PO QHS 06/27/19 Losartan/Hydrochlorothiazide 1 tab PO DAILY 06/27/19 [Losartan-Hctz 100-25 mg Tab] Trazodone HCl 150 mg PO QHS 06/27/19 Doxycycline 100 mg PO BID 40 Days #79 cap 07/01/19 - Social History Tobacco Use: non-smoker Vital Signs Temp Pulse Resp BP Pulse Ox 98.2 F 61 16 143/84 H 95 07/01/19 07:46 07/01/19 07:46 07/01/19 07:46 07/01/19 07:46 07/01/19 07:46 Oxygen Delivery Method Room Air Weight: 109.7 kg Body Mass Index (BMI) 30.7 Finger Stick Blood Glucose 108 Microbiology Past 72 Hours 06/28/19 15:27 Gram Stain - Final Tissue - Toe Wound Culture - Final No growth aerobically. 06/28/19 15:27 Gram Stain - Final Bone - Toe Wound Culture - Final No growth aerobically. 06/27/19 13:00 Gram Stain - Final Wound - Toe Wound Culture - Final Staphylococcus epidermidis Anaerobic Culture - Final No anaerobic bacteria isolated. Laboratory Tests Past 24 Hrs 07/01/19 07:44 WBC 7.4 RBC 4.82 Hgb 15.2 Hct 45.3 MCV 94.0 MCH 31.5 MCHC 33.6 RDW Std Deviation 45.1 H RDW Coeff of Amadou 13.2 Plt Count 339 MPV 9.3 Immature Gran % (Auto) 0.800 Neut % (Auto) 58.4 Lymph % (Auto) 25.2 [place] % (Auto) 12.0 H Eos % (Auto) 2.8 Baso % (Auto) 0.8 Absolute Neuts (auto) 4.3 Absolute Lymphs (auto) 1.87 Nucleated RBC % 0 ESR 29 H - Other Studies Radiology: [] reviewed Other Studies: [] Route of nutrition/ use of supplements: [] Nutritional Intake: [] IV Site: [] James Catheter: [] - Physical Exam General: Alert, Oriented x3, Cooperative, No apparent distress HEENT: Atraumatic, PERRLA, EOMI Neck: Supple, No Nodes Lungs: Clear to auscultation, Normal air movement Cardiovascular: Regular rate, Regular Rhythm Abdomen: Soft, Non Tender, Non-Distended Extremities: No edema Skin: Ulcer/ Wound - wrapped, reviewed photo IV Site: Peripheral, without redness Musculoskeletal: No Tenderness to Palpation of Joints or Extremities Neurological: Cranial nerves II-XII grossly intact - Assessment/Plan Antibiotics: [] Assessment/Plan: [] Active and Suspected Problems JUSTIN (acute kidney injury) (Acute) Osteomyelitis of toe of right foot (Acute) Type 2 diabetes mellitus with diabetic neuropathy, unspecified (Acute) Cellulitis of right toe (Acute) R 1st toe osteo, JUSTIN resolved. Wound cxs showing MRSE and MSSE, rare. Surg cx neg. Ok for d/c home on 6 weeks of po doxy, stop date 08/09/19. ID followup prn, wrote rx. Will follow, thank you.
--- NOTE | 2019-07-01 14:08 | PCM.DC ---
- Discharge Diagnoses Current Active Problems: Current Active and Chronic Problems JUSTIN (acute kidney injury) (Acute) Osteomyelitis of toe of right foot (Acute) Type 2 diabetes mellitus with diabetic neuropathy, unspecified (Acute) Cellulitis of right toe (Acute) You will use the following diet at home:: Calorie/Carbohydrate Controlled (specify 1200, 1400, etc) - 1800 Your food should be the consistency of: Regular Your liquids should be the consistency of: Regular/Thin Discharge Activity: - - heel weightbear right foot with surgical shoe Weight Bearing Status: Partial weight bearing Call your doctor if your incision/area has: Continuous Slow Oozing, Sudden Increased Bleeding, Increased Pain/ Swelling, Increased Redness, Foul Smelling Discharge, Swelling at the incision site Call your doctor if you observe: Fever of 101 or Higher, Coldness, Increased Pain, Calf discomfort, Uncontrolled pain Cleanse incision/area with: Normal Saline, - - do not soak. change dressing daily with aquacell ag, gauze, kerlix, nury wrap Allergies/Adverse Reactions: Allergies No Known Allergies Allergy (Verified 06/27/19 09:29) Medications to take at Discharge Cholecalciferol (Vitamin D3) [Vitamin D3] 2,000 unit PO DAILY 08/02/18 Cyanocobalamin (Vitamin B-12) [Vitamin B-12] 2,000 mcg PO DAILY 08/02/18 Empagliflozin [Jardiance] 25 mg PO DAILY 08/02/18 Insulin Glargine,Hum.rec.anlog [Lantus] 25 unit SQ DAILY 08/02/18 Metformin HCl 1,000 mg PO BID 08/02/18 Apixaban [Eliquis] 5 mg PO BID 09/06/18 Amiodarone HCl 200 mg PO DAILY 06/27/19 Atorvastatin Calcium [Lipitor] 20 mg PO QHS 06/27/19 Diltiazem HCl [Diltiazem 24Hr Cd] 120 mg PO DAILY 06/27/19 Fluticasone 0.05% [Flonase Nasal [place]] 2 spray NASAL DAILY PRN PRN 06/27/19 Gabapentin [Neurontin] 300 mg PO DAILY@0800 06/27/19 Gabapentin [Neurontin] 900 mg PO QHS 06/27/19 Losartan/Hydrochlorothiazide [Losartan-Hctz 100-25 mg Tab] 1 tab PO DAILY 06/27/19 Trazodone HCl 150 mg PO QHS 06/27/19 Doxycycline 100 mg PO BID 40 Days #79 cap 07/01/19 Oxycodone [Oxyir] 5 mg PO Q4H PRN PRN 3 Days #12 tab 07/01/19 The following prescriptions were given: Doxycycline 100 mg PO BID 40 Days #79 cap Transmission Status: Received by [facility] Oxycodone [Oxyir] 5 mg PO Q4H PRN PRN 3 Days #12 tab PRN Reason: Pain Score 4-10/10 Transmission Status: Sent to [facility] Primary Care Physician: Jonnie Armenta MD [Primary Care Provider] - Within 2 Weeks Test Results: Test results from this visit will be discussed in further detail at your follow-up appointment, if applicable. Please Follow Up With: Lucius Isbell DPM When: 1 week after discharge at [facility]. Call [phone]. Proposed Discharge Date: 07/01/19
--- NOTE | 2019-07-01 14:10 | PCM.DC.SUM ---
Discharge Date and Diagnosis - Problem List Patient Problems: Active and Suspected Problems JUSTIN (acute kidney injury) (Acute) Osteomyelitis of toe of right foot (Acute) Cellulitis of right toe (Acute) Date of Admission: 06/27/19 Date of Discharge: 07/01/19 - Primary Discharge Diagnosis Active and Suspected Problems JUSTIN (acute kidney injury) (Acute) Osteomyelitis of toe of right foot (Acute) Type 2 diabetes mellitus with diabetic neuropathy, unspecified (Acute) Cellulitis of right toe (Acute) - Secondary Discharge Diagnosis Chronic Problems Ulcer of left lower extremity with fat layer exposed (Chronic) Agent orange exposure (Chronic) PVD (peripheral vascular disease) (Chronic) Pain of right lower extremity (Chronic) Pain of left lower extremity (Chronic) Hospital Course and Treatment Imaging Results: Clinical Impression(s) from Imaging Studies Toe X-Ray 06/27/19 10:08 IMPRESSION: Soft tissue swelling. Degenerative changes of the interphalangeal joint. Electronically Signed: Boo Pollard at 10:31 EST , Service support , Lower Extremity MRI 06/27/19 14:53 IMPRESSION: Bone edema of the proximal and distal phalanges of the first toe with decreased foci of T1 bone marrow signal suggestive of osteomyelitis. 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 Atrophy of the intrinsic muscles of the forefoot suggestive of peripheral neuropathy. Electronically Signed: Rubens Glez MD at 8:35 EST Tel , Service support , Toe X-Ray 06/28/19 15:10 IMPRESSION: Osteomyelitis of the proximal and distal phalanges of the great toe Electronically Signed: Lucius Arredondo MD at 17:25 EST , Service support , Foot X-Ray 06/28/19 15:55 IMPRESSION: Postop changes status post resection of the distal shaft of the proximal phalanx of the great toe Electronically Signed: Lucius Arredondo MD at 17:48 EST , Service support , Consultations 06/27/19 14:53 Consult: Onc/Wound/nail technician teacher Routine Comment: Sukhi: podiatry Sudarshan: BROOKS Summary of Care Provided: The patient is a 68 year old M presents with nonhealing ulcer of his right. Patient had been seen on 20 June and received Bactrim which took about a week. Wound culture from that time showed staph epidermidis as well as anaerobic cocci. Patient presented to the emergency room for cellulitis. Patient had an MRI of his foot on that showed bone edema of the proximal and distal phalanges of the first toe with decreased foci of T1 bone marrow signal suggestive of osteomyelitis. On the , patient underwent debridement to the bone of the right first toe. Patient was seen by infectious disease who recommended doxycycline. Patient continue with that until completion. [] Patient Problems: Active and Suspected Problems JUSTIN (acute kidney injury) (Acute) Osteomyelitis of toe of right foot (Acute) Cellulitis of right toe (Acute) - Physical Exam Vitals/I&O's: Vital Signs Temp Pulse Resp BP Pulse Ox 36.8 C 61 16 143/84 H 95 07/01/19 07:46 07/01/19 07:46 07/01/19 07:46 07/01/19 07:46 07/01/19 07:46 Oxygen Delivery Method Room Air Weight: 109.7 kg Body Mass Index (BMI) 30.7 Finger Stick Blood Glucose 108 Intake and Output for Last 24 Hours 06/29/19 06/30/19 07/01/19 23:59 23:59 23:59 Intake Total 1640.5 / 1640.5 3006.00 / 3006.00 512 / 512 Balance 1640.5 / 1640.5 3006.00 / 3006.00 512 / 512 General: Alert, Cooperative, No apparent distress HEENT: Atraumatic, Normocephalic Oral: Moist Mucosa, No Gingival or Mucosal Lesions/ Ulcerations Neck: No Nodes, Trachea Midline Lungs: Clear to auscultation, Normal air movement, No rhonchi, No wheeze Cardiovascular: Regular rate, Regular Rhythm, Normal S1, Normal S2 Abdomen: Bowel Sounds Present, Soft, Non Tender, Non-Distended Extremities: No edema, No Calf Tenderness Skin: - - venous stasis changes to LE. Musculoskeletal: - - right foot and ankle bandaged--did not remove Psych/Mental Status: Normal Affect, Appropriate Microbiology Past 72 Hours 06/28/19 15:27 Tissue - Toe Gram Stain - Final 06/28/19 15:27 Tissue - Toe Wound Culture - Final No growth aerobically. 06/28/19 15:27 Bone - Toe Gram Stain - Final 06/28/19 15:27 Bone - Toe Wound Culture - Final No growth aerobically. 06/27/19 13:00 Wound - Toe Gram Stain - Final 06/27/19 13:00 Wound - Toe Wound Culture - Final Staphylococcus epidermidis 06/27/19 13:00 Wound - Toe Anaerobic Culture - Final No anaerobic bacteria isolated. Laboratory Results 06/30/19 16:07: POC Glucose 162 H 06/30/19 22:31: POC Glucose 115 H 07/01/19 07:40: POC Glucose 114 H 07/01/19 07:44: WBC 7.4, RBC 4.82, Hgb 15.2, Hct 45.3, MCV 94.0, MCH 31.5, MCHC 33.6, RDW Std Deviation 45.1 H, RDW Coeff of Amadou 13.2, Plt Count 339, MPV 9.3, Immature Gran % (Auto) 0.800, Neut % (Auto) 58.4, Lymph % (Auto) 25.2, [place] % (Auto) 12.0 H, Eos % (Auto) 2.8, Baso % (Auto) 0.8, Absolute Neuts (auto) 4.3, Absolute Lymphs (auto) 1.87, Nucleated RBC % 0, ESR 29 H 07/01/19 10:46: POC Glucose 193 H Current Medications Acetaminophen (Tylenol) 650 mg PO Q6H PRN PRN PRN Reason: Pain Score 1-3 /Temp>100.7 Last Admin: 07/01/19 07:43 Dose: 650 mg Documented by: Apixaban (Eliquis) 5 mg PO BID [facility] Last Admin: 07/01/19 10:47 Dose: 5 mg Documented by: Atorvastatin Calcium (Lipitor) 40 mg PO QHS [facility] Last Admin: 06/30/19 22:34 Dose: 40 mg Documented by: Bisacodyl (Dulcolax) 10 mg RECTAL DAILY PRN PRN PRN Reason: Constipation Cholecalciferol (Vitamin D) 2,000 unit PO DAILY [facility] Last Admin: 07/01/19 07:44 Dose: 2,000 unit Documented by: Cyanocobalamin (Vitamin B12) 1,000 mcg PO DAILY [facility] Last Admin: 07/01/19 07:44 Dose: 1,000 mcg Documented by: Doxycycline Monohydrate (Doxycycline) 100 mg PO BID [facility] Fluticasone Propionate (Flonase Nasal [place]) 2 spray NASAL DAILY PRN PRN Reason: ALLERGIES Gabapentin (Neurontin) 300 mg PO BREAKFAST [facility] Last Admin: 07/01/19 07:44 Dose: 300 mg Documented by: Gabapentin (Neurontin) 900 mg PO QHS [facility] Last Admin: 06/30/19 22:33 Dose: 900 mg Documented by: Glucagon () 1 mg IM .X1 PRN PRN Reason: Hypoglycemia Hydralazine HCl (Apresoline) 50 mg PO BID [facility] Last Admin: 07/01/19 07:46 Dose: 50 mg Documented by: Hydralazine HCl (Apresoline Iv) 10 mg IV Q4H PRN PRN PRN Reason: SBP > 180 or DBP>100 Sodium Chloride () 250 mls @ 15 mls/hr IV .[id number] PRN PRN Reason: Saline Flush Last Infusion: 06/30/19 19:00 Dose: 0 mls/hr Documented by: Insulin Glargine (Lantus (Bkc)) 25 units SC QHS [facility] Last Admin: 06/30/19 22:34 Dose: 25 units Documented by: Insulin Human Lispro (Humalog Kwikpen (Bkc)) 0 unit SC ACHS [facility]; Protocol Last Admin: 07/01/19 10:47 Dose: 2 u Documented by: Insulin Human Lispro (Humalog Kwikpen (Bkc)) 5 unit SC TIDAC [facility] Last Admin: 07/01/19 10:48 Dose: 5 u Documented by: Morphine Sulfate () 2 mg IV Q4H PRN PRN PRN Reason: Pain Score 4-10/10 [facility]al [facility] [facility] Last Admin: 07/01/19 07:43 Dose: 1 packet Documented by: Oxycodone HCl (Oxyir) 5 mg PO Q4H PRN PRN PRN Reason: Pain Score 4-10/10 Last Admin: 07/01/19 02:07 Dose: 5 mg Documented by: Polyethylene Glycol (Miralax) 17 gm PO DAILY [facility] Last Admin: 07/01/19 07:45 Dose: Not Given Documented by: Sodium Chloride () 10 - 40 ml IV UD PRN PRN Reason: SALINE FLUSH Last Admin: 07/01/19 07:12 Dose: 10 ml Documented by: Zolpidem Tartrate (Ambien (Generic)) 5 mg PO QHS [facility] Last Admin: 06/30/19 22:33 Dose: 5 mg Documented by: Discharge Diet: 1800 Calorie Control Diet Discharge Activity: - - heel weightbear right foot with surgical shoe Weight Bearing Status: Partial weight bearing Call your doctor if your incision/area has: Continuous Slow Oozing, Sudden Increased Bleeding, Increased Pain/ Swelling, Increased Redness, Foul Smelling Discharge, Swelling at the incision site Call your doctor if you observe: Fever of 101 or Higher, Coldness, Increased Pain, Calf discomfort, Uncontrolled pain Cleanse incision/area with: Normal Saline, - - do not soak. change dressing daily with aquacell ag, gauze, kerlix, nury wrap Home Medications: Medications to take at Discharge Cholecalciferol (Vitamin D3) [Vitamin D3] 2,000 unit PO DAILY 08/02/18 Cyanocobalamin (Vitamin B-12) [Vitamin B-12] 2,000 mcg PO DAILY 08/02/18 Empagliflozin [Jardiance] 25 mg PO DAILY 08/02/18 Insulin Glargine,Hum.rec.anlog [Lantus] 25 unit SQ DAILY 08/02/18 Metformin HCl 1,000 mg PO BID 08/02/18 Apixaban [Eliquis] 5 mg PO BID 09/06/18 Amiodarone HCl 200 mg PO DAILY 06/27/19 Atorvastatin Calcium [Lipitor] 20 mg PO QHS 06/27/19 Diltiazem HCl [Diltiazem 24Hr Cd] 120 mg PO DAILY 06/27/19 Fluticasone 0.05% [Flonase Nasal [place]] 2 spray NASAL DAILY PRN PRN 06/27/19 Gabapentin [Neurontin] 300 mg PO DAILY@0800 06/27/19 Gabapentin [Neurontin] 900 mg PO QHS 06/27/19 Losartan/Hydrochlorothiazide [Losartan-Hctz 100-25 mg Tab] 1 tab PO DAILY 06/27/19 Trazodone HCl 150 mg PO QHS 06/27/19 Doxycycline 100 mg PO BID 40 Days #79 cap 07/01/19 Oxycodone [Oxyir] 5 mg PO Q4H PRN PRN 3 Days #12 tab 07/01/19 Following Prescrptions Were Given to Patient: Doxycycline 100 mg PO BID 40 Days #79 cap Transmission Status: Received by [facility] Oxycodone [Oxyir] 5 mg PO Q4H PRN PRN 3 Days #12 tab PRN Reason: Pain Score 4-10/10 Transmission Status: Sent to [facility] Primary Care Physician: Jonnie Armenta MD [Primary Care Provider] - Within 2 Weeks Please Follow Up With: Lucius Isbell DPM When: 1 week after discharge at [facility]. Call [phone]. Disposition: Home Minutes spent on discharge:: 32 Patient Condition:: Good Medical Necessity - Tobacco Use Smoking Status: Former smoker Tobacco Use: Cigarettes Meaningful Use Info Meaningful Use Diagnoses (Choose all that apply): None applicable Code Visit Inpatient E&M: 26858 Disch Hosp
--- NOTE | 2019-07-01 14:16 | PCA ---
made an appointment with laverne for patient but patient doesnt want me to make one with his primary care physician until he goes see doctor laverne in office. he said if laverne thinks it is a good idea then he will make one
[2019-07-01] MEDS: Doxycycline 100 MG CAPSULE PO (14:39)
[2019-07-01 14:40] VITALS: BP 153/80; PULSE 59; RESP 18; TEMP 36.8; O2SAT 99
--- NOTE | 2019-07-01 14:43 | CASEMGMT ---
ROSSI LEAHY followed up with patient regarding discharge planning. Patient will go on oral antibiotics per ID. Patient denies need for [facility] for wound care. knows how to complete wound care. Patient denies any further needs or concerns at this time.
--- NOTE | 2019-07-02 13:37 | CASEMGMT ---
Case Management DC F/u Call: DC Date: Monday07/01/2019 DC Diagnosis: JUSTIN (acute kidney injury) (Acute), Osteomyelitis of toe of right foot (Acute), Type 2 diabetes mellitus with diabetic neuropathy, unspecified (Acute), Cellulitis of right toe (Acute) DC Disposition: Home Lace/Strata: 01/29 F/u appointment 06/10/19 at 1500 with [facility] Called patient cell phone listed on demographics, patient answered, this copy writer introduced self and role. Patient states he is doing just fine and today his toe seemed a little more swollen do his has a call out to the doctor but has not heard back from them yet. States is taking his ABX as prescribed, this copy writer advised patient if swelling continues to get worse to call and back and f/u with provider as treatment course may need to change. Denies any issue, concerns, or questions with [facility], medications, or f/u appointments. Thanked patient for choosing care with [facility] and ended conversation. Alyson Cerda RNCM
== END 2019-07-01 15:10 | disposition home or self-care (01) | DRG 629 ==
LOC: ED 10:22 → MS3 11:42
PROVIDERS: Podiatrist; Admitting Provider Internal Medicine; Emergency Provider Emergency Medicine
PROC: 0QBQ0ZZ Excision of Right Toe Phalanx, Open Approach (ICD-10-PCS; principal; 2019-06-28 16:15)
DX: E11.69 Type 2 diabetes mellitus with other specified complication (principal); M86.8X7 Other osteomyelitis, ankle and foot; N17.9 Acute kidney failure, unspecified; I87.2 Venous insufficiency (chronic) (peripheral); E11.42 Type 2 diabetes mellitus with diabetic polyneuropathy; L03.031 Cellulitis of right toe; E11.65 Type 2 diabetes mellitus with hyperglycemia; E11.21 Type 2 diabetes mellitus with diabetic nephropathy; I10 Essential (primary) hypertension; Z87.891 Personal history of nicotine dependence; Z79.01 Long term (current) use of anticoagulants; Z79.4 Long term (current) use of insulin; I73.9 Peripheral vascular disease, unspecified; L97.519 Non-pressure chronic ulcer of other part of right foot with unspecified severity; B95.7 Other staphylococcus as the cause of diseases classified elsewhere
CPT/HCPCS: 11042; 36415; 73630; 73660; 73718; 76000; 80048; 80061; 81001; 82962; 83036; 85025; 85652; 86140; 87015; 87070; 87075; 87077; 87102; 87116; 87186; 87205; 87206; 87640; 88304; 88311; 93005; 97110; 97162; 97166; 97530; 97535; 97802; 99284; J7030; J7050; A4216; J0295